=== PATIENT | male | born 1965 | race Caucasian/White ===

== ENCOUNTER 2019-04-06 12:39 | Emergency (ER) | payer MEDICAID, SELFPAY ==
[2019-04-06] VITALS (7 sets, daily range): BP systolic 152–219; BP diastolic 69–117; PULSE 66–79; RESP 13–20; TEMP 36.8–37.1; O2SAT 97–100; BMI 37.3
--- NOTE | 2019-04-06 13:08 | XR_ITS ---
WS: [id number] CHEST, 1 view. HISTORY: chest pain COMPARISON: 12/13/2018 Scattered granulomata. No pneumonia or suspicious mass. No pleural effusion or pneumothorax. Cardiac size: Normal. Mediastinum/Aorta: Normal mediastinum. No osseous abnormality seen. XR/XR chest 1V [id number] IMPRESSION: Stable chest with no acute cardiopulmonary disease.
--- NOTE | 2019-04-06 13:10 | ECG_ITS ---
Measurements Intervals [place] Rate: 70 P: 42 ND: 168 QRS: 25 QRSD: 93 T: 48 QT: 376 QTc: 406 SINUS RHYTHM Compared to ECG 12/14/2018 01:28:14 No significant changes Electronically Signed On 04-06-2019 19:21:42 SOAKERS SUPERVISOR by Maggie Traore M.D. [id number]
[2019-04-06 13:25] LABS: Basophils # 0.1 10^3/uL (0.0-0.1); Basophils % 0.5 %; Eosinophils # 0.2 10^3/uL (0.0-0.8); Eosinophils % 1.4 %; Hematocrit 44.7 % (42.0-52.0); Hemoglobin 14.9 g/dL (11.7-16.6); Lymphocytes # 2.9 10^3/uL (0.8-4.8); Lymphocytes % 26.7 %; Mean Corpuscular HGB Conc 33.3 g/dL (30.0-36.0); Mean Platelet Volume 9.8 fL (7.4-10.4); Monocytes # 0.9 10^3/uL (0.2-0.9); Monocytes % 8.4 %; Neutrophils # 6.7 10^3/uL (1.8-7.7); Neutrophils % 62.7 %; Nucleated Red Blood Cells % 0 %; Platelet Count 345 10^3/cmm (130-400); Red Blood Count 5.32 10^6/uL (4.1-5.3); Red Cell Distribution Width 12.6 % (12.1-15.1); White Blood Count 10.7 10^3/uL (4.0-10.0)
[2019-04-06 13:50] LABS: Alanine Aminotransferase 30 U/L (0-41); Albumin Level 4.4 g/dL (3.5-5.2); Alkaline Phosphatase 134 IU/L (40-130); Anion Gap 13.9 (5-19); Aspartate Amino Transferase 19 U/L (0-40); Blood Urea Nitrogen 7 mg/dL (6-20); Calcium 9.8 mg/Dl (8.6-10.0); Carbon Dioxide 28 mmol/L (22-29); Chloride 102 mmol/L (98-107); Globulin 3.2 g/dL (1.3-4.6); Glomerular Filtration Rate 87.9 mL/min (90-130); Glucose 117 mg/dL (74-109); Potassium 3.9 mmol/L (3.5-5.1); Sodium 140 mmol/L (136-145); Total Bilirubin 0.4 mg/dL (0.15-1.2); Total Protein 7.6 g/dL (6.6-8.7)
[2019-04-06 13:52] LABS: Troponin T (5th) Once 19 ng/mL (0-15)
--- NOTE | 2019-04-06 20:04 | ED_ITS ---
Entered by Lurdes Casanova, acting as scribe for Apr 06, 2019 12:39 HPI - Chest Pain General: Chief Complaint: Chest Pain Stated Complaint: Sent over from clinic possible heart attack Time Seen by Provider: 04/06/19 20:03 Source: patient and family Mode of arrival: ambulatory Limitations: no limitations History of Present Illness: HPI narrative: 54 yo male presents with chest pain and tightness. pt states this started 4 days ago. pt states he started having chest pain , while at PCP clinic they sent him here. pt has a recent stent in May. pt states he still has pain and it radiates to his L arm. MD complaint: chest pain and other (tightness) Onset (ago): day(s) (4 days ago) Timing of current episode: still present Prior episodes: Yes Onset: during exertion Pain location: substernal Pain radiation: left arm Quality: tightness Relieving factors: nothing Exacerbating factors: exertion Associated symptoms: Reports other (shortness of breath); Deny abdominal pain, dyspnea, fever(s), nausea or vomiting Treatment prior to arrival: none Review of Systems General: Reports: 10 or more systems reviewed and unremarkable except in HPI and below Const: Denies: fever or chills Eyes: Denies: change in vision ENMT: Denies: throat pain or mouth pain Card: Reports: chest pain Resp: Denies: shortness of breath GI: Denies: abdominal pain, nausea, vomiting or diarrhea Musc: Denies: back pain or joint pain Skin/Breast: Denies: rash Neuro: Denies: headache or behavioral changes Psych: Denies: depression Endo: Denies: excessive urination [place]/Lymph: Denies: easy bruising All/Imm: Denies: hives PFSH ED PFSH: Statuses (acute, chronic, etc) shown below reflect problem list status as previously entered and may not be historically accurate Social History Smoking and tobacco status: former smoker Physical Exam Const: COMMON NORMALS: no apparent distress and healthy appearing HENMT: COMMON NORMALS: normocephalic and external nose normal HEAD & SCALP: normocephalic NOSE: external nose normal and no nasal discharge (nasal dischage) Eye: COMMON NORMALS: PERRL PUPIL: Yes PERRL Neck/C-Spine: COMMON NORMALS: full ROM and no lymphadenopathy Chest: COMMONS NORMALS: inspection of chest normal Resp: COMMON NORMALS: normal respiratory effort and clear to auscultation bilaterally AUSCULTATION: clear to auscultation bilaterally Cardio: COMMON NORMALS: regular rate and regular rhythm RATE: regular rate RHYTHM: regular rhythm GI: COMMON NORMALS: soft to palpation PALPATION: Yes soft Extremity: COMMON NORMALS: normal to inspection, full ROM and normal capillary refill Psych: COMMON NORMALS: mental status grossly normal and cooperative Skin: COMMON NORMALS: no rashes or lesions noted GENERAL SKIN EXAM: no rashes or lesions noted Course Vital Signs: Vital signs: Vital Signs Temperature 98.8 F 04/06/19 20:28 Pulse Rate 68 04/06/19 23:52 Respiratory Rate 16 04/06/19 23:52 Blood Pressure 170/95 04/06/19 23:52 Pulse Oximetry 97 04/06/19 23:52 MDM - Chest Pain MDM Narrative: Medical decision making narrative: Patient presents here with chest pain that is atypical in nature. Repeat troponin is negative. Patient's been pain-free here and I feel he is stable for discharge. He is to follow-up with primary care doctor in 3 to 5 days and return to the ER if worsening. 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 Lab Data: Labs: Lab Results 04/06/19 04/06/19 04/06/19 Range/Units 13:17 13:17 13:17 WBC 10.7 H (4.0-10.0) 10^3/ uL RBC 5.32 H (4.1-5.3) 10^6/u L Hgb 14.9 (11.7-16.6) g/dL Hct 44.7 (42.0-52.0) % MCV 84.0 (80-94) fL MCH 28.0 (28.0-34.0) pg MCHC 33.3 (30.0-36.0) g/dL RDW 12.6 (12.1-15.1) % Plt Count 345 (130-400) 10^3/c mm MPV 9.8 (7.4-10.4) fL Neut % (Auto) 62.7 % Lymph % (Auto) 26.7 % [place] % (Auto) 8.4 % Eos % (Auto) 1.4 % Baso % (Auto) 0.5 % Neut # (Auto) 6.7 (1.8-7.7) 10^3/u L Lymph # (Auto) 2.9 (0.8-4.8) 10^3/u L [place] # (Auto) 0.9 (0.2-0.9) 10^3/u L Eos # (Auto) 0.2 (0.0-0.8) 10^3/u L Baso # (Auto) 0.1 (0.0-0.1) 10^3/u L Nucleated RBC % (a uto) 0 % Nucleated RBCs # 0.0 /100WBC Sodium 140 (136-145) mmol/L Potassium 3.9 (3.5-5.1) mmol/L Chloride 102 (98-107) mmol/L Carbon Dioxide 28 (22-29) mmol/L Anion Gap 13.9 (5-19) BUN 7 (6-20) mg/dL Creatinine 0.9 (0.7-1.2) mg/dL GFR Calculation 87.9 L (90-130) mL/min Glucose 117 H (74-109) mg/dL Calcium 9.8 (8.6-10.0) mg/Dl Total Bilirubin 0.4 (0.15-1.2) mg/dL AST 19 (0-40) U/L ALT 30 (0-41) U/L Alkaline Phosphata se 134 H (40-130) IU/L Troponin T Gen 5 n g/L 19 H (0-15) ng/mL Troponin T Baselin e (0-15) ng/mL Troponin T 120 Min [place] (0-15) ng/mL Total Protein 7.6 (6.6-8.7) g/dL Albumin 4.4 (3.5-5.2) g/dL Globulin 3.2 (1.3-4.6) g/dL 04/06/19 04/06/19 Range/Units 21:15 23:00 WBC (4.0-10.0) 10^3/ uL RBC (4.1-5.3) 10^6/u L Hgb (11.7-16.6) g/dL Hct (42.0-52.0) % MCV (80-94) fL MCH (28.0-34.0) pg MCHC (30.0-36.0) g/dL RDW (12.1-15.1) % Plt Count (130-400) 10^3/c mm MPV (7.4-10.4) fL Neut % (Auto) % Lymph % (Auto) % [place] % (Auto) % Eos % (Auto) % Baso % (Auto) % Neut # (Auto) (1.8-7.7) 10^3/u L Lymph # (Auto) (0.8-4.8) 10^3/u L [place] # (Auto) (0.2-0.9) 10^3/u L Eos # (Auto) (0.0-0.8) 10^3/u L Baso # (Auto) (0.0-0.1) 10^3/u L Nucleated RBC % (a uto) % Nucleated RBCs # /100WBC Sodium (136-145) mmol/L Potassium (3.5-5.1) mmol/L Chloride (98-107) mmol/L Carbon Dioxide (22-29) mmol/L Anion Gap (5-19) BUN (6-20) mg/dL Creatinine (0.7-1.2) mg/dL GFR Calculation (90-130) mL/min Glucose (74-109) mg/dL Calcium (8.6-10.0) mg/Dl Total Bilirubin (0.15-1.2) mg/dL AST (0-40) U/L ALT (0-41) U/L Alkaline Phosphata se (40-130) IU/L Troponin T Gen 5 n g/L (0-15) ng/mL Troponin T Baselin e 25 H (0-15) ng/mL Troponin T 120 Min [place] 22.57 H (0-15) ng/mL Total Protein (6.6-8.7) g/dL Albumin (3.5-5.2) g/dL Globulin (1.3-4.6) g/dL Imaging Data^: CXR: Attestation: I personally reviewed and interpreted this imaging study as follows: My impression: nad EKG Data^: EKG 1: EKG interpretation date: 04/06/19 EKG interpretation time: 13:04 Interpretation: nsr hr [address] or t wave abnormalities EKG 2: Attestation: I personally reviewed and interpreted this EKG as follows: EKG interpretation date: 04/06/19 EKG interpretation time: 21:46 Interpretation: Normal sinus rhythm heart rate [address] or T wave abnormalities Discharge Plan Discharge Patient Disposition: Home, Self-Care Clinical Impression: Hypertension Chest pain Qualifiers: Chest pain type: unspecified Qualified Code(s): R07.9 - Chest pain, unspecified Condition: Stable Prescriptions: New hydrochlorothiazide 50 mg tablet 50 mg PO DAILY Qty: 30 RF: 0 No Action atorvastatin 40 mg Tablet 40 mg PO DAILY RF: 0 metformin 500 mg Tablet 500 mg PO BID RF: 0 gabapentin 600 mg Tablet 1,200 mg PO TID PRN (Reason: NERVE PAIN) RF: 0 Lantus U-100 Insulin 100 unit/mL Solution See Rx Instructions .ROUTE .COMPLEX RF: 0 meloxicam 15 mg Tablet 15 mg PO DAILY RF: 0 Plavix 75 mg Tablet 75 mg PO DAILY RF: 0 amitriptyline 50 mg Tablet 50 mg PO BEDTIME RF: 0 Nitrostat 0.4 mg Tablet, Sublingual 0.4 mg SUBLINGUAL Q5M PRN (Reason: Chest Pain) RF: 0 aspirin 81 mg Tablet,Chewable 81 mg PO DAILY RF: 0 montelukast 10 mg Tablet 10 mg PO DAILY RF: 0 hydrochlorothiazide 25 mg Tablet 25 mg PO DAILY RF: 0 Paxil 40 mg Tablet 40 mg PO DAILY RF: 0 lisinopril 40 mg Tablet 40 mg PO BID RF: 0 omeprazole 20 mg Tablet,Delayed Release (Dr/Ec) 20 mg PO DAILY RF: 0 Discharge Orders: Discharge Order (Routine); Ordered 04/06/19 Ordered By: Constance Wright Referrals: Niesha Hinds [Primary Care Provider] - 4-7 days Discharge Diet: Advance as tolerated Discharge Activity: Resume usual activity Patient Instructions: Chest Pain (ED) Discharge Date/Time: 04/06/19 23:57 Coding Level of Care Code ED Database Marketing Specialist for Chg Fwd Exam Problem Focused The documentation recorded by the Edilberto stuart Bridget Annette, accurately reflects the service I personally performed and the decisions made by Adriana crockett Korby, MD Apr 06, 2019 12:39
--- NOTE | 2019-04-06 20:27 | PC.NURSE ---
Pt visited [facility] this morning and had elevated BP, told to come to ER. Pt having chest pain at present. Pt appears NAD. A&O x 4, AUBRIE.
[2019-04-06] MEDS: aspirin 81 mg Chew Tablet 324 MG PO (20:44)
[2019-04-06] MEDS: nitroglycerin 0.4 mg sublingual Tablet SUBLINGUAL (20:45)
--- NOTE | 2019-04-06 21:09 | ECG_ITS ---
Measurements Intervals [place] Rate: 66 P: 72 NV: 168 QRS: 26 QRSD: 89 T: 48 QT: 390 QTc: 411 SINUS RHYTHM POSSIBLE ANTERIOR MYOCARDIAL INFARCTION , OF INDETERMINATE AGE [30 ms Q WAVE IN V3 V3/V4, OR R < 0.2 mV IN V4] Compared to ECG 04/06/2019 13:04:48 Myocardial infarct finding now present Electronically Signed On 04-07-2019 8:08:16 ENDBANDER by Abdoul Traore M.D. [id number] f
[2019-04-06 21:35] LABS: Troponin(5th) Baseline 25 ng/mL (0-15)
--- NOTE | 2019-04-06 23:09 | ECG_ITS ---
Measurements Intervals [place] Rate: 64 P: 68 CO: 175 QRS: 38 QRSD: 86 T: 49 QT: 399 QTc: 413 SINUS RHYTHM POSSIBLE ANTERIOR MYOCARDIAL INFARCTION , OF INDETERMINATE AGE [30 ms Q WAVE IN V3/V4, OR R < 0.2 mV IN V4] Compared to ECG 04/06/2019 13:04:48 Myocardial infarct finding now present Electronically Signed On 04-07-2019 8:09:45 COMPENSATION AND HRIS ANALYST by Abdoul Traore M.D. [id number]
[2019-04-06 23:26] LABS: Troponin 5 2HR 22.57 ng/mL (0-15)
[2019-04-07 00:09] LABS: Troponin 5 2HR Delta -2.43 ABS# (0-10)
== END 2019-04-06 23:57 | disposition home or self-care (01) ==
PROVIDERS: Family Medicine; Emergency Provider Emergency Medicine; Family Provider Internal Medicine; PCP Internal Medicine
DX: R07.9 Chest pain, unspecified (principal); I10 Essential (primary) hypertension; Z79.4 Long term (current) use of insulin; Z79.02 Long term (current) use of antithrombotics/antiplatelets; Z79.82 Long term (current) use of aspirin; Z87.891 Personal history of nicotine dependence
CPT/HCPCS: 36415; 71045; 80053; 84484; 85025; 93005; 99282

== ENCOUNTER 2019-05-24 08:38 | Outpatient (CLI) | payer MEDICAID, SELFPAY ==
--- NOTE | 2019-05-24 08:56 | XR_ITS ---
WS: [id number] LATERAL LUMBAR SPINE: 3 view. Lateral radiographs are performed in upright neutral, flexion and extension to the patient's toleranc e. HISTORY: Low back pain COMPARISON: None available. Posterior lumbar alignment is normal. Mild endplate osteophytes from L3 L5. No fracture. With flexion and extension no change in alignment of the vertebral bodies. XR/XR lumbar spine f/e only [id number] IMPRESSION: 1. No lumbar spine instability. 2. No fracture.
== END 2019-05-24 08:39 | disposition home or self-care (01) ==
PROVIDERS: Family Provider Internal Medicine; PCP Internal Medicine; Visit Provider Licensed Practical Nurse
DX: M51.17 Intervertebral disc disorders with radiculopathy, lumbosacral region (principal)
CPT/HCPCS: 72120

== ENCOUNTER 2019-11-30 12:01 | Inpatient (IN) | payer MEDICAID, SELFPAY ==
[2019-11-30] VITALS (16 sets, daily range): BP systolic 112–177; BP diastolic 74–97; PULSE 73–102; RESP 14–20; TEMP 36.4–37.2; O2SAT 90–99; BMI 31.1
--- NOTE | 2019-11-30 12:23 | ECG_ITS ---
[facility] Test Date: 2019-11-30 Pat Name: Raheel Lam Department: Room: Gender: Male Business Analyst Consultant: : 1965 Requested By: Maria Luisa Holland Order Number: [id number] Kane MD: Kaila Ariza M.D. Measurements Intervals [place] Rate: 87 P: 79 MI: 154 QRS: -5 QRSD: 100 T: 10 QT: 356 QTc: 430 Interpretive Statements SINUS RHYTHM POSSIBLE INFERIOR SC, OF INDETERMINATE AGE Compared to ECG 04/06/2019 22:33:52 Myocardial infarct finding no longer present Electronically Signed On 11-30-2019 20:38:13 CDT by Kaila Ariza M.D. [id number] f
--- NOTE | 2019-11-30 12:23 | XRR_ITS ---
PROCEDURE INFORMATION: Exam: XR Chest, 1 View Exam date and time: 11/30/2019 12:41 PM Age: 54 years old Clinical indication: Pain; Shortness of breath; Other: Abinal; Additional info: Abdominal pain x 3 months TECHNIQUE: Imaging protocol: XR of the chest Views: 1 view. COMPARISON: CR XR chest 1V [id number] 04/06/2019 1:22 PM FINDINGS: Lungs: Hyperinflation, without acute airspace disease. Pleural space: No pleural effusion. Heart/Mediastinum: No cardiomegaly. Bones/joints: Unremarkable. XR/XR chest 1V portable [id number] IMPRESSION: Hyperinflation, without acute airspace or pleural disease.
--- NOTE | 2019-11-30 12:32 | ED_ITS ---
HPI - Recheck/Abnormal Lab/Rx General: Chief Complaint: Recheck/Abnormal Lab/Rx Stated Complaint: abnormal labs Time Seen by Provider: 11/30/19 12:22 Source: patient and family Mode of arrival: ambulatory Limitations: no limitations History of Present Illness: HPI narrative: Mr. Lam is a very nice 54-year-old male who comes in complaining of 3 months of abdominal pain along with nausea and vomiting. Patient states that markedly diminishes his appetite to the point he does not want to eat or drink anything. He states drinking milk will help calm his stomach and take care of the nausea and pain for short time but then it will return. He does get occasional diarrhea with this but not constantly. He denies any fevers or chills but he does have occasional dysuria. He denies any flank pain. Patient went to his primary care physician yesterday to check his blood sugar as he has diabetes and was called this morning stating that his labs were significantly abnormal including an elevated white blood cell count and elevated blood sugar and he needed to come to the ER to get evaluated. Patient states nothing is changed for him since that time. He still feels adela seated and has epigastric pain. Denies any chest pain but does have his baseline shortness of breath which is been present for quite some time according to him. Other than the milk nothing makes his symptoms better or worse. Review of Systems Const: Reports: change in appetite, fatigue and malaise; Denies: fever(s), chills, body aches or diaphoresis Eyes: Denies: change in vision, blurry vision, photophobia, eye discomfort, eye discharge or eye redness ENMT: Denies: throat pain, odynophagia, hoarseness, swelling of lips/tongue, ear or mastoid pain, ear discharge, change in hearing or nasal discharge Card: Denies: chest pain, palpitations, irregular heart rhythm, edema, lightheadedness, syncope, pre-syncope, dyspnea on exertion or orthopnea Resp: Reports: dyspnea; Denies: productive cough, non-productive cough, wheezing, hemoptysis or chest congestion GI: Reports: abdominal pain, nausea and vomiting; Denies: hematemesis, coffee ground emesis, heartburn, diarrhea, constipation, GI cramping, hematochezia or melena : Denies: flank pain, urinary frequency, urinary urgency or hematuria Musc: Denies: neck pain, back pain, extremity pain, extremity swelling, joint pain, joint swelling, joint redness, joint warmth or joint stiffness Skin/Breast: Denies: rash, pruritus, erythema or skin tenderness Neuro: Denies: headache(s), numbness in extremities, weakness in extremities, sensory changes, lack of coordination, difficulty walking, dizziness, vertigo, confusion, Slurred speech present or seizure-like activity [place]/Lymph: Denies: easy bruising, easy bleeding, petechiae, purpura or enlarged lymph nodes All/Imm: Denies: urticaria, throat swelling, tongue swelling, facial swelling or acute wheezing PFSH ED PFSH: Medical History Anxiety CAD (coronary artery disease) Chronic back pain greater than 3 months duration Diabetes Dyslipidemia Intervertebral disc disorder with radiculopathy of lumbosacral region Palpitations Surgical History S/P coronary artery stent placement 10/20/2018 Family History Mother Heart disease COPD (chronic obstructive pulmonary disease) Father Hypertension Grandmother Cancer Social History Smoking and tobacco status: former smoker Alcohol intake: former Substance/Drug Use: never Lives independently: Yes Household members: none Marital status: Current occupational status: disabled Current occupation: filed for disability History of recent travel: No Physical Exam Const: COMMON NORMALS: no acute distress, patient oriented x3, no limitations, healthy appearing and well nourished GENERAL APPEARANCE: cooperative, well kempt and well developed HENMT: COMMON NORMALS: normocephalic, atraumatic, external ears normal, EAC's normal and Normal external nose present HEAD & SCALP: normal to inspection, normocephalic and atraumatic FACE & SINUS: normal facial exam and face symmetric NOSE: Normal external nose present and Normal nares present EXTERNAL EAR: Yes external ears normal EXTERNAL AUDITORY CANAL: EAC's normal MOUTH: Normal oral and palatal mucosa present, lip normal and tongue normal Eye: COMMON NORMALS: Equal, round and reactive pupils present and conjunctivae normal GENERAL EYE: appearance normal, both eyes and all related structures ALIGNMENT: Yes alignment normal PERIORBITAL: periorbital findings normal EYELID: eyelids normal CONJUNCTIVA: Yes conjunctivae normal SCLERA: sclerae normal PUPIL: Yes Equal, round and reactive pupils present Neck/C-Spine: COMMON NORMALS: full ROM, no lymphadenopathy, supple, no meningeal signs and no JVD GENERAL: Yes normal visual inspection and Yes trachea midline Chest: COMMONS NORMALS: normal inspection of the chest and normal palpation of entire chest wall Resp: COMMON NORMALS: normal respiratory effort, No retractions, No use of accessory muscles and clear to auscultation bilaterally EFFORT & INSPECTION: Yes able to speak in complete sentences and Yes symmetric chest movement AUSCULTATION: clear to auscultation bilaterally, no crackles, no rales, no rhonchi and no wheezes Cardio: COMMON NORMALS: no JVD, regular rate, regular rhythm, S1 normal heart sound present and S2 normal heart sound present RATE: regular rate RHYTHM: regular rhythm HEART SOUNDS: S1 normal heart sound present, S2 normal heart sound present, no click, no gallops, no murmurs, no rubs and abnormal split S2 GI: COMMON NORMALS: Soft to palpation and No hepatosplenomegaly present PALPATION: Yes Soft to palpation, Yes Tenderness to palpation present (GI) (Epigastric and right upper quadrant, mild) Details: RUQ, No Guarding due to palpation present (GI), No Rigid due to palpation, Yes No hepatosplenomegaly present, No Hernia present, No Palpable mass present and No Pulsatile mass present : COMMON NORMALS: Yes no CVA tenderness BLADDER/KIDNEY EXAM: Yes no CVA tenderness Back/Pelvis: COMMON NORMALS: no CVA tenderness, thoracic and lumbar spine normal to inspection, no thoracic nor lumbar tenderness and thoraco-lumbar ROM normal Extremity: COMMON NORMALS: normal to inspection, full ROM, capillary refill normal, no joint enlargement, no clubbing, cyanosis or edema and no calf tenderness Neuro: COMMON NORMALS: patient oriented x3, CN's II-XII intact bilaterally, moves all extremities, no focal motor deficits and no sensory deficits noted MENINGEAL SIGNS: Yes no meningeal signs SPEECH: speech normal Psych: COMMON NORMALS: mental status grossly normal, Normal thought process present, cooperative, normal affect, speech normal and activity/motor behavior normal APPEARANCE: Yes well kempt SPEECH: Yes normal speech THOUGHT PROCESS: Normal thought process present Skin: COMMON NORMALS: no rashes or lesions noted, turgor normal, no jaundice, no petechiae and no mottling GENERAL SKIN EXAM: no rashes or lesions noted and turgor normal Course Vital Signs: Vital signs: Vital Signs Temperature 99 F 11/30/19 15:30 Pulse Rate 85 11/30/19 19:00 Respiratory Rate 18 11/30/19 19:48 Blood Pressure 142/84 11/30/19 19:00 Pulse Oximetry 95 11/30/19 19:48 MDM - Recheck/Abnormal Lab/Rx MDM Narrative: Medical decision making narrative: Mr. Lam is a nice 54-year-old male who comes in complaining of vomiting and abdominal pain. Patient symptoms have been going on for 3 months. On today's evaluation he was found to have an anion gap acidosis with ketosis although his ABG shows a normal pH. This likely he has gastroparesis or gallbladder dysfunction not seen by ultrasound. He will need to come into the hospital on insulin drip to close his anion gap and bring his blood sugar back to normal. Patient shows no sign of acute cardiac problems. Chest x-ray is unremarkable. I have reviewed the case in full with Dr. Ji she agrees to admit to the ICU. Lab Data: Attestation: I reviewed the patient's lab results. Labs: Lab Results 11/30/19 11/30/19 11/30/19 Range/Units 12:30 12:30 12:30 WBC 18.3 H (4.0-10.0) 10^3/ uL RBC 4.80 (4.1-5.3) 10^6/u L Hgb 12.9 (11.7-16.6) g/dL Hct 39.3 L (42.0-52.0) % MCV 81.9 (80-94) fL MCH 26.9 L (28.0-34.0) pg MCHC 32.8 (30.0-36.0) g/dL RDW 12.5 (12.1-15.1) % Plt Count 531 H (130-400) 10^3/c mm MPV 10.0 (7.4-10.4) fL Neut % (Auto) 79.4 % Lymph % (Auto) 13.0 % [place] % (Auto) 6.5 % Eos % (Auto) 0.1 % Baso % (Auto) 0.3 % Neut # (Auto) 14.52 H (1.8-7.7) 10^3/u L Lymph # (Auto) 2.4 (0.8-4.8) 10^3/u L [place] # (Auto) 1.2 H (0.2-0.9) 10^3/u L Eos # (Auto) 0.0 (0.0-0.8) 10^3/u L Baso # (Auto) 0.1 (0.0-0.1) 10^3/u L Nucleated RBC % (a uto) 0 % Nucleated RBCs # 0.0 /100WBC PT 12.70 (12.1-14.9) SECO NDS INR 0.92 (0.8-1.2) Specimen Type Sample Site ABG pH (7.35-7.45) ABG pCO2 (35-45) mmHg ABG pO2 (80.0-100.0) mmH g ABG HCO3 (22-26) mmol/L ABG O2 Saturation ABG Base Excess (-2.0-2.0) mmol/ L Cresencio Test A-a O2 Gradient (5-10) mmHg Hematocrit (42-52) % Hgb O2 Saturation (95-100) % Carboxyhemoglobin (0.4-20.1) %THgb Methemoglobin (0.4-1.5) % Total Hemoglobin (14-18) g/dL Ionized Calcium (1.1-1.4) mmol/L O2 Delivery Device FiO2 % Administrative Court Justice ID Sodium 122 L (136-145) mmol/L Potassium 4.8 (3.5-5.1) mmol/L Chloride 85 L (98-107) mmol/L Carbon Dioxide 18 L (22-29) mmol/L Anion Gap 23.8 H (5-19) BUN 29 H (6-20) mg/dL Creatinine 1.2 (0.7-1.2) mg/dL GFR Calculation 63.1 L (90-130) mL/min Glucose 662 H* (65-115) mg/dL POC Glucose (70-110) mg/dL Calculated Osmolal ity 282 L (285-295) mOsm/k g Lactic Acid (0.5-2.2) mmol/L Calcium 9.5 (8.5-10.5) mg/dL Magnesium 2.1 (1.7-2.3) mg/dL Total Bilirubin 0.3 (0.15-1.2) mg/dL AST 6 (0-40) U/L ALT 7 (0-41) U/L Alkaline Phosphata se 188 H (40-130) IU/L Creatine Kinase 39 (39-308) U/L Troponin T Baselin e (0-15) ng/L Total Protein 8.4 (6.6-8.7) g/dL Albumin 3.5 (3.5-5.2) g/dL Globulin 4.9 H (1.3-4.6) g/dL Lipase 58 (13-60) U/L Urine Color (Yellow) Urine Appearance (CLEAR) Urine pH (5-7) Ur Specific Gravit y (1.005-1.030) Urine Protein (Negative) Urine Glucose (UA) (Normal) Urine Ketones (Negative) Urine Blood (Negative) Urine Nitrate (Negative) Urine Bilirubin (NEGATIVE) Urine Urobilinogen (Negative) mg/dL Ur Leukocyte Cathy ase (Negative) Urine RBC (0-2) /hpf Urine WBC (0-5) /hpf Ur Squamous Epith Cells (0-5) Calcium Oxalate Cr ystal /hpf Amorphous Sediment Urine Bacteria (NONE) Hyaline Casts Serum Ketones Positive H (Negative) H. pylori IgG Anti body (Negative) 11/30/19 11/30/19 11/30/19 Range/Units 12:30 12:30 12:30 WBC (4.0-10.0) 10^3/ uL RBC (4.1-5.3) 10^6/u L Hgb (11.7-16.6) g/dL Hct (42.0-52.0) % MCV (80-94) fL MCH (28.0-34.0) pg MCHC (30.0-36.0) g/dL RDW (12.1-15.1) % Plt Count (130-400) 10^3/c mm MPV (7.4-10.4) fL Neut % (Auto) % Lymph % (Auto) % [place] % (Auto) % Eos % (Auto) % Baso % (Auto) % Neut # (Auto) (1.8-7.7) 10^3/u L Lymph # (Auto) (0.8-4.8) 10^3/u L [place] # (Auto) (0.2-0.9) 10^3/u L Eos # (Auto) (0.0-0.8) 10^3/u L Baso # (Auto) (0.0-0.1) 10^3/u L Nucleated RBC % (a uto) % Nucleated RBCs # /100WBC PT (12.1-14.9) SECO NDS INR (0.8-1.2) Specimen Type Sample Site ABG pH (7.35-7.45) ABG pCO2 (35-45) mmHg ABG pO2 (80.0-100.0) mmH g ABG HCO3 (22-26) mmol/L ABG O2 Saturation ABG Base Excess (-2.0-2.0) mmol/ L Cresencio Test A-a O2 Gradient (5-10) mmHg Hematocrit (42-52) % Hgb O2 Saturation (95-100) % Carboxyhemoglobin (0.4-20.1) %THgb Methemoglobin (0.4-1.5) % Total Hemoglobin (14-18) g/dL Ionized Calcium (1.1-1.4) mmol/L O2 Delivery Device FiO2 % Administrative Court Justice ID Sodium (136-145) mmol/L Potassium (3.5-5.1) mmol/L Chloride (98-107) mmol/L Carbon Dioxide (22-29) mmol/L Anion Gap (5-19) BUN (6-20) mg/dL Creatinine (0.7-1.2) mg/dL GFR Calculation (90-130) mL/min Glucose (65-115) mg/dL POC Glucose (70-110) mg/dL Calculated Osmolal ity (285-295) mOsm/k g Lactic Acid 1.2 (0.5-2.2) mmol/L Calcium (8.5-10.5) mg/dL Magnesium (1.7-2.3) mg/dL Total Bilirubin (0.15-1.2) mg/dL AST (0-40) U/L ALT (0-41) U/L Alkaline Phosphata se (40-130) IU/L Creatine Kinase (39-308) U/L Troponin T Baselin e 21 H (0-15) ng/L Total Protein (6.6-8.7) g/dL Albumin (3.5-5.2) g/dL Globulin (1.3-4.6) g/dL Lipase (13-60) U/L Urine Color Yellow (Yellow) Urine Appearance Hazy A (CLEAR) Urine pH 5 (5-7) Ur Specific Gravit y 1.010 (1.005-1.030) Urine Protein Neg (Negative) Urine Glucose (UA) 4+ H (Normal) Urine Ketones 2+ H (Negative) Urine Blood Trace H (Negative) Urine Nitrate Negative (Negative) Urine Bilirubin Neg (NEGATIVE) Urine Urobilinogen Norm (Negative) mg/dL Ur Leukocyte Cathy ase Negative (Negative) Urine RBC 0-4 H (0-2) /hpf Urine WBC 55-80 H (0-5) /hpf Ur Squamous Epith Cells 0-4 H (0-5) Calcium Oxalate Cr ystal None /hpf Amorphous Sediment Not Reportable Urine Bacteria Trace (NONE) Hyaline Casts 0-4 H Serum Ketones (Negative) H. pylori IgG Anti body (Negative) 11/30/19 11/30/19 11/30/19 Range/Units 12:30 12:37 12:46 WBC (4.0-10.0) 10^3/ uL RBC (4.1-5.3) 10^6/u L Hgb (11.7-16.6) g/dL Hct (42.0-52.0) % MCV (80-94) fL MCH (28.0-34.0) pg MCHC (30.0-36.0) g/dL RDW (12.1-15.1) % Plt Count (130-400) 10^3/c mm MPV (7.4-10.4) fL Neut % (Auto) % Lymph % (Auto) % [place] % (Auto) % Eos % (Auto) % Baso % (Auto) % Neut # (Auto) (1.8-7.7) 10^3/u L Lymph # (Auto) (0.8-4.8) 10^3/u L [place] # (Auto) (0.2-0.9) 10^3/u L Eos # (Auto) (0.0-0.8) 10^3/u L Baso # (Auto) (0.0-0.1) 10^3/u L Nucleated RBC % (a uto) % Nucleated RBCs # /100WBC PT (12.1-14.9) SECO NDS INR (0.8-1.2) Specimen Type Arterial Sample Site Radial, left ABG pH 7.40 (7.35-7.45) ABG pCO2 30.5 L (35-45) mmHg ABG pO2 88.5 (80.0-100.0) mmH g ABG HCO3 18.7 L (22-26) mmol/L ABG O2 Saturation 97.4 ABG Base Excess -5.1 L (-2.0-2.0) mmol/ L Cresencio Test Pos A-a O2 Gradient 2.8 L (5-10) mmHg Hematocrit 40.2 L (42-52) % Hgb O2 Saturation 95.5 (95-100) % Carboxyhemoglobin 1.2 (0.4-20.1) %THgb Methemoglobin 0.8 (0.4-1.5) % Total Hemoglobin 13.1 L (14-18) g/dL Ionized Calcium 1.3 (1.1-1.4) mmol/L O2 Delivery Device Room air FiO2 21.0 % Administrative Court Justice ID Amh Sodium 124.0 L (136-145) mmol/L Potassium 4.5 (3.5-5.1) mmol/L Chloride (98-107) mmol/L Carbon Dioxide (22-29) mmol/L Anion Gap (5-19) BUN (6-20) mg/dL Creatinine (0.7-1.2) mg/dL GFR Calculation (90-130) mL/min Glucose 626.0 H (65-115) mg/dL POC Glucose 562 (70-110) mg/dL Calculated Osmolal ity (285-295) mOsm/k g Lactic Acid (0.5-2.2) mmol/L Calcium (8.5-10.5) mg/dL Magnesium (1.7-2.3) mg/dL Total Bilirubin (0.15-1.2) mg/dL AST (0-40) U/L ALT (0-41) U/L Alkaline Phosphata se (40-130) IU/L Creatine Kinase (39-308) U/L Troponin T Baselin e (0-15) ng/L Total Protein (6.6-8.7) g/dL Albumin (3.5-5.2) g/dL Globulin (1.3-4.6) g/dL Lipase (13-60) U/L Urine Color (Yellow) Urine Appearance (CLEAR) Urine pH (5-7) Ur Specific Gravit y (1.005-1.030) Urine Protein (Negative) Urine Glucose (UA) (Normal) Urine Ketones (Negative) Urine Blood (Negative) Urine Nitrate (Negative) Urine Bilirubin (NEGATIVE) Urine Urobilinogen (Negative) mg/dL Ur Leukocyte Cathy ase (Negative) Urine RBC (0-2) /hpf Urine WBC (0-5) /hpf Ur Squamous Epith Cells (0-5) Calcium Oxalate Cr ystal /hpf Amorphous Sediment Urine Bacteria (NONE) Hyaline Casts Serum Ketones (Negative) H. pylori IgG Anti body Negative (Negative) Imaging Data^: CXR: Attestation: I personally reviewed and interpreted this imaging study as follows: My impression: No acute cardiopulmonary findings. US: Radiologist's impression: [place] [address] Ultrasound Report Signed Patient: Raheel Lam Unit #: [id number] : 1965 Age/Sex: 54 / M ADM Date: 11/30/19 Loc: ER Room/Bed: Attending Dr: Ordering Provider/Ordering MD: Maria Luisa Valdivia DO Date of Service: 11/30/19 Procedure(s): US gall bladder 31910 Accession Number(s): [id number] Report Number: [id number] WS: [id number] RIGHT UPPER QUADRANT ULTRASOUND HISTORY: Abdominal Pain COMPARISON: None available. Liver: 16.6 cm in length. Mild steatosis. No mass or intrahepatic dilatation. Gallbladder: Normally distended gallbladder with no stones or wall thickening. CBD: 0.4 cm Pancreas: Normal size and echogenicity. Right kidney: 11.1 cm in length. Normal size and echogenicity. No mass or hydronephrosis. Aorta and IVC: Unremarkable abdominal aorta and IVC. No ascites. US/US gall bladder [id number] IMPRESSION: Very mild hepatic steatosis. Negative gallbladder. Dictated By: Kristy Miles DO Signed By: Kristy Miles DO Signed Date/Time: 11/30/191328 DD/ 28 EKG Data^: EKG 1: EKG interpretation date: 11/30/19 EKG interpretation time: 13:39 Interpretation: Normal sinus rhythm at 87 beats a minute, no acute ST-T wave changes. No blocks, normal intervals. Discharge Plan Discharge Patient Disposition: Admitted As Inpatient Admit Provider: Angelique Ji Clinical Impression: Diabetic keto-acidosis Qualifiers: Diabetes mellitus type: type 1 Diabetes mellitus complication detail: without coma Qualified Code(s): E10.10 - Type 1 diabetes mellitus with ketoacidosis without coma Abdominal pain Qualifiers: Abdominal location: upper abdomen, unspecified Qualified Code(s): R10.10 - Upper abdominal pain, unspecified Vomiting Qualifiers: Vomiting type: unspecified Vomiting Intractability: non-intractable Nausea presence: with nausea Qualified Code(s): R11.2 - Nausea with vomiting, unspecified Condition: Stable Referrals: Niesha Hinds [Primary Care Provider] - Discharge Date/Time: 11/30/19 15:05 Coding Level of Care Code ED [employer] for Chg Fwd Exam Comprehensive
--- NOTE | 2019-11-30 12:41 | US_ITS ---
WS: [id number] RIGHT UPPER QUADRANT ULTRASOUND HISTORY: Abdominal Pain COMPARISON: None available. Liver: 16.6 cm in length. Mild steatosis. No mass or intrahepatic dilatation. Gallbladder: Normally distended gallbladder with no stones or wall thickening. CBD: 0.4 cm Pancreas: Normal size and echogenicity. Right kidney: 11.1 cm in length. Normal size and echogenicity. No mass or hydronephrosis. Aorta and IVC: Unremarkable abdominal aorta and IVC. No ascites. US/US gall bladder [id number] IMPRESSION: Very mild hepatic steatosis. Negative gallbladder.
[2019-11-30 12:45] LABS: Basophils # 0.1 10^3/uL (0.0-0.1); Basophils % 0.3 %; Eosinophils % 0.1 %; Hematocrit 39.3 % (42.0-52.0); Hemoglobin 12.9 g/dL (11.7-16.6); Lymphocytes # 2.4 10^3/uL (0.8-4.8); Mean Corpuscular HGB Conc 32.8 g/dL (30.0-36.0); Mean Corpuscular Hemoglobin 26.9 pg (28.0-34.0); Mean Corpuscular Volume 81.9 fL (80-94); Monocytes # 1.2 10^3/uL (0.2-0.9); Monocytes % 6.5 %; Neutrophils # 14.52 10^3/uL (1.8-7.7); Neutrophils % 79.4 %; Nucleated Red Blood Cells % 0 %; Platelet Count 531 10^3/cmm (130-400); Red Cell Distribution Width 12.5 % (12.1-15.1); White Blood Count 18.3 10^3/uL (4.0-10.0)
[2019-11-30 12:48] LABS: ABG PCO2 30.5 mmHg (35-45); Alveolar-Arterial Oxygen Gradi 2.8 mmHg (5-10); Arterial Blood Gas Hematocrit 40.2 % (42-52); Base Excess ABG -5.1 mmol/L (-2.0-2.0); Blood Gas Allen Test Pos; Blood Gas Operator Identificat AMH; Blood Gas Sample Site Radial, left; Blood Gas Sample Type Arterial; Carboxyhemoglobin 1.2 %THgb (0.4-20.1); HCO3 ABG 18.7 mmol/L (22-26); HGB O2 Sat 95.5 % (95-100); Ionized Calcium Level - ABG 1.3 mmol/L (1.1-1.4); Methemoglobin 0.8 % (0.4-1.5); Oxygen Device ROOM AIR; Oxygen Saturation ABG 97.4; PO2 ABG 88.5 mmHg (80.0-100.0); Potassium Level - ABG 4.5 mmol/L (3.5-5.0); Total Hemoglobin 13.1 g/dL (14-18)
[2019-11-30 12:49] LABS: Glucose Point of Care 562 mg/dL (70-110)
[2019-11-30 12:56] LABS: Add Urine Microscopic? YES; Bilirubin Urine Neg (NEGATIVE); Blood Urine Trace (Negative); Glucose Urine UA 4+ (Normal); Ketones Urine 2+ (Negative); Leukocyte Esterase Urine Negative (Negative); Nitrate Urine Negative (Negative); Protein Urine Neg (Negative); Urine Appearance Hazy (CLEAR); Urine Color Yellow (Yellow); Urobilinogen Urine Norm (Negative); pH Urine 5 (5-7)
[2019-11-30] MEDS: ondansetron 2 mg/ML SDV 2 mL 4 MG IVP ×3 (12:56→21:27)
[2019-11-30] MEDS: sodium chloride 0.9% 1,000 ML 999 ML IV ×2 (12:57→14:52)
[2019-11-30 12:59] LABS: INR 0.92 (0.8-1.2); RBC Urine 0-4 /hpf (0-2)
[2019-11-30 13:01] LABS: Ketone (Acetest) Serum Positive (Negative)
[2019-11-30 13:05] LABS: Alanine Aminotransferase 7 U/L (0-41); Albumin Level 3.5 g/dL (3.5-5.2); Alkaline Phosphatase 188 IU/L (40-130); Anion Gap 23.8 (5-19); Aspartate Amino Transferase 6 U/L (0-40); Blood Urea Nitrogen 29 mg/dL (6-20); Calcium 9.5 mg/dL (8.5-10.5); Carbon Dioxide 18 mmol/L (22-29); Chloride 85 mmol/L (98-107); Creatine Phosphokinase 39 U/L (39-308); Globulin 4.9 g/dL (1.3-4.6); Glomerular Filtration Rate 63.1 mL/min (90-130); Lipase 58 U/L (13-60); Magnesium 2.1 mg/dL (1.7-2.3); Osmolality Calculated 282 mOsm/kg (285-295); Potassium 4.8 mmol/L (3.5-5.1); Sodium 122 mmol/L (136-145); Squamous Epithelial Cell Urine 0-4 (0-5); Total Bilirubin 0.3 mg/dL (0.15-1.2); Total Protein 8.4 g/dL (6.6-8.7); WBC Urine 55-80 /hpf (0-5)
[2019-11-30 13:06] LABS: Lactic Sepsis W/Reflex 1.2 mmol/L (0.5-2.2)
[2019-11-30 13:07] LABS: Bacteria Urine TRACE; Troponin(5th) Baseline 21 ng/L (0-15)
[2019-11-30 13:08] LABS: Add Urine Culture? No; Hyaline Casts Urine 0-4
[2019-11-30 13:15] LABS: H. Pylori IgG Antibody Negative (Negative)
[2019-11-30 13:19] LABS: Glucose 662 mg/dL (65-115)
--- NOTE | 2019-11-30 14:23 | ECG_ITS ---
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 Measurements Intervals [place] Rate: 88 P: 73 AK: 157 QRS: 17 QRSD: 94 T: 12 QT: 358 QTc: 434 Interpretive Statements SINUS RHYTHM WARNING: DATA QUALITY MAY AFFECT INTERPRETATION Compared to ECG 11/30/2019 13:39:09 No significant changes Electronically Signed On 11-30-2019 21:03:57 CDT by Kaila Ariza M.D. [email or web address] [id number]
[2019-11-30] MEDS: insulin regular-human 250 UNIT in sodium chloride 0.9% 250 ML IV ×2 (14:40→18:29)
--- NOTE | 2019-11-30 14:58 | P.HP_ITS ---
Providers/Chief Complaint Admitting Physician: Angelique Ji MD Primary Care Provider: Niesha Hinds Chief Complaint: Doctor sent patient History of Present Illness Raheel Lam is a 54 year old male with PMH CAD, HTN, DM , who was sent over from his PCP's office after his blood sugar was noted to be 900. In the ER he was found to have blood glucose >600, + ketones in blood and urine, anion gap of 23 c/w DKA. He has been on insulin since 2000, yesetrday insulin dose was incr eased. Does not remember last Hba1c. Has been c/o nausea, weight loss and abdominal pain since last 2-3 months. No alteration in bowel habits. no personal h/o colon ca. Last week reports having had low grade fever 100.4F along with cough at the time which resolved within 1- 2 days. No current fever. No dysuria. His granddaughter in 1st grade is currently under quarantine after her classmates and teachers tested + for COVID. Patient has been in contact with said granddaughter. Review of Systems General: Reports: 10 or more systems reviewed and unremarkable except in HPI and below Const: Denies: fever(s), chills or body aches Eyes: Denies: change in vision, blurry vision or photophobia ENMT: Reports: hoarseness; Denies: throat pain, enlarged tonsils, odynophagia or nasal congestion Card: Denies: chest pain, palpitations, irregular heart rhythm, edema, swelling of feet/ankles, lightheadedness, pre-syncope, dyspnea on exertion or orthopnea Resp: Denies: dyspnea, productive cough, non-productive cough, wheezing, stridor, pain on inspiration, change in phlegm color, hemoptysis or chest congestion GI: Denies: abdominal pain, nausea, vomiting, hematemesis, coffee ground emesis, dysphagia, heartburn, diarrhea, constipation, GI cramping, change in stool character, hematochezia or melena : Denies: flank pain, dysuria, urinary frequency, urinary urgency, urinary hesitancy or hematuria Musc: Denies: neck pain, back pain, extremity pain, joint swelling, joint warmth or deformity Neuro: Denies: headache(s), numbness in extremities, weakness in extremities, sensory changes, difficulty walking, frequent falls, dizziness, vertigo, behavioral changes, Slurred speech present or seizure-like activity Psych: Denies: anxiety, depression, suicidal ideation or homicidal ideation Endo: Denies: polyuria, polydipsia, tired all the time, cold intolerance or ho t flashes Zuhair/Lymph: Denies: easy bruising or easy bleeding Medications/Allergies Home Medications Medication Instructions Recorded Confirmed Last Taken Type amitriptyline 50 mg PO BEDTIME 04/06/19 11/30/19 04/05/19 History aspirin 81 mg PO DAILY 04/06/19 11/30/19 04/06/19 History atorvastatin 40 mg PO DAILY 04/06/19 11/30/19 04/06/19 History insulin glargine [Lantus U-100 See Rx Instructions .ROUTE .COMPLEX 04/06/19 11/30/19 11/30/19 History Insulin] 40 units lisinopril 40 mg PO BID 04/06/19 11/30/19 04/06/19 History meloxicam 15 mg PO DAILY 04/06/19 11/30/19 04/06/19 History metformin 500 mg PO BID 04/06/19 11/30/19 04/06/19 History montelukast 10 mg PO DAILY 04/06/19 11/30/19 04/06/19 History nitroglycerin [Nitrostat] 0.4 mg SUBLINGUAL Q5M PRN 04/06/19 11/30/19 Unknown History omeprazole 20 mg PO DAILY 04/06/19 11/30/19 04/06/19 History paroxetine HCl [Paxil] 40 mg PO DAILY 04/06/19 11/30/19 04/06/19 History carvedilol 6.25 mg tablet 6.25 mg PO BID #60 tab 04/14/19 11/30/19 Unknown Rx clopidogrel 75 mg tablet 75 mg PO DAILY #30 tab 04/14/19 11/30/19 Unknown Rx hydrochlorothiazide 25 mg tablet 25 mg PO DAILY #30 tab 04/14/19 11/30/19 Unknown Rx gabapentin 600 mg tablet 600 mg PO TID tab 05/24/19 11/30/19 Unknown History insulin aspart U-100 100 unit/mL 17 unit SUBCUT TID 05/24/19 11/30/19 11/30/19 History (3 mL) subcutaneous pen tramadol 50 mg tablet 50 mg PO PRN 05/24/19 11/30/19 Unknown History diltiazem HCl 90 mg PO BID 11/30/19 11/30/19 Unknown History Allergies Allergy/AdvReac Type Severity Reaction Status Date / Time No Known Allergies Allergy Verified 11/30/19 13:55 PFSH Acute PFSH: Medical History Anxiety CAD (coronary artery disease) Chronic back pain greater than 3 months duration Diabetes Dyslipidemia Intervertebral disc disorder with radiculopathy of lumbosacral region Palpitations Surgical History S/P coronary artery stent placement 10/20/2018 Family History Mother Heart disease COPD (chronic obstructive pulmonary disease) Father Hypertension Grandmother Cancer Social History Smoking and tobacco status: former smoker Alcohol intake: former Substance/Drug Use: never Lives independently: Yes Household members: none Marital status: Current occupational status: disabled Current occupation: filed for disability History of recent travel: No Vitals/I&O/Wt Last Vital Signs Temp 98.4 F 11/30/19 12:07 Pulse 87 11/30/19 13:40 Resp 18 11/30/19 13:40 BP 147/97 11/30/19 13:40 Pulse Ox 97 11/30/19 13:40 11/29/19 11/30/19 11/30/19 22:59 06:59 14:59 Intake Total 1000 / 1000 Balance 1000 / 1000 Weight last 48 hrs Weight 84.822 kg Physical Exam Narrative: EXAM NARRATIVE: GEN: Awake, alert and oriented, no acute distress CVS: S1S2 N RS: CTA B/L Abd: Soft, nt/nd , bs+ 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 ASSISTANT: no focal neuro deficits Data : 11/30/19 12:30 11/30/19 18:20 A&P Assessment and plan (1) Diabetic keto-acidosis: Status: Acute Qualifiers: Diabetes mellitus complication detail: without coma Diabetes mellitus type: type 1 Qualified Code(s): E10.10 - Type 1 diabetes mellitus with ketoacidosis without coma (2) Abdominal pain: Status: Acute Qualifiers: Abdominal location: upper abdomen, unspecified Qualified Code(s): R10.10 - Upper abdominal pain, unspecified Additional A&P Information # DKA given BS >600, + ketones, anion gap >23 Admit to ICU Start insulin infusion per DKA protocol Switch D5NS fluids when blood sugar ~250 Check BMP every 4 hrs K within range , maintain between 3.5-5.3 once gap closes, switch to s/c insulin and resume diet check Hba1c # CAD: continue ASA, plavix, B blockers and statins # Abdominal pain: ongoing for >2 momths, may be related to DKA, however given family h/o colon ca and chronicity, check CT abdomen # Covid Antigen check given potential + contact currently in quarantine Full code DVT ppx: lovenox Attestations Medical Necessity Statement*: anticipate > 2midnight admission for management of DKA Coding Level of Care Code 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
[2019-11-30 15:01] LABS: Troponin 5 2HR 18.54 ng/L (0-15)
[2019-11-30 15:05] LABS: Troponin 5 2HR Delta -2.46 ABS# (0-10)
[2019-11-30 15:05] LABS: Glucose Point of Care 399 mg/dL (70-110)
[2019-11-30 15:18] LABS: Alanine Aminotransferase 6 U/L (0-41); Albumin Level 3.2 g/dL (3.5-5.2); Alkaline Phosphatase 158 IU/L (40-130); Anion Gap 18.5 (5-19); Aspartate Amino Transferase 5 U/L (0-40); Blood Urea Nitrogen 26 mg/dL (6-20); Carbon Dioxide 22 mmol/L (22-29); Chloride 93 mmol/L (98-107); Chol HDL Ratio 5.18 mg/dL (1.0-5.00); Cholesterol 145 mg/dL (0-200); Globulin 4.2 g/dL (1.3-4.6); Glomerular Filtration Rate 69.8 mL/min (90-130); Glucose 473 mg/dL (65-115); HDL Cholesterol 28 mg/dL (60-100); LDL Cholesterol Calculated 84 mg/dL (50-129); Osmolality Calculated 286 mOsm/kg (285-295); Potassium 4.5 mmol/L (3.5-5.1); Sodium 129 mmol/L (136-145); Total Bilirubin 0.2 mg/dL (0.15-1.2); Total Protein 7.4 g/dL (6.6-8.7); Triglycerides 165 mg/dL (0-150)
[2019-11-30] MEDS: sodium chloride 0.9% 1,000 ML 100 ML IV (15:30)
[2019-11-30] MEDS: enoxaparin 40 mg/0.4 mL Syringe SUBCUT (15:31)
[2019-11-30 16:57] LABS: Glucose Point of Care 291 mg/dL (70-110)
[2019-11-30 17:10] LABS: Glucose Point of Care 271 mg/dL (70-110)
[2019-11-30] MEDS: carvedilol 6.25 mg Tablet PO (18:18)
[2019-11-30] MEDS: dilTIAZem 30 mg Tablet 90 MG PO (18:20)
[2019-11-30 18:25] LABS: SARS Covid-2 Antigen Negative (Negative)
[2019-11-30 18:28] LABS: Glucose Point of Care 184 mg/dL (70-110)
[2019-11-30 18:51] LABS: Alanine Aminotransferase 6 U/L (0-41); Alkaline Phosphatase 149 IU/L (40-130); Anion Gap 13.7 (5-19); Aspartate Amino Transferase 5 U/L (0-40); Blood Urea Nitrogen 21 mg/dL (6-20); Calcium 8.8 mg/dL (8.5-10.5); Carbon Dioxide 25 mmol/L (22-29); Chloride 100 mmol/L (98-107); Glomerular Filtration Rate 77.9 mL/min (90-130); Glucose 226 mg/dL (65-115); Osmolality Calculated 284 mOsm/kg (285-295); Potassium 3.7 mmol/L (3.5-5.1); Sodium 135 mmol/L (136-145); Total Bilirubin 0.2 mg/dL (0.15-1.2)
[2019-11-30 19:33] LABS: Glucose Point of Care 134 mg/dL (70-110)
[2019-11-30] MEDS: morphine 4 mg/mL SDV 1 mL IVP (19:48)
--- NOTE | 2019-11-30 19:56 | PC.NURSE ---
Pt reported pain during nursing assessment, of a 5 on a 1-10 scale in right upper shoulder radiating into his back. PRN Morphine 2mg given IVP, with 2mg wasted in sharps. HARRY Cole witnessed waste.
[2019-11-30 20:56] LABS: Estmated Average Glucose 369; Hemoglobin A1C 14.5 % (4.0-6.0)
[2019-11-30] MEDS: insulin glargine 100 units/1 mL 10 UNIT SUBCUT (21:22)
[2019-11-30] MEDS: gabapentin 300 mg Capsule 600 MG PO (21:22)
[2019-11-30 21:56] LABS: Glucose Point of Care 128 mg/dL (70-110)
[2019-11-30 22:38] LABS: Glucose Point of Care 110 mg/dL (70-110)
[2019-11-30 23:22] LABS: Alanine Aminotransferase 6 U/L (0-41); Albumin Level 2.9 g/dL (3.5-5.2); Alkaline Phosphatase 123 IU/L (40-130); Anion Gap 20.1 (5-19); Aspartate Amino Transferase 5 U/L (0-40); Blood Urea Nitrogen 22 mg/dL (6-20); Calcium 8.1 mg/dL (8.5-10.5); Carbon Dioxide 20 mmol/L (22-29); Chloride 99 mmol/L (98-107); Creatinine Clr Calc Pharmacy 105.7513; Globulin 3.9 g/dL (1.3-4.6); Glomerular Filtration Rate 100.7 mL/min (90-130); Glucose 133 mg/dL (65-115); Osmolality Calculated 279 mOsm/kg (285-295); Potassium 4.1 mmol/L (3.5-5.1); Sodium 135 mmol/L (136-145); Total Bilirubin 0.2 mg/dL (0.15-1.2); Total Protein 6.8 g/dL (6.6-8.7)
--- NOTE | 2019-11-30 23:36 | PC.NURSE ---
Report phoned to transfer nurse, with handoff sheet faxed. Pt transferred up to Med Surg unit by wheelchair. Handoff sheets given to new oncoming nurse. Pt belongings included clothes, shoes, and phone. Clothes placed in room/bed-1 closet. Phone at bedside with patient. No needs communicated by pt, during of after transfer.
[2019-12-01] VITALS (7 sets, daily range): BP systolic 121–147; BP diastolic 69–82; PULSE 74–91; RESP 14–20; TEMP 36.6–37.4; O2SAT 92–96
[2019-12-01 05:10] LABS: Basophils # 0.1 10^3/uL (0.0-0.1); Basophils % 0.3 %; Eosinophils # 0.1 10^3/uL (0.0-0.8); Eosinophils % 0.5 %; Hematocrit 34.2 % (42.0-52.0); Hemoglobin 11.1 g/dL (11.7-16.6); Lymphocytes # 2.6 10^3/uL (0.8-4.8); Lymphocytes % 15.3 %; Mean Corpuscular HGB Conc 32.5 g/dL (30.0-36.0); Mean Corpuscular Hemoglobin 26.7 pg (28.0-34.0); Mean Corpuscular Volume 82.2 fL (80-94); Mean Platelet Volume 10.1 fL (7.4-10.4); Monocytes # 1.5 10^3/uL (0.2-0.9); Monocytes % 8.8 %; Neutrophils # 12.67 10^3/uL (1.8-7.7); Neutrophils % 74.5 %; Nucleated Red Blood Cells % 0 %; Platelet Count 416 10^3/cmm (130-400); Red Blood Count 4.16 10^6/uL (4.1-5.3); Red Cell Distribution Width 12.6 % (12.1-15.1)
[2019-12-01 05:26] LABS: Alanine Aminotransferase < 5 U/L (0-41); Albumin Level 2.8 g/dL (3.5-5.2); Alkaline Phosphatase 129 IU/L (40-130); Anion Gap 15.9 (5-19); Aspartate Amino Transferase 5 U/L (0-40); Blood Urea Nitrogen 18 mg/dL (6-20); Calcium 8.6 mg/dL (8.5-10.5); Carbon Dioxide 24 mmol/L (22-29); Chloride 99 mmol/L (98-107); Globulin 3.9 g/dL (1.3-4.6); Glomerular Filtration Rate 69.8 mL/min (90-130); Glucose 168 mg/dL (65-115); Osmolality Calculated 280 mOsm/kg (285-295); Potassium 3.9 mmol/L (3.5-5.1); Sodium 135 mmol/L (136-145); Total Bilirubin 0.3 mg/dL (0.15-1.2); Total Protein 6.7 g/dL (6.6-8.7)
[2019-12-01] MEDS: insulin glargine 100 units/1 mL 10 UNIT SUBCUT ×2 (06:32→21:31)
[2019-12-01] MEDS: sodium chloride 0.9% 1,000 ML 100 ML IV ×2 (06:33→08:55)
[2019-12-01 06:42] LABS: Glucose Point of Care 230 mg/dL (70-110)
--- NOTE | 2019-12-01 08:00 | CT_ITS ---
WS: [id number] CT ABDOMEN AND PELVIS NONCONTRAST HISTORY: abdominal pain, nausea x 2 months TECHNIQUE: Imaging performed through the abdomen and pelvis. Coronal and sagittal reformats are submi tted. All CT scans at [facility] use at least one of these dose optimization techniques: automated exposure control; mA and/or kV adjustment per patient size (includes targeted exams where d ose is matched to clinical indication); or iterative reconstruction. DLP: 1049.92 mGy.cm COMPARISON: None available. Lower thorax: Mild emphysematous changes at the lung bases. Subsegmental linear atelectasis at the ba ses with very small amount of pleural thickening and fluid at the LEFT lung base. Heart size is juan pablo l. Liver: Mild hepatic steatosis. Gallbladder: Normal gallbladder. Pancreas: Normal size and attenuation. Normal pancreatic duct. No pancreatitis or mass. Spleen: Normal size spleen with granulomata. Adrenal glands: Normal. No mass. Right kidney: Mild perinephric stranding. No mass or obstruction. Left kidney: Abnormal LEFT kidney. LEFT kidney is enlarged and edematous with a large amount of perin ephric stranding. There is a multiloculated collection in the posterior superior upper pole measuring 6.1 x 3.6 cm. There is a small subcapsular component measures 4.0 x 2.8 cm along the medial posterio r kidney. The bedoya do not appear well formed on this unenhanced study. Kidney is being slightly elev ated due to the inflammatory process. There is contiguous inflammatory change extending posteriorly i nto the LEFT psoas suggesting extension of inflammatory process into the psoas muscle with phlegmonou s changes measuring 3.2 x 2.0 cm. No ureteral obstruction. There are inflammatory changes surrounding the proximal and mid ureter. The LEFT psoas muscle is enlarged and edematous extending over length of 11 cm. No well-defined colle ction at this time. Aorta: Normal abdominal aorta, no aneurysm or atherosclerosis. There are very small shoddy retroperitoneal lymph nodes. GI tract: Normal appendix. No obstruction. There are a few scattered diverticula in the descending co oswaldo. Abdominal wall: Negative. No hernia. Pelvis: No free fluid or adenopathy. Prostate gland is minimally prominent. Inguinal canals are paten t bilaterally containing fat only. Osseous structures: Unremarkable. CT/CT abdomen pelvis wo con [id number] IMPRESSION: 1. Multiloculated complex collection in the posterior superior medial LEFT kid hung with extension into the LEFT psoas muscle. Favor this is probably multilocu lated LEFT renal abscess with a subcapsular component and extension into the LE FT psoas muscle. 2. Marked enlargement and asymmetry of the LEFT psoas muscle consistent with i nflammatory/phlegmonous extension into the muscle from the LEFT kidney. 3. No renal obstruction. Notified Angelique MD Margy at 12/01/2019 9:11 AM. Not available. Message was conv eyed to review report or call radiology.
[2019-12-01] MEDS: pantoprazole DR 40 mg Tablet PO (08:46)
[2019-12-01] MEDS: atorvastatin 40 mg Tablet PO (08:46)
[2019-12-01] MEDS: carvedilol 6.25 mg Tablet PO ×2 (08:46→16:56)
[2019-12-01] MEDS: clopidogrel 75 mg Tablet PO (08:46)
[2019-12-01] MEDS: PARoxetine 20 mg Tablet 40 MG PO (08:47)
[2019-12-01] MEDS: aspirin 81 mg Chew Tablet PO (08:47)
[2019-12-01] MEDS: gabapentin 300 mg Capsule 600 MG PO ×3 (08:55→20:17)
[2019-12-01] MEDS: acetaminophen 325 mg Tablet 650 MG PO (08:55)
--- NOTE | 2019-12-01 09:47 | PC.NURSE ---
Per Dr. Ji put in order for Zosyn due to abscess on kidney. SMW, [employer]
[2019-12-01] MEDS: piperacillin-tazobactam 3.375 GM in sodium chloride 0.9% (plus) 50 ML IV ×2 (10:20→16:57)
[2019-12-01 11:22] LABS: Glucose Point of Care 365 mg/dL (70-110)
[2019-12-01] MEDS: enoxaparin 40 mg/0.4 mL Syringe SUBCUT (14:22)
--- NOTE | 2019-12-01 15:31 | PM.PN ---
Subjective Subjective: Interval history: DKa resolved overnight, transferred to med/surg afterwards. CT abdomen completed this morning which shows a complex left renal mass appears to be an abscess, with extension into left psoas Medications: Reviewed: Yes Vitals/I&O/Wt Last Vital Signs Temp 98.4 F 12/01/19 11:15 Pulse 80 12/01/19 11:15 Resp 20 H 12/01/19 11:15 BP 122/69 12/01/19 11:15 Pulse Ox 92 12/01/19 11:15 12/01/19 12/01/19 12/01/19 06:59 14:59 22:59 Intake Total 1000 / 2488.15 956.667 / 956.667 Output Total 900 / 1700 400 / 400 Balance 100 / 788.15 556.667 / 556.667 Weight last 48 hrs Weight 104.893 kg Weight 84.822 kg Physical Exam Narrative: EXAM NARRATIVE: GEN: Awake, alert and oriented, no acute distress CVS: S1S2 N RS: CTA B/L Abd: Soft, nt/nd , bs+ CORRECTION OFFICER HEAD: no focal neuro deficits Data : 12/02/19 04:37 12/02/19 04:37 Micro: Microbiology 12/01/19 14:36 Blood Culture - Preliminary Blood SPECIMEN COLLECTED 12/01/19 14:32 Blood Culture - Preliminary Blood SPECIMEN COLLECTED A&P Assessment and plan (1) Diabetic keto-acidosis: Status: Acute Qualifiers: Diabetes mellitus complication detail: without coma Diabetes mellitus type: type 1 Qualified Code(s): E10.10 - Type 1 diabetes mellitus with ketoacidosis without coma (2) Abdominal pain: Status: Acute Qualifiers: Abdominal location: upper abdomen, unspecified Qualified Code(s): R10.10 - Upper abdominal pain, unspecified (3) Renal abscess: Status: Acute (4) Perinephric abscess: Status: Acute Additional A&P Information # DKA given BS >600, + ketones, anion gap >23 upon admission, now resolved Currently on 10 unit long acting insulin and med sliding scale, change to high dose sliding scal e hba1c 14, poorly controlled DM # CAD: continue ASA, plavix, B blockers and statins # Abdominal pain, 20 pound weight loss ongoing for >2 momths, CT abdomen/pelvis perfromed this morning shows likely renal abscess with perinephric extension and into left psoas corresponsing to site of pain. check blood cx to r/o hematogenous seeding Urine cx thus far with NGTD, +UA no urinary symptoms no h/o prostate problems Will discuss with radiology of amenable to drainage # Covid Antigen negative Full code DVT ppx: lovenox Attestations Medical Necessity Statement*: peripnepric abscess with psoas extension, need for iv abx, possible drainage Coding Level of Care Code Acute Healthcare Risk Control Consultant for [facility] Fwd Diagnoses Diabetic keto-acidosis E10.10 Diabetes mellitus complication detail: without coma Diabetes mellitus type: type 1 Abdominal pain R10.10 Abdominal location: upper abdomen, unspecified Renal abscess N15.1 Perinephric abscess N15.1
[2019-12-01 17:15] LABS: Glucose Point of Care 349 mg/dL (70-110)
[2019-12-01 21:15] LABS: Glucose Point of Care 335 mg/dL (70-110)
[2019-12-02] VITALS (7 sets, daily range): BP systolic 122–169; BP diastolic 54–93; PULSE 69–81; RESP 16–20; TEMP 36.7–37.3; O2SAT 94–97
--- NOTE | 2019-12-02 00:57 | PC.NURSE ---
Called lab about collecting fungal culture. Upon collection on the worklist, urine is not an option for source of collection. Lab said the order will need to be changed in order to collect and run this specific test.
[2019-12-02] MEDS: piperacillin-tazobactam 3.375 GM in sodium chloride 0.9% (plus) 50 ML IV ×3 (01:41→17:35)
[2019-12-02] MEDS: sodium chloride 0.9% 1,000 ML 100 ML IV ×2 (03:46→13:46)
[2019-12-02 05:01] LABS: Basophils % 0.3 %; Eosinophils # 0.1 10^3/uL (0.0-0.8); Eosinophils % 0.5 %; Hematocrit 33.6 % (42.0-52.0); Hemoglobin 10.9 g/dL (11.7-16.6); Lymphocytes # 1.7 10^3/uL (0.8-4.8); Lymphocytes % 11.7 %; Mean Corpuscular HGB Conc 32.4 g/dL (30.0-36.0); Mean Corpuscular Hemoglobin 26.6 pg (28.0-34.0); Mean Platelet Volume 9.9 fL (7.4-10.4); Monocytes # 1.3 10^3/uL (0.2-0.9); Monocytes % 8.7 %; Neutrophils # 11.18 10^3/uL (1.8-7.7); Neutrophils % 78.1 %; Nucleated Red Blood Cells % 0 %; Platelet Count 416 10^3/cmm (130-400); Red Cell Distribution Width 12.6 % (12.1-15.1); White Blood Count 14.3 10^3/uL (4.0-10.0)
[2019-12-02 05:32] LABS: Alanine Aminotransferase 6 U/L (0-41); Albumin Level 2.6 g/dL (3.5-5.2); Alkaline Phosphatase 116 IU/L (40-130); Anion Gap 12.9 (5-19); Aspartate Amino Transferase 6 U/L (0-40); Blood Urea Nitrogen 12 mg/dL (6-20); Calcium 8.3 mg/dL (8.5-10.5); Carbon Dioxide 25 mmol/L (22-29); Chloride 102 mmol/L (98-107); Glomerular Filtration Rate 77.9 mL/min (90-130); Glucose 239 mg/dL (65-115); Osmolality Calculated 286 mOsm/kg (285-295); Potassium 3.9 mmol/L (3.5-5.1); Sodium 136 mmol/L (136-145); Total Bilirubin 0.2 mg/dL (0.15-1.2); Total Protein 6.6 g/dL (6.6-8.7)
[2019-12-02 07:31] LABS: Glucose Point of Care 218 mg/dL (70-110)
[2019-12-02] MEDS: aspirin 81 mg Chew Tablet PO (08:24)
[2019-12-02] MEDS: pantoprazole DR 40 mg Tablet PO (08:25)
[2019-12-02] MEDS: carvedilol 6.25 mg Tablet PO ×2 (08:25→17:34)
[2019-12-02] MEDS: PARoxetine 20 mg Tablet 40 MG PO (08:25)
[2019-12-02] MEDS: gabapentin 300 mg Capsule 600 MG PO ×3 (08:25→21:35)
[2019-12-02] MEDS: atorvastatin 40 mg Tablet PO (08:25)
[2019-12-02] MEDS: clopidogrel 75 mg Tablet PO (08:25)
[2019-12-02] MEDS: morphine 4 mg/mL SDV 1 mL IVP ×2 (08:58→21:37)
[2019-12-02 11:32] LABS: Glucose Point of Care 322 mg/dL (70-110)
[2019-12-02] MEDS: enoxaparin 40 mg/0.4 mL Syringe SUBCUT (13:47)
--- NOTE | 2019-12-02 16:49 | P.PN_ITS ---
Subjective Subjective: Interval history: Leukocytosis trending down to 14. Patient has remained afebrile. Fingersticks better controlled in the 230s range. His left eye appears to be red and irritated today. Does not remember any trauma to the eye. 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 Multiloculated complex collection in the posterior superior medial LEFT kidney with extension into the LEFT psoas muscle. Favor this is probably multiloculated LEFT renal abscess with a subcapsular component and extension into the LEFT psoas muscle. 2. Marked enlargement and asymmetry of the LEFT psoas muscle consistent with inflammatory/phlegmonous extension into the muscle from the LEFT kidney. 3. No renal obstruction. A&P Assessment and plan (1) Diabetic keto-acidosis: Status: Acute Qualifiers: Diabetes mellitus complication detail: without coma Diabetes mellitus type: type 1 Qualified Code(s): E10.10 - Type 1 diabetes mellitus with ketoacidosis without coma (2) Abdominal pain: Status: Acute Qualifiers: Abdominal location: upper abdomen, unspecified Qualified Code(s): R10.1 0 - Upper abdominal pain, unspecified (3) Renal abscess: Status: Acute (4) Perinephric abscess: Status: Acute Additional A&P Information # DKA given BS >600, + ketones, anion gap >23 upon admission, now resolved increase insulin to 20 units at bed time and continue high dose sliding scal e hba1c 14, poorly controlled DM # CAD: continue ASA, plavix, B blockers and statins # renal abscess with perinephric extension and into left psoas corresponsing to site of subacute abdomeinal pain. Blood cx negative to date urine cx remains pending Today reports recurrent h/o balanitis which resolves with topical creams but doesn't know which agents no h/o prostate problems Plan for repeating a CT abdomen in the morning with contrast for better characterization, on non con study, collection appears to be multicystic. If amenable to aspiration+/- drainage upon radiology review, will obtain specimen for gram stain, culture incl fungal cx , AFB cx, cytology. 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
--- NOTE | 2019-12-02 16:58 | CTR_ITS ---
PROCEDURE INFORMATION: Exam: CT Abdomen And Pelvis With Contrast Exam date and time: 12/02/2019 8:51 PM Age: 54 years old Clinical indication: Abnormal findings; Abnormal radiologic finding of the abdomen; Radiologic exam and body structure: CT abd/pelvis--kidney; Additional info: Perinephric abscess TECHNIQUE: Imaging protocol: Computed tomography of the abdomen and pelvis with intravenous contrast. Radiation optimization: All CT scans at this facility use at least one of these dose optimization techniques: automated exposure control; mA and/or kV adjustment per patient size (includes targeted exams where dose is matched to clinical indication); or iterative reconstruction. Contrast material: OMNI 300; Contrast volume: 95 ml; Contrast route: INTRAVENOUS (IV); COMPARISON: CT abdomen pelvis wo con [id number] 12/01/2019 8:27 AM RADIATION DOSE METRICS: Total DLP (mGy-cm): 1172.21 FINDINGS: Lungs: Limited assessment lung bases reveals mild bibasilar dependent atelectasis. Coronary artery disease. No visible pericardial effusion. Scant left pleural effusion. Liver: Unremarkable. No mass. Gallbladder and bile ducts: Normal. No calcified stones. No ductal dilation. Pancreas: Normal. No ductal dilation. Spleen: Normal. No splenomegaly. Adrenals: Normal. No mass. Kidneys and ureters: The left kidney again reveals a complex fluid collection that measures 66 mm x 55 mm x 56 mm that originates at the superior pole extends medially into the medial and posterior pararenal space. This complex fluid collection involves the left iliopsoas muscle. Surrounding perinephric stranding. Findings raise concern for a renal abscess. No associated hydronephrosis. No visible free perinephric fluid. Again diffuse perinephric stranding on the left. Right kidney unremarkable. No hydronephrosis or perinephric fluid. No visible evidence of nephrolithiasis bilaterally. Stomach and bowel: Diverticulosis coli without evidence of diverticulitis. Heavy fecal residue consistent with constipation. Nonobstructive bowel pattern. Evidence of mild small bowel either reactive or adynamic ileus. Some fecalization of the small bowel chyme evident. Appendix: The appendix is visualized and appears noninflamed. Intraperitoneal space: No visible intraperitoneal ascites. Vasculature: The abdominal aorta is nonaneurysmal. Mild arterial sclerotic disease. Lymph nodes: No evidence for generalized mesenteric or retroperitoneal lymphadenopathy. Bladder: Urinary bladder unremarkable. Reproductive: Prostate hypertrophy. Bones/joints: No visible active or acute osseous pathology. Soft tissues: Bilateral inguinal hernias containing fat only. Other findings: Obesity. CT/CT abdomen pelvis w con* [id number] IMPRESSION: 1. The left kidney again reveals a complex fluid collection that measures 66 mm x 55 mm x 56 mm that originates at the superior pole and extends medially into the medial and posterior pararenal space. This complex fluid collection involves the left iliopsoas muscle. Surrounding perinephric stranding. Findings raise concern for a renal abscess. 2. Evidence of mild small bowel either reactive or adynamic ileus. Some fecalization of the small bowel chyme evident. 3. Scant left pleural effusion. 4. Diverticulosis coli without evidence for diverticulitis. 5. Constipation. 6. Bibasilar dependent atelectasis of the lungs. 7. Coronary artery disease. Radiation Dose CTDIVOL = (mGy): DLP = 1172.21 (mGy-cm)
[2019-12-02 17:02] LABS: Glucose Point of Care 375 mg/dL (70-110)
[2019-12-02 20:34] LABS: Glucose Point of Care 287 mg/dL (70-110)
[2019-12-02] MEDS: iohexol 300 mg/mL 100 mL Btl IV (21:03)
[2019-12-02] MEDS: insulin glargine 100 units/1 mL 20 UNIT SUBCUT (21:36)
[2019-12-03] VITALS: BP 131/85; PULSE 77; RESP 14; TEMP 37.1; O2SAT 95
--- NOTE | 2019-12-03 | XR_ITS ---
WS: [id number] Portable AP semiupright chest, 12/03/2019, 1222 hours Clinical Data: PICC PLACEMENT Comparison: Portable chest, 12/03/2019, 1215 hours Findings: Right PICC line has been repositioned and now ends at the level of the right sixth rib. No pneumothorax is seen. XR/XR chest 1V portable [id number] Impression: Satisfactory placement of right PICC line.
[2019-12-03 04:00] VITALS: BP 146/84; PULSE 85; RESP 14; TEMP 37.4; O2SAT 94
[2019-12-03 05:25] LABS: INR 0.98 (0.8-1.2)
[2019-12-03 05:27] LABS: Basophils # 0.1 10^3/uL (0.0-0.1); Basophils % 0.4 %; Eosinophils # 0.2 10^3/uL (0.0-0.8); Eosinophils % 1.3 %; Hematocrit 32.6 % (42.0-52.0); Hemoglobin 10.3 g/dL (11.7-16.6); Lymphocytes % 17.2 %; Mean Corpuscular HGB Conc 31.6 g/dL (30.0-36.0); Mean Corpuscular Hemoglobin 26.6 pg (28.0-34.0); Mean Corpuscular Volume 84.2 fL (80-94); Mean Platelet Volume 10.1 fL (7.4-10.4); Monocytes # 1.3 10^3/uL (0.2-0.9); Monocytes % 10.7 %; Neutrophils # 8.15 10^3/uL (1.8-7.7); Neutrophils % 69.8 %; Nucleated Red Blood Cells % 0 %; Platelet Count 422 10^3/cmm (130-400); Red Blood Count 3.87 10^6/uL (4.1-5.3); Red Cell Distribution Width 12.8 % (12.1-15.1); White Blood Count 11.7 10^3/uL (4.0-10.0)
[2019-12-03 05:41] LABS: Alanine Aminotransferase < 5 U/L (0-41); Albumin Level 2.7 g/dL (3.5-5.2); Alkaline Phosphatase 108 IU/L (40-130); Anion Gap 11.8 (5-19); Aspartate Amino Transferase 7 U/L (0-40); Blood Urea Nitrogen 10 mg/dL (6-20); Calcium 8.5 mg/dL (8.5-10.5); Carbon Dioxide 28 mmol/L (22-29); Chloride 104 mmol/L (98-107); Globulin 3.7 g/dL (1.3-4.6); Glomerular Filtration Rate 69.8 mL/min (90-130); Glucose 158 mg/dL (65-115); Osmolality Calculated 289 mOsm/kg (285-295); Potassium 3.8 mmol/L (3.5-5.1); Sodium 140 mmol/L (136-145); Total Bilirubin 0.2 mg/dL (0.15-1.2); Total Protein 6.4 g/dL (6.6-8.7)
[2019-12-03 06:38] LABS: Glucose Point of Care 168 mg/dL (70-110)
[2019-12-03 07:27] VITALS: BP 159/88; PULSE 81; RESP 18; TEMP 37.2; O2SAT 93
[2019-12-03] MEDS: pantoprazole DR 40 mg Tablet PO (07:55)
[2019-12-03] MEDS: atorvastatin 40 mg Tablet PO (07:55)
[2019-12-03] MEDS: gabapentin 300 mg Capsule 600 MG PO ×3 (07:56→21:33)
[2019-12-03] MEDS: carvedilol 6.25 mg Tablet PO ×2 (07:56→17:36)
[2019-12-03] MEDS: PARoxetine 20 mg Tablet 40 MG PO (07:56)
[2019-12-03] MEDS: piperacillin-tazobactam 3.375 GM in sodium chloride 0.9% (plus) 50 ML IV ×2 (08:10→17:35)
--- NOTE | 2019-12-03 11:42 | XR_ITS ---
WS: [id number] Portable AP upright chest, 12/03/2019 Clinical Data: Post PICC placement Comparison: Portable chest, 11/30/2019. Findings: The right PIC line enters the superior vena cava and ends at the level of the right ninth r ib. No pneumothorax is seen. The PICC line can be retreated 4 centimeters. XR/XR chest 1V portable [id number] Impression: Right PICC line ending in superior vena cava.
[2019-12-03 12:08] LABS: Glucose Point of Care 164 mg/dL (70-110)
--- NOTE | 2019-12-03 13:59 | P.PN_ITS ---
Subjective Subjective: Interval history: Leukocytosis continues to trend down. Patient states that his abdominal pain is improving since presentation. He does complain of some new neck pain over the last 3 days. T-max is 99.4. No neck stiffness. Range of motion is adequate at the neck. Underwent repeat CAT scan imaging with contrast yesterday evening which redemonstrated the left renal ab scess with perinephric extension into the left psoas. Size appears to be unchanged over the prior images. Fingersticks now well controlled between 1 58- 2 87. Medications: Reviewed: Yes Vitals/I&O/Wt Last Vital Signs Temp 98.9 F 12/03/19 07:27 Pulse 81 12/03/19 07:27 Resp 18 12/03/19 07:27 BP 159/88 12/03/19 07:27 Pulse Ox 93 12/03/19 07:27 12/02/19 12/03/19 12/03/19 22:59 06:59 14:59 Intake Total 770 / 2710 Output Total 1675 / 3125 1775 / 1775 Balance -905 / -415 -1775 / -1775 Weight last 48 hrs Weight 87.628 kg Weight 89.868 kg Physical Exam Narrative: EXAM NARRATIVE: GEN: Awake, alert and oriented, no acute distress CVS: S1S2 N RS: CTA B/L Abd: Soft, nt/nd , bs+, discomfort to palpation present over the left lumbar area, however improved since admission RPG DEVELOPER: no focal neuro deficits Data : 12/03/19 04:32 12/03/19 04:32 Micro: Microbiology 12/01/19 12:30 Urine Culture - Preliminary Urine,Voided 12/01/19 14:36 Blood Culture - Preliminary Blood NEGATIVE TO DATE 12/01/19 14:32 Blood Culture - Preliminary Blood NEGATIVE TO DATE A&P Assessment and plan (1) Diabetic keto-acidosis: Status: Acute Qualifiers: Diabetes mellitus complication detail: without coma Diabetes mellitus type: type 1 Qualified Code(s): E10.10 - Type 1 diabetes mellitus with ketoacidosis without coma (2) Abdominal pain: Status: Acute Qualifiers: Abdominal location: upper abdomen, unspecified Qualified Code(s): R10.10 - Upper abdominal pain, unspecified (3) Renal abscess: Status: Acute (4) Perinephric abscess: Status: Acute Additional A&P Information # DKA given BS >600, + ketones, anion gap >23 upon admission, now resolved Increase insulin to 20 units at bed time and continue high dose sliding scale hba1c 14, poorly controlled DM Fingersticks are now well controlled. # CAD: continue aspirin beta blockers and statins. Plavix has been placed on hold in anticipation of IR procedure. Patient last underwent PCI in September 2018, he is greater than 6 months out from stent placement. For now per IR recommendations, patient needs to be off Plavix for at least 5 days prior to the procedure. His last dose of Plavix was on December 01 therefore the procedure would need to be deferred until the next 4 days. # renal abscess with perinephric extension and into left psoas corresponding to site of subacute abdominal pain. Blood cx negative to date urine cx less than 5000 colonies of mixed superficial hayden probable contaminants. Today reports recurrent h/o balanitis which resolves with topical creams but doesn't know which agents no h/o prostate enlargement. Repeat CT with contrast shows left renal abscess with extension into the perinephric space and left psoas muscle. Initially it was planned to attempt aspiration/drainage of this renal abscess, however it was noted the patient has been on Plavix and would need to discontinue this medicine for at least 5 days prior to attempting the procedure. Patient is otherwise starting to feel improved and would like to be discharged home if possible rather than waiting in the hospital for the 5 days. In view of this we will place a PICC line today, and plan to discharge patient home on at least 2 weeks of IV antibiotics. IV ertapenem 1 g daily would be a good empiric choice. Plavix has been placed on hold now and he will return as an outpatient in 5 to 6 days for aspi ration/drainage if feasible. Thereafter I will follow him in the infectious disease clinic once culture results from this aspirate are available. Regardless of whether or not the abscess is able to be aspirated, he will need a minimum 2 weeks of IV antibiotics, which may need to be extended further dependent on clinical response. Full code DVT ppx: lovenox Attestations Medical Necessity Statement*: Ongoing need for IV antibiotics for renal abscess, placement of PICC line, arranging IV antibiotics for discharge home. Coding Level of Care Code Acute Administrative Resources Associate for [facility] Fwd Diagnoses Diabetic keto-acidosis E10.10 Diabetes mellitus complication detail: without coma Diabetes mellitus type: type 1 Abdominal pain R10.10 Abdominal location: upper abdomen, unspecified Renal abscess N15.1 Perinephric abscess N15.1
[2019-12-03 14:47] VITALS: BP 133/68; PULSE 60; RESP 18; TEMP 36.4; O2SAT 97
[2019-12-03 15:50] VITALS: BP 153/83; PULSE 82; RESP 18; TEMP 36.9; O2SAT 94
[2019-12-03 17:16] LABS: Glucose Point of Care 336 mg/dL (70-110)
[2019-12-03 19:27] VITALS: BP 142/78; PULSE 77; RESP 16; TEMP 36.9; O2SAT 95
[2019-12-03] MEDS: HYDROcodone-acetaminophen 5-325 mg Tablet 1 TAB PO (21:33)
[2019-12-03] MEDS: insulin glargine 100 units/1 mL 20 UNIT SUBCUT (21:34)
[2019-12-03 21:55] LABS: Glucose Point of Care 278 mg/dL (70-110)
[2019-12-04] VITALS: BP 129/79; PULSE 71; RESP 14; TEMP 37.1; O2SAT 94
[2019-12-04] MEDS: piperacillin-tazobactam 3.375 GM in sodium chloride 0.9% (plus) 50 ML IV ×2 (02:13→08:03)
[2019-12-04 04:00] VITALS: BP 134/73; PULSE 72; RESP 16; TEMP 37.1; O2SAT 96
[2019-12-04 07:08] LABS: Glucose Point of Care 183 mg/dL (70-110)
[2019-12-04 07:44] VITALS: BP 160/90; PULSE 71; RESP 18; TEMP 36.7; O2SAT 95
--- NOTE | 2019-12-04 07:47 | PM.PN ---
Vitals/I&O/Wt Last Vital Signs Temp 98.0 F 12/04/19 07:44 Pulse 71 12/04/19 07:44 Resp 18 12/04/19 07:44 BP 160/90 12/04/19 07:44 Pulse Ox 95 12/04/19 07:44 12/03/19 12/04/19 12/04/19 22:59 06:59 14:59 Intake Total 830 / 880 Output Total 1600 / 3375 500 / 3875 800 / 800 Balance -770 / -2495 -500 / -2995 -800 / -800 Weight last 48 hrs Weight 87.543 kg Weight 87.628 kg Data : 12/03/19 04:32 12/03/19 04:32 Micro: Microbiology 12/01/19 12:30 Urine Culture - Preliminary Urine,Voided Gram Negative Rods Staphylococcus species Coding Level of Care Code Acute Construction Operations Manager for Bill[facility] Maldonado
[2019-12-04] MEDS: atorvastatin 40 mg Tablet PO (08:01)
[2019-12-04] MEDS: gabapentin 300 mg Capsule 600 MG PO ×2 (08:01→13:30)
[2019-12-04] MEDS: PARoxetine 20 mg Tablet 40 MG PO (08:02)
[2019-12-04] MEDS: carvedilol 6.25 mg Tablet PO (08:02)
[2019-12-04] MEDS: pantoprazole DR 40 mg Tablet PO (08:02)
[2019-12-04] MEDS: HYDROcodone-acetaminophen 5-325 mg Tablet 1 TAB PO (08:02)
[2019-12-04 10:53] LABS: Glucose Point of Care 277 mg/dL (70-110)
[2019-12-04 11:29] VITALS: BP 142/79; PULSE 67; RESP 18; TEMP 36.6; O2SAT 95
[2019-12-04] MEDS: ertapenem 1,000 MG in sodium chloride 0.9% (plus) 100 ML 200 MG IV (13:30)
--- NOTE | 2019-12-04 15:08 | P.DS_ITS ---
Discharge Providers Date of Admission: 11/30/19 13:41 Date of Discharge: December 04, 2019 Attending Provider at Admission: Angelique Ji MD Attending Provider at Discharge: Angelique Ji MD Primary Care Provider: Niesha Hinds Diagnoses at Discharge Discharge Diagnosis (1) Diabetic keto-acidosis: Status: Acute Qualifiers: Diabetes mellitus complication detail: without coma Diabetes mellitus type: type 1 Qualified Code(s): E10.10 - Type 1 diabetes mellitus with ketoacidosis without coma (2) Abdominal pain: Status: Acute Qualifiers: Abdominal location: upper abdomen, unspecified Qualified Code(s): R10.10 - Upper abdominal pain, unspecified (3) Renal abscess: Status: Acute (4) Perinephric abscess: Status: Acute Reason for Visit Reason for Visit: Doctor sent patient Hospital Course Discharge Summary: Raheel Lam is a 54 year old male with PMH CAD, HTN, DM , who was sent over from his PCP's office after his blood sugar was noted to be 900. In the ER he was found to have blood glucose >600, + ketones in blood and urine, anion gap of 23 c/w DKA. The latter subsequently resolved with insulin infusion and following the DKA protocol in the ICU. He had been complaining of nausea, 20 pound weight loss and abdominal pain over the last 2 to 3 months particularly worsened over the past 2 weeks. He had also had intermittent low- grade fevers up to 100.41-week ago. Because of this a CT of the abdomen was performed which showed a left-sided renal abscess with extension into the perinephric space and into the left psoas. It was planned that he undergo an IR guided aspiration/drainage of the said abscess, however patient has been on Plavix due to history of CAD and stent placement in September 2018 and he needed to be off for at least 5 days prior to the procedure. Plavix was discontinued on Friday, December 02 and he has plan to return to outpatient on Friday for the procedure. All information has been sent to scheduling. For treatment of the abscess, he received empiric treatment with Zosyn. His abdominal pain did start to get better. Leukocytosis also trended down from 18 at admission to 11. He has been afebrile during the course of admission. Since he is otherwise clinically improved and DKA is resolved, it was decided to disch arge him today with outpatient IV antibiotics. he received a PICC line on December 02 he is being discharged on IV ertapenem empirically 1 g every 24 hours. Attempts at aspiration/drainage should still be attempted next week as antibiotics alone may not be able to penetrate an abscess cavity very well and adjunctive source control would be important. Additionally if fluid is able to be aspirated, it would need to be sent for Gram stain and culture. I will follow-up the patient in the infectious disease clinic. For now, planned for at least 2 weeks of iv abx, then a CT will need to be repeated and further abx course decided at the time. Physical Exam Narrative: EXAM NARRATIVE: GEN: Awake, alert and oriented, no acute distress CVS: S1S2 N RS: CTA B/L Abd: Soft, nt/nd , bs+ BOAT GARNISHER: no focal neuro deficits Discharge Data Data Completed and Pending: Completed Studies During Hospitalization Category Date Time Status CT abdomen pelvis w con* [id number] Rout ine Cat Scan 12/02/19 16:[address] abdomen pelvis wo con [id number] Rout ine Cat Scan 12/01/19 08:00 Completed CXRP [XR chest 1V portable [id number]] R outine Exams 12/03/19 11:42 Completed XR chest 1V rose mary ble [id number] Routine Exams 12/03/19 Completed XR chest 1V rose mary ble [id number] Stat Exams 11/30/19 12:23 Completed US gall bladder 7 6705 Urgent Ultrasound 11/30/19 12:41 Completed Pending at discharge Category Date Time Status Abscess Culture a nd Gram Stain Rout ine Lab 12/02/19 16:59 Uncollected Blood Culture Sta t Lab 12/01/19 14:36 Results Fungal Culture no t HR/SK/BL Routine Lab 12/02/19 13:00 Received Fungal Culture no t HR/SK/BL Routine Lab 12/02/19 16:59 Uncollected CHEN Prep Routine Lab 12/02/19 16:59 Uncollected Mycobacteria, Cul ture w/Fluor Routi ne Lab 12/02/19 16:59 Uncollected Cytology [PTH] Ro utine Pth 12/02/19 16:59 Uncollected Labs from last 24 hours 12/04/19 12/04/19 12/03/19 10:45 07:03 21:12 POC Glucose 277 183 278 12/03/19 16:41 POC Glucose 336 Vitals: Last Vital Signs Temp 97.9 F 12/04/19 11:29 Pulse 67 12/04/19 11:29 Resp 18 12/04/19 11:29 BP 142/79 12/04/19 11:29 Pulse Ox 95 12/04/19 11:29 Discharge Plan Discharge Patient Disposition: Home Health Service Condition: Stable Prescriptions: New hydrocodone-acetaminophen 5-325 mg Tablet 1 tab PO Q6H PRN (Reason: Moderate Pain) 5 Days Qty: 20 RF: 0 ertapenem 1 gram recon soln 1 gm IV DAILY 14 Days RF: 0 Isopto Tears 0.5 % Drops 1 drp eye-both Q4H PRN (Reason: Dry Eye(S)) 30 Days Qty: 30 RF: 0 Continued insulin aspart U-100 [Novolog Flexpen U-100 Insulin] 100 unit/mL (3 mL) insulin pen 17 unit SUBCUT TID RF: 0 tramadol 50 mg tablet 50 mg PO PRN RF: 0 carvedilol 6.25 mg tablet 6.25 mg PO BID Qty: 60 RF: 6 atorvastatin 40 mg Tablet 40 mg PO DAILY RF: 0 metformin 500 mg Tablet 500 mg PO BID RF: 0 Lantus U-100 Insulin 100 unit/mL Solution See Rx Instructions .ROUTE .COMPLEX RF: 0 amitriptyline 50 mg Tablet 50 mg PO BEDTIME RF: 0 nitroglycerin [Nitrostat] 0.4 mg Tablet, Sublingual 0.4 mg SUBLINGUAL Q5M PRN (Reason: Chest Pain) RF: 0 aspirin 81 mg Tablet,Chewable 81 mg PO DAILY RF: 0 montelukast 10 mg Tablet 10 mg PO DAILY RF: 0 paroxetine HCl [Paxil] 40 mg Tablet 40 mg PO DAILY RF: 0 omeprazole 20 mg Tablet,Delayed Release (Dr/Ec) 20 mg PO DAILY RF: 0 gabapentin 600 mg tablet 600 mg PO TID RF: 0 Changed lisinopril 40 mg Tablet 20 mg PO BID Qty: 0 RF: 0 Held Plavix 75 mg tablet 75 mg PO DAILY Qty: 30 RF: 6 Hold Instructions: Resume on 12/09/19. resume 24 hrs after getting your radiology procedure Discontinued hydrochlorothiazide 25 mg tablet 25 mg PO DAILY Qty: 30 RF: 6 meloxicam 15 mg Tablet 15 mg PO DAILY RF: 0 diltiazem HCl 90 mg Capsule,Extended Release 12 Hr 90 mg PO BID RF: 0 Discharge Orders: Discharge Order (Routine); Ordered 12/04/19 Ordered By: Angelique Ji Other Ambulatory Orders: Complete Blood Count w/Auto (Routine) Timeframe: 20191207 Facility: [facility] - Location: Lab - Main Lab Ordered By: Angelique Ji CT guided drainage 45329 (Routine) Timeframe: 4 Days Facility: [facility] - Location: Radiology Ordered By: Angelique Ji Prothrombin Time INR (Routine) Timeframe: 20191207 Facility: [facility] - Location: Lab - Main Lab Ordered By: Angelique Ji Comprehensive Metabolic Panel (Routine) Timeframe: 20191207 Facility: [facility] - Location: Lab - Main Lab Ordered By: Angelique Ji Referrals: Angelique Ji MD [Hospitalist] - 12/14/19 (Address: [address] [place] [id number] ) OUTPATIENT SURGERY, [Staff Physician] - (Bring your IV antibiotics order & discharge paperwork with you & check in at the ER admissions. [facility] will provide you a room on one of the floors, to get your IV infusion. After Friday you are able to check in at the surgical entrance. It is best to come in at the same time each day. You will need to come in daily for the next 2 weeks. Any questions call Layout Artist at [phone]) After Friday you can call Outpt Surgery at ([phone])) Discharge Diet: Cardiac and Diabetic Discharge Activity: Resume usual activity Discharge Attestations Time Spent in Discharge Care*: greater than 30 min Quality Metrics Clinical Quality Measures During this hospital stay, did patient experience: None Coding Level of Care Code Acute Code Official for [facility] Fwd Diagnoses Diabetic keto-acidosis E10.10 Diabetes mellitus complication detail: without coma Diabetes mellitus type: type 1 Abdominal pain R10.10 Abdominal location: upper abdomen, unspecified Renal abscess N15.1 Perinephric abscess N15.1
[2019-12-04 15:28] VITALS: BP 142/79; PULSE 67; RESP 18; TEMP 36.6; O2SAT 95
[2019-12-04 15:30] VITALS: BP 147/84; PULSE 72; RESP 18; TEMP 36.7; O2SAT 96
--- NOTE | 2019-12-06 08:37 | PC.SOCIAL ---
Post D/C: Was following up with this patient and the d/c plan. It appears that patient changed his mind several times on the day of discharge. Currently, he is coming in for daily infusions and his sister Bertha is driving him. The patient was wanting to try and get a HH company set up so he could finish the remainder of the prescribed two weeks of TOÑITO at home. [facility] had agreed to provide the medications and there would be no copay, however they will not assist with finding a HH and [facility], [facility], and [facility] had all declined the patient as of Friday. I had reached out to Chetna with [facility], who is another infusion pharmacy out of [place], [place] that also assists with trying to find a HH company as well. Chetna was motivated to work with us, however she is not going to be able to assist with finding a HH company if of course we do not use their pharmacy instead of using [facility]. When I spoke with Chetna on Friday evening, she stated that they do take [place] Medicaid, however they would have to bill the patient for the supplies, which would be about $25/day. Called and spoke with patient's sister Bertha. I informed her that at this point, [facility] being able to provide the IV medication is not really helpful because SS is not able to find a [place] home health company to accept the patient and provide services. At this point, it looks like we have two options: 1. We can contact Chetna with [facility] and see if she can assist us in finding a HH company out of [place] that will accept patient, however there will be a $25/day cost with this options for the IV supplies, or 2. Patient can continue to come to [facility] as outpatient for about 10 more days for the remainder of his IV infusions. Bertha works full-time and will go back to work tomorrow. She doesn't think patient can afford the $25/day, however she will have to talk with other family members to see if they can bring patient in for his infusions for the rest of the two weeks. She will call me back once she talks with her brother (the patient) and their father. Called Chetna at [facility] and updated her of the above. SS will call her back either way once the family lets SS know what they want to do. SS will also need to reach out to [facility] once plan is known.
--- NOTE | 2019-12-06 11:45 | PC.SOCIAL ---
Received a call back from patient's sister, Bertha. She states that they have all talked as a family and have decided to just bring patient in to the hospital for the remainder of the two weeks of IV abx. Contacted Wilmer Turk and Chetna Justin to let them both know of the family's decision. Also called the outpatient surgery department to let them know as well. They already have an order for this.
== END 2019-12-04 16:44 | disposition home health service (06) | DRG 637 ==
LOC: ER 14:05 → ICU 14:52 → MEDSURG 23:17
PROVIDERS: Admitting Provider Student in an Organized Health Care Education/Training Program; Emergency Provider Emergency Medicine; PCP Internal Medicine; Visit Provider Student in an Organized Health Care Education/Training Program
DX: E10.10 Type 1 diabetes mellitus with ketoacidosis without coma (principal); N15.1 Renal and perinephric abscess; I25.10 Atherosclerotic heart disease of native coronary artery without angina pectoris; I10 Essential (primary) hypertension; Z79.82 Long term (current) use of aspirin; G89.29 Other chronic pain; M54.9 Dorsalgia, unspecified; F41.9 Anxiety disorder, unspecified; E78.5 Hyperlipidemia, unspecified; Z87.891 Personal history of nicotine dependence
CPT/HCPCS: 12345; 36415; 36416; 36569; 36600; 71045; 74176; 74177; 76705; 80051; 80053; 80061; 81001; 82009; 82550; 82810; 82962; 83036; 83605; 83690; 83735; 83986; 84484; 85025; 85610; 86677; 87040; 87077; 87086; 87102; 87186; 87206; 87426; 93005; 96372; 96375; 99283; J1335; J1650; J1815 ×2; J2270; J2405; J2543; J7030; J7050; Q9967

== ENCOUNTER 2019-12-05 12:56 | Outpatient (CLI) | payer MEDICAID, SELFPAY ==
[2019-12-05] MEDS: ertapenem 1,000 MG in sodium chloride 0.9% (plus) 100 ML 200 MG IV (13:20)
[2019-12-05 13:35] VITALS: BP 132/76; PULSE 75; RESP 17; TEMP 36.9; O2SAT 95
== END 2019-12-05 14:20 | disposition home or self-care (01) ==
LOC: OPMS 12-07 08:18 → MEDSURG 12-08 10:54
PROVIDERS: PCP Internal Medicine; Visit Provider Student in an Organized Health Care Education/Training Program
DX: G89.29 Other chronic pain (principal); M54.9 Dorsalgia, unspecified
CPT/HCPCS: 96365; J1335

== ENCOUNTER 2019-12-08 08:51 | Outpatient (CLI) | payer MEDICAID, SELFPAY ==
[2019-12-08] VITALS (10 sets, daily range): BP systolic 90–172; BP diastolic 59–101; PULSE 66–76; RESP 16–18; TEMP 36.4; O2SAT 96–100; BMI 30.9
[2019-12-08 09:40] LABS: Glucose Point of Care 90 mg/dL (70-110)
--- NOTE | 2019-12-08 10:00 | CT_ITS ---
NOTE: Report was unsigned for reason: Order was edited. Original Signature date and time was: 12/08/19 1637 WS: [id number] LEFT RENAL ABSCESS DRAINAGE CLINICAL INFORMATION: renal abcess COMPARISON: None. DLP: 453.26 mGy.cm TECHNIQUE: The procedure including risk, benefits, and complications were discussed with the patient who agreed to proceed. Using sterile technique, the patient was prepped and draped in the usual sterile fashion. Patient was positioned prone and CT images were obtained through the kidneys . The left kidney abscess was selected. After 1% lidocaine using fluoroscopic guidance, a 17-gauge coaxial needle was advanced into the left renal abscess. Approximately 5 cc purulent fluid was aspirated and sent for cultures. Using Seldinger technique, an 8 Slovak pigtail catheter was advanced into the renal abscess. No immediate complications. [facility] CT/CT drain kidney [id number] IMPRESSION: 1. 8 Slovak pigtail catheter drain was placed into the left renal abscess. 2. 5 cc purulent material aspirated and sent for cultures. 3. Recommend flushing pigtail drain twice per day with 5 to 10 cc saline 4. Patient was discharged 1 hour postprocedure in stable condition.
[2019-12-08 10:11] LABS: Basophils # 0.1 10^3/uL (0.0-0.1); Basophils % 0.5 %; Eosinophils % 0.4 %; Hematocrit 37.3 % (42.0-52.0); Hemoglobin 11.5 g/dL (11.7-16.6); Lymphocytes # 2.3 10^3/uL (0.8-4.8); Lymphocytes % 20.7 %; Mean Corpuscular HGB Conc 30.8 g/dL (30.0-36.0); Mean Corpuscular Hemoglobin 26.3 pg (28.0-34.0); Mean Corpuscular Volume 85.2 fL (80-94); Monocytes # 0.8 10^3/uL (0.2-0.9); Monocytes % 7.4 %; Neutrophils # 7.77 10^3/uL (1.8-7.7); Neutrophils % 70.4 %; Nucleated Red Blood Cells % 0 %; Platelet Count 635 10^3/cmm (130-400); Red Blood Count 4.38 10^6/uL (4.1-5.3); Red Cell Distribution Width 12.7 % (12.1-15.1)
[2019-12-08 10:24] LABS: Alanine Aminotransferase 20 U/L (0-41); Albumin Level 3.2 g/dL (3.5-5.2); Alkaline Phosphatase 108 IU/L (40-130); Anion Gap 14.9 (5-19); Aspartate Amino Transferase 25 U/L (0-40); Blood Urea Nitrogen 12 mg/dL (6-20); Calcium 9.2 mg/dL (8.5-10.5); Carbon Dioxide 26 mmol/L (22-29); Chloride 103 mmol/L (98-107); Glomerular Filtration Rate 87.9 mL/min (90-130); Glucose 86 mg/dL (65-115); Osmolality Calculated 285 mOsm/kg (285-295); Potassium 3.9 mmol/L (3.5-5.1); Sodium 140 mmol/L (136-145); Total Bilirubin 0.2 mg/dL (0.15-1.2); Total Protein 7.2 g/dL (6.6-8.7)
[2019-12-08] MEDS: sodium chloride 0.9% 1,000 ML 30 ML IV (11:00)
[2019-12-08] MEDS: midazolam 1 mg/mL INJ 2 mL 2 MG IVP ×2 (11:01→11:10)
[2019-12-08] MEDS: fentaNYL 50 mcg/mL INJ 2mL IVP ×2 (11:02→11:07)
--- NOTE | 2019-12-08 16:17 | PC.SOCIAL ---
Received a call from patient's PCP office nurse at [facility] in [place]. Patient is not currently inpatient, but comes to outpatient surgery to get daily IV infusion. He was discharged on 12/04/19 (please see SS notes from this visit for more information). Nurse from PCP office, Francisco Javier Singer ext. [phone]) states she spoke with patient's sister Bertha who voices concerns about patient being very sick overall and it's difficult for him to make the daily trip to [place]. Bertha was hoping that Francisco Javier could assist in patient getting the daily infusions at the doctor's office, at least Friday-Friday when they are open, and then only having to come to [facility] on the weekends. I told Francisco Javier I am not sure if this can be done and updated her that SS attempted to get IV infusions set up at home but we could not get a [employer] company to accept. I provided Francisco Javier with Chetna's number who works at [facility], the infusion pharmacy that we had been dealing with to see if she could be of help. I told Francisco Javier that Chetna had said she could provide the IV medication for home infusions, however she would need to charge the patient $25/day for the supplies, so if Francisco Javier and Chetna could work together to see if the PCP office could provide the IV supplies, this may be an option, I'm not sure. I asked Francisco Javier to call me back if the plan changes for patient to come to [facility], so that I can update the Outpatient Surgery staff so they are not expecting patient to come in for his infusion if he has another option. She states she will. Francisco Javier calls back about an hour later and states she spoke with Chetna from [facility] and they can get something worked out together. Patient would need to continue to come to [facility] tomorrow and again on Friday and Friday when their office is closed, however Francisco Javier has questions about how to handle the nephrostomy tube. SS knows nothing about the nephrostomy tube since this was not placed before discharge. I called and provided Kimber in Outpatient Surgery Francisco Javier's phone number so that maybe someone could call her who has seen the patient today who can update Francisco Javier on who ordered the tube and the aftercare for it. Kimber states she will pass the message along. Chetna from [facility] calls me as well. I updated Chetna that I have asked Outpatient Surgery to call Francisco Javier at patient's PCP office to update them on patient's current condition and what he needs in regards to the nephrostomy tube as social media marketer has not seen the patient since the day of discharge. She states she will continue to work with Francisco Javier and help out any way that she can. No further action needed by social media marketer at this time as the plan we had at discharge was for patient to come to [facility] as outpatient and get daily IV infusions for the prescribed two weeks and patient/family were agreeable to this plan when social media marketer last spoke with them.
--- NOTE | 2019-12-09 08:58 | PC.SOCIAL ---
Spoke with Sary Tolbert and Dr Ji regarding post drain care and follow up on drain. This nurse contacted Dr Bejarano office 12/08/2019 and spoke to Jody. Teri returned call and indicates they will discuss with Dr Bejarano. Message left for this nurse around 1700 on 12/[address] Bejarano office will get patient an appt with Dr Bejarano on Friday am. This am spoke to Jody at their office and he is on schedule for 9am tomorrow (Friday). She is pretty sure patient is aware. This nurse called and spoke with patient and he is aware of the appt tomorrow and we discussed the iimportance of attending due to Dr Bejarano will need to remove drain at some point. Updated Sary in Radiology and Dr Ji.
== END 2019-12-08 08:52 | disposition home or self-care (01) ==
LOC: RAD 08:51 → OPS 08:54
PROVIDERS: Radiology Neuroradiology; PCP Internal Medicine; Visit Provider Student in an Organized Health Care Education/Training Program
PROC: (CPT 75989; principal; 2019-12-08 09:30)
DX: N15.1 Renal and perinephric abscess (principal)
CPT/HCPCS: 36416; 49405; 75989; 80053; 82962; 85025; 85610; 87015; 87070; 87075; 87077; 87102; 87116; 87186; 87205; 87206; 87801; 88304; 96374; 96375; J2250; J3010; J7030

== ENCOUNTER 2019-12-21 07:55 | Outpatient (CLI) | payer MEDICAID, SELFPAY ==
--- NOTE | 2019-12-21 11:00 | US_ITS ---
WS: [id number] ULTRASOUND RENAL TECHNIQUE: Ultrasound examination of both kidneys. CLINICAL INFORMATION: RENAL U/S 12/21/19@[facility] FOLLOWING CT AT 7:00AM. APPT TO FOLLOW COMPARISON: None. FINDINGS: Pigtail catheter superior left kidney. No hydronephrosis in either kidney. RIGHT: Right kidney is normal in size and appearance. Echogenicity: Normal. Cortical thickness: 1.4 cm; Normal. Hydronephrosis: None. Perinephric fluid: None. Right kidney measures: 10.9 cm x 6.1 cm x 6.5 cm. LEFT: Left kidney is normal in size and appearance. Echogenicity: Normal. Cortical thickness: 1.5 cm; Normal. Hydronephrosis: None. Perinephric fluid: None. Left kidney measures: 11.1 cm x 6.3 cm x 7.4 cm. Normal visualized aorta. Normal bladder. US/US renal BI* [id number] IMPRESSION: Normal renal ultrasound. Pigtail catheter superior left kidney
== END 2019-12-21 07:56 | disposition home or self-care (01) ==
LOC: RAD 07:57
PROVIDERS: PCP Internal Medicine; Visit Provider Urology
DX: N15.1 Renal and perinephric abscess (principal)
CPT/HCPCS: 76770; 81001

== ENCOUNTER 2019-12-22 10:09 | Outpatient (CLI) | payer MEDICAID, SELFPAY ==
--- NOTE | 2019-12-22 10:13 | CT_ITS ---
WS: [id number] CT ABDOMEN PELVIS TECHNIQUE: Contrast-enhanced CT of the abdomen and pelvis with coronal and sagittal reformatted image s. CLINICAL INFORMATION: RENAL ABSCESS COMPARISON: Comparison multiple prior examinations including December 07, 2028 June 17, 2018 Februa 2019 DLP: [id number] scans at [facility] use at least one of these dose optimization techniques: automat ed exposure control; mA and/or kV adjustment per patient size (includes targeted exams where dose is matched to clinical indication); or iterative reconstruction. FINDINGS: Left pigtail catheter is in place abutting the left kidney. Left pararenal and psoas abscess is nearl y completely resolved. Tiny amount of residual capsular abscess about the superior pole of the left k idney medially. Distal aspect pigtail catheter abuts this area. Small residual abscess measures 2.6 x 1.7 CM. Normal renal parenchymal enhancement. No psoas abscess. No hydronephrosis. Adrenal glands are normal. Normal renal parenchymal enhancement. Diffuse fatty infiltration liver. No rmal gallbladder. Normal GE junction. Normal portal vein and splenic vein. Fatty atrophy of the pancr eas. Lung bases are well aerated. Normal renal nephrogram. Normal cortical medullary enhancement. Normal excretion on the delayed image s. Normal excretion into the left ureter. No periaortic lymphadenopathy. Mild prostate enlargement measuring 4.5 CM. Normal sigmoid colon. Norm al lumbar spine. CT/CT abdomen pelvis w con* [id number] IMPRESSION: 1. Left renal abscess has nearly completely resolved. Small residual abscess m easuring 1.7 x 2.6 cm at the superior pole left kidney. 2. Normal pigtail catheter abuts the dorsal aspect of the residual fluid colle ction. 3. Normal renal parenchymal enhancement with normal excretion. Normal filling of the left ureter. No hydronephrosis. 4. Prominent prostate measuring 4.5 CM. 5. No other significant changes from previous.
[2019-12-22] MEDS: iohexol 300 mg/mL 100 mL Btl IV (10:25)
== END 2019-12-22 10:10 | disposition home or self-care (01) ==
LOC: RAD 10:10
PROVIDERS: PCP Internal Medicine; Visit Provider Student in an Organized Health Care Education/Training Program
DX: N15.1 Renal and perinephric abscess (principal); N40.0 Benign prostatic hyperplasia without lower urinary tract symptoms
CPT/HCPCS: 74177

== ENCOUNTER 2019-12-27 07:57 | Outpatient (RCR) | payer MEDICAID, SELFPAY ==
[2019-12-06] MEDS: ertapenem 1,000 MG in sodium chloride 0.9% (plus) 100 ML 200 MG IV (14:11)
[2019-12-06 14:13] VITALS: BP 141/82; PULSE 73; RESP 18; TEMP 36.8; O2SAT 96; BMI 30.9
[2019-12-07] MEDS: ertapenem 1,000 MG in sodium chloride 0.9% (plus) 100 ML 200 MG IV (13:36)
[2019-12-07 13:37] VITALS: BP 178/102; PULSE 77; RESP 18; TEMP 36.8; O2SAT 97
[2019-12-08 12:30] VITALS: BP 132/80; PULSE 66; RESP 18; TEMP 36.4; O2SAT 96
[2019-12-08] MEDS: ertapenem 1,000 MG in sodium chloride 0.9% (plus) 100 ML 200 MG IV (12:30)
--- NOTE | 2019-12-08 12:58 | SUR.PHASEII ---
0036 Patient and patiend friend, Bertha, given instructions on how to care for renal drain at home. Pt friend Bertha shown how to flush the drain with 5 mL NS and reattach drain. Pt demonstrated appropriate technique on how to flush drain and empty drain. Pt and friend have no questions at this time. Drain to be flushed in OPS during infusion in the afternoons. Patient to flush drain at home as instructed in the mornings. Pt given follow up appointment date with Dr. Vieira (). Dr. Morales office to call patient with follow-up appointment time regarding renal drain.
[2019-12-09 13:26] VITALS: BP 144/84; PULSE 72; RESP 18; TEMP 36.4; O2SAT 98
[2019-12-09] MEDS: ertapenem 1,000 MG in sodium chloride 0.9% (plus) 100 ML 200 MG IV (13:43)
[2019-12-10] MEDS: ertapenem 1,000 MG in sodium chloride 0.9% (plus) 100 ML 200 MG IV (10:08)
[2019-12-10 10:15] VITALS: BP 179/96; PULSE 70; RESP 18; TEMP 36.7; O2SAT 98
--- NOTE | 2019-12-10 10:20 | SUR.PREOP ---
Addendum entered by Makayla Naqvi 12/10/19 10:22: patient will be coming to ops for infusion at 0800 daily and will have drain flushed and emptied at that time and will do it at home in the afternoons. patient is agreeable with this. Original Note: patient emptied 30ml from renal drain at 0700 12/10/19. I emptied 13ml of bloody drainage from drain at 0958.
[2019-12-11] MEDS: ertapenem 1,000 MG in sodium chloride 0.9% (plus) 100 ML 200 MG IV (08:05)
[2019-12-11 08:12] VITALS: BP 139/80; PULSE 69; RESP 18; TEMP 36.2; O2SAT 98
[2019-12-12] MEDS: ertapenem 1,000 MG in sodium chloride 0.9% (plus) 100 ML 200 MG IV (08:14)
[2019-12-12 08:17] VITALS: BP 144/87; PULSE 70; RESP 18; TEMP 36.4; O2SAT 97
[2019-12-13] MEDS: ertapenem 1,000 MG in sodium chloride 0.9% (plus) 100 ML 200 MG IV (08:05)
[2019-12-13 08:13] VITALS: BP 150/89; PULSE 62; RESP 18; TEMP 36.6; O2SAT 98
[2019-12-14 08:00] VITALS: BP 153/90; PULSE 71; RESP 18; TEMP 36.6; O2SAT 98
[2019-12-14] MEDS: ertapenem 1,000 MG in sodium chloride 0.9% (plus) 100 ML 200 MG IV (08:15)
[2019-12-15] MEDS: ertapenem 1,000 MG in sodium chloride 0.9% (plus) 100 ML 200 MG IV (08:22)
[2019-12-15 08:28] VITALS: BP 156/98; PULSE 61; RESP 18; TEMP 37; O2SAT 100
[2019-12-15 08:37] LABS: Basophils # 0.1 10^3/uL (0.0-0.1); Basophils % 0.6 %; Eosinophils # 0.1 10^3/uL (0.0-0.8); Eosinophils % 1.3 %; Hematocrit 38.9 % (42.0-52.0); Hemoglobin 12.2 g/dL (11.7-16.6); Lymphocytes # 2.4 10^3/uL (0.8-4.8); Mean Corpuscular HGB Conc 31.4 g/dL (30.0-36.0); Mean Corpuscular Hemoglobin 26.5 pg (28.0-34.0); Mean Corpuscular Volume 84.4 fL (80-94); Mean Platelet Volume 8.9 fL (7.4-10.4); Monocytes # 0.6 10^3/uL (0.2-0.9); Monocytes % 6.7 %; Neutrophils # 6.05 10^3/uL (1.8-7.7); Neutrophils % 64.9 %; Nucleated Red Blood Cells % 0 %; Platelet Count 576 10^3/cmm (130-400); Red Blood Count 4.61 10^6/uL (4.1-5.3); White Blood Count 9.3 10^3/uL (4.0-10.0)
[2019-12-15 08:56] LABS: Alanine Aminotransferase 10 U/L (0-41); Albumin Level 3.7 g/dL (3.5-5.2); Alkaline Phosphatase 108 IU/L (40-130); Anion Gap 14.7 (5-19); Aspartate Amino Transferase 7 U/L (0-40); Blood Urea Nitrogen 11 mg/dL (6-20); Calcium 8.6 mg/dL (8.5-10.5); Carbon Dioxide 27 mmol/L (22-29); Chloride 99 mmol/L (98-107); Globulin 3.7 g/dL (1.3-4.6); Glomerular Filtration Rate 100.7 mL/min (90-130); Glucose 197 mg/dL (65-115); Osmolality Calculated 284 mOsm/kg (285-295); Potassium 4.7 mmol/L (3.5-5.1); Sodium 136 mmol/L (136-145); Total Bilirubin 0.2 mg/dL (0.15-1.2); Total Protein 7.4 g/dL (6.6-8.7)
[2019-12-16 08:00] VITALS: BP 165/90; PULSE 68; RESP 18; TEMP 37; O2SAT 99
[2019-12-16] MEDS: ertapenem 1,000 MG in sodium chloride 0.9% (plus) 100 ML 200 MG IV (08:10)
[2019-12-17 07:55] VITALS: BP 143/86; PULSE 66; RESP 18; TEMP 36.7; O2SAT 98
[2019-12-17] MEDS: ertapenem 1,000 MG in sodium chloride 0.9% (plus) 100 ML 200 MG IV (08:05)
[2019-12-18] MEDS: ertapenem 1,000 MG in sodium chloride 0.9% (plus) 100 ML 200 MG IV (08:00)
[2019-12-18 08:24] VITALS: BP 157/91; PULSE 72; RESP 18; TEMP 36.1; O2SAT 99
[2019-12-19] MEDS: ertapenem 1,000 MG in sodium chloride 0.9% (plus) 100 ML 200 MG IV (07:50)
[2019-12-19 08:06] VITALS: BP 144/82; PULSE 67; RESP 18; TEMP 36.6; O2SAT 97
[2019-12-20] MEDS: ertapenem 1,000 MG in sodium chloride 0.9% (plus) 100 ML 200 MG IV (08:00)
[2019-12-20 08:06] VITALS: BP 164/90; PULSE 76; RESP 18; TEMP 36.5; O2SAT 98
[2019-12-21 08:10] VITALS: BP 127/80; PULSE 67; RESP 18; TEMP 36.4; O2SAT 98
[2019-12-21] MEDS: ertapenem 1,000 MG in sodium chloride 0.9% (plus) 100 ML 200 MG IV (08:30)
--- NOTE | 2019-12-21 09:15 | PC.NURSE ---
patient was unable to drain any fluid from his drain last night. 12/20/19
[2019-12-22] MEDS: ertapenem 1,000 MG in sodium chloride 0.9% (plus) 100 ML 200 MG IV (08:23)
[2019-12-22 08:24] VITALS: BP 127/77; PULSE 67; RESP 16; TEMP 36.3; O2SAT 98
[2019-12-23] MEDS: ertapenem 1,000 MG in sodium chloride 0.9% (plus) 100 ML 200 MG IV (08:15)
[2019-12-23 08:16] VITALS: BP 178/98; PULSE 76; RESP 18; TEMP 36.9; O2SAT 99
[2019-12-24] MEDS: ertapenem 1,000 MG in sodium chloride 0.9% (plus) 100 ML 200 MG IV (08:10)
[2019-12-24 08:32] VITALS: BP 130/79; PULSE 69; RESP 18; TEMP 36.5; O2SAT 98
[2019-12-25 07:55] VITALS: BP 120/78; PULSE 77; RESP 18; TEMP 36.2; O2SAT 100
[2019-12-25] MEDS: ertapenem 1,000 MG in sodium chloride 0.9% (plus) 100 ML 200 MG IV (08:00)
[2019-12-26 08:19] VITALS: BP 171/97; PULSE 83; RESP 18; TEMP 36.6; O2SAT 97
[2019-12-26] MEDS: ertapenem 1,000 MG in sodium chloride 0.9% (plus) 100 ML 200 MG IV (08:21)
--- NOTE | 2019-12-26 08:27 | PC.NURSE ---
Patient presented with top of dressing pulled off below level of line insertion site. Patient reported this just happened when the sock stuck on the dog eared part of the transparent dressing and pulled the transparent dressing down exposing the line. Cleaned and redressed site using sterile technique. \patient reports no discomfort
[2019-12-27 08:08] VITALS: BP 173/99; PULSE 79; RESP 18; TEMP 36.8; O2SAT 98
[2019-12-27] MEDS: ertapenem 1,000 MG in sodium chloride 0.9% (plus) 100 ML 200 MG IV (08:13)
[2019-12-28] MEDS: ertapenem 1,000 MG in sodium chloride 0.9% (plus) 100 ML 200 MG IV (08:52)
[2019-12-28 08:53] VITALS: BP 153/87; PULSE 77; RESP 18; TEMP 36.7; O2SAT 97
--- NOTE | 2019-12-28 09:15 | PM.MISC ---
Miscellaneous Note Purpose of Documentation: patient follow up Note: patient seen in outpatient surgery after his ertapenem infusion. Interim events since last being seen include removal of renal drain on 11/20. CT shows signifcant improvement in renal abscess. Small perinephric collection remains. Patient feels well. No fever. Abdominal pian resolved. Tolerated ertapenem well. Plan: Stop iv ertapenem today remove picc line transition to po ciprofloxacin today repeat CT on morning of January 03 followed by appointment at ID clinic the same afternoon If size of remnant collection remains stable to improving, and patient appears clinically well, will discontinue abx altogether.
== END 2019-12-29 23:59 | disposition home or self-care (01) ==
LOC: OPS 07:57
PROVIDERS: PCP Internal Medicine; Visit Provider Student in an Organized Health Care Education/Training Program
DX: N15.1 Renal and perinephric abscess (principal)
CPT/HCPCS: 15852; 36415; 80053; 81001; 85025; 87493; 96365; J1335

== ENCOUNTER 2020-01-04 12:08 | Outpatient (CLI) | payer MEDICAID, SELFPAY ==
--- NOTE | 2020-01-04 12:12 | CT_ITS ---
WS: [id number] CT ABDOMEN PELVIS TECHNIQUE: Contrast-enhanced CT of the abdomen and pelvis with coronal and sagittal reformatted image s. CLINICAL INFORMATION: renal abscess COMPARISON: December 22, 2019 DLP: 1104.[address] scans at [facility] use at least one of these dose optimization techniques: automat ed exposure control; mA and/or kV adjustment per patient size (includes targeted exams where dose is matched to clinical indication); or iterative reconstruction. FINDINGS: Previous described left renal abscess has nearly resolved. Interval removal of the pigtail catheter. Tiny residual perinephric collection decrease in size from previous measuring 2.7 x 0.6 cm today. No evidence of new or progressive of abscess. Tiny amount of soft tissue thickening abutting the left ps oas and kidney. No hydronephrosis. Mild diffuse fatty infiltration liver. Normal gallbladder. Normal pancreas. Normal spleen. Normal GE junction. Lung bases are well aerated. Adrenal glands are normal. Normal caliber abdominal aorta. Nor mal right kidney. Prostate calcification. Urine distended bladder. No evidence of small or large bowel obstruction. Nor mal sigmoid colon. No periaortic or inguinal lymphadenopathy. No pelvic lymphadenopathy. CT/CT abdomen pelvis w con* [id number] IMPRESSION: 1. Left perinephric abscess has nearly resolved and decreased in size from pre vious. Interval removal of the left pigtail drain. 2. Tiny amount of residual subcapsular thickening/fluid upper pole left kidney abutting the left psoas. Small perinephric collection measures 2.7 x 0.6 mm. 3. No evidence of new or progressed abscess. No hydronephrosis. 4. No other significant changes from previous.
[2020-01-04] MEDS: iohexol 300 mg/mL 100 mL Btl IV (12:31)
== END 2020-01-04 12:09 | disposition home or self-care (01) ==
LOC: RAD 12:10
PROVIDERS: PCP Internal Medicine; Visit Provider Student in an Organized Health Care Education/Training Program
DX: N15.1 Renal and perinephric abscess (principal)
CPT/HCPCS: 74177

== ENCOUNTER 2020-04-02 16:50 | Inpatient (IN) | payer MEDICAID, SELFPAY ==
[2020-04-02] VITALS (19 sets, daily range): BP systolic 69–113; BP diastolic 42–82; PULSE 76–94; RESP 10–21; TEMP 36.6; O2SAT 92–99; BMI 33.4
--- NOTE | 2020-04-02 17:35 | XRR_ITS ---
PROCEDURE INFORMATION: Exam: XR Chest, 1 View Exam date and time: 04/02/2020 5:37 PM Age: 55 years old Clinical indication: Chest pain TECHNIQUE: Imaging protocol: XR of the chest Views: 1 view. COMPARISON: CR XR chest 1V portable [id number] 12/03/2019 12:22 PM FINDINGS: Lungs: Small bilateral calcified pulmonary granulomas are noted. No consolidative pulmonary infiltrates are noted. Pleural space: No pleural effusion. No pneumothorax. Heart/Mediastinum: No cardiomegaly. Bones/joints: Unremarkable. XR/XR chest 1V portable [id number] IMPRESSION: 1. No acute cardiopulmonary disease demonstrated. 2. Changes of old granulomatous disease are identified.
--- NOTE | 2020-04-02 17:35 | ECG_ITS ---
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 Measurements Intervals [place] Rate: 80 P: 50 AR: 158 QRS: 18 QRSD: 101 T: 46 QT: 360 QTc: 417 Interpretive Statements SINUS RHYTHM NONSPECIFIC T-WAVE ABNORMALITY Compared to ECG 11/30/2019 16:45:59 T-wave abnormality now present Electronically Signed On 04-03-2020 19:01:05 HEAD OF MUSIC by Naveed Shultz M.D. [id number] f
[2020-04-02] MEDS: lidocaine 2% viscous 15 ML, aluminum-mag hydrox-simethicon 30 ML, sucralfate oral liq 1 GM PO (17:59)
[2020-04-02 18:10] LABS: Basophils # 0.1 10^3/uL (0.0-0.1); Basophils % 0.4 %; Eosinophils # 0.1 10^3/uL (0.0-0.8); Eosinophils % 0.6 %; Hematocrit 46.9 % (42.0-52.0); Lymphocytes # 3.4 10^3/uL (0.8-4.8); Lymphocytes % 23.6 %; Mean Corpuscular HGB Conc 34.1 g/dL (30.0-36.0); Mean Corpuscular Hemoglobin 28.2 pg (28.0-34.0); Mean Corpuscular Volume 82.6 fL (80-94); Mean Platelet Volume 9.8 fL (7.4-10.4); Monocytes # 1.1 10^3/uL (0.2-0.9); Monocytes % 7.7 %; Neutrophils # 9.66 10^3/uL (1.8-7.7); Neutrophils % 67.2 %; Nucleated Red Blood Cells % 0 %; Platelet Count 341 10^3/cmm (130-400); Red Blood Count 5.68 10^6/uL (4.1-5.3); Red Cell Distribution Width 12.9 % (12.1-15.1); White Blood Count 14.4 10^3/uL (4.0-10.0)
--- NOTE | 2020-04-02 18:29 | PC.NURSE ---
Heartburn symptoms resolved with gi-cocktail. Chest pain continues
[2020-04-02 18:36] LABS: Troponin(5th) Baseline 21 ng/L (0-15)
--- NOTE | 2020-04-02 18:50 | PC.NURSE ---
Received report from [facility]. Pt vomiting, medication ordered
[2020-04-02] MEDS: nitroglycerin 1 gm/inch oint Pkt 1 INCH TOPICAL (19:13)
[2020-04-02] MEDS: ondansetron 2 mg/ML SDV 2 mL 4 MG IVP (19:14)
[2020-04-02] MEDS: morphine 4 mg/mL SDV 1 mL IVP (19:14)
--- NOTE | 2020-04-02 19:35 | ECG_ITS ---
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 Measurements Intervals [place] Rate: 79 P: 43 IN: 142 QRS: 4 QRSD: 96 T: 49 QT: 369 QTc: 425 Interpretive Statements SINUS RHYTHM Compared to ECG 04/02/2020 17:01:24 T-wave abnormality no longer present Electronically Signed On 04-03-2020 19:11:57 INTERIOR BLOCK WIRER by Naveed Shultz M.D. [id number] f
[2020-04-02 20:57] LABS: Troponin 5 2HR 26.46 ng/L (0-15); Troponin 5 2HR Delta 5.46 ABS# (0-10)
[2020-04-02 21:33] LABS: Alanine Aminotransferase 12 U/L (0-41); Albumin Level 4.4 g/dL (3.5-5.2); Alkaline Phosphatase 126 IU/L (40-130); Anion Gap 15.6 (5-19); Aspartate Amino Transferase 11 U/L (0-40); Blood Urea Nitrogen 21 mg/dL (6-20); Calcium 10.9 mg/dL (8.5-10.5); Carbon Dioxide 27 mmol/L (22-29); Chloride 99 mmol/L (98-107); Globulin 3.5 g/dL (1.3-4.6); Glomerular Filtration Rate 77.6 mL/min (90-130); Glucose 124 mg/dL (65-115); Osmolality Calculated 290 mOsm/kg (285-295); Potassium 3.6 mmol/L (3.5-5.1); Sodium 138 mmol/L (136-145); Total Bilirubin 0.9 mg/dL (0.15-1.2); Total Protein 7.9 g/dL (6.6-8.7)
[2020-04-02] MEDS: sodium chloride 0.9% 1,000 ML 999 ML IV (22:15)
--- NOTE | 2020-04-02 23:02 | PM.HP ---
Providers/Chief Complaint Primary Care Provider: Niesha Hinds Chief Complaint: CHEST PAIN History of Present Illness Raheel Lam is a 55 year old male who has history of coronary disease status post stent to mid RCA in 2019 presented today with chief complaint of chest pain. Patient stating that his symptoms started about 3 to 4 days ago, first symptom were noticed when he was playing with his grandchildren in the park, he attributed his symptoms to GERD, did not pay much attention but his symptoms gradually got worse and now today he was experiencing chest pain on rest. He is describing this pain as sharp with pressure-like sensation, substernal which would last more than 30 minutes, gets relieved with aspirin and nitroglycerin, similar to the one when he had a stent placed. He has also been trying to push on his stomach because of hiatal hernia, surprisingly it makes it chest pain better. He has also been noticing some shortness of breath, he has not noticed excessive weight gain, diaphoresis, vomiting, radiation of pain to her jaw or left arm. His chest discomfort is not getting relieved now he is experiencing constantly with intensity 4-6. Diagnosis in the ER revealed hypotension after getting nitroglycerin, he was started on normal saline to support preload, first EKG showed mild nonspecific T wave changes in lead III and aVF, subsequent EKG looks normal without new ischemic or infarctive changes, patient is still endorsing chest discomfort 6/10, not getting nitroglycerin anymore. He was given GI cocktail, Zofran, morphine 4 mg, topical nitroglycerin was placed which was removed secondary to hypotension No significant delta troponin noted, follow-up EKG not showing any significant ST segment changes or T wave inversions, lisinopril was put on hold along with nitroglycerin Review of Systems Const: Reports: body aches and fatigue; Denies: fever(s) Eyes: Denies: change in vision ENMT: Denies: throat pain Card: Reports: chest pain and dyspnea on exertion; Denies: swelling of feet/ankles or orthopnea Resp: Reports: dyspnea and non-productive cough; Denies: productive cough GI: Reports: abdominal pain, heartburn and early satiety; Denies: nausea or vomiting : Denies: flank pain Musc: Denies: neck pain Skin/Breast: Denies: rash Neuro: Denies: headache(s) Psych: Denies: anxiety Endo: Denies: polyuria Zuhair/Lymph: Denies: easy bruising All/Imm: Denies: urticaria Medications/Allergies Home Medications Medication Instructions Recorded Confirmed Last Taken Type Lantus U-100 Insulin See Rx Instructions .ROUTE .COMPLEX 04/06/19 01/04/20 12/09/19 History aspirin 81 mg PO DAILY 04/06/19 01/04/20 12/06/19 History montelukast 10 mg PO DAILY 04/06/19 01/04/20 12/09/19 History nitroglycerin [Nitrostat] 0.4 mg SUBLINGUAL Q5M PRN 04/06/19 01/04/20 Unknown History omeprazole 20 mg PO DAILY 04/06/19 01/04/20 12/09/19 History paroxetine HCl [Paxil] 40 mg PO DAILY 04/06/19 01/04/20 12/09/19 History clopidogrel 75 mg tablet 75 mg PO DAILY #30 tab 04/14/19 01/04/20 12/05/19 Rx gabapentin 600 mg tablet 600 mg PO TID tab 05/24/19 01/04/20 12/09/19 History insulin aspart U-100 100 unit/mL 17 unit SUBCUT TID 05/24/19 01/04/20 12/09/19 History (3 mL) subcutaneous pen tramadol 50 mg tablet 50 mg PO PRN 05/24/19 01/04/20 12/07/19 History lisinopril 20 mg PO BID #0 tab 12/04/19 01/04/20 12/09/19 Rx metformin 500 mg tablet 500 mg PO BID 12/10/19 01/04/20 Unknown History ertapenem 1 gram solution for 1 g IV Q24H #14 each 12/14/19 01/04/20 Unknown Rx injection Allergies Allergy/AdvReac Type Severity Reaction Status Date / Time No Known Allergies Allergy Verified 01/04/20 13:01 PFSH Acute PFSH: Medical History (Updated 04/03/20 @ 00:49 by Maggie Mojica MD) Anxiety CAD (coronary artery disease) Chest pain Chronic back pain greater than 3 months duration Diabetes Dyslipidemia HTN (hypertension) Intervertebral disc disorder with radiculopathy of lumbosacral region Palpitations Surgical History S/P coronary artery stent placement 10/20/2018 Family History Mother , in her 50's Heart disease COPD (chronic obstructive pulmonary disease) Father Hypertension Grandmother Cancer Social History (Updated 04/03/20 @ 00:46 by Maggie Mojica MD) Smoking and tobacco status: current every day smoker smokeless tobacco Smokeless tobacco user: chewing tobacco Alcohol intake: former Lives independently: Yes Household members: none Marital status: Current occupational status: disabled Current occupation: filed for disability History of recent travel: No Vitals/I&O/Wt Last Vital Signs Temp 97.8 F 04/02/20 17:05 Pulse 94 04/02/20 19:11 Resp 18 04/02/20 19:14 BP 103/75 04/02/20 19:11 Pulse Ox 99 04/02/20 19:11 Weight last 48 hrs Weight 91.172 kg Physical Exam Narrative: EXAM NARRATIVE: Morbidly obese male currently in semi-Mena position complaining of chest pain 6/10 Systolic blood pressure 10 5-1 10mmhg however awake alert oriented x3 GCS 15 Able to give me above-mentioned HPI Awake alert oriented x3 GCS 15 No neurological deficit EOMI, PERRLA S1, S2 sinus rhythm no active murmur appreciated chest pain is not reproducible Abdomen distended visceral obesity ventral hernia noted, tenderness in the midepigastric region on deep palpation Lower extremity no edema gangrene or ulcer Appropriate mood and affect No active joint swelling or cellulitis of skin Data : 04/02/20 17:55 04/02/20 17:55 A&P Assessment and plan (1) Unstable angina: Unstable angina Substernal pain started 4 days ago, initially on exertion now at rest, lasting more than 30 minutes, relieved with nitro, Establish coronary disease with stent in RCA 2018 He has been compliant with his aspirin and Plavix however I do not see any atorvastatin Holding lisinopril and nitroglycerin secondary to stent in RCA and current soft blood pressure after getting Nitropaste in the ER We will treat with morphine for now Second EKG is looking better from the first [address] or T wave changes We will follow up 6-hour troponin and serial EKGs Keep him n.p.o. Echo in the morning Most likely he will benefit from an angiogram, kindly consider cardiology consult I would not request cardiac stress test at this point because of his active chest pain which she is endorsing 09/07, he recently received GI cocktail as well which seemed to relieve his symptoms a little bit Status: Acute Additional A&P Information Type2 diabetes: I will keep him on D5 maintenance fluid along low-dose insulin sliding scale Hypertension: Currently I am holding lisinopril secondary to hypotension after getting nitroglycerin Diabetic neuropathy: Would continue gabapentin for now creatinine 1.0 GERD: Continue Protonix, GI cocktail given in the ER Back pain: Tramadol held for now Full code DVT prophylaxis Lovenox N.p.o. Attestations Medical Necessity Statement*: Anticipating stay will cross more than 2 midnights, patient will most likely benefit from an angiogram because of active chest discomfort he will not be a suitable candidate for another cardiac stress test, will consult cardiology, clinical course depends upon patient's symptoms and cardiology recommendations Time Spent in Patient Care: (>than 50% of time spent in counselling and/or direct pt care on unit). 50mins Coding Level of Care Code Acute Data Services Developer for Dina Okeefe Diagnoses Unstable angina I20.0
--- NOTE | 2020-04-02 23:36 | PC.NURSE ---
Pt stated pain is much improved , increased BP. Continue to monitor
[2020-04-03] VITALS (15 sets, daily range): BP systolic 83–139; BP diastolic 55–83; PULSE 65–85; RESP 11–20; TEMP 36.3–36.8; O2SAT 93–97
--- NOTE | 2020-04-03 | USCV_ITS ---
Raheel Lam Age: 55 Gender: M : 1965 Exam Date: 04/03/2020 06:59 Ordering Phys: Maggie Mojica MD Technologist: Catherine Lebron [place] [facility] [place] Indication: ANGINA BP: 110 / 83 HR: 66 Rhythm: Sinus Technical Quality: Adequate MEASUREMENTS (Male / Female) Normal Values 2D ECHO LV Diastolic Diameter PLAX 4.0 cm 4.2 - 5.9 / 3.9 - 5.3 cm LV Systolic Diameter PLAX 1.9 cm IVS Diastolic Thickness 1.5 cm 0.6 - 1.0 / 0.6 - 0.9 cm IVS Systolic Thickness 2.0 cm LVPW Diastolic Thickness 1.6 cm 0.6 - 1.0 / 0.6 - 0.9 cm LVPW Systolic Thickness 1.8 cm LVOT Diameter 2.1 cm LV Ejection Fraction 2D Teich 85.0 % LV Ejection Fraction MOD 2C 45.8 % LV Ejection Fraction 2C AL 47.1 % LA Diameter 3.3 cm LA Width 3.1 cm LA Height 3.7 cm RA Width 3.4 cm RA Height 3.1 cm Aorta at Sinotubular Diameter 3.3 cm M-MODE LV Diastolic Diameter MM 4.3 cm 4.2 - 5.9 / 3.9 - 5.3 cm LV Systolic Diameter MM 2.9 cm LV Ejection Fraction MM Teich 59.9 % IVS Diastolic Thickness MM 1.4 cm 0.6 - 1.0 / 0.6 - 0.9 cm IVS Systolic Thickness MM 1.6 cm LVPW Diastolic Thickness MM 1.1 cm 0.6 - 1.0 / 0.6 - 0.9 cm LVPW Systolic Thickness MM 1.7 cm RV Diastolic Diameter MM 2.3 cm Aortic Annulus Diameter 3.6 cm LA Ao Ratio MM 1.0 MV E Point Septal Separation 0.4 cm DOPPLER AV Peak Velocity 161.0 cm/s LVOT Peak Velocity 107.0 cm/s AV Area Cont Eq vti 2.3 cm squared AV Area Cont Eq pk 2.2 cm squared MV Area PHT 4.2 cm squared Mitral E to A Ratio 1.1 MV E' Velocity 59.0 cm/s Mitral E to MV E' Ratio 15.1 Mitral E to LV E' Lateral Ratio 16.1 Mitral E to LV E' Septal Ratio 14.3 TR Peak Velocity 134.1 cm/s TR Peak Gradient 7.2 mmHg TR Mean Velocity 107.5 cm/s TR Mean Gradient 5.4 mmHg TR Velocity Time Integral 34.1 cm TV Peak E Velocity 55.0 cm/s Right Atrial Pressure 5.0 mmHg Pulmonary Artery Systolic Pressu 12.2 mmHg PV Peak Velocity 62.0 cm/s RV Acceleration Time 0.2 s RV Ejection Time 0.4 s RV AcT/ET 0.5 FINDINGS Left Ventricle Normal left ventricular cavity size. Normal left ventricular systolic function. No regional wall motion abnormalities. Left ventricular ejection fraction is estimated at 59 %. Normal diastolic function. Right Ventricle The right ventricle is normal in size and function. Right Atrium The right atrium is normal in size. Left Atrium The left atrium is normal in size. Mitral Valve Mildly thickened mitral valve. No mitral valve stenosis. No mitral valve regurgitation. Aortic Valve Aortic valve sclerosis without stenosis or regurgitation. Tricuspid Valve Structurally normal tricuspid valve without significant stenosis or regurgitation. Pulmonary artery systolic pressure is normal. Pulmonic Valve Structurally normal pulmonic valve without significant stenosis. There is no pulmonic regurgitation. Pericardium Normal pericardium without effusion. Aorta Normal ascending aorta dimension. CONCLUSIONS 1-Normal left ventricular cavity size. Normal left ventricular systolic function. No regional wall motion abnormalities. Left ventricular ejection fraction is estimated at 59 %. Normal diastolic function. 2-There is no pericardial effusion. 3-No significant valve abnormalities. 4-Pulmonary artery systolic pressure is within normal limits. 5-Right atrial pressure is around 5 mm of mercury. 6-There are no prior echocardiogram studies to compare. Maggie Traore MD (Electronically Signed) Final Date: 03 April 2020 19:53 S
[2020-04-03] MEDS: enoxaparin 40 mg/0.4 mL Syringe SUBCUT (00:40)
[2020-04-03] MEDS: morphine 4 mg/mL SDV 1 mL 2 MG IVP ×3 (00:55→16:40)
[2020-04-03] MEDS: dextrose 5%-sod chloride 0.45% 1,000 ML 75 ML IV (00:55)
--- NOTE | 2020-04-03 00:56 | ED_ITS ---
HPI - Chest Pain General: Chief Complaint: Chest Pain Stated Complaint: CHEST PAIN Time Seen by Provider: 04/02/20 18:30 History of Present Illness: HPI narrative: 55-year-old male with a history of coronary disease. His last intervention was around a year ago he says. He does have stents in his heart. He reports 3 days of chest pain on and off, the became acutely worse today. They seem to respond to nitroglycerin, but kept coming back. Today they did not go away. He is nauseated, mildly short of breath. He states he has a mild cough not different than his baseline. He received nitroglycerin and aspirin prior to arrival. 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 Onset (ago): day(s) Timing of current episode: episodic Prior episodes: Yes Onset: during rest and during exertion Pain location: substernal Pain radiation: left arm Quality: tightness and aching Associated symptoms: Reports dyspnea and nausea; Deny abdominal pain, fever(s), palpitations or vomiting Review of Systems Const: Denies: fever(s) or chills Eyes: Denies: change in vision ENMT: Denies: odynophagia or sinus pain Card: Reports: chest pain; Denies: palpitations, irregular heart rhythm or edema Resp: Reports: dyspnea and non-productive cough; Denies: productive cough or wheezing GI: Reports: nausea; Denies: abdominal pain, vomiting or hematochezia : Denies: difficulty urinating, dysuria or urinary frequency Musc: Denies: neck pain or joint warmth Skin/Breast: Denies: rash, pruritus or erythema Neuro: Denies: headache(s), dizziness or vertigo Psych: Denies: anxiety FORMERLY [facility], 1928–1983 ED PFSH: Medical History (Updated 04/03/20 @ 01:19 by Too Armstrong DO) Anxiety CAD (coronary artery disease) Chest pain Chronic back pain greater than 3 months duration Diabetes Dyslipidemia HTN (hypertension) Intervertebral disc disorder with radiculopathy of lumbosacral region Palpitations Surgical History S/P coronary artery stent placement 10/20/2018 Family History Mother , in her 50's Heart disease COPD (chronic obstructive pulmonary disease) Father Hypertension Grandmother Cancer Social History (Updated 04/03/20 @ 00:46 by Maggie Mojica MD) Smoking and tobacco status: current every day smoker smokeless tobacco Smokeless tobacco user: chewing tobacco Alcohol intake: former Lives independently: Yes Household members: none Marital status: Current occupational status: disabled Current occupation: filed for disability History of recent travel: No Physical Exam Const: GENERAL APPEARANCE: cooperative, well developed and in distress ORIENTATION/CONSCIOUSNESS: Yes oriented to person, Yes oriented to place and Yes oriented to time HENMT: COMMON NORMALS: normocephalic, external ears normal and Normal external nose present HEAD & SCALP: normocephalic FACE & SINUS: normal facial exam NOSE: Normal external nose present and No nasal discharge present EXTERNAL EAR: Yes external ears normal Eye: COMMON NORMALS: Equal, round and reactive pupils present, EOMs intact bilaterally and conjunctivae normal EYELID: eyelids normal CONJUNCTIVA: Yes conjunctivae normal PUPIL: Yes Equal, round and reactive pupils present Chest: COMMONS NORMALS: normal inspection of the chest CHEST: No tenderness Resp: COMMON NORMALS: clear to auscultation bilaterally EFFORT & INSPEC TION: No tachypneic, No respiratory distress, No retractions, No uses accessory muscles and No tracheal deviation AUSCULTATION: clear to auscultation bilaterally, no rhonchi, no wheezes and lung sounds not diminished Cardio: COMMON NORMALS: regular rate and regular rhythm RATE: regular rate RHYTHM: regular rhythm HEART SOUNDS: no murmurs PERIPHERAL PULSES: radial pulses present GI: INSPECTION: No abdominal distension AUSCULTATION: No Hyperactive bowel sounds present and No Hypoactive bowel sounds present PALPATION: No Guarding due to palpation present (GI) and No Rigid due to palpation PERCUSSION: no dullness to percussion and no tympanic to percussion Neuro: SENSORIUM/ORIENTATION: Yes oriented to person, Yes oriented to place and Yes oriented to time Psych: COMMON NORMALS: mental status grossly normal Skin: COMMON NORMALS: no rashes or lesions noted GENERAL SKIN EXAM: no rashes or lesions noted Course Vital Signs: Vital signs: Vital Signs Temperature 97.8 F 04/02/20 17:05 Pulse Rate 78 04/03/20 00:01 Respiratory Rate 19 H 04/03/20 00:55 Blood Pressure 110/83 04/03/20 00:01 Pulse Oximetry 97 04/03/20 00:01 MDM - Chest Pain MDM Narrative: Medical decision making narrative: 85-year-old male with a history of coronary disease presents with chest discomfort nausea and some shortness of breath. Improved transiently with nitroglycerin prior to arrival. He was hypertensive here, although pressures were only in the 150s systolic. An inch of Nitropaste was placed on his chest, and he was given morphine and Zofran. He continued to have pain, despite becoming hypotensive, with a lowest pressure of 68 systolic. The nitroglycerin was removed from his chest, and he was given a liter bolus, which improved his hypotension to some degree. This would be suspicious for a right coronary lesion. His second troponin elevated but only slightly, putting him in the nondiagnostic range. His EKG was essentially normal showing no acute ST changes. Because of the hypotension, he will go to the [facility] for continued observation. Lab Data: Labs: Lab Results 04/02/20 04/02/20 04/02/20 Range/Units 17:55 17:55 17:55 WBC 14.4 H (4.0-10.0) 10^3/ uL RBC 5.68 H (4.1-5.3) 10^6/u L Hgb 16.0 (11.7-16.6) g/dL Hct 46.9 (42.0-52.0) % MCV 82.6 (80-94) fL MCH 28.2 (28.0-34.0) pg MCHC 34.1 (30.0-36.0) g/dL RDW 12.9 (12.1-15.1) % Plt Count 341 (130-400) 10^3/c mm MPV 9.8 (7.4-10.4) fL Neut % (Auto) 67.2 % Lymph % (Auto) 23.6 % [place] % (Auto) 7.7 % Eos % (Auto) 0.6 % Baso % (Auto) 0.4 % Neut # (Auto) 9.66 H (1.8-7.7) 10^3/u L Lymph # (Auto) 3.4 (0.8-4.8) 10^3/u L [place] # (Auto) 1.1 H (0.2-0.9) 10^3/u L Eos # (Auto) 0.1 (0.0-0.8) 10^3/u L Baso # (Auto) 0.1 (0.0-0.1) 10^3/u L Nucleated RBC % (a uto) 0 % Nucleated RBCs # 0.0 /100WBC Sodium 138 (136-145) mmol/L Potassium 3.6 (3.5-5.1) mmol/L Chloride 99 (98-107) mmol/L Carbon Dioxide 27 (22-29) mmol/L Anion Gap 15.6 (5-19) BUN 21 H (6-20) mg/dL Creatinine 1.0 (0.7-1.2) mg/dL GFR Calculation 77.6 L (90-130) mL/min Glucose 124 H (65-115) mg/dL Calculated Osmolal ity 290 (285-295) mOsm/k g Calcium 10.9 H (8.5-10.5) mg/dL Total Bilirubin 0.9 (0.15-1.2) mg/dL AST 11 (0-40) U/L ALT 12 (0-41) U/L Alkaline Phosphata se 126 (40-130) IU/L Troponin T Baselin e 21 H (0-15) ng/L Troponin T 120 Min leonid (0-15) ng/L Delta Troponin T (0-10) ABS# Total Protein 7.9 (6.6-8.7) g/dL Albumin 4.4 (3.5-5.2) g/dL Globulin 3.5 (1.3-4.6) g/dL 04/02/20 Range/Units 20:26 WBC (4.0-10.0) 10^3/ uL RBC (4.1-5.3) 10^6/u L Hgb (11.7-16.6) g/dL Hct (42.0-52.0) % MCV (80-94) fL MCH (28.0-34.0) pg MCHC (30.0-36.0) g/dL RDW (12.1-15.1) % Plt Count (130-400) 10^3/c mm MPV (7.4-10.4) fL Neut % (Auto) % Lymph % (Auto) % [place] % (Auto) % Eos % (Auto) % Baso % (Auto) % Neut # (Auto) (1.8-7.7) 10^3/u L Lymph # (Auto) (0.8-4.8) 10^3/u L [place] # (Auto) (0.2-0.9) 10^3/u L Eos # (Auto) (0.0-0.8) 10^3/u L Baso # (Auto) (0.0-0.1) 10^3/u L Nucleated RBC % (a uto) % Nucleated RBCs # /100WBC Sodium (136-145) mmol/L Potassium (3.5-5.1) mmol/L Chloride (98-107) mmol/L Carbon Dioxide (22-29) mmol/L Anion Gap (5-19) BUN (6-20) mg/dL Creatinine (0.7-1.2) mg/dL GFR Calculation (90-130) mL/min Glucose (65-115) mg/dL Calculated Osmolal ity (285-295) mOsm/k g Calcium (8.5-10.5) mg/dL Total Bilirubin (0.15-1.2) mg/dL AST (0-40) U/L ALT (0-41) U/L Alkaline Phosphata se (40-130) IU/L Troponin T Baselin e (0-15) ng/L Troponin T 120 Min leonid 26.46 H (0-15) ng/L Delta Troponin T 5.46 (0-10) ABS# Total Protein (6.6-8.7) g/dL Albumin (3.5-5.2) g/dL Globulin (1.3-4.6) g/dL Discharge Plan Discharge Patient Disposition: Admitted As Inpatient Admit Provider: Maggie Mojica Clinical Impression: Acute hypotension Chest pain Qualifiers: Chest pain type: unspecified Qualified Code(s): R07.9 - Chest pain, unspecified CAD (coronary artery disease) Qualifiers: Coronary Disease-Associated Artery/Lesion type: unspecified vessel or lesion type Condition: Stable Coding Level of Care Code 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
--- NOTE | 2020-04-03 01:00 | PC.NURSE ---
Patient arrived to the floor from the ED after report was received via phone. Patient is alert and oriented and ambulatory. PRN Morphine given for chest pain 09/07. VSS. Patient states that he does not have a medication list with him, but that we can call [facility] to get a list. Patient has been oriented to his room and has a call light within reach. Patient had two different fluids orders. Verified which fluids to run with Dr. Mojica.
--- NOTE | 2020-04-03 01:11 | PC.NURSE ---
Dr. Mojica notified of patient stating that the Morphine is not helping his chest pain. He currently rates it as 08/07.
--- NOTE | 2020-04-03 01:13 | ECG_ITS ---
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 Measurements Intervals Cecil Rate: 82 P: CT: QRS: -2 QRSD: 91 T: 44 QT: 363 QTc: 425 Interpretive Statements SINUS RHYTHM Compared to ECG 04/02/2020 20:16:07 No significant changes Electronically Signed On 04-03-2020 18:59:28 HAUL CANE BRAKEMAN by Naveed Shultz M.D. [id number]
[2020-04-03] MEDS: ondansetron 2 mg/ML SDV 2 mL 4 MG IVP (01:22)
--- NOTE | 2020-04-03 01:32 | PC.NURSE ---
Dr. Mojica notified of chest pain of 7/10 after 2nd dose of morphine was given per order.
--- NOTE | 2020-04-03 01:54 | PC.NURSE ---
Dr. Mojica came to room to see patient. At that time, patient reported chest pain as 4/10. Ordered to notify Dr. Mojica if pain increases.
[2020-04-03 04:06] LABS: Basophils # 0.1 10^3/uL (0.0-0.1); Basophils % 0.4 %; Eosinophils % 0.3 %; Hematocrit 43.3 % (42.0-52.0); Hemoglobin 14.5 g/dL (11.7-16.6); Lymphocytes # 3.2 10^3/uL (0.8-4.8); Lymphocytes % 25.5 %; Mean Corpuscular HGB Conc 33.5 g/dL (30.0-36.0); Mean Corpuscular Hemoglobin 27.9 pg (28.0-34.0); Mean Corpuscular Volume 83.4 fL (80-94); Mean Platelet Volume 10.1 fL (7.4-10.4); Monocytes # 1.1 10^3/uL (0.2-0.9); Neutrophils % 64.5 %; Nucleated Red Blood Cells % 0 %; Platelet Count 329 10^3/cmm (130-400); Red Blood Count 5.19 10^6/uL (4.1-5.3); White Blood Count 12.6 10^3/uL (4.0-10.0)
--- NOTE | 2020-04-03 04:12 | PC.NURSE ---
Patient states that his chest pain has not gotten any worse. Still rates it as 4/10. Will monitor.
[2020-04-03 04:38] LABS: Anion Gap 16.2 (5-19); Blood Urea Nitrogen 29 mg/dL (6-20); Calcium 9.3 mg/dL (8.5-10.5); Carbon Dioxide 27 mmol/L (22-29); Chloride 98 mmol/L (98-107); Glucose 169 mg/dL (65-115); Osmolality Calculated 294 mOsm/kg (285-295); Potassium 4.2 mmol/L (3.5-5.1); Sodium 137 mmol/L (136-145)
[2020-04-03 06:45] LABS: Troponin 5 6HR 38.58 ng/L (0-15)
[2020-04-03 07:45] LABS: Glucose Point of Care 127 mg/dL (70-110)
--- NOTE | 2020-04-03 07:53 | CT_ITS ---
WS: [id number] CT ABDOMEN AND PELVIS NONCONTRAST HISTORY: renal failure, history of renal abscess TECHNIQUE: Imaging performed through the abdomen and pelvis. Coronal and sagittal reformats are submi tted. All CT scans at [facility] use at least one of these dose optimization techniques: automated exposure control; mA and/or kV adjustment per patient size (includes targeted exams where d ose is matched to clinical indication); or iterative reconstruction. DLP: 1091.13 mGy.cm COMPARISON: 01/04/2020 Lower thorax: Lung bases are clear. Visualized heart is normal. No hiatal hernia. Liver: Normal size liver. No mass or bile duct dilatation. Gallbladder: Normal gallbladder. Pancreas: Normal size and attenuation. Normal pancreatic duct. No pancreatitis or mass. Spleen: Normal. Adrenal glands: Normal. No mass. Right kidney: Mild perinephric stranding with no obstruction. No mass identified on this unenhanced s tudy. Left kidney: Mild perinephric stranding with no obstruction. Cannot exclude small renal abscess at th is examination but there is no evidence for recurrent collection. There is a scarring which persists extending from the LEFT kidney to the LEFT psoas muscle at the L4 level. Aorta: Mild atherosclerosis abdominal aorta with no aneurysm. No free fluid, intraperitoneal air or significant lymphadenopathy. GI tract: Normal appendix. Descending colon diverticulosis without acute diverticulitis. Mild fluid a nd air distention of the stomach. Mild gaseous distention of the transverse colon with no obstruction . Abdominal wall: Negative. No hernia. Pelvis: Normal. Osseous structures: Unremarkable. CT/CT abdomen pelvis wo con [id number] IMPRESSION: 1. Mild bilateral perinephric stranding with no obstruction. 2. No evidence for recurrent abscess on this unenhanced exam. 3. Distal colonic diverticulosis without acute diverticulitis. 4. Mild air and fluid distention of the stomach and colon may be secondary to mild gastroenteritis. 5. Normal appendix.
[2020-04-03] MEDS: sodium chloride 0.9% 1,000 ML 100 ML IV ×2 (07:58→18:25)
[2020-04-03] MEDS: sodium chloride 0.9% 500 ML 999 ML IV (07:58)
--- NOTE | 2020-04-03 09:23 | PC.CHAP ---
Pastoral Care Encounter/Spiritual Assessment Type of Contact [] Declined scientific software developer visit [] Patient/Family/Request visit [] Outpatient visit [] Follow-up visit [] Physician referral [] Code/Alert [x] Routine visit [] Staff referral [] Actively dying [] Patient sleeping [] Family support [] [] Out of room [] Palliative care [] [] Receiving care in room [] Pre-surgical visit [] Trauma [] Long length of stay [] ICU visit [] Other: Relational/Emotional Strength [] Patient feels connected with others/family/visitors/staff [] Distress [] Loneliness/isolation [] Abandonment Spirituality of Patient [] Person of Beba [] Attends Congregation of their Beba [] Believes in Prayer [] Reads Bible or Moravian materials [] There are Spiritual issues to be addressed Product Assurance Engineer Interventions [x] Prayer [x] Active listening [x] Non-anxious presence [x] Spiritual/emotional support [] Crisis/trauma care [] Spiritual counseling [] Bereavement support [] Provided bereavement packet [] Provided Bible/devotional materials [] Provided toy/stuffed animal, coloring book to patient or family member [] Provided Communion [] Anointing/[place] [] Salvation [x] Completed spiritual assessment [] Other: Impact on Illness or Injury [] Angry [] Fearful [] Anxious [] Often cries [] Exhaustion [] Unable to work [] Unable to attend rastafarian [] Unable to walk/stand [] Unable to read [] Unable to drive [] Unable to eat/drink [] Unable to sleep [] Unable to be with family [] Patient intubated [] Other: Summary patient feeling much improvement from yesterday.. resting well Time spent with patient 10 min
[2020-04-03] MEDS: atorvastatin 40 mg Tablet 80 MG PO (09:33)
[2020-04-03] MEDS: clopidogrel 75 mg Tablet PO (09:33)
[2020-04-03] MEDS: pantoprazole DR 40 mg Tablet PO (09:33)
[2020-04-03] MEDS: montelukast sodium 10 mg Tablet PO (09:33)
[2020-04-03] MEDS: aspirin 81 mg Chew Tablet PO (09:34)
--- NOTE | 2020-04-03 09:53 | PC.PHAR ---
Addendum entered by Angelica Landin 04/03/20 10:01: pt states he takes metoprolol tartrate 25mg daily-[facility] states the rx was filled as 25mg take 50mg bid Original Note: pt states he takes care of his own medications-lantus was filled as 50 units qam and 80 units qpm-pt states he takes 80 units bid@-pt state he takes gabapentin 600mg tid-[facility] pharmacy states they havent filled for a while but has a rx on hold for 600mg take 2 tab po tid-pts pharmacy states today a rx was called in from a for Diltiazem ER 90mg one tab po bid but rx hasnt been picked up
--- NOTE | 2020-04-03 10:16 | PM.PN ---
Subjective Subjective: Interval history: Raheel reports he had some chest discomfort this morning when he got up and moved around. No shortness of breath. History and physical reviewed. Medications: Reviewed: Yes Vitals/I&O/Wt Last Vital Signs Temp 97.5 F L 04/03/20 08:00 Pulse 65 04/03/20 08:00 Resp 17 04/03/20 08:00 BP 139/75 04/03/20 09:22 Pulse Ox 95 04/03/20 08:00 04/02/20 04/03/20 04/03/20 22:59 06:59 14:59 Intake Total 1100 / 1100 1030 / 1030 Output Total 30 / 30 Balance 1100 / 1100 1000 / 1000 Weight last 48 hrs Weight 91.172 kg Physical Exam Narrative: EXAM NARRATIVE: General exam no apparent distress Cardiovascular regular rate and rhythm without murmur Lungs clear Abdomen is soft with positive bowel sounds Extremities no cyanosis clubbing or edema Data : 04/03/20 03:30 04/03/20 03:30 A&P Assessment and plan (1) Unstable angina: Unstable angina History of coronary disease with stent in RCA 2019 Continue Plavix and aspirin Statin has been initiated Hold LASHA inhibitor and nitroglycerin secondary to hypotension Morphine if needed for pain Echocardiogram Cardiology consultation Status: Acute Additional A&P Information Past recent history of nephric abscess. Check CT abdomen and pelvis noncontrast Acute kidney injury. Hold all anti-inflammatories. Rehydrate. Type 2 diabetes. Sliding scale insulin Hypertension. As hypotensive currently holding medications GERD. Continue Protonix History of chronic back pain Full code Lovenox will suffice for DVT prophylaxis Attestations Medical Necessity Statement*: Needs continued hospital stay for evaluation of chest discomfort Coding Level of Care Code Acute Security System Technician for Dina Okeefe Diagnoses Unstable angina I20.0
[2020-04-03 10:18] LABS: Urine Appearance Hazy (CLEAR); Urine Color Dark Yellow (Yellow); pH Urine 5 (5-7)
[2020-04-03 10:19] LABS: Add Urine Culture? Yes; Bacteria Urine 1+ /hpf; Bilirubin Urine 1+ (Negative); Blood Urine Neg (Negative); Glucose Urine UA Norm (Normal); Hyaline Casts Urine 25-40 /lpf; Ketones Urine Negative (Negative); Leukocyte Esterase Urine 2+ (Negative); Mucus Urine 1+ /hpf; Nitrate Urine Negative (Negative); Protein Urine 1+ (Negative); Urobilinogen Urine Norm (Negative); WBC Urine 15-25 /hpf (0-5)
[2020-04-03 10:44] LABS: Glucose Point of Care 86 mg/dL (70-110)
--- NOTE | 2020-04-03 11:41 | PM.CONSULT ---
Providers/Reason For Consult Consulting Physican/Specialty*: Maggie Traore MD Reason for Consult*: Chest pain, hypotension Attending Physician: Stone Moreland MD Primary Care Provider: Niesha Hinds History of Present Illness History of Present Illness Raheel Lam is a 55 year old male has medical history significant for history of coronary artery disease status post stent couple of years ago, hypertension hyperlipidemia and diabetes mellitus presented with unstable angina like picture. He was also noted to be in acute renal failure. He was given IV fluid, we have been asked to come and see him. When I saw the patient he did not have chest pain at rest. According to him for the past 2 to 3 weeks he has been noticing shortness of breath and chest pain upon exertion First it was on moderate then on mild and sometimes at rest, yesterday while playing with his grandson he started having heartburn when it did not go away after 30 minutes, he decided to come to the ER. Twelve-lead EKG was not suggestive of acute coronary syndrome however his story was quite concerning for unstable angina. He was also noted to be hypotensive and in acute renal failure for which he was given IV fluid. Currently he is stable and not having any chest pain. Initial cardiac markers are mildly elevated Review of Systems Const: Reports: body aches and fatigue; Denies: fever(s) or chills Eyes: Denies: change in vision or photophobia ENMT: Denies: throat pain, enlarged tonsils, odynophagia or sinus pain Card: Reports: chest pain and dyspnea on exertion; Denies: palpitations, irregular heart rhythm, edema, swelling of feet/ankles or orthopnea Resp: Reports: dyspnea and non-productive cough; Denies: productive cough or wheezing GI: Reports: nausea, heartburn and early satiety; Denies: abdominal pain, vomiting or hematochezia : Denies: flank pain, difficulty urinating, dysuria or urinary frequency Musc: Denies: neck pain or joint warmth Skin/Breast: Denies: rash, pruritus or erythema Neuro: Denies: headache(s), dizziness or vertigo Psych: Denies: anxiety Endo: Denies: polyuria Zuhair/Lymph: Denies: easy bruising All/Imm: Denies: urticaria or acute wheezing Meds/Allergies Home Medications and Allergies Home Medications Medication Instructions Recorded Confirmed Last Taken Type Lantus U-100 Insulin See Rx Instructions .ROUTE .COMPLEX 04/06/19 04/03/20 04/02/20 History aspirin 81 mg PO DAILY@08 04/06/19 04/03/20 04/02/20 History montelukast 10 mg PO DAILY 04/06/19 04/03/20 12/09/19 History nitroglycerin [Nitrostat] 0.4 mg SUBLINGUAL Q5M PRN 04/06/19 04/03/20 04/02/20 History omeprazole 20 mg PO DAILY 04/06/19 04/03/20 12/09/19 History paroxetine HCl [Paxil] 40 mg PO DAILY@08 04/06/19 04/03/20 04/02/20 History clopidogrel 75 mg tablet 75 mg PO DAILY #30 tab 04/14/19 04/03/20 04/02/20 Rx gabapentin 600 mg tablet 600 mg PO TID tab 05/24/19 04/03/20 04/02/20 History insulin aspart U-100 100 unit/mL 17 unit SUBCUT TID 05/24/19 04/03/20 04/02/20 08:00 History (3 mL) subcutaneous pen tramadol 50 mg tablet 50 mg PO PRN 05/24/19 04/03/20 12/07/19 History metformin 500 mg tablet 500 mg PO BID@12/10/19 04/03/20 04/02/20 History amitriptyline 50 mg PO DAILY PRN 04/03/20 04/03/20 Unknown History cetirizine [Zyrtec] 10 mg PO DAILY 04/03/20 04/03/20 Unknown History hydrochlorothiazide 25 mg PO QAM 04/03/20 04/03/20 Unknown History lisinopril 40 mg PO BID@04/03/20 04/03/20 04/02/20 History meloxicam [Mobic] 15 mg PO QAM 04/03/20 04/03/20 Unknown History metoprolol tartrate 25 mg PO DAILY 04/03/20 04/03/20 Unknown History Allergies Allergy/AdvReac Type Severity Reaction Status Date / Time No Known Allergies Allergy Verified 04/03/20 01:00 Current Medications Current Medications Generic Name Dose Route Start Last Admin Trade Name Freq PRN Reason Stop Dose Admin Aspirin 81 mg 04/03/20 09:00 04/03/20 09:34 Aspirin 81 Mg Chew Tablet PO 81 mg DAILY JANETH Administration Atorvastatin Calcium 80 mg 04/03/20 09:00 04/03/20 09:33 Atorvastatin 40 Mg Tablet PO 80 mg DAILY JANETH Administration Clopidogrel Bisulfate 75 mg 04/03/20 09:00 04/03/20 09:33 Clopidogrel 75 Mg Tablet PO 75 mg DAILY JANETH Administration Enoxaparin Sodium 40 mg 04/03/20 00:00 04/03/20 00:40 Enoxaparin 40 Mg/0.4 Ml Syringe SUBCUT 40 mg Q24H JANETH Administration Sodium Chloride 1,000 mls @ 100 mls/hr 04/03/20 08:00 04/03/20 08:30 Sodium Chloride 0.9% IV 100 mls/hr .Q10H JANETH Infusion Insulin Aspart 0 unit 04/03/20 08:00 04/03/20 11:06 Insulin Aspart 100 Unit/1 Ml SUBCUT Not Given WM&BEDTIME [facility] Protocol Montelukast Sodium 10 mg 04/03/20 09:00 04/03/20 09:33 Montelukast Sodium 10 Mg Tablet PO 10 mg DAILY JANETH Administration Morphine Sulfate 2 mg 04/03/20 00:40 04/03/20 00:55 Morphine 4 Mg/Ml Sdv 1 Ml IVP 2 mg Q4H PRN Administration SEVERE PAIN Ondansetron HCl 4 mg 04/03/20 00:00 04/03/20 01:22 Ondansetron 2 Mg/Ml Sdv 2 Ml IVP 4 mg Q6H PRN Administration NAUSEA AND VOMITING Pantoprazole Sodium 40 mg 04/03/20 09:00 04/03/20 09:[address] 40 Mg Tablet PO 40 mg DAILY JANETH Administration PFSH Acute PFSH: Medical History (Updated 04/03/20 @ 01:19 by Too Armstrong DO) Anxiety CAD (coronary artery disease) Chest pain Chronic back pain greater than 3 months duration Diabetes Dyslipidemia HTN (hypertension) Intervertebral disc disorder with radiculopathy of lumbosacral region Palpitations Surgical History S/P coronary artery stent placement 10/20/2018 Family History Mother , in her 50's Heart disease COPD (chronic obstructive pulmonary disease) Father Hypertension Grandmother Cancer Social History (Updated 04/03/20 @ 00:46 by Maggie Mojica MD) Smoking and tobacco status: current every day smoker smokeless tobacco Smokeless tobacco user: chewing tobacco Alcohol intake: former Lives independently: Yes Household members: none Marital status: Current occupational status: disabled Current occupation: filed for disability History of recent travel: No Dietary Habits: Current diet type/program: regular Exercise: What type of physical activity do you participate in?: walking Vitals/I&O/Wt Last Vital Signs Temp 97.5 F L 04/03/20 08:00 Pulse 65 04/03/20 08:00 Resp 17 04/03/20 08:00 BP 139/75 04/03/20 09:22 Pulse Ox 95 04/03/20 08:00 04/02/20 04/03/20 04/03/20 22:59 06:59 14:59 Intake Total 1100 / 1100 1030 / 1030 Output Total 30 / 30 Balance 1100 / 1100 1000 / 1000 Weight last 48 hrs Weight 201 lb Physical Exam Narrative: EXAM NARRATIVE: GENERAL: Patient is alert, awake and oriented x3. NECK: No jugular vein distension. HEENT: No cyanosis. No icterus. No pallor. HEART: Regular S1 and S2. No murmur, rub or gallop. LUNGS: Clear to auscultate bilaterally. ABDOMEN: Soft, nontender and nondistended. Positive bowel sounds. No guarding, rebound or tenderness. CENTRAL NERVOUS SYSTEM: Grossly nonfocal. EXTREMITIES: Lower extremities without edema bilaterally. A&P Assessment and plan (1) Unstable angina: Patient studies pretty convincing for unstable angina. Continue medical management since he is in acute renal failure along with hypotension. Continue IV fluid. Hold antihypertensive medicine continue aspirin statin Plavix and anticoagulation. Once stable vital kaufman and improve with renal function, We will consider angiogram. Status: Acute (2) Acute hypotension: Could be multifocal such as sepsis, continue IV fluid and antibiotics if suggested as per medicine Status: Acute Consult Attestations Medical Necessity Statement: I am expecting his stay to cross more than 2 midnights Coding Level of Care Code New Pt Acute Production Gear Cutter for Chg Fwd Patient Type New History Detailed Exam Detailed Medical Decision Making Moderate Complexity Diagnoses Unstable angina I20.0 Acute hypotension I95.9
--- NOTE | 2020-04-03 12:47 | PC.RESP ---
Smoking Cessation information sent to patient.
[2020-04-03 16:35] LABS: Glucose Point of Care 182 mg/dL (70-110)
[2020-04-03 21:16] LABS: Glucose Point of Care 223 mg/dL (70-110)
[2020-04-04] VITALS (8 sets, daily range): BP systolic 145–168; BP diastolic 86–97; PULSE 63–75; RESP 13–20; TEMP 36.6–36.8; O2SAT 94–96
[2020-04-04] MEDS: enoxaparin 40 mg/0.4 mL Syringe SUBCUT (01:13)
[2020-04-04] MEDS: sodium chloride 0.9% 1,000 ML 100 ML IV ×2 (03:10→13:48)
[2020-04-04 04:05] LABS: Basophils # 0.1 10^3/uL (0.0-0.1); Basophils % 0.8 %; Eosinophils # 0.2 10^3/uL (0.0-0.8); Eosinophils % 2.3 %; Hematocrit 41.5 % (42.0-52.0); Hemoglobin 13.4 g/dL (11.7-16.6); Lymphocytes # 3.2 10^3/uL (0.8-4.8); Mean Corpuscular HGB Conc 32.3 g/dL (30.0-36.0); Mean Corpuscular Hemoglobin 27.6 pg (28.0-34.0); Mean Corpuscular Volume 85.4 fL (80-94); Mean Platelet Volume 10.3 fL (7.4-10.4); Monocytes # 0.9 10^3/uL (0.2-0.9); Monocytes % 9.5 %; Neutrophils # 4.59 10^3/uL (1.8-7.7); Neutrophils % 51.2 %; Nucleated Red Blood Cells % 0 %; Platelet Count 280 10^3/cmm (130-400); Red Blood Count 4.86 10^6/uL (4.1-5.3); Red Cell Distribution Width 12.9 % (12.1-15.1)
[2020-04-04 04:51] LABS: Alanine Aminotransferase 8 U/L (0-41); Albumin Level 3.6 g/dL (3.5-5.2); Alkaline Phosphatase 105 IU/L (40-130); Anion Gap 12.7 (5-19); Aspartate Amino Transferase 9 U/L (0-40); Blood Urea Nitrogen 25 mg/dL (6-20); Calcium 8.5 mg/dL (8.5-10.5); Carbon Dioxide 26 mmol/L (22-29); Chloride 103 mmol/L (98-107); Globulin 2.8 g/dL (1.3-4.6); Glomerular Filtration Rate 45.1 mL/min (90-130); Glucose 76 mg/dL (65-115); Osmolality Calculated 289 mOsm/kg (285-295); Potassium 3.7 mmol/L (3.5-5.1); Sodium 138 mmol/L (136-145); Total Bilirubin 0.5 mg/dL (0.15-1.2); Total Protein 6.4 g/dL (6.6-8.7)
[2020-04-04 06:45] LABS: Glucose Point of Care 101 mg/dL (70-110)
[2020-04-04] MEDS: atorvastatin 40 mg Tablet 80 MG PO (08:39)
[2020-04-04] MEDS: clopidogrel 75 mg Tablet PO (08:39)
[2020-04-04] MEDS: pantoprazole DR 40 mg Tablet PO (08:39)
[2020-04-04] MEDS: montelukast sodium 10 mg Tablet PO (08:39)
[2020-04-04] MEDS: aspirin 81 mg Chew Tablet PO (08:39)
[2020-04-04 11:18] LABS: Glucose Point of Care 291 mg/dL (70-110)
[2020-04-04] MEDS: PARoxetine 20 mg Tablet 40 MG PO (11:54)
[2020-04-04] MEDS: metoprolol tartrate 25 mg Tablet 12.5 MG PO ×2 (11:55→21:01)
[2020-04-04] MEDS: nitroglycerin 1 gm/inch oint Pkt 1 INCH TOPICAL ×2 (11:55→17:35)
--- NOTE | 2020-04-04 13:55 | PM.PN ---
Subjective Subjective: Interval history: Raheel reports he is doing okay. He is still having some intermittent chest pain. From my understanding he has been scheduled for angiogram tomorrow. Medications: Reviewed: Yes Vitals/I&O/Wt Last Vital Signs Temp 98.2 F 04/04/20 11:32 Pulse 73 04/04/20 11:32 Resp 16 04/04/20 11:32 BP 163/86 04/04/20 11:32 Pulse Ox 95 04/04/20 11:32 04/03/20 04/04/20 04/04/20 22:59 06:59 14:59 Intake Total 1431.667 / 2461.667 1425 / 3886.667 1000 / 1000 Output Total 1300 / 1530 3100 / 4630 Balance 131.667 / 931.667 -1675 / -648.525 5970 / 1000 Weight last 48 hrs Weight 91.172 kg Physical Exam Narrative: EXAM NARRATIVE: General exam no apparent distress Cardiovascular regular rate and rhythm without murmur Lungs clear Abdomen is soft with positive bowel sounds Extremities no cyanosis clubbing or edema Data : 04/04/20 03:00 04/04/20 03:00 Micro: Microbiology 04/03/20 09:35 Urine Culture - Preliminary Urine,Clean Catch A&P Assessment and plan (1) Unstable angina: Unstable angina History of coronary disease with stent in RCA 2019 Continue Plavix and aspirin Statin has been initiated Hold LASHA inhibitor renal failure Morphine if needed for pain Restart metoprolol Await echocardiogram Appreciate cardiology consultation Status: Acute Additional A&P Information Past recent history of nephric abscess. CT abdomen and pelvis did not demonstrate any recurrent renal abscess Acute kidney injury. Hold all anti-inflammatories. Continue hydration Type 2 diabetes. Sliding scale insulin Hypertension. Restart metoprolol GERD. Continue Protonix History of chronic back pain Full code Lovenox will suffice for DVT prophylaxis Attestations Medical Necessity Statement*: Needs continued hospitalization for investigation of chest discomfort with angiogram planned tomorrow Coding Level of Care Code Acute Biblical Languages Professor for Dina Okeefe Diagnoses Unstable angina I20.0
[2020-04-04 16:36] LABS: Glucose Point of Care 203 mg/dL (70-110)
--- NOTE | 2020-04-04 18:01 | P.PN_ITS ---
Subjective Subjective: Interval history: Patient reports still some chest pressure blood pressure is improved. There is no significant EKG changes. Creatinine has improved from 2.1-1.6 Medications: Reviewed: Yes Vitals/I&O/Wt Last Vital Signs Temp 98.3 F 04/04/20 15:47 Pulse 69 04/04/20 15:47 Resp 20 H 04/04/20 15:47 BP 168/97 04/04/20 15:47 Pulse Ox 96 04/04/20 15:47 04/04/20 04/04/20 04/04/20 06:59 14:59 22:59 Intake Total 1425 / 3886.667 1480 / 1480 480 / 1960 Output Total 3100 / 4630 1100 / 1100 Balance -1675 / -325.933 7655 / 1480 -620 / 860 Physical Exam Narrative: EXAM NARRATIVE: GENERAL: Patient is alert, awake and oriented x3. NECK: No jugular vein distension. HEENT: No cyanosis. No icterus. No pallor. HEART: Regular S1 and S2. No murmur, rub or gallop. LUNGS: Clear to auscultate bilaterally. ABDOMEN: Soft, nontender and nondistended. Positive bowel sounds. No guarding, rebound or tenderness. CENTRAL NERVOUS SYSTEM: Grossly nonfocal. EXTREMITIES: Lower extremities without edema bilaterally. Data : 04/04/20 03:00 04/04/20 03:00 Micro: Microbiology 04/03/20 09:35 Urine Culture - Preliminary Urine,Clean Catch A&P Assessment and plan (1) Unstable angina: Patient presentation is typical for unstable angina once improve renal function kaufman and normalized creatinine we will proceed with left heart cath. I have detailed discussion with the patient. He has been explained all risk b enefit and alternative for the procedure. He would like to proceed with it. Most likely cath tomorrow in the afternoon. Continue aspirin statin beta- rakesh has been added. Will Place Nitropaste. Status: Acute (2) Acute hypotension: Improved. Status: Acute (3) Acute renal failure (ARF): Continue IV fluid. Creatinine has improved Status: Acute Attestations Medical Necessity Statement*: Patient require continuation hospitalization for above defined care. Coding Level of Care Code Established Pt Acute Director Regulatory Affairs for Chg Fwd Patient Type Established History Detailed Exam Detailed Medical Decision Making Moderate Complexity Diagnoses Unstable angina I20.0 Acute hypotension I95.9 Acute renal failure (ARF) N17.9
--- NOTE | 2020-04-04 19:55 | PC.NURSE ---
PT RESTING IN BED. PT STATES THAT THEY REMEMBER ME FROM BEFORE AND THAT HE IS BACK FOR ANOTHER STENT. PT DENIES PAIN. WILL CONTINUE TO MONITOR.
[2020-04-04 20:39] LABS: Glucose Point of Care 225 mg/dL (70-110)
[2020-04-05] VITALS (20 sets, daily range): BP systolic 147–188; BP diastolic 78–105; PULSE 55–79; RESP 10–27; TEMP 36–36.9; O2SAT 95–99
[2020-04-05] MEDS: sodium chloride 0.9% 1,000 ML 100 ML IV (00:35)
[2020-04-05] MEDS: enoxaparin 40 mg/0.4 mL Syringe SUBCUT (00:35)
[2020-04-05] MEDS: nitroglycerin 1 gm/inch oint Pkt 1 INCH TOPICAL ×4 (00:35→17:39)
--- NOTE | 2020-04-05 03:07 | PC.NURSE ---
PT HAD AN UNEVENTFUL NIGHT. PT DENIES PIN AT THIS TIME. WILL CONTINUE TO MONITOR.
[2020-04-05 04:27] LABS: Basophils # 0.1 10^3/uL (0.0-0.1); Basophils % 0.6 %; Eosinophils # 0.2 10^3/uL (0.0-0.8); Eosinophils % 2.3 %; Hematocrit 38.2 % (42.0-52.0); Hemoglobin 12.5 g/dL (11.7-16.6); Lymphocytes # 2.9 10^3/uL (0.8-4.8); Lymphocytes % 33.2 %; Mean Corpuscular HGB Conc 32.7 g/dL (30.0-36.0); Mean Corpuscular Volume 85.7 fL (80-94); Mean Platelet Volume 10.3 fL (7.4-10.4); Monocytes # 0.8 10^3/uL (0.2-0.9); Monocytes % 9.4 %; Neutrophils # 4.72 10^3/uL (1.8-7.7); Neutrophils % 54.2 %; Nucleated Red Blood Cells % 0 %; Platelet Count 271 10^3/cmm (130-400); Red Blood Count 4.46 10^6/uL (4.1-5.3); Red Cell Distribution Width 12.7 % (12.1-15.1); White Blood Count 8.7 10^3/uL (4.0-10.0)
[2020-04-05 04:54] LABS: Anion Gap 10.1 (5-19); Blood Urea Nitrogen 21 mg/dL (6-20); Calcium 8.4 mg/dL (8.5-10.5); Carbon Dioxide 27 mmol/L (22-29); Chloride 105 mmol/L (98-107); Glomerular Filtration Rate 69.5 mL/min (90-130); Glucose 127 mg/dL (65-115); Osmolality Calculated 291 mOsm/kg (285-295); Potassium 4.1 mmol/L (3.5-5.1); Sodium 138 mmol/L (136-145)
[2020-04-05 06:38] LABS: Glucose Point of Care 182 mg/dL (70-110)
[2020-04-05] MEDS: aspirin 81 mg Chew Tablet PO (08:56)
[2020-04-05] MEDS: sodium chloride 0.9% 1,000 ML 50 ML IV (08:56)
[2020-04-05] MEDS: metoprolol tartrate 25 mg Tablet 12.5 MG PO (08:57)
[2020-04-05] MEDS: atorvastatin 40 mg Tablet 80 MG PO (08:57)
[2020-04-05] MEDS: pantoprazole DR 40 mg Tablet PO (08:57)
[2020-04-05] MEDS: clopidogrel 75 mg Tablet PO (08:57)
[2020-04-05] MEDS: PARoxetine 20 mg Tablet 40 MG PO (08:57)
[2020-04-05] MEDS: montelukast sodium 10 mg Tablet PO (08:57)
--- NOTE | 2020-04-05 10:15 | P.PN_ITS ---
Subjective Subjective: Interval history: Raheel reports he is doing okay. Awaiting angiogram. Some minor chest discomfort when he moved. Medications: Reviewed: Yes Vitals/I&O/Wt Last Vital Signs Temp 96.8 F L 04/05/20 07:52 Pulse 66 04/05/20 07:52 Resp 16 04/05/20 07:52 BP 171/91 04/05/20 07:52 Pulse Ox 95 04/05/20 07:52 04/04/20 04/05/20 04/05/20 22:59 06:59 14:59 Intake Total 540 / 2019 1200 / 3220 560 / 560 Output Total 1100 / 1100 1050 / 2150 Balance -560 / 920 150 / 1070 560 / 560 Physical Exam Narrative: EXAM NARRATIVE: General exam no apparent distress Cardiovascular regular rate and rhythm without murmur Lungs clear Abdomen is soft with positive bowel sounds Extremities no cyanosis clubbing or edema Data : 04/05/20 03:02 04/05/20 03:02 Micro: Microbiology 04/03/20 09:35 Urine Culture - Final Urine,Clean Catch A&P Assessment and plan (1) Unstable angina: Unstable angina History of coronary disease with stent in RCA 2019 Continue Plavix and aspirin Statin has been initiated Hold LASHA inhibitor renal failure Morphine if needed for pain Metoprolol has been restarted Echocardiogram demonstrated preserved EF, no valvular abnormalities Appreciate cardiology consultation Status: Acute Additional A&P Information Past recent history of nephric abscess. CT abdomen and pelvis did not demonstrate any recurrent renal abscess Acute kidney injury. Hold all anti-inflammatories. Continue hydration Type 2 diabetes. Sliding scale insulin Hypertension. Metoprolol restarted. Add Norvasc. GERD. Continue Protonix History of chronic back pain Full code Lovenox will suffice for DVT prophylaxis Attestations Medical Necessity Statement*: Needs continued hospitalization for evaluation of coronary vasculature secondary to chest discomfort. Coding Level of Care Code Acute Land Management Forester for Dina Okeefe Diagnoses Unstable angina I20.0
[2020-04-05 11:20] LABS: Glucose Point of Care 276 mg/dL (70-110)
[2020-04-05] MEDS: diphenhydrAMINE 50 mg Capsule PO (12:08)
--- NOTE | 2020-04-05 13:30 | XACV_ITS ---
Exam Room: [facility] Ht: 165 cm Wt: 91 kg BSA: 2.07 m2 Gender: Male : 1965 Any Known Allergies: No known allergies Exam Priority: Routine Procedure(s): Procedure Description: Diagnostic procedure Procedure Description: Coronary Angiography Diagnostic Cath Status: Urgent Diagnostic Findings * LM has 0% stenosis. * LAD has 0% stenosis. * CX has 0% stenosis. * Mid Right Coronary Artery: Moderate 60% stenosis, LANA: 3 flow. * Coronary angiography shows right dominance. Conclusions 1. There is moderate coronary artery disease with one vessel disease. 2. Reason for 3. angiogram: 4. Admission to the hospital with worsening of chest pain or shortness of breath 5. suggestive of angina in a patient with history of 6. prior stents.. 7. 1-Normal left main2-LAD no significant stenosis3-LCx has no significant stenosis4-RCA has patent prior proximal stent with mid 60% stenosis.. Recommendations * Continue current medical management and risk factor modification. Diagnostic RX Recommendation: medical therapy and/or counseling Pressures Phase:Rest AO : 164 / 90 ( 99 ) @ 10:20:00 AM Clinical Evaluation EBL: 5mL-10mL Procedural Details Procedure Consent Obtained. Admit Source: In Patient. Pre-Procedure Time Out. Identified patient by full name and date of as verbalized by the patient/guarantor. Does the consent match the physician's order: Yes. Accurate & Complete Informed Consent: Yes. Inpatient/Outpatient History & Physical on Chart: Yes. If H&P is completed, is and addenduem needed: N/A; If yes, is the addendum complete: N/A. Visualize and Verify Site with Patient/Guarantor: N/A. Relevant Radiology Images available: Yes. Pre-op teaching completed and patient verbalized understanding. The risks, benefits, and alternatives of sedation and/or procedure were discussed by physician. The patient agrees to continue. Procedure started. [facility] Clinical Fraility Score: 3: Managing Well. Tobacco Farmworker Indications: ACS > 24 hours. Chest Pain Symptom Assessment: Typical Angina Symptoms. Cardiovascular Instability: Yes, if yes, Persistant Ischemic Symptoms. Correct patient, site and procedure confirmed by cath team. Current diagnosis: NSTEMI. PERRLA. Strong, equal hand trust clerk bilaterally. Lungs clear x 5 lobes. IV Site on Arrival: 20 gauge in the right anticubital. IV Fluids: 0.9% NaCl at KVO. 300 mL infused prior to lab systems analyst. Pre Procedural Pulses: bilateral radial was 3+. Pre Procedural Pulses: bilateral dorsalis pedis was 3+. Pre Procedural Pulses: bilateral posterior tibial was 3+. Oxygen started at 2liters/min via nasal canula. right radial was prepped with chloroprep then draped in the usual sterile fashion. right groin was prepped with chloroprep then draped in the usual sterile fashion. Physician notified. Baseline sample Acquired. HR: 61 BPM. Equipment: 6F - Radial. Physician arrived. Physician scrubbed in. Immediate Pre-Procedure Time Out. Correct Patient: Yes; Correct Procedure: Yes; Correct Site: Yes; Correct Patient Position: Yes; Correct Supplies: Yes; Dried Flammable Prep: Yes; Blood Products Available: N/A;. Arterial access obtained. A 5 maori TIG catheter in over wire. Multiple views taken of left coronary artery. Catheter redirected to the RCA. Multiple views taken of right coronary artery. Catheter removed over the exchange wire. Physicain Review of films. Physician scrubbed out. A TR Band was successful obtaining hemostatsis at the Right Radial artery insertion site. TR band placed. Hemostasis obtained. Post Procedure: Pulses reassessed and unchanged. PERRLA. Strong, equal hand trust clerk bilaterally. No VTE prophylaxis required. Medication's Wasted: Fentanyl = 50 mcg. Medication's Wasted: Nitro = 49.8 mg. Medication's Wasted: Heparin = 1000 units. Medication's Wasted: Lidocaine 1% = 16 mL. Total IV fluids: 50 mL. Fluoro: 3:00. Contrast type used: Omnipaque 300 mgI/mL, 500 mL bottle. [id number]. Post-op diagnosis: NON OBSTUCTIVE CAD, PATENT STENTS. Complications: none. Estimated blood loss: 5mL-10mL. Procedure completed. Patient transferred by wheelchair to 1st floor. Access Site Site: Right Radial artery Sheath Size: 6 Fr Hemostasis Method: TR Band Hemostasis Success: Successful Procedure Medications Start: 4:12 PM Stop: 4:12 PM Medication: Versed Amount: 1 mg Route: I.V. Start: 4:12 PM Stop: 4:12 PM Medication: Fentanyl Amount: 50 mcg Route: I.V. Start: 4:17 PM Stop: 4:17 PM Medication: Nitrogylcerin Amount: 200 mcg Route: I.A. Start: 4:19 PM Stop: 4:19 PM Medication: Versed Amount: 1 mg Route: I.V. Start: 4:20 PM Stop: 4:20 PM Medication: Heparin Amount: 5000 units Route: I.V. I, the attending physician, have reviewed and verified all procedure medications. Yes, all medications given per verbal order History/Risk Factors Hypertension: Yes Dyslipidemia: Yes Peripheral Arterial Disease (PAD): No Myocardial Infarction (TX): No Obesity: No Renal Disease: No Tobacco Use: Current/Recent(w/in 1 year) Prior Interventions PCI: No CABG: No Valve Surgery: No Report Signatures Finalized by Maggie Traore MD on 04/17/2020 06:58 PM
--- NOTE | 2020-04-05 15:34 | P.PN_ITS ---
Subjective Subjective: Interval history: Continues to have chest pressure off and on basis. Creatinine has normalized. Vitals/I&O/Wt Last Vital Signs Temp 98.4 F 04/05/20 14:58 Pulse 63 04/05/20 14:58 Resp 27 H 04/05/20 14:58 BP 161/100 04/05/20 14:58 Pulse Ox 97 04/05/20 14:58 04/05/20 04/05/20 04/05/20 06:59 14:59 22:59 Intake Total 1200 / 3220 1040 / 1040 Output Total 1050 / 2150 950 / 950 Balance 150 / 1070 90 / 90 Physical Exam Narrative: EXAM NARRATIVE: GENERAL: Patient is alert, awake and oriented x3. NECK: No jugular vein distension. HEENT: No cyanosis. No icterus. No pallor. HEART: Regular S1 and S2. No murmur, rub or gallop. LUNGS: Clear to auscultate bilaterally. ABDOMEN: Soft, nontender and nondistended. Positive bowel sounds. No guarding, rebound or tenderness. CENTRAL NERVOUS SYSTEM: Grossly nonfocal. EXTREMITIES: Lower extremities without edema bilaterally. Data : 04/05/20 03:02 04/05/20 03:02 Micro: Microbiology 04/03/20 09:35 Urine Culture - Final Urine,Clean Catch A&P Assessment and plan (1) Unstable angina: Renal function has normalized and back to baseline. We will proceed with left heart cath today. Patient was to undergo cataract 1:30 since he ate at lunchtime we will defer to the cath at 4 PM today. Status: Acute (2) Acute renal failure (ARF): Improved. Proceed with angiogram Status: Acute Qualifiers: Acute renal failure type: with acute tubular necrosis Qualified Cod e(s): N17.0 - Acute kidney failure with tubular necrosis Attestations Medical Necessity Statement*: Patient require continued hospitalization for above defined care. Coding Level of Care Code Established Pt Acute Regional Education Coordinator for Dina Okeefe Patient Type Established History Detailed Exam Detailed Medical Decision Making Moderate Complexity Diagnoses Unstable angina I20.0 Acute renal failure (ARF) N17.0 Acute renal failure type: with acute tubular necrosis
--- NOTE | 2020-04-05 15:58 | W.PM.OPSUD ---
Surgery/Procedure H&P Update DATE OF PROCEDURE: April 05, 2020 DATE H&P PERFORMED: 04/03/20 PLANNED PROCEDURE: Operation Date: 04/05/20 13:30 Proposed Procedures p left Cardiac Catheterization r07.9 [id number](Left) - Maggie Traore MD
--- NOTE | 2020-04-05 16:42 | PM.DCS ---
Discharge Providers Date of Admission: 04/02/20 23:50 Date of Discharge: April 05, 2020 Attending Provider at Admission: Maggie Mojica MD Attending Provider at Discharge: Stone Moreland MD Primary Care Provider: Niesha Hinds Diagnoses at Discharge Discharge Diagnosis (1) Unstable angina: Status: Acute (2) Acute renal failure (ARF): Status: Acute Qualifiers: Acute renal failure type: with acute tubular necrosis Qualified Code(s): N17.0 - Acute kidney failure with tubular necrosis Reason for Visit Reason for Visit: CHEST PAIN Hospital Course Hospital Course Raheel is a 55-year-old white male who presented to the hospital with chest pain. He had previous history of significant coronary artery disease with RCA stenting in 2014. EKG was nonspecific. With nitroglycerin he became significantly hypotensive. Troponin initially was 21, with a peak of 38. Secondary to this cardiology was consulted. They believed angiogram was needed. This was deferred on the second day of his hospital stay secondary to elevated creatinine of 2.1. He was rehydrated, and by April 05 his creatinine had come down to 1.1. He received an angiogram, right radial approach. Cardiology verbally told me there was no flow-limiting stenosis, and he could be discharged after appropriate protocol management of his right radial artery puncture site. He will be discharged later tonight after this happens, with follow-up with his primary care provider and cardiology. He will not take any anti-inflammatories and his Mobic has been discontinued. His lisinopril dose decreased. On follow-up we will get recheck of his creatinine. Physical Exam Narrative: EXAM NARRATIVE: See exam from earlier today Discharge Data Data Completed and Pending: Completed Studies During Hospitalization Category Date Time Status CT abdomen pelvis wo con [id number] Rout ine Cat Scan 04/03/20 07:53 Completed XR chest 1V rose mary ble [id number] Stat Exams 04/02/20 17:35 Completed CV echo complete* [id number] Routine Ultrasound 04/03/20 00:00 Completed Pending at discharge Category Date Time Status [facility] request for service Routin e Exams 04/05/20 13:30 Ordered Complete Blood Co unt w/Auto AM LABS Lab 04/06/20 04:00 Ordered Comprehensive Met abolic Panel AM LA BS Lab 04/06/20 04:00 Ordered Labs from last 24 hours 04/05/20 04/05/20 04/05/20 10:55 06:20 03:02 WBC RBC Hgb Hct MCV MCH MCHC RDW Plt Count MPV Neut % (Auto) Lymph % (Auto) [place] % (Auto) Eos % (Auto) Baso % (Auto) Neut # (Auto) Lymph # (Auto) [place] # (Auto) Eos # (Auto) Baso # (Auto) Nucleated RBC % (a uto) Nucleated RBCs # Sodium 138 Potassium 4.1 Chloride 105 Carbon Dioxide 27 Anion Gap 10.1 BUN 21 H Creatinine 1.1 GFR Calculation 69.5 L Glucose 127 H POC Glucose 276 H 182 H Calculated Osmolal ity 291 Calcium 8.4 L 04/05/20 04/04/20 03:02 20:01 WBC 8.7 RBC 4.46 Hgb 12.5 Hct 38.2 L MCV 85.7 MCH 28.0 MCHC 32.7 RDW 12.7 Plt Count 271 MPV 10.3 Neut % (Auto) 54.2 Lymph % (Auto) 33.2 [place] % (Auto) 9.4 Eos % (Auto) 2.3 Baso % (Auto) 0.6 Neut # (Auto) 4.72 Lymph # (Auto) 2.9 [place] # (Auto) 0.8 Eos # (Auto) 0.2 Baso # (Auto) 0.1 Nucleated RBC % (a uto) 0 Nucleated RBCs # 0.0 Sodium Potassium Chloride Carbon Dioxide Anion Gap BUN Creatinine GFR Calculation Glucose POC Glucose 225 H Calculated Osmolal ity Calcium Vitals: Last Vital Signs Temp 98.4 F 04/05/20 14:58 Pulse 63 04/05/20 14:58 Resp 27 H 04/05/20 14:58 BP 161/100 04/05/20 14:58 Pulse Ox 97 04/05/20 14:58 Discharge Plan Discharge Patient Disposition: Home Condition: Stable Prescriptions: New atorvastatin [Lipitor] 40 mg tablet 40 mg PO DAILY Qty: 30 RF: 0 Continued metformin 500 mg tablet 500 mg PO BID@ RF: 0 insulin aspart U-100 [Novolog Flexpen U-100 Insulin] 100 unit/mL (3 mL) insulin pen 17 unit SUBCUT TID RF: 0 tramadol 50 mg tablet 50 mg PO PRN RF: 0 Plavix 75 mg tablet 75 mg PO DAILY Qty: 30 RF: 6 Hold Instructions: Resume on 12/09/19. resume 24 hrs after getting your radiology procedure Zyrtec 10 mg Tablet 10 mg PO DAILY RF: 0 amitriptyline 50 mg Tablet 50 mg PO DAILY PRN (Reason: unknown) RF: 0 hydrochlorothiazide 25 mg Tablet 25 mg PO QAM RF: 0 metoprolol tartrate 25 mg Tablet 25 mg PO DAILY RF: 0 Lantus U-100 Insulin 100 unit/mL Solution See Rx Instructions .ROUTE .COMPLEX RF: 0 nitroglycerin [Nitrostat] 0.4 mg Tablet, Sublingual 0.4 mg SUBLINGUAL Q5M PRN (Reason: Chest Pain) RF: 0 aspirin 81 mg Tablet,Chewable 81 mg PO DAILY@08 RF: 0 montelukast 10 mg Tablet 10 mg PO DAILY RF: 0 paroxetine HCl [Paxil] 40 mg Tablet 40 mg PO DAILY@08 RF: 0 omeprazole 20 mg Tablet,Delayed Release (Dr/Ec) 20 mg PO DAILY RF: 0 gabapentin 600 mg tablet 600 mg PO TID RF: 0 Changed lisinopril 40 mg Tablet 40 mg PO DAILY Qty: 0 RF: 0 Discontinued Mobic 15 mg Tablet 15 mg PO QAM RF: 0 Discharge Orders: Discharge Order (Routine); Ordered 04/05/20 Ordered By: Stone Moreland Referrals: Maggie Traore MD [Physician] - (Further regular protocol, of wound check with nurse practitioner in the next 2 to 5 days and cardiology visit 4 to 6 weeks) Discharge Diet: Cardiac and Diabetic Discharge Activity: Increase activity as tolerated Patient Instructions: Left Heart Catheterization (DC) Activity Restrictions/Additional Instructions: Take all medicine as prescribed. Follow-up with primary care provider 3 to 5 days. Avoid all anti-inflammatories. BMP on follow-up Discharge Attestations Time Spent in Discharge Care*: greater than 30 min Quality Metrics Clinical Quality Measures During this hospital stay, did patient experience: None Coding Level of Care Code Acute Nutritional Services Director for [facility]ina Fwd Diagnoses Unstable angina I20.0 Acute renal failure (ARF) N17.0 Acute renal failure type: with acute tubular necrosis
[2020-04-05 17:33] LABS: Glucose Point of Care 82 mg/dL (70-110)
--- NOTE | 2020-04-05 20:06 | PC.NURSE ---
DISCHARGE: PT DISCHARGED TO HOME AT THIS TIME. TRANSPORTED PER W/C TO PRIVATE VEHICLE PER ANASTASIACHANDLER BENITEZ. ALERT AND ORIENTED X4. ALL VS AND ASSESSMENTS CHARTED. IV TO RFA REMOVED/CATHETER INTACT ; NO REDNESS OR SWELLING NOTED. PT TOLERATED WELL. DISCHARGE INSTRUCTIONS GIVEN. PT VERBALIZED UNDERSTANDING. TR BAND REMOVED AND BANDAGE PLACE NO BLEEDING OR DRAINAGE NOTED. NO DISTRESS NOTED AT TIME OF DISCHARGE.
== END 2020-04-05 20:06 | disposition home or self-care (01) | DRG 286 ==
LOC: ER 18:30 → CSU 23:47
PROVIDERS: Family Medicine; Internal Medicine; Admitting Provider Internal Medicine; Emergency Provider Emergency Medicine; PCP Internal Medicine; Visit Provider Internal Medicine
DX: I25.110 Atherosclerotic heart disease of native coronary artery with unstable angina pectoris (principal); N17.0 Acute kidney failure with tubular necrosis; Z95.5 Presence of coronary angioplasty implant and graft; K21.9 Gastro-esophageal reflux disease without esophagitis; K44.9 Diaphragmatic hernia without obstruction or gangrene; I95.2 Hypotension due to drugs; T46.3X5A Adverse effect of coronary vasodilators, initial encounter; F41.9 Anxiety disorder, unspecified; G89.29 Other chronic pain; E11.42 Type 2 diabetes mellitus with diabetic polyneuropathy; E78.5 Hyperlipidemia, unspecified; I10 Essential (primary) hypertension; M54.17 Radiculopathy, lumbosacral region; F17.220 Nicotine dependence, chewing tobacco, uncomplicated; F10.21 Alcohol dependence, in remission; Z79.4 Long term (current) use of insulin; Z79.891 Long term (current) use of opiate analgesic; Z79.02 Long term (current) use of antithrombotics/antiplatelets
CPT/HCPCS: 12345; 36415; 36416; 71045; 74176; 80048; 80053; 81001; 82962; 84484; 85025; 87086; 93005; 93306; 93454; 96372; 99283; C1769; C1887; C1894; G0378; J1644; J1650; J1815; J2250; J2270; J2405; J3010; J3490; J7030; J7040; J7799; Q0163; Q9967

== ENCOUNTER → 2020-04-17 09:42 | Outpatient (BNVA) | payer MEDICAID, SELFPAY | PROVIDERS: PCP Internal Medicine; Visit Provider Nurse Practitioner Family | DX: I25.10 Atherosclerotic heart disease of native coronary artery without angina pectoris (principal); I25.119 Atherosclerotic heart disease of native coronary artery with unspecified angina pectoris | CPT/HCPCS: 80048 ==

== ENCOUNTER 2021-04-08 15:25 | Emergency (ER) | payer MEDICAID, SELFPAY ==
--- NOTE | 2021-04-08 15:30 | ED_ITS ---
Documented by User: Thai Cuellar MD 04/14/21 21:54 HPI - Nausea/Vomiting/Diarrhea General: Chief complaint: Nausea/Vomiting/Diarrhea Stated complaint: ELEVATED BLOOD SUGAR; N/V Time Seen by Provider: 04/08/21 15:30 History of Present Illness: HPI Narrative: Mr. Lam is a 56-year-old gentleman with significant past medical history of hypertension, hyperlipidemia, known CAD status post stenting, diabetes who presents to the emergency department due to nausea and vomiting as well as chest pain. He reports symptoms started approximately 2 weeks ago when he initially had congestion, facial pain, cough, nausea vomiting and diarrhea. He had loss of taste and smell associated with this however was not formally tested for Covid. He felt that he was improving and felt back to normal yesterday however feels worse again today. He does note mild chest pressure associated with pain in his right arm. He denies frequent episodes of similar in the past. He has had 1 episodes of vomiting but has had poor p.o. intake. Overall the course is as described. No other specific change in health, exacerbating, or relieving factors. Of note the patient has not taken his medications at home for approximately 2 weeks and POC blood glucose by EMS was read as high. MD elicited complaint: nausea, vomiting and diarrhea Pertinent past history: other (DM) Onset (ago): week(s) Description of vomiting: food contents Description of diarrhea: watery Associated nausea: Yes Associated abdominal pain: Yes (mild) Location of pain: Diffuse Pain consistency: intermittent Severity: mild Quality: cramping Exacerbating factors: none Relieving factors: none Associated symtoms: Reports chest pain, nausea and weakness Review of Systems General: Reports: 10 or more systems reviewed and unremarkable except in HPI and below Card: Reports: chest pain GI: Reports: nausea [facility] ED PFSH: Medical History Anxiety CAD (coronary artery disease) Chest pain Chronic back pain greater than 3 months duration Diabetes Dyslipidemia HTN (hypertension) Intervertebral disc disorder with radiculopathy of lumbosacral region Palpitations Surgical History S/P coronary artery stent placement 10/20/2018 Family History Mother , in her 50's Heart disease COPD (chronic obstructive pulmonary disease) Father Hypertension Grandmother Cancer Social History Smoking and tobacco status: current every day smoker smokeless tobacco Smokeless tobacco user: chewing tobacco Alcohol intake: former Lives independently: Yes Household members: none Marital status: Current occupational status: disabled Current occupation: filed for disability History of recent travel: No Physical Exam Const: COMMON NORMALS: alert GENERAL APPEARANCE: cooperative, well developed and ill appearing (mildly) HENMT: COMMON NORMALS: normocephalic and atraumatic HEAD & SCALP: normocephalic and atraumatic THROAT: posterior oropharynx normal Eye: COMMON NORMALS: conjunctivae normal CONJUNCTIVA: Yes conjunctivae normal SCLERA: sclerae normal Neck/C-Spine: COMMON NORMALS: supple GENERAL: Yes trachea midline Resp: COMMON NORMALS: normal respiratory effort EFFORT & INSPECTION: Yes able to speak in complete sentences Cardio: COMMON NORMALS: regular rate and regular rhythm RATE: regular rate RHYTHM: regular rhythm GI: COMMON NORMALS: Soft to palpation PALPATION: Yes Soft to palpation and No Tenderness to palpation present (GI) PERCUSSION: normal to percussion Extremity: GENERAL: Yes normal exam except as noted and No edema Neuro: COMMON NORMALS: moves all extremities SENSORIUM/ORIENTATION: Yes alert and No Orientation impaired Psych: COMMON NORMALS: mental status grossly normal and Normal thought process present THOUGHT PROCESS: Normal thought process present Course ED course: - Patient was seen and evaluated by me at bedside - Patient placed on cardiac monitors, IV access obtained - Initial evaluation notable for exam as above -Symptom treatment ordered - Labs notable for leukocytosis, hemoconcentration. Metabolic panel with hyperglycemia though only minimal elevation in anion gap and decreased bicarb. Other derangements consistent with hyperglycemia. - Imaging notable for negative chest x-ray. Ultrasound pending at time of handoff - Upon serial reexamination after treatment the patient was mildly improved - Patient care handed off to overnight ED physician Dr. Armstrong pending completion of evaluation, treatment, and reevaluation of patient condition. Note: Click bubbles or prepopulated banegas in note writing are used for assistance with data collection and billing and are inherently more limited than narrative and other text portions of this note. Please use narrative for additional clinical history and defer to narrative/free test for any case of contradictory information. If information appears in only free text or click bubble it should be considered present or absent as reported. Please contact note physician underwriter for clarifications of clinical information or contradictory information. MDM is a brief summary, contradictory or erroneous seeming information should be clarified and full note rudy Vital Signs: Vital signs: Vital Signs Temperature 97.3 F L 04/08/21 20:35 Pulse Rate 96 04/08/21 20:35 Respiratory Rate 18 04/08/21 20:35 Blood Pressure 147/97 04/08/21 20:35 Pulse Oximetry 97 04/08/21 20:35 MDM - Nausea/Vomiting/Diarrhea Medical Records: Attestation: I reviewed the patient's medical records. Lab Data: Attestation: I reviewed the patient's lab results. Labs: Lab Results 04/08/21 04/08/21 04/08/21 16:21 16:21 16:21 WBC 12.6 10^3/uL H 10 ^3/uL (4.0-10.0) RBC 6.06 10^6/uL H 10 ^6/uL (4.1-5.3) Hgb 17.5 g/dL H g/dL (11.7-16.6) Hct 49.4 % % (42.0-52.0) MCV 81.5 fl fl (80-94) MCH 28.9 pg pg (28.0-34.0) MCHC 35.4 g/dL g/dL (30.0-36.0) RDW 12.0 % L % (12.1-15.1) Plt Count 344 10^3/cmm 10^3 /cmm (130-400) MPV 10.7 fL H fL (7.4-10.4) Neut % (Auto) 81.4 % % Lymph % (Auto) 9.6 % % Benson % (Auto) 7.8 % % Eos % (Auto) 0.2 % % Baso % (Auto) 0.5 % % Neut # (Auto) 10.21 10^3/uL H 1 0^3/uL (1.8-7.7) Lymph # (Auto) 1.2 10^3/uL 10^3/ uL (0.8-4.8) Benson # (Auto) 1.0 10^3/uL H 10^ 3/uL (0.2-0.9) Eos # (Auto) 0.0 10^3/uL 10^3/ uL (0.0-0.8) Baso # (Auto) 0.1 10^3/uL 10^3/ uL (0.0-0.1) Nucleated RBC % (a uto) 0 % % Nucleated RBCs # 0.0 /100WBC /100W BC Specimen Type Sample Site ABG pH ABG pCO2 ABG pO2 ABG HCO3 ABG Base Excess Cresencio Test Hematocrit O2 Delivery Device FiO2 Animal Care Technician ID Sodium 126 mmol/L L mmol /L (136-145) Potassium 5.3 mmol/L H mmol /L (3.5-5.1) Chloride 91 mmol/L L mmol/ L (98-107) Carbon Dioxide 20 mmol/L L mmol/ L (22-29) Anion Gap 20.3 H (5-19) BUN 20 mg/dL mg/dL (6-20) Creatinine 1.3 mg/dL H mg/dL (0.7-1.2) GFR Calculation 57.1 mL/min L mL/ min (90-130) Glucose 655 mg/dL H* mg/d L (65-115) POC Glucose Calculated Osmolal ity 296 mOsm/kg H mOs m/kg (285-295) Calcium 8.8 mg/dL mg/dL (8.5-10.5) Total Bilirubin 0.4 mg/dL mg/dL (0.15-1.2) AST 9 U/L U/L (0-40) ALT 10 U/L U/L (0-41) Alkaline Phosphata se 152 IU/L H IU/L (40-130) Troponin T Baselin e 31 ng/L H ng/L (0-15) Troponin T 120 Min leonid Delta Troponin T Total Protein 7.5 g/dL g/dL (6.6-8.7) Albumin 4.3 g/dL g/dL (3.5-5.2) Globulin 3.2 g/dL g/dL (1.3-4.6) Urine Color Urine Appearance Urine pH Ur Specific Gravit y Urine Protein Urine Glucose (UA) Urine Ketones Urine Blood Urine Nitrate Urine Bilirubin Urine Urobilinogen Ur Leukocyte Cathy ase 04/08/21 04/08/21 04/08/21 16:35 17:28 18:40 WBC RBC Hgb Hct MCV MCH MCHC RDW Plt Count MPV Neut % (Auto) Lymph % (Auto) Benson % (Auto) Eos % (Auto) Baso % (Auto) Neut # (Auto) Lymph # (Auto) Benson # (Auto) Eos # (Auto) Baso # (Auto) Nucleated RBC % (a uto) Nucleated RBCs # Specimen Type Arterial Sample Site Brachial, right ABG pH 7.35 (7.35-7.45) ABG pCO2 42.3 mmHg mmHg (35-45) ABG pO2 76.9 mmHg L mmHg (80.0-100.0) ABG HCO3 23.5 mmol/L mmol/ L (22-26) ABG Base Excess -2.1 mmol/L L mmo l/L (-2.0-2.0) Cresencio Test N/a Hematocrit 51.3 % % (42-52) O2 Delivery Device None FiO2 21.0 % % Animal Care Technician ID Rieri Sodium Potassium Chloride Carbon Dioxide Anion Gap BUN Creatinine GFR Calculation Glucose POC Glucose Calculated Osmolal ity Calcium Total Bilirubin AST ALT Alkaline Phosphata se Troponin T Baselin e Troponin T 120 Min leonid 23.57 ng/L H ng/L (0-15) Delta Troponin T -7.43 ABS# L ABS# (0-10) Total Protein Albumin Globulin Urine Color Yellow (Yellow) Urine Appearance Clear (CLEAR) Urine pH 5 (5-7) Ur Specific Gravit y 1.010 (1.005-1.030) Urine Protein Neg (Negative) Urine Glucose (UA) 4+ H (Normal) Urine Ketones Negative (Negative) Urine Blood Neg (Negative) Urine Nitrate Negative (Negative) Urine Bilirubin Neg (Negative) Urine Urobilinogen Norm mg/dL mg/dL (Negative) Ur Leukocyte Cathy ase Negative (Negative) 04/08/21 04/08/21 19:16 20:30 WBC RBC Hgb Hct MCV MCH MCHC RDW Plt Count MPV Neut % (Auto) Lymph % (Auto) Benson % (Auto) Eos % (Auto) Baso % (Auto) Neut # (Auto) Lymph # (Auto) Benson # (Auto) Eos # (Auto) Baso # (Auto) Nucleated RBC % (a uto) Nucleated RBCs # Specimen Type Sample Site ABG pH ABG pCO2 ABG pO2 ABG HCO3 ABG Base Excess Cresencio Test Hematocrit O2 Delivery Device FiO2 Animal Care Technician ID Sodium Potassium Chloride Carbon Dioxide Anion Gap BUN Creatinine GFR Calculation Glucose POC Glucose 395 mg/dL H mg/dL 377 mg/dL H mg/dL (70-110) (70-110) Calculated Osmolal ity Calcium Total Bilirubin AST ALT Alkaline Phosphata se Troponin T Baselin e Troponin T 120 Min leonid Delta Troponin T Total Protein Albumin Globulin Urine Color Urine Appearance Urine pH Ur Specific Gravit y Urine Protein Urine Glucose (UA) Urine Ketones Urine Blood Urine Nitrate Urine Bilirubin Urine Urobilinogen Ur Leukocyte Cathy ase EKG Data^: EKG 1: Attestation: I personally reviewed and interpreted this EKG as follows: EKG interpretation date: 04/08/21 EKG interpretation time: 17:40 Interpretation: Twelve-lead EKG shows a sinus rhythm at a rate of 86. OH interval 161. QRS duration 94. QTc 396. Regular [place]. . Interpretation: Sinus rhythm. . EKG 2: Attestation: I personally reviewed and interpreted this EKG as follows: EKG interpretation date: 04/08/21 EKG interpretation time: 16:10 Interpretation: Twelve-lead EKG shows a regular rate/rhythm at rate of 88. OH interval 171, QRS duration 85, QTc 377. Normal axis. Interpretation: Sinus rhythm. Discharge Plan Discharge Patient Disposition: Home Clinical Impression: Gastroenteritis, Acute hyperglycemia Condition: Stable Prescriptions: New Zofran 4 mg tablet 4 mg PO Q6H PRN (Reason: nausea and vomiting) Qty: 10 RF: 0 No Action metformin 500 mg tablet 500 mg PO BID@ RF: 0 insulin aspart U-100 [Novolog Flexpen U-100 Insulin] 100 unit/mL (3 mL) insulin pen 17 unit SUBCUT TID RF: 0 tramadol 50 mg tablet 50 mg PO PRN RF: 0 Plavix 75 mg tablet 75 mg PO DAILY Qty: 30 RF: 6 Hold Instructions: Resume on 12/09/19. resume 24 hrs after getting your radiology procedure cetirizine [Zyrtec] 10 mg Tablet 10 mg PO DAILY RF: 0 amitriptyline 50 mg Tablet 50 mg PO DAILY PRN (Reason: unknown) RF: 0 hydrochlorothiazide 25 mg Tablet 25 mg PO QAM RF: 0 atorvastatin [Lipitor] 40 mg tablet 40 mg PO DAILY Qty: 30 RF: 0 lisinopril 40 mg Tablet 40 mg PO DAILY Qty: 0 RF: 0 Lantus U-100 Insulin 100 unit/mL Solution See Rx Instructions .ROUTE .COMPLEX RF: 0 nitroglycerin [Nitrostat] 0.4 mg Tablet, Sublingual 0.4 mg SUBLINGUAL Q5M PRN (Reason: Chest Pain) RF: 0 montelukast 10 mg Tablet 10 mg PO DAILY RF: 0 paroxetine HCl [Paxil] 40 mg Tablet 40 mg PO DAILY@08 RF: 0 omeprazole 20 mg Tablet,Delayed Release (Dr/Ec) 20 mg PO DAILY RF: 0 gabapentin 600 mg tablet 600 mg PO TID RF: 0 meloxicam 15 mg Tablet 15 mg PO DAILY RF: 0 diltiazem HCl 90 mg Capsule,Extended Release 12 Hr 90 mg PO BID RF: 0 Discharge Orders: Discharge ED (Routine); Ordered 04/08/21 Ordered By: Too Armstrong Referrals: Niesha Hinds [Primary Care Provider] - 1-3 days Patient Instructions: Gastroenteritis (ED), Diabetic Hyperglycemia (ED) Activity Restrictions/Additional Instructions: Check your blood sugar often. Take your insulin at regular dosages. Take the antinausea medication you were given every 6 hours scheduled for the first 48 hours, then as needed. Make sure that you are tolerating a liquid diet before advancing to solids. Return for fever, worsening vomiting, abdominal pain, mental status changes, any other concerning symptoms. Coding Level of Care Code ED Trace Evidence Technician for Chg Fwd Exam Comprehensive Documented by User: Too Armstrong DO 04/08/21 23:29 HPI - Nausea/Vomiting/Diarrhea General: Chief complaint: Nausea/Vomiting/Diarrhea Stated complaint: ELEVATED BLOOD SUGAR; N/V Time Seen by Provider: 04/08/21 15:30 PFSH ED PFSH: Medical History Anxiety CAD (coronary artery disease) Chest pain Chronic back pain greater than 3 months duration Diabetes Dyslipidemia HTN (hypertension) Intervertebral disc disorder with radiculopathy of lumbosacral region Palpitations Surgical History S/P coronary artery stent placement 10/20/2018 Family History Mother , in her 50's Heart disease COPD (chronic obstructive pulmonary disease) Father Hypertension Grandmother Cancer Social History Smoking and tobacco status: current every day smoker smokeless tobacco Smokeless tobacco user: chewing tobacco Alcohol intake: former Lives independently: Yes Household members: none Marital status: Current occupational status: disabled Current occupation: filed for disability History of recent travel: No Course Vital Signs: Vital signs: Vital Signs Temperature 97.3 F L 04/08/21 20:35 Pulse Rate 96 04/08/21 20:35 Respiratory Rate 18 04/08/21 20:35 Blood Pressure 147/97 04/08/21 20:35 Pulse Oximetry 97 04/08/21 20:35 MDM - Nausea/Vomiting/Diarrhea MDM Narrative: Medical decision making narrative: 56-year-old male checked out to me by the previous physician at shift change. This gentleman has been vomiting at home. He has not been able to take his diabetes medicine. His sugar is 655. He is not acidotic, and does not have a significant anion gap. After 2 L of fluid, he is feeling much better. After insulin, his sugar is down to 365. He is given more insulin, he is tolerating oral liquids very well at this point. He wishes to go home if able. We will allow him home on antiemetic to keep his stomach settled for the next 48 hours. He assures me he has his insulin and Metformin and will take it appropriately Lab Data: Labs: Lab Results 04/08/21 04/08/21 04/08/21 16:21 16:21 16:21 WBC 12.6 10^3/uL H 10 ^3/uL (4.0-10.0) RBC 6.06 10^6/uL H 10 ^6/uL (4.1-5.3) Hgb 17.5 g/dL H g/dL (11.7-16.6) Hct 49.4 % % (42.0-52.0) MCV 81.5 fl fl (80-94) MCH 28.9 pg pg (28.0-34.0) MCHC 35.4 g/dL g/dL (30.0-36.0) RDW 12.0 % L % (12.1-15.1) Plt Count 344 10^3/cmm 10^3 /cmm (130-400) MPV 10.7 fL H fL (7.4-10.4) Neut % (Auto) 81.4 % % Lymph % (Auto) 9.6 % % Benson % (Auto) 7.8 % % Eos % (Auto) 0.2 % % Baso % (Auto) 0.5 % % Neut # (Auto) 10.21 10^3/uL H 1 0^3/uL (1.8-7.7) Lymph # (Auto) 1.2 10^3/uL 10^3/ uL (0.8-4.8) Benson # (Auto) 1.0 10^3/uL H 10^ 3/uL (0.2-0.9) Eos # (Auto) 0.0 10^3/uL 10^3/ uL (0.0-0.8) Baso # (Auto) 0.1 10^3/uL 10^3/ uL (0.0-0.1) Nucleated RBC % (a uto) 0 % % Nucleated RBCs # 0.0 /100WBC /100W BC Specimen Type Sample Site ABG pH ABG pCO2 ABG pO2 ABG HCO3 ABG Base Excess Cresencio Test Hematocrit O2 Delivery Device FiO2 Animal Care Technician ID Sodium 126 mmol/L L mmol /L (136-145) Potassium 5.3 mmol/L H mmol /L (3.5-5.1) Chloride 91 mmol/L L mmol/ L (98-107) Carbon Dioxide 20 mmol/L L mmol/ L (22-29) Anion Gap 20.3 H (5-19) BUN 20 mg/dL mg/dL (6-20) Creatinine 1.3 mg/dL H mg/dL (0.7-1.2) GFR Calculation 57.1 mL/min L mL/ min (90-130) Glucose 655 mg/dL H* mg/d L (65-115) POC Glucose Calculated Osmolal ity 296 mOsm/kg H mOs m/kg (285-295) Calcium 8.8 mg/dL mg/dL (8.5-10.5) Total Bilirubin 0.4 mg/dL mg/dL (0.15-1.2) AST 9 U/L U/L (0-40) ALT 10 U/L U/L (0-41) Alkaline Phosphata se 152 IU/L H IU/L (40-130) Troponin T Baselin e 31 ng/L H ng/L (0-15) Troponin T 120 Min leonid Delta Troponin T Total Protein 7.5 g/dL g/dL (6.6-8.7) Albumin 4.3 g/dL g/dL (3.5-5.2) Globulin 3.2 g/dL g/dL (1.3-4.6) Urine Color Urine Appearance Urine pH Ur Specific Gravit y Urine Protein Urine Glucose (UA) Urine Ketones Urine Blood Urine Nitrate Urine Bilirubin Urine Urobilinogen Ur Leukocyte Cathy ase 04/08/21 04/08/21 04/08/21 16:35 17:28 18:40 WBC RBC Hgb Hct MCV MCH MCHC RDW Plt Count MPV Neut % (Auto) Lymph % (Auto) Benson % (Auto) Eos % (Auto) Baso % (Auto) Neut # (Auto) Lymph # (Auto) Benson # (Auto) Eos # (Auto) Baso # (Auto) Nucleated RBC % (a uto) Nucleated RBCs # Specimen Type Arterial Sample Site Brachial, right ABG pH 7.35 (7.35-7.45) ABG pCO2 42.3 mmHg mmHg (35-45) ABG pO2 76.9 mmHg L mmHg (80.0-100.0) ABG HCO3 23.5 mmol/L mmol/ L (22-26) ABG Base Excess -2.1 mmol/L L mmo l/L (-2.0-2.0) Cresencio Test N/a Hematocrit 51.3 % % (42-52) O2 Delivery Device None FiO2 21.0 % % Animal Care Technician ID Rieri Sodium Potassium Chloride Carbon Dioxide Anion Gap BUN Creatinine GFR Calculation Glucose POC Glucose Calculated Osmolal ity Calcium Total Bilirubin AST ALT Alkaline Phosphata se Troponin T Baselin e Troponin T 120 Min leonid 23.57 ng/L H ng/L (0-15) Delta Troponin T -7.43 ABS# L ABS# (0-10) Total Protein Albumin Globulin Urine Color Yellow (Yellow) Urine Appearance Clear (CLEAR) Urine pH 5 (5-7) Ur Specific Gravit y 1.010 (1.005-1.030) Urine Protein Neg (Negative) Urine Glucose (UA) 4+ H (Normal) Urine Ketones Negative (Negative) Urine Blood Neg (Negative) Urine Nitrate Negative (Negative) Urine Bilirubin Neg (Negative) Urine Urobilinogen Norm mg/dL mg/dL (Negative) Ur Leukocyte Cathy ase Negative (Negative) 04/08/21 04/08/21 19:16 20:30 WBC RBC Hgb Hct MCV MCH MCHC RDW Plt Count MPV Neut % (Auto) Lymph % (Auto) Benson % (Auto) Eos % (Auto) Baso % (Auto) Neut # (Auto) Lymph # (Auto) Benson # (Auto) Eos # (Auto) Baso # (Auto) Nucleated RBC % (a uto) Nucleated RBCs # Specimen Type Sample Site ABG pH ABG pCO2 ABG pO2 ABG HCO3 ABG Base Excess Cresencio Test Hematocrit O2 Delivery Device FiO2 Animal Care Technician ID Sodium Potassium Chloride Carbon Dioxide Anion Gap BUN Creatinine GFR Calculation Glucose POC Glucose 395 mg/dL H mg/dL 377 mg/dL H mg/dL (70-110) (70-110) Calculated Osmolal ity Calcium Total Bilirubin AST ALT Alkaline Phosphata se Troponin T Baselin e Troponin T 120 Min leonid Delta Troponin T Total Protein Albumin Globulin Urine Color Urine Appearance Urine pH Ur Specific Gravit y Urine Protein Urine Glucose (UA) Urine Ketones Urine Blood Urine Nitrate Urine Bilirubin Urine Urobilinogen Ur Leukocyte Cathy ase Discharge Plan Discharge Patient Disposition: Home Clinical Impression: Gastroenteritis, Acute hyperglycemia Condition: Stable Prescriptions: New Zofran 4 mg tablet 4 mg PO Q6H PRN (Reason: nausea and vomiting) Qty: 10 RF: 0 No Action metformin 500 mg tablet 500 mg PO BID@ RF: 0 insulin aspart U-100 [Novolog Flexpen U-100 Insulin] 100 unit/mL (3 mL) insulin pen 17 unit SUBCUT TID RF: 0 tramadol 50 mg tablet 50 mg PO PRN RF: 0 Plavix 75 mg tablet 75 mg PO DAILY Qty: 30 RF: 6 Hold Instructions: Resume on 12/09/19. resume 24 hrs after getting your radiology procedure cetirizine [Zyrtec] 10 mg Tablet 10 mg PO DAILY RF: 0 amitriptyline 50 mg Tablet 50 mg PO DAILY PRN (Reason: unknown) RF: 0 hydrochlorothiazide 25 mg Tablet 25 mg PO QAM RF: 0 atorvastatin [Lipitor] 40 mg tablet 40 mg PO DAILY Qty: 30 RF: 0 lisinopril 40 mg Tablet 40 mg PO DAILY Qty: 0 RF: 0 Lantus U-100 Insulin 100 unit/mL Solution See Rx Instructions .ROUTE .COMPLEX RF: 0 nitroglycerin [Nitrostat] 0.4 mg Tablet, Sublingual 0.4 mg SUBLINGUAL Q5M PRN (Reason: Chest Pain) RF: 0 montelukast 10 mg Tablet 10 mg PO DAILY RF: 0 paroxetine HCl [Paxil] 40 mg Tablet 40 mg PO DAILY@08 RF: 0 omeprazole 20 mg Tablet,Delayed Release (Dr/Ec) 20 mg PO DAILY RF: 0 gabapentin 600 mg tablet 600 mg PO TID RF: 0 meloxicam 15 mg Tablet 15 mg PO DAILY RF: 0 diltiazem HCl 90 mg Capsule,Extended Release 12 Hr 90 mg PO BID RF: 0 Discharge Orders: Discharge ED (Routine); Ordered 04/08/21 Ordered By: Too Armstrong Referrals: Niesha Hinds [Primary Care Provider] - 1-3 days Patient Instructions: Gastroenteritis (ED), Diabetic Hyperglycemia (ED) Activity Restrictions/Additional Instructions: Check your blood sugar often. Take your insulin at regular dosages. Take the antinausea medication you were given every 6 hours scheduled for the first 48 hours, then as needed. Make sure that you are tolerating a liquid diet before advancing to solids. Return for fever, worsening vomiting, abdominal pain, mental status changes, any other concerning symptoms. Coding Level of Care Code ED Trace Evidence Technician for Dina Fwsilvana Exam Comprehensive
[2021-04-08 15:43] VITALS: BP 140/115; PULSE 96; RESP 16; TEMP 35.9; O2SAT 97; BMI 35.2
--- NOTE | 2021-04-08 15:48 | XRR_ITS ---
PROCEDURE INFORMATION: Exam: XR Chest Exam date and time: 04/08/2021 3:48 PM Age: 56 years old Clinical indication: Patient HX: Cough, n/v, post covid; Additional info: Chest pain TECHNIQUE: Imaging protocol: XR of the chest. Views: 1 view. COMPARISON: CR XR chest 1V portable [id number] 04/02/2020 5:34 PM FINDINGS: Lungs: Unremarkable. No consolidation. Pleural spaces: Unremarkable. No pleural effusion. No pneumothorax. Heart/Mediastinum: Unremarkable. No cardiomegaly. Bones/joints: Unremarkable. XR/XR chest 1V portable [id number] IMPRESSION: No acute findings.
--- NOTE | 2021-04-08 15:50 | ECG_ITS ---
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 Measurements Intervals [place] Rate: 88 P: 81 WI: 171 QRS: 26 QRSD: 85 T: 42 QT: 332 QTc: 402 Interpretive Statements SINUS RHYTHM SEPTAL MYOCARDIAL INFARCTION , OF INDETERMINATE AGE [40+ ms Q WAVE IN V1/V2] Compared to ECG 04/03/2020 01:28:43 Myocardial infarct finding now present Electronically Signed On 04-10-2021 5:06:07 ETL LEAD by Kaila Ariza M.D. [email or web address] [employer]erral [email or web address] ([id number]
[2021-04-08] MEDS: ondansetron 2 mg/ML SDV 2 mL 4 MG IVP (16:13)
[2021-04-08] MEDS: sodium chloride 0.9% 1,000 ML 999 ML IV ×2 (16:13→18:18)
[2021-04-08 16:43] LABS: ABG PCO2 42.3 mmHg (35-45); ABG PH Result 7.35 (7.35-7.45); Arterial Blood Gas Hematocrit 51.3 % (42-52); Base Excess ABG -2.1 mmol/L (-2.0-2.0); Blood Gas Sample Site Brachial, right; Blood Gas Sample Type Arterial; HCO3 ABG 23.5 mmol/L (22-26); PO2 ABG 76.9 mmHg (80.0-100.0)
[2021-04-08 17:02] LABS: Basophils # 0.1 10^3/uL (0.0-0.1); Basophils % 0.5 %; Eosinophils % 0.2 %; Hematocrit 49.4 % (42.0-52.0); Hemoglobin 17.5 g/dL (11.7-16.6); Lymphocytes # 1.2 10^3/uL (0.8-4.8); Lymphocytes % 9.6 %; Mean Corpuscular HGB Conc 35.4 g/dL (30.0-36.0); Mean Corpuscular Hemoglobin 28.9 pg (28.0-34.0); Mean Corpuscular Volume 81.5 fl (80-94); Mean Platelet Volume 10.7 fL (7.4-10.4); Monocytes % 7.8 %; Neutrophils # 10.21 10^3/uL (1.8-7.7); Neutrophils % 81.4 %; Nucleated Red Blood Cells % 0 %; Platelet Count 344 10^3/cmm (130-400); Red Blood Count 6.06 10^6/uL (4.1-5.3); White Blood Count 12.6 10^3/uL (4.0-10.0)
[2021-04-08 17:11] LABS: Alanine Aminotransferase 10 U/L (0-41); Albumin Level 4.3 g/dL (3.5-5.2); Alkaline Phosphatase 152 IU/L (40-130); Aspartate Amino Transferase 9 U/L (0-40); Blood Urea Nitrogen 20 mg/dL (6-20); Calcium 8.8 mg/dL (8.5-10.5); Carbon Dioxide 20 mmol/L (22-29); Chloride 91 mmol/L (98-107); Globulin 3.2 g/dL (1.3-4.6); Glomerular Filtration Rate 57.1 mL/min (90-130); Osmolality Calculated 296 mOsm/kg (285-295); Sodium 126 mmol/L (136-145); Total Bilirubin 0.4 mg/dL (0.15-1.2); Total Protein 7.5 g/dL (6.6-8.7)
[2021-04-08 17:13] LABS: Troponin(5th) Baseline 31 ng/L (0-15)
[2021-04-08 17:17] LABS: Anion Gap 20.3 (5-19); Potassium 5.3 mmol/L (3.5-5.1)
[2021-04-08 17:19] LABS: Glucose 655 mg/dL (65-115)
[2021-04-08 17:42] LABS: Add Urine Microscopic? NO; Charge for UA Resulting for Rev
--- NOTE | 2021-04-08 17:50 | ECG_ITS ---
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 Measurements Intervals [place] Rate: 86 P: 66 AR: 161 QRS: 61 QRSD: 94 T: 46 QT: 353 QTc: 423 Interpretive Statements SINUS RHYTHM SEPTAL MYOCARDIAL INFARCTION , OF INDETERMINATE AGE [40+ ms Q WAVE IN V1/V2] Compared to ECG 04/08/2021 16:06:00 No significant changes Electronically Signed On 04-10-2021 5:19:56 MAILER by Kaila Ariza M.D. [email or web address] [email or web address][email or web address] Medical[id number]
[2021-04-08 18:04] LABS: Bilirubin Urine Neg (Negative); Blood Urine Neg (Negative); Glucose Urine UA 4+ (Normal); Ketones Urine Negative (Negative); Leukocyte Esterase Urine Negative (Negative); Nitrate Urine Negative (Negative); Protein Urine Neg (Negative); Urine Appearance Clear (CLEAR); Urine Color Yellow (Yellow); Urobilinogen Urine Norm (Negative); pH Urine 5 (5-7)
--- NOTE | 2021-04-08 18:11 | CTR_ITS ---
PROCEDURE INFORMATION: Exam: CT Abdomen And Pelvis With Contrast Exam date and time: 04/08/2021 6:11 PM Age: 56 years old Clinical indication: Nausea and vomiting and other: Diarrhea; Additional info: N/v/d TECHNIQUE: Imaging protocol: Computed tomography of the abdomen and pelvis with contrast. Radiation optimization: All CT scans at this facility use at least one of these dose optimization techniques: automated exposure control; mA and/or kV adjustment per patient size (includes targeted exams where dose is matched to clinical indication); or iterative reconstruction. Contrast material: OMNI 300; Contrast volume: 95 ml; Contrast route: INTRAVENOUS (IV); COMPARISON: CT abdomen pelvis wo con [id number] 04/03/2020 10:43 AM RADIATION DOSE METRICS: Total DLP (mGy-cm): 1671.47 FINDINGS: Liver: Normal. No mass. Gallbladder and bile ducts: Normal. No calcified stones. No ductal dilation. Pancreas: Normal. No ductal dilation. Spleen: Normal. No splenomegaly. Adrenal glands: Normal. No mass. Kidneys and ureters: Normal. No hydronephrosis. Stomach and bowel: A few scattered colonic diverticula noted without findings of acute diverticulitis. No obstruction. No mucosal thickening. Appendix: No evidence of appendicitis. Intraperitoneal space: Unremarkable. No free air. No significant fluid collection. Vasculature: Unremarkable. No abdominal aortic aneurysm. Lymph nodes: Unremarkable. No enlarged lymph nodes. Urinary bladder: Unremarkable as visualized. Reproductive: Unremarkable as visualized. Bones/joints: No acute fracture. Soft tissues: Unremarkable. CT/CT abdomen pelvis w con* [id number] IMPRESSION: No acute findings.
[2021-04-08] MEDS: insulin regular-human 100 units/1 mL 10 UNIT IVP (18:13)
[2021-04-08] MEDS: iohexol 300 mg/mL 100 mL Btl IV (19:08)
[2021-04-08 19:18] LABS: Troponin 5 2HR 23.57 ng/L (0-15)
[2021-04-08 19:19] LABS: Troponin 5 2HR Delta -7.43 ABS# (0-10)
[2021-04-08 19:21] LABS: Glucose Point of Care 395 mg/dL (70-110)
[2021-04-08] MEDS: insulin regular-human 100 units/1 mL 8 UNIT IVP (19:45)
[2021-04-08 20:32] LABS: Glucose Point of Care 377 mg/dL (70-110)
[2021-04-08 20:35] VITALS: BP 147/97; PULSE 96; RESP 18; TEMP 36.3; O2SAT 97
== END 2021-04-08 21:50 | disposition home or self-care (01) ==
PROVIDERS: Emergency Medicine; Emergency Provider Emergency Medicine; PCP Internal Medicine
DX: K52.9 Noninfective gastroenteritis and colitis, unspecified (principal); E11.65 Type 2 diabetes mellitus with hyperglycemia; I25.10 Atherosclerotic heart disease of native coronary artery without angina pectoris; I10 Essential (primary) hypertension; E78.5 Hyperlipidemia, unspecified; F17.220 Nicotine dependence, chewing tobacco, uncomplicated; Z95.5 Presence of coronary angioplasty implant and graft; Z79.4 Long term (current) use of insulin; Z79.02 Long term (current) use of antithrombotics/antiplatelets; Z79.84 Long term (current) use of oral hypoglycemic drugs
CPT/HCPCS: 36416; 36600; 71045; 74177; 80053; 81003; 82803; 82962; 84484; 85025; 93005; 96361; 96374; 96375; 96376; 99283; J1815; J2405; J7030; Q9967

== ENCOUNTER 2022-01-16 15:59 | Observation (INO) | payer MEDICAID, SELFPAY ==
[2022-01-16] VITALS (8 sets, daily range): BP systolic 83–165; BP diastolic 53–116; PULSE 70–91; RESP 15–18; TEMP 36.5–36.8; O2SAT 95–100; BMI 33.6
--- NOTE | 2022-01-16 15:57 | XRR_ITS ---
PROCEDURE INFORMATION: Exam: XR Chest Exam date and time: 01/16/2022 4:10 PM Age: 57 years old Clinical indication: Pain; Other: No history; Prior surgery; Surgery type: Heart stents; Additional info: Chest pain TECHNIQUE: Imaging protocol: Radiologic exam of the chest. Views: 1 view. COMPARISON: CR (CHEST, ) 04/08/2021 4:47 PM FINDINGS: Lungs: Unremarkable. No consolidation. Pleural spaces: Unremarkable. No pleural effusion. No pneumothorax. Heart/Mediastinum: Unremarkable. No cardiomegaly. Bones/joints: Unremarkable. XR/XR chest 1V portable [id number] IMPRESSION: No acute findings.
--- NOTE | 2022-01-16 16:02 | ECG_ITS ---
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 Measurements Intervals [place] Rate: 80 P: 52 [place]: 157 QRS: 2 QRSD: 99 T: 47 QT: 360 QTc: 415 Interpretive Statements SINUS RHYTHM Compared to ECG 04/08/2021 17:34:38 Myocardial infarct finding no longer present Electronically Signed On 01-16-2022 22:44:17 CDT by Jefferson Garcia M.D. [email or web address] speciality [email or web address]/store/[id number]
--- NOTE | 2022-01-16 16:44 | ED_ITS ---
Documented by User: Yannick Arevalo MD 01/16/22 17:42 HPI - Chest Pain General: Chief Complaint: Chest Pain Stated Complaint: Chest Pain Time Seen by Provider: 01/16/22 18:02 Source: patient Mode of arrival: EMS Limitations: no limitations History of Present Illness: See nursing assessment. Patient states she has had intermittent left-sided chest pain and pressure since Friday. He states it improves with rest. He states he was seen at a clinic on Friday and told his blood pressure was high and given sublingual nitroglycerin at that time. He states it did help with his discomfort and did improve his blood pressure. States he has slight chest pressure now. EMS gave patient 324 mg of aspirin and 1 sublingual nitroglycerin prior to arrival. He states that the nitroglycerin did help with his pain. Past medical history includes coronary artery disease in which she had stent placed in his heart at this hospital 2 years ago. Denies any shortness of breath. Associated symptoms: Deny abdominal pain, dyspnea, fever(s), nausea, palpitations or vomiting Review of Systems Const: Denies: fever(s) or chills Eyes: Denies: change in vision ENMT: Denies: throat pain Card: Denies: palpitations Resp: Denies: dyspnea or wheezing GI: Denies: abdominal pain, nausea or vomiting : Denies: flank pain Musc: Denies: neck pain or back pain Skin/Breast: Denies: rash or pruritus Neuro: Denies: headache(s) or numbness in extremities Psych: Denies: anxiety Zuhair/Lymph: Denies: enlarged lymph nodes PFSH ED PFSH: Medical History Anxiety CAD (coronary artery disease) Chest pain Chronic back pain greater than 3 months duration Diabetes Dyslipidemia HTN (hypertension) Intervertebral disc disorder with radiculopathy of lumbosacral region Palpitations Surgical History S/P coronary artery stent placement 10/20/2018 Family History Mother , in her 50's Heart disease COPD (chronic obstructive pulmonary disease) Father Hypertension Grandmother Cancer Social History Smoking and tobacco status: current every day smoker smokeless tobacco Smokeless tobacco user: chewing tobacco Alcohol intake: former Lives independently: Yes Household members: none Marital status: Current occupational status: disabled Current occupation: filed for disability History of recent travel: No Supplemental [facility] Information: Coronary stent approximately 2 years ago Physical Exam Const: COMMON NORMALS: no acute distress, patient oriented x3, alert and well nourished GENERAL APPEARANCE: cooperative HENMT: COMMON NORMALS: normocephalic and atraumatic HEAD & SCALP: normocephalic and atraumatic Eye: COMMON NORMALS: EOMs intact bilaterally Neck/C-Spine: COMMON NORMALS: full ROM, no lymphadenopathy, supple and no JVD Lymph: LYMPHATIC: no lymphadenopathy noted Chest: COMMONS NORMALS: normal inspection of the chest and normal palpation of entire chest wall Resp: COMMON NORMALS: normal respiratory effort, No retractions, No use of accessory muscles and clear to auscultation bilaterally AUSCULTATION: clear to auscultation bilaterally Cardio: COMMON NORMALS: no JVD, regular rate, regular rhythm and Peripheral p ulses 2+ throughout RATE: regular rate RHYTHM: regular rhythm PERIPHERAL PULSES: Peripheral pulses 2+ throughout GI: COMMON NORMALS: Normal to inspection, nondistended, normoactive bowel sounds present, Soft to palpation and non-tender PALPATION: Yes Soft to palpation : COMMON NORMALS: Yes no CVA tenderness BLADDER/KIDNEY EXAM: Yes no CVA tenderness Back/Pelvis: COMMON NORMALS: no CVA tenderness Extremity: COMMON NORMALS: normal to inspection and full ROM Neuro: COMMON NORMALS: patient oriented x3, CN's II-XII intact bilaterally, moves all extremities, no focal motor deficits and no sensory deficits noted SENSORIUM/ORIENTATION: Yes alert Psych: COMMON NORMALS: mental status grossly normal, Normal thought process present, cooperative, normal affect and speech normal SPEECH: Yes normal speech THOUGHT PROCESS: Normal thought process present Skin: COMMON NORMALS: no rashes or lesions noted GENERAL SKIN EXAM: no rashes or lesions noted Course Vital Signs: Vital signs: Vital Signs Temperature 98.3 F 01/16/22 15:56 Pulse Rate 77 01/16/22 17:55 Respiratory Rate 18 01/16/22 17:55 Blood Pressure 122/84 01/16/22 17:55 Pulse Oximetry 97 01/16/22 17:55 Oxygen Delivery Me thod 01/16/22 16:05 MDM - Chest Pain Medical Decision Making Unstable angina versus atypical chest pain, hypertension Blood pressure at time of exam was 122/93. Patient has type 2 insulin-dependent diabetes mellitus, essential hypertension 1800: Care turned over to Dr. Wright at shift change. 1840: Patient having mild chest pressure Lab Data : 01/16/22 17:26 01/16/22 17:26 Radiology Impressions Chest X-Ray 01/16/22 15:57 IMPRESSION: No acute findings. Laboratory Results WBC 11.0 10^3/uL (4.0-10.0) H 01/16/22 17: RBC 5.38 10^6/uL (4.1-5.3) H 01/16/22 17:26 Hgb 15.5 g/dL (11.7-16.6) 01/16/22 17:26 Hct 44.9 % (42.0-52.0) 01/16/22 17:26 MCV 83.5 fl (80-94) 01/16/22 17:26 MCH 28.8 pg (28.0-34.0) 01/16/22 17:26 MCHC 34.5 g/dL (30.0-36.0) 01/16/22 17:26 RDW 11.9 % (12.1-15.1) L 01/16/22 17:26 Plt Count 321 10^3/cmm (130-400) 01/16/22 17:26 MPV 9.6 fL (7.4-10.4) 01/16/22 17:26 Neut % (Auto) 61.6 % 01/16/22 17:26 Lymph % (Auto) 28.4 % 01/16/22 17:26 Sully % (Auto) 8.0 % 01/16/22 17: Eos % (Auto) 0.9 % 01/16/22 17:26 Baso % (Auto) 0.6 % 01/16/22 17:26 Neut # (Auto) 6.81 10^3/uL (1.8-7.7) 01/16/22 17:26 Lymph # (Auto) 3.1 10^3/uL (0.8-4.8) 01/16/22 17:26 Sully # (Auto) 0.9 10^3/uL (0.2-0.9) 01/16/22 17:26 Eos # (Auto) 0.1 10^3/uL (0.0-0.8) 01/16/22 17:26 Baso # (Auto) 0.1 10^3/uL (0.0-0.1) 01/16/22 17:26 Nucleated RBC % (auto) 0 % 01/16/22 17:26 Nucleated RBCs # 0.0 /100WBC 01/16/22 17:26 Troponin T Baseline 13 ng/L (0-15) 01/16/22 17:26 Imaging Data CXR: Radiologist's impression: PROCEDURE INFORMATION: Exam: XR Chest Exam date and time: 01/16/2022 4:10 PM Age: 57 years old Clinical indication: Pain; Other: No history; Prior surgery; Surgery type: Heart stents; Additional info: Chest pain TECHNIQUE: Imaging protocol: Radiologic exam of the chest. Views: 1 view. COMPARISON: CR (CHEST, ) 04/08/2021 4:47 PM FINDINGS: Lungs: Unremarkable. No consolidation. Pleural spaces: Unremarkable. No pleural effusion. No pneumothorax. Heart/Mediastinum: Unremarkable. No cardiomegaly. Bones/joints: Unremarkable. XR/XR chest 1V portable [id number] IMPRESSION: No acute findings. ? Dictated By: Eben Moody DO Signed By: Eben Moody DO Signed Date/Time: 01/16/22 1642 EKG Data EKG 1: I personally reviewed and interpreted this EKG as follows: EKG interpretation date: 01/16/22 EKG interpretation time: 16:05 Interpretation: EKG shows normal sinus rhythm heart rate of 80. Normal QRS with borderline LVH. Normal axis. Normal ST segment. Normal P waves, normal T waves, normal OR interval, normal QT interval. Normal axis. Normal EKG. EKG 2: I personally reviewed and interpreted this EKG as follows: EKG interpretation date: 01/16/22 EKG interpretation time: 16:59 Prior EKG tracings: available for review Interpretation: EKG shows normal sinus rhythm with heart rate 75. Normal ST segment. Normal QRS. Borderline LVH. Normal axis. Normal P waves, normal T waves. Normal OR interval. Discharge Plan Discharge Patient Disposition: Admitted As Inpatient Clinical Impression: Chest pain Condition: Stable Prescriptions: No Action metformin 500 mg tablet 500 mg PO BID@ insulin aspart U-100 [Novolog Flexpen U-100 Insulin] 100 unit/mL (3 mL) insulin pen 17 unit SUBCUT TID tramadol 50 mg tablet 50 mg PO Q6H PRN (Reason: Pain) Plavix 75 mg tablet 75 mg PO DAILY Qty: 30 6RF Hold Instructions: Resume on 12/09/19. resume 24 hrs after getting your radiology procedure cetirizine [Zyrtec] 10 mg Tablet 10 mg PO DAILY hydrochlorothiazide 25 mg Tablet 25 mg PO QAM atorvastatin [Lipitor] 40 mg tablet 40 mg PO DAILY Qty: 30 0RF lisinopril 40 mg Tablet 40 mg PO DAILY Qty: 0 0RF insulin glargine [Lantus U-100 Insulin] 100 unit/mL Solution 80 unit SUBCUT BID nitroglycerin [Nitrostat] 0.4 mg Tablet, Sublingual 0.4 mg SUBLINGUAL Q5M PRN (Reason: Chest Pain) montelukast 10 mg Tablet 10 mg PO DAILY paroxetine HCl [Paxil] 40 mg Tablet 40 mg PO DAILY@08 omeprazole 20 mg Tablet,Delayed Release (Dr/Ec) 20 mg PO DAILY meloxicam 15 mg Tablet 15 mg PO DAILY diltiazem HCl 90 mg Capsule,Extended Release 12 Hr 90 mg PO BID ondansetron 4 mg Tablet,Disintegrating 4 mg PO Q6H PRN (Reason: Nausea) Referrals: Niesha Hinds [Primary Care Provider] - Coding Level of Care Code ED Home Health Aide Caregiver for g Fwd Exam Comprehensive Documented by User: Constance Wright MD 01/16/22 18:16 HPI - Chest Pain General: Chief Complaint: Chest Pain Stated Complaint: Chest Pain Time Seen by Provider: 01/16/22 18:02 [facility] ED PFSH: Medical History Anxiety CAD (coronary artery disease) Chest pain Chronic back pain greater than 3 months duration Diabetes Dyslipidemia HTN (hypertension) Intervertebral disc disorder with radiculopathy of lumbosacral region Palpitations Surgical History S/P coronary artery stent placement 10/20/2018 Family History Mother , in her 50's Heart disease COPD (chronic obstructive pulmonary disease) Father Hypertension Grandmother Cancer Social History Smoking and tobacco status: current every day smoker smokeless tobacco Sm okeless tobacco user: chewing tobacco Alcohol intake: former Lives independently: Yes Household members: none Marital status: Current occupational status: disabled Current occupation: filed for disability History of recent travel: No Course Vital Signs: Vital signs: Vital Signs Temperature 98.3 F 01/16/22 15:56 Pulse Rate 77 01/16/22 17:55 Respiratory Rate 18 01/16/22 17:55 Blood Pressure 122/84 01/16/22 17:55 Pulse Oximetry 97 01/16/22 17:55 Oxygen Delivery Me thod 01/16/22 16:05 MDM - Chest Pain Medical Decision Making Unstable angina versus atypical chest pain, hypertension Blood pressure at time of exam was 122/93. Patient has type 2 insulin-dependent diabetes mellitus, essential hypertension 1800: Care turned over to Dr. Wright at shift change. 1840: Patient having mild chest pressure Patient presents for chest pain his initial troponin is negative he has multiple risk factors spoke to hospitalist Dr. nicholas will admit for ACS rule out Lab Data : 01/16/22 17:26 01/16/22 17:26 Radiology Impressions Chest X-Ray 01/16/22 15:57 IMPRESSION: No acute findings. Laboratory Results WBC 11.0 10^3/uL (4.0-10.0) H 01/16/22 17:26 RBC 5.38 10^6/uL (4.1-5.3) H 01/16/22 17: Hgb 15.5 g/dL (11.7-16.6) 01/16/22 17: Hct 44.9 % (42.0-52.0) 01/16/22 17: MCV 83.5 fl (80-94) 01/16/22 17: MCH 28.8 pg (28.0-34.0) 01/16/22: MCHC 34.5 g/dL (30.0-36.0) 01/16/22: RDW 11.9 % (12.1-15.1) L 01/16/22: Plt Count 321 10^3/cmm (130-400) 01/16/22: MPV 9.6 fL (7.4-10.4) 01/16/22: Neut % (Auto) 61.6 % 01/16/22 17: Lymph % (Auto) 28.4 % 01/16/22: Sully % (Auto) 8.0 % 01/16/22 17: Eos % (Auto) 0.9 % 01/16/22 17: Baso % (Auto) 0.6 % 01/16/22: Neut # (Auto) 6.81 10^3/uL (1.8-7.7) 01/16/22 17: Lymph # (Auto) 3.1 10^3/uL (0.8-4.8) 01/16/22 17: Sully # (Auto) 0.9 10^3/uL (0.2-0.9) 01/16/22 17: Eos # (Auto) 0.1 10^3/uL (0.0-0.8) 01/16/22: Baso # (Auto) 0.1 10^3/uL (0.0-0.1) 01/16/22: Nucleated RBC % (auto) 0 % 01/16/22: Nucleated RBCs # 0.0 /100WBC 01/16/22 17: Troponin T Baseline 13 ng/L (0-15) 01/16/22 17: Discharge Plan Discharge Patient Disposition: Admitted As Inpatient Clinical Impression: Chest pain Condition: Stable Prescriptions: No Action metformin 500 mg tablet 500 mg PO BID@08,22 insulin aspart U-100 [Novolog Flexpen U-100 Insulin] 100 unit/mL (3 mL) insulin pen 17 unit SUBCUT TID tramadol 50 mg tablet 50 mg PO Q6H PRN (Reason: Pain) Plavix 75 mg tablet 75 mg PO DAILY Qty: 30 6RF Hold Instructions: Resume on 12/09/19. resume 24 hrs after getting your radiology procedure cetirizine [Zyrtec] 10 mg Tablet 10 mg PO DAILY hydrochlorothiazide 25 mg Tablet 25 mg PO QAM atorvastatin [Lipitor] 40 mg tablet 40 mg PO DAILY Qty: 30 0RF lisinopril 40 mg Tablet 40 mg PO DAILY Qty: 0 0RF insulin glargine [Lantus U-100 Insulin] 100 unit/mL Solution 80 unit SUBCUT BID nitroglycerin [Nitrostat] 0.4 mg Tablet, Sublingual 0.4 mg SUBLINGUAL Q5M PRN (Reason: Chest Pain) montelukast 10 mg Tablet 10 mg PO DAILY paroxetine HCl [Paxil] 40 mg Tablet 40 mg PO DAILY@08 omeprazole 20 mg Tablet,Delayed Release (Dr/Ec) 20 mg PO DAILY meloxicam 15 mg Tablet 15 mg PO DAILY diltiazem HCl 90 mg Capsule,Extended Release 12 Hr 90 mg PO BID ondansetron 4 mg Tablet,Disintegrating 4 mg PO Q6H PRN (Reason: Nausea) Referrals: Niesha Hinds [Primary Care Provider] - Coding Level of Care Code ED Home Health Aide Caregiver for Chg Fwd Exam Comprehensive
--- NOTE | 2022-01-16 16:56 | ECG_ITS ---
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 Measurements Intervals [place] Rate: 75 P: 77 [place]: 156 QRS: -1 QRSD: 99 T: 52 QT: 367 QTc: 412 Interpretive Statements SINUS RHYTHM Compared to ECG 04/08/2021 17:34:38 Myocardial infarct finding no longer present Electronically Signed On 01-16-2022 22:45:00 CDT by Jefferson Garcia M.D. [email or web address] Powerdiamond grove centerNativeEnergythe university of toledo medical centerUrbanFarmers/store/[id number]
[2022-01-16] MEDS: heparin 5,000 unit/mL INJ 1 mL 4000 UNIT IVP (17:05)
[2022-01-16] MEDS: nitroglycerin 1 gm/inch oint Pkt 0.5 INCH TOPICAL (17:12)
[2022-01-16 17:38] LABS: Basophils # 0.1 10^3/uL (0.0-0.1); Basophils % 0.6 %; Eosinophils # 0.1 10^3/uL (0.0-0.8); Eosinophils % 0.9 %; Hematocrit 44.9 % (42.0-52.0); Hemoglobin 15.5 g/dL (11.7-16.6); Lymphocytes # 3.1 10^3/uL (0.8-4.8); Lymphocytes % 28.4 %; Mean Corpuscular HGB Conc 34.5 g/dL (30.0-36.0); Mean Corpuscular Hemoglobin 28.8 pg (28.0-34.0); Mean Corpuscular Volume 83.5 fl (80-94); Mean Platelet Volume 9.6 fL (7.4-10.4); Monocytes # 0.9 10^3/uL (0.2-0.9); Neutrophils # 6.81 10^3/uL (1.8-7.7); Neutrophils % 61.6 %; Nucleated Red Blood Cells % 0 %; Platelet Count 321 10^3/cmm (130-400); Red Blood Count 5.38 10^6/uL (4.1-5.3); Red Cell Distribution Width 11.9 % (12.1-15.1)
[2022-01-16] MEDS: morphine 4 mg/mL SDV 1 mL 2 MG IVP (17:50)
[2022-01-16] MEDS: ondansetron 2 mg/ML SDV 2 mL 4 MG IVP (17:51)
[2022-01-16 17:58] LABS: Troponin(5th) Baseline 13 ng/L (0-15)
--- NOTE | 2022-01-16 18:19 | P.HP_ITS ---
Providers/Chief Complaint Primary Care Provider: Niesha Hinds Chief Complaint: Chest Pain History of Present Illness Raheel Lam is a 57 year old male who presented to the hospital for chief complaint of left-sided chest pain. His symptom started on Friday he was seen at primary care care clinic for hypertensive urgency and he was asked to try nitroglycerin, patient presented today for worsening of his symptoms. He is describing the chest discomfort as sharp stabbing pain which she can pinpoint on left side just lateral to his nipple, he has not noticed any fever, diaphoresis, vomiting. His chest pain would come intermittently on exertion. At rest it gets better. He is stating that when he lays down it gets better and on exertion he explains thinks that stabbing pain. He chews tobacco does not drink alcohol does not smoke I will get drug screen, check D-dimer At the time of evaluation blood pressure was 99/70, I have removed his Nitropaste I will give him 500 mL LR bolus Hold his Cardizem and hydrochlorothiazide Continue lisinopril Will do stress test tomorrow morning currently he is chest pain-free Review of Systems Const: Denies: fever(s) Eyes: Denies: change in vision ENMT: Denies: throat pain Card: Reports: chest pain Resp: Denies: dyspnea GI: Denies: abdominal pain : Denies: flank pain Musc: Denies: neck pain Skin/Breast: Denies: rash Neuro: Denies: headache(s) Psych: Denies: anxiety Endo: Denies: polyuria Zuhair/Lymph: Denies: easy bruising All/Imm: Denies: urticaria Medications/Allergies Home Medications Medication Instructions Recorded Confirmed Last Taken Type insulin glargine 100 unit/mL 80 unit SUBCUT BID 04/06/19 01/16/22 01/16/22 History subcutaneous solution (Lantus U-100 Insulin) montelukast 10 mg tablet 10 mg PO DAILY 04/06/19 01/16/22 01/16/22 History nitroglycerin 0.4 mg sublingual 0.4 mg sublingual Q5M PRN Chest 04/06/19 01/16/22 01/16/22 History tablet (Nitrostat) Pain omeprazole 20 mg tablet,delayed 20 mg PO DAILY 04/06/19 01/16/22 01/16/22 History release paroxetine HCl 40 mg tablet (Paxil) 40 mg PO DAILY@08 04/06/19 01/16/22 01/16/22 History clopidogrel 75 mg tablet (Plavix) 75 mg PO DAILY #30 tabs 04/14/19 01/16/22 01/16/22 Rx insulin aspart U-100 100 unit/mL 17 unit SUBCUT TID 05/24/19 01/16/22 01/16/22 History (3 mL) subcutaneous pen (Novolog Flexpen U-100 Insulin aspart) tramadol 50 mg tablet 50 mg PO Q6H PRN Pain 05/24/19 01/16/22 12/07/19 History metformin 500 mg tablet 500 mg PO BID@12/10/19 01/16/22 01/16/22 History cetirizine 10 mg tablet (Zyrtec) 10 mg PO DAILY 04/03/20 01/16/22 01/16/22 History hydrochlorothiazide 25 mg tablet 25 mg PO QAM 04/03/20 01/16/22 01/16/22 History atorvastatin 40 mg tablet (Lipitor) 40 mg PO DAILY #30 tabs 04/05/20 01/16/22 01/16/22 Rx lisinopril 40 mg tablet 40 mg PO DAILY #0 tabs 04/05/20 01/16/22 01/16/22 Rx diltiazem HCl 90 mg 90 mg PO BID 04/08/21 01/16/22 01/16/22 History capsule,extended release 12 hr meloxicam 15 mg tablet 15 mg PO DAILY 04/08/21 01/16/22 01/16/22 History ondansetron 4 mg disintegrating 4 mg PO Q6H PRN Nausea 01/16/22 01/16/22 Unknown History tablet Allergies Allergy/AdvReac Type Severity Reaction Status Date / Time No Known Allergies Allergy Verified 01/16/22 17:06 PFSH Acute PFSH: Medical History Anxiety CAD (coronary artery disease) Chest pain Chronic back pain greater than 3 months duration Diabetes Dyslipidemia HTN (hypertension) Intervertebral disc disorder with radiculopathy of lumbosacral region Palpitations Surgical History S/P coronary artery stent placement 10/20/2018 Family History Mother , in her 50's Heart disease COPD (chronic obstructive pulmonary disease) Father Hypertension Grandmother Cancer Social History Smoking and tobacco status: current every day smoker smokeless tobacco Smokeless tobacco user: chewing tobacco Alcohol intake: former Lives independently: Yes Household members: none Marital status: Current occupational status: disabled Current occupation: filed for disability History of recent travel: No Vitals/I&O/Wt Last Vital Signs Temp 98.3 F 01/16/22 15:56 Pulse 77 01/16/22 17:55 Resp 18 01/16/22 17:55 BP 122/84 01/16/22 17:55 Pulse Ox 97 01/16/22 17:55 O2 Del Method 01/16/22 16:05 Weight last 48 hrs Weight 91.626 kg Physical Exam Narrative: male who is laying flat in his bed Obese No active chest pain S1, S2 No audible stridor or wheezing Abdomen distended nontender Looks euvolemic Awake and alert Hyperemia of conjunctive a noted Pleasant during my evaluation No sign of cellulitis Euvolemic EOMI, PERRLA Data : 01/16/22 17:26 01/16/22 17:26 A&P Assessment and plan (1) Unstable angina: Plan Unstable angina Established history of coronary disease Will do stress test in the morning N.p.o. after midnight Patient carries history of hypertension not currently normotensive, hold h ydrochlorothiazide and Cardizem Afebrile Check D-dimer DVT prophylaxis Lovenox I will keep him on sliding scale for his type 2 diabetes Cardiac diet for now N.p.o. after midnight Check A1c level along D-dimer EKG without ischemic changes Troponins without treatment delta Attestations Medical Necessity Statement*: Anticipating discharge within 48 hours Time Spent in Patient Care: 40 Coding Level of Care Code Acute Injection Molding Machine Setter for Dina Fwsilvana Diagnoses Unstable angina I20.0
--- NOTE | 2022-01-16 18:28 | ECG_ITS ---
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 Measurements Intervals [place] Rate: 74 P: 81 [place]: 154 QRS: 0 QRSD: 105 T: 60 QT: 373 QTc: 414 Interpretive Statements SINUS RHYTHM Compared to ECG 01/16/2022 16:56:36 No significant changes Electronically Signed On 01-16-2022 22:54:15 CDT by Jefferson Garcia M.D. [email or web address] Chuangye Softwareregional medical center of san joseNautilus Solar Energy/store/OM/[id number]
[2022-01-16] MEDS: sodium chloride 0.9% 1,000 ML 999 ML IV (18:59)
--- NOTE | 2022-01-16 19:07 | PC.NURSE ---
Pts blood pressure dropped to 72/50, removed the nitro paste and hung bag of fluids per Dr. Wright
[2022-01-16 19:08] LABS: Glucose Point of Care 93 mg/dL (70-110)
[2022-01-16 19:56] LABS: Troponin 5 2HR 14.85 ng/L (0-15)
[2022-01-16 20:08] LABS: Troponin 5 2HR Delta 1.85 ABS# (0-10)
[2022-01-16 20:32] LABS: D Dimer <= 0.27 ug/mIFEU (0-0.59)
[2022-01-16 21:00] LABS: Anion Gap 16.7 (5-19); Blood Urea Nitrogen 17 mg/dL (6-20); Calcium 9.4 mg/dL (8.5-10.5); Carbon Dioxide 24 mmol/L (22-29); Chloride 99 mmol/L (98-107); Glucose 95 mg/dL (65-115); Osmolality Calculated 283 mOsm/kg (285-295); Potassium 3.7 mmol/L (3.5-5.1); Sodium 136 mmol/L (136-145)
--- NOTE | 2022-01-16 21:57 | ECG_ITS ---
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 Measurements Intervals [place] Rate: 70 P: 74 [place]: 164 QRS: 35 QRSD: 98 T: 54 QT: 393 QTc: 425 Interpretive Statements SINUS RHYTHM Compared to ECG 01/16/2022 18:28:11 No significant changes Electronically Signed On 01-16-2022 22:55:30 CDT by Jefferson Garcia M.D. [id number]
[2022-01-16] MEDS: enoxaparin 40 mg/0.4 mL Syringe SUBCUT (22:13)
[2022-01-16] MEDS: lactated ringers 500 ML 999 ML IV (22:13)
[2022-01-17] VITALS (70 sets, daily range): BP systolic 88–214; BP diastolic 55–110; PULSE 66–89; RESP 9–25; TEMP 36.5–36.8; O2SAT 83–99
[2022-01-17 00:16] LABS: Troponin 5 6HR 22.17 ng/L (0-15)
[2022-01-17 00:18] LABS: Troponin 5 6HR Delta 9.17 ng/L (0-12)
[2022-01-17 05:00] LABS: Anion Gap 13.9 (5-19); Blood Urea Nitrogen 19 mg/dL (6-20); Calcium 9.4 mg/dL (8.5-10.5); Carbon Dioxide 27 mmol/L (22-29); Chloride 100 mmol/L (98-107); Glomerular Filtration Rate 62.4 mL/min (90-130); Glucose 183 mg/dL (65-115); Magnesium 1.8 mg/dL (1.7-2.3); Osmolality Calculated 291 mOsm/kg (285-295); Potassium 3.9 mmol/L (3.5-5.1); Sodium 137 mmol/L (136-145)
--- NOTE | 2022-01-17 06:00 | NMCV_ITS ---
NM laxmi perf SPECT r/s* [id number] Raheel Lam Age: 57 Gender: M : 1965 Exam Date: 01/17/2022 06:50 Ordering Phys: Maggie Mojica MD Technologist: JOSE Carpenter Exam Location: [facility] [place] Indications: CHEST PAIN STRESS TEST Please see separate stress test report in [facility] for full findings IMAGE PROTOCOL Rest/Stress 1 Lexiscan Day Radiopharmaceutical Dose (mCi) Administration Site Administered by Rest: Tc-99m 10.9 IV JOSE Sepulveda Sestamibi Stress:Tc-99m 32.7 IV JOSE Sepulveda Sestamibi Rest: 17-Jan-2022 60 Discovery 630 Stress: 17-Jan-2022 30 Discovery 630 0.4mg Lexiscan. Images obtained in supine and prone position. SPECT RESULTS Technical Quality: Excellent Raw Data Analysis: Sub diaphragmatic attenuation artifact Image Corrections: No attenuation or motion correction applied Summed Stress Score: 0 Summed Rest Score: 2 Summed Difference Score: 0 PERFUSION FINDINGS Small sized perfusion abnormality of mild severity of basal inferior, basal to mid inferolateral and apical lateral bedoya on supine stress images with improved tracer uptake on prone stress images. This is suggestive of attenuation artifact. FUNCTIONAL RESULTS (calculated via Gated SPECT) Stress Image LV EF (%): 67 Stress EDV (mL):98 TID: 0.94 Stress ESV (mL):32 FUNCTIONAL FINDINGS: The left ventricle is normal in size. Transient Ischemia Dilatation of 0.94. There is normal left ventricular systolic function. The left ventricular ejection fraction is normal with a value of 67%. There is normal left ventricular wall thickening. Normal end diastolic and end systolic volumes. IMPRESSIONS 1. Myocardial perfusion imaging is normal. Attenuation artifact noted in basal inferior and inferolateral bedoya. 2. Overall left ventricular systolic function is normal without regional wall motion abnormalities, LVEF=67%. 3. EKG portion of the study will be reported separately. 4. No significant coronary ischemia based on this study. Kaila Ariza MD (Electronically Signed) Final Date: 17 January 2022 12:54 S
[2022-01-17 06:29] LABS: Glucose Point of Care 119 mg/dL (70-110)
--- NOTE | 2022-01-17 06:46 | ECG_ITS ---
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 Interpretive Statements NAME OF STUDY: LEXISCAN SESTAMIBI STRESS TEST INDICATION: [Chest Pain, ] Procedure: At the baseline, the blood pressure was 156/86 mmHg with a heart rate of 66 bpm. The electrocardiogram showed normal sinus rhythm, normal axis with normal ST and T's. The Lexiscan was infused over a period of 20 seconds. A total of 0.4 mg of Lexiscan was infused. The stress phase was continued for a total of 5 minutes. Heart rate was at the end of stress phase was 76 bpm and a blood pressure of 142/80 mmHg. The EKG at the peak infusion revealed normal sinus rhythm with no significant ST-T wave changes. Sestamibi was injected 20 seconds after the Lexiscan infusion. Blood pressure at the end of recovery phase was 155/76 mmHg with a heart rate of 83 bpm. Conclusion: 1. Normal EKG response to Lexiscan infusion 2. No Lexiscan induced chest pain or cardiac arrhythmia. 3. Normal blood pressure and heart rate response. 4. Sestamibi/sestamibi perfusion scan pending; see separate report. Electronically Signed On 01-17-2022 11:35:45 CDT by Naveed Shultz M.D. [email or web address] [email or web address].Semetric/store/[id number]
[2022-01-17 06:49] LABS: Amphetamines Screen Urine Negative (Negative); Barbiturates Screen Urine Negative (Negative); Benzodiazepines Screen Urine Negative (Negative); Cocaine Screen Urine Negative (Negative); Opiate Screen Urine Positive (Negative); PCP Screen Urine Negative (Negative); THC Screen Urine Negative (Negative)
[2022-01-17] MEDS: regadenoson 0.4 Mg/5 ml Syringe IVP (07:45)
[2022-01-17] MEDS: clopidogrel 75 mg Tablet PO (10:04)
[2022-01-17] MEDS: pantoprazole DR 40 mg Tablet 20 MG PO (10:04)
[2022-01-17] MEDS: lisinopril 20 mg Tablet 40 MG PO (10:05)
[2022-01-17] MEDS: montelukast sodium 10 mg Tablet PO (10:05)
[2022-01-17] MEDS: atorvastatin 40 mg Tablet PO (10:05)
[2022-01-17] MEDS: insulin glargine 100 units/1 mL 80 UNIT SUBCUT ×3 (11:06→21:23)
[2022-01-17] MEDS: labetalol 5 mg/mL SDV 20mL 10 MG IVP (11:51)
[2022-01-17] MEDS: nitroglycerin drip 50 MG/250 ML PREMIX IV (12:41)
[2022-01-17] MEDS: insulin lispro 100 unit/1 mL SUBCUT (12:56)
[2022-01-17 13:15] LABS: Glucose Point of Care 197 mg/dL (70-110)
--- NOTE | 2022-01-17 13:28 | PC.NURSE ---
reported patient blood pressure to provider in structions to give labetolol 10mg IVPx1 patient continues to report chest pain rated 3/10 notified provider instructions received to start nitro gtt per protocol patient reports ome decrease in chest pain blood pressure remains stable and lowering
--- NOTE | 2022-01-17 13:28 | PC.CHAP ---
Pastoral Care Encounter/Spiritual Assessment Type of Contact [] Declined channel rougher visit [] Patient/Family/Request visit [] Outpatient visit [] Follow-up visit [] Physician referral [] Code/Alert [x] Routine visit [] Staff referral [] Actively dying [] Patient sleeping [] Family support [] [] Out of room [] Palliative care [] [x] Receiving care in room [] Pre-surgical visit [] Trauma [] Long length of stay [] ICU visit [] Other: Relational/Emotional Strength [x] Patient feels connected with others/family/visitors/staff [] Distress [] Loneliness/isolation [] Abandonment Spirituality of Patient [x] Person of Beba [] Attends Confucianism of their Beba [x] Believes in Prayer [] Reads Bible or Alevism materials [] There are Spiritual issues to be addressed Wall And Floor Tiler Interventions [x] Prayer [x] Active listening [x] Non-anxious presence [x] Spiritual/emotional support [] Crisis/trauma care [x] Spiritual counseling [] Bereavement support [] Provided bereavement packet [] Provided Bible/devotional materials [] Provided toy/stuffed animal, coloring book to patient or family member [] Provided Communion [] Anointing/[place] [] Salvation [x] Completed spiritual assessment [] Other: Impact on Illness or Injury [] Angry [] Fearful [] Anxious [] Often cries [] Exhaustion [] Unable to work [] Unable to attend gnosticist [] Unable to walk/stand [] Unable to read [] Unable to drive [] Unable to eat/drink [] Unable to sleep [] Unable to be with family [] Patient intubated [] Other: Summary dealing with chest pains witing on tests has a good attitude short term well go home soon Time spent with patient 10 mins
--- NOTE | 2022-01-17 14:04 | USCV_ITS ---
Raheel Lam Age: 57 Gender: M : 1965 Exam Date: 01/17/2022 14:51 Ordering Phys: Maggie Mojica MD Technologist: Exam Location: [facility] [place] Indication: ? aortic dissection BP: 155 / 86 HR: 71 Rhythm: Sinus Technical Quality: Adequate MEASUREMENTS (Male / Female) Normal Values 2D ECHO LV Diastolic Diameter PLAX 3.4 cm 4.2 - 5.9 / 3.9 - 5.3 cm LV Systolic Diameter PLAX 2.8 cm IVS Diastolic Thickness 1.0 cm 0.6 - 1.0 / 0.6 - 0.9 cm IVS Systolic Thickness 1.5 cm LVPW Diastolic Thickness 1.1 cm 0.6 - 1.0 / 0.6 - 0.9 cm LVPW Systolic Thickness 1.4 cm LVOT Diameter 2.1 cm LV Ejection Fraction 2D Teich 22.0 % LV Ejection Fraction MOD 2C 71.3 % LV Ejection Fraction 2C AL 70.8 % LA Diameter 3.7 cm Aorta at Sinotubular Diameter 2.5 cm IVC Diameter 1.6 cm M-MODE Aortic Annulus Diameter 3.7 cm LA Ao Ratio MM 1.1 MV E Point Septal Separation 0.5 cm DOPPLER AV Peak Velocity 162.0 cm/s LVOT Peak Velocity 100.0 cm/s AV Area Cont Eq vti 2.0 cm squared AV Area Cont Eq pk 2.1 cm squared MV Area PHT 5.0 cm squared Mitral E to A Ratio 0.9 MV E' Velocity 46.0 cm/s Mitral E to MV E' Ratio 11.8 Mitral E to LV E' Lateral Ratio 12.7 Mitral E to LV E' Septal Ratio 11.0 TR Peak Velocity 155.0 cm/s TR Peak Gradient 9.6 mmHg TV Peak E Velocity 88.0 cm/s Right Atrial Pressure 3.0 mmHg Pulmonary Artery Systolic Pressu 12.6 mmHg RV Acceleration Time 0.1 s FINDINGS Left Ventricle Normal left ventricular size and systolic function, EF 67 %. No regional wall motion abnormalities. Grade I/IV diastolic dysfunction (abnormal relaxation filling pattern), normal to mildly elevated filling mild left ventricular hypertrophy. pressures. Right Ventricle The right ventricle is normal in size and function. Right Atrium The right atrium is normal in size. Left Atrium The left atrium is normal in size. Mitral Valve Trace mitral valve regurgitation. Aortic Valve No gross abnormalities noted Tricuspid Valve No gross abnormalities noted Pulmonic Valve Pulmonic valve not well visualized. Pericardium Normal pericardium without effusion. Aorta Normal ascending aorta dimension. No evidence of dissection at the level of the aortic root IVC Normal inferior vena cava. CONCLUSIONS Normal left ventricular size and systolic function, EF 67 %. No regional wall motion abnormalities. Grade I/IV diastolic dysfunction (abnormal relaxation filling pattern), normal to mildly elevated filling mild left ventricular hypertrophy. pressures. No evidence of aortic dissection at the level of the aortic root. normal cardiac chamber sizes. No significant valvular lesions There is no pericardial effusion. There are no intracardiac masses. Compared to the study from 04/03/2020, there may not be significant change Consider CTA, to better evaluate the aorta. Only the proximal segment of the ascending aorta was visualized in this study. Dr Jefferson Garcia MD [facility] (Electronically Signed) Final Date: 17 January 2022 18:49 S
--- NOTE | 2022-01-17 14:07 | PM.PN ---
Subjective Subjective: STress test negative On NG GTT for HTN urgency MSK pain I have requested ECHO AND CTA CHEST Vitals/I&O/Wt Last Vital Signs Temp 97.7 F 01/17/22 04:00 Pulse 75 01/17/22 11:19 Resp 17 01/17/22 11:19 BP 214/110 01/17/22 11:19 Pulse Ox 97 01/17/22 11:19 O2 Del Method 01/17/22 04:00 O2 Flow Rate 2 01/17/22 04:00 01/16/22 01/17/22 01/17/22 22:59 06:59 14:59 Intake Total 1480 / 1480 500 / 1980 600 / 600 Output Total 950 / 950 Balance 1480 / 1480 -450 / 1030 600 / 600 Weight last 48 hrs Weight 91.626 kg Physical Exam Narrative: Patient is awake and alert S1, S2 Euvolemic Abdomen soft, distended, nontender Awake and alert Nonfocal neuro exam Pleasant during evaluation Data : 01/16/22 17:26 01/17/22 03:25 A&P Assessment and plan (1) Unstable angina: Plan UnstableAngina STress test negative HTN urgency Adedd hydralzine and amlodipine along imdur Cx HTZ and lsiinopril ketorolav ivp for MSK PAIN Full code cardiac diet dvt ppx lovenox Attestations Medical Necessity Statement*: ami tucker Time Spent in Patient Care: 30 Coding Level of Care Code Acute Order Checker Packer Processer for Billieg Fwd Diagnoses Unstable angina I20.0
--- NOTE | 2022-01-17 14:16 | USCV_ITS ---
Raheel Lam Age: 57 Gender: M : 1965 Exam Date: 01/17/2022 15:04 Ordering Phys: Maggie Mojica MD Technologist: Exam Location: [facility] [place] Indication: htn Aortic Velocity @ SMA (cm/s) 84.2 RIGHT KIDNEY LEFT KIDNEY Velocity (cm/s) Velocity (cm/s) Sys/Ruvalcaba Sys/Ruvalcaba Resistive Index Resistive Index 64.5 / 21.5 0.67 Proximal Renal Artery 102.0 / 33.3 0.67 55.5 / 15.3 0.73 Mid Renal Artery 42.2 / 13.1 0.69 61.0 / 15.3 0.75 Distal Renal Artery 52.8 / 16.9 0.68 56.2 / 14.6 0.74 Hilar 41.8 / 10.6 0.75 70.0 / 19.4 0.72 Upper Pole 30.0 / 13.1 0.56 42.3 / 13.9 0.67 Mid Pole 38.4 / 12.2 0.68 27.3 / 6.6 0.76 Lower Pole 33.8 / 9.3 0.73 0.80 Renal Aortic Ratio 1.21 Accleration Index (cm/sec2) 820.00 Hilar 430.00 3347.0 Upper Pole 667.00 0 2645.0 Mid Pole 634.00 0 Lower Pole 2191.0 0 117.3 Kidney Length (mm) 105.4 FINDINGS Normal renal arterial Doppler flow velocities Normal renal aortic ratio Normal resistive indicis CONCLUSIONS 1. No evidence of renal artery stenosis based on the above findings 2. Normal kidney dimensions. Dr Jefferson Garcia MD [facility] (Electronically Signed) Final Date: 18 January 2022 16:44 S
[2022-01-17 14:48] LABS: Estmated Average Glucose 240
[2022-01-17 15:01] LABS: Thyroid Stimulating Hormone 1.41 uIU/mL (0.27-4.20)
[2022-01-17] MEDS: isosorbide mononitrate ER 30 mg Tablet PO (15:25)
--- NOTE | 2022-01-17 16:04 | ECG_ITS ---
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 Measurements Intervals [place] Rate: 71 P: 75 SC: 152 QRS: 12 QRSD: 107 T: 27 QT: 376 QTc: 411 Interpretive Statements SINUS RHYTHM INFERIOR MYOCARDIAL INFARCTION , PROBABLY OLD [40+ ms Q WAVE AND/OR ST/T ABNORMALITY IN II/aVF] Compared to ECG 01/16/2022 22:03:20 Myocardial infarct finding now present Electronically Signed On 01-17-2022 17:29:29 CDT by Naveed Shultz M.D. [email or web address] [email or web address].[email or web address]/store/[id number]
[2022-01-17] MEDS: lidocaine 2% viscous 15 ML, aluminum-mag hydrox-simethicon 30 ML, sucralfate oral liq 1 GM PO (16:20)
[2022-01-17] MEDS: ketorolac 30 mg/mL INJ 15 MG IVP ×2 (16:20→21:05)
[2022-01-17 17:29] LABS: Glucose Point of Care 138 mg/dL (70-110)
--- NOTE | 2022-01-17 19:25 | PC.NURSE ---
patient blood pressure low at this time patient is asymptomatic notified provider instructions to monitor and hold all BP medications
[2022-01-17] MEDS: enoxaparin 40 mg/0.4 mL Syringe SUBCUT (21:12)
[2022-01-17 21:52] LABS: Glucose Point of Care 212 mg/dL (70-110)
[2022-01-18] VITALS (16 sets, daily range): BP systolic 97–135; BP diastolic 62–76; PULSE 62–70; RESP 8–16; TEMP 36.5–36.6; O2SAT 92–97
[2022-01-18] MEDS: TRAMadol 50 mg Tablet PO (01:05)
[2022-01-18] MEDS: ketorolac 30 mg/mL INJ 15 MG IVP ×2 (01:32→10:02)
--- NOTE | 2022-01-18 04:00 | CTR_ITS ---
PROCEDURE INFORMATION: Exam: CTA Chest With Contrast Exam date and time: 01/18/2022 5:04 AM Age: 57 years old Clinical indication: Pain; Chest pressure; Prior surgery; Surgery date: 6+ months; Surgery type: Coronary artery stent; Additional info: Chest pain TECHNIQUE: Imaging protocol: Computed tomographic angiography of the chest with contrast. 3D rendering (Not supervised by radiologist): MIP and/or 3D reconstructed images were created by the technologist. Radiation optimization: All CT scans at this facility use at least one of these dose optimization techniques: automated exposure control; mA and/or kV adjustment per patient size (includes targeted exams where dose is matched to clinical indication); or iterative reconstruction. Contrast material: OMNI 350; Contrast volume: 100 ml; Contrast route: INTRAVENOUS (IV); COMPARISON: CR XR chest 1V portable [id number] 01/16/2022 4:10 PM RADIATION DOSE METRICS: Total DLP (mGy-cm): 449.14 FINDINGS: Pulmonary arteries: Normal. No pulmonary emboli. Aorta: Unremarkable. No aortic aneurysm. No aortic dissection. Lungs: Multiple benign calcified granulomas are present in both lungs.. No consolidation. No masses. Mild atelectasis in the lung bases. Pleural spaces: Unremarkable. No pneumothorax. No pleural effusion. Heart: Unremarkable. No cardiomegaly. No pericardial effusion. Lymph nodes: Small benign calcified lymph nodes are present in the mediastinum and pulmonary alem.. No enlarged lymph nodes. Bones/joints: Unremarkable. No acute fracture. Soft tissues: Unremarkable. CT/CT angio chest PE protcl [id number] IMPRESSION: No acute abnormality. No evidence of pulmonary embolism or aortic aneurysm/dissection.
[2022-01-18] MEDS: iohexol 350 mg/mL 100 mL Btl IV (04:51)
[2022-01-18 05:47] LABS: Anion Gap 14.7 (5-19); Blood Urea Nitrogen 26 mg/dL (6-20); Calcium 9.2 mg/dL (8.5-10.5); Carbon Dioxide 27 mmol/L (22-29); Chloride 101 mmol/L (98-107); Glomerular Filtration Rate 52.2 mL/min (90-130); Glucose 56 mg/dL (65-115); Osmolality Calculated 290 mOsm/kg (285-295); Potassium 3.7 mmol/L (3.5-5.1); Sodium 139 mmol/L (136-145)
[2022-01-18 06:49] LABS: Glucose Point of Care 85 mg/dL (70-110)
[2022-01-18] MEDS: atorvastatin 40 mg Tablet PO (09:47)
[2022-01-18] MEDS: isosorbide mononitrate ER 30 mg Tablet PO (09:47)
[2022-01-18] MEDS: lisinopril 20 mg Tablet 40 MG PO (09:47)
[2022-01-18] MEDS: pantoprazole DR 40 mg Tablet 20 MG PO (09:47)
[2022-01-18] MEDS: hyDRALAzine 25 mg Tablet PO (09:48)
[2022-01-18] MEDS: montelukast sodium 10 mg Tablet PO (09:48)
[2022-01-18] MEDS: clopidogrel 75 mg Tablet PO (09:48)
[2022-01-18] MEDS: insulin glargine 100 units/1 mL 80 UNIT SUBCUT (10:01)
--- NOTE | 2022-01-18 10:12 | PM.DCS ---
Discharge Providers Date of Admission: 01/16/22 18:13 Date of Discharge: January 17, 2022 Attending Provider at Admission: Maggie Mojica MD Attending Provider at Discharge: Maggie Mojica MD Primary Care Provider: Niesha Hinds Diagnoses at Discharge Discharge Diagnosis (1) Unstable angina: Status: Acute Reason for Visit Reason for Visit: Chest Pain Hospital Course Hospital Course 57-year male with history of established coronary disease, chews tobacco, history of hypertension and diabetes presents to the hospital for dyspnea exertion and chest discomfort, troponins were unremarkable, EKG without ischemic or infarctive changes stress test was requested, D-dimer unremarkable, stress test negative, CT unremarkable, no blood pressure difference noted between the 2 arms, no signs of pericarditis, his symptoms are likely musculoskeletal, he describes chest pain which gets worse on movement and he is able to pinpoint. For his hypertension I have added hydralazine and discontinued Cardizem, he will also get Imdur 30 mg daily along with lisinopril 40 mg, I have increased the dose of hydrochlorothiazide to 50 mg daily Physical Exam Narrative: Patient is awake and alert S1, S2 Euvolemic Abdomen soft, distended, nontender Awake and alert Nonfocal neuro exam Pleasant during evaluation Discharge Data Studies Completed and Pending Completed Studies During Hospitalization Category Date Time Status Sestamibi Stress Test Request Routine Exams 01/17/22 06:46 Draft XR chest 1V portable [id number] Stat Exams 01/16/22 15:57 Completed Pending at discharge Category Date Time Status Sestamibi Stress Test Request Routine Exams 01/16/22 21:25 Stop Req NM laxmi perf SPECT r/s* [id number] Routine Nuc Med 01/17/22 06:00 Ordered Radiology Impressions Chest X-Ray 01/16/22 15:57 IMPRESSION: No acute findings. Laboratory Results WBC 11.0 10^3/uL (4.0-10.0) H 01/16/22 17:26 RBC 5.38 10^6/uL (4.1-5.3) H 01/16/22 17:26 Hgb 15.5 g/dL (11.7-16.6) 01/16/22 17:26 Hct 44.9 % (42.0-52.0) 01/16/22 17:26 MCV 83.5 fl (80-94) 01/16/22 17: MCH 28.8 pg (28.0-34.0) 01/16/22 17: MCHC 34.5 g/dL (30.0-36.0) 01/16/22 17: RDW 11.9 % (12.1-15.1) L 01/16/22 17: Plt Count 321 10^3/cmm (130-400) 01/16/22 17: MPV 9.6 fL (7.4-10.4) 01/16/22 17: Neut % (Auto) 61.6 % 01/16/22 17: Lymph % (Auto) 28.4 % 01/16/22 17: [place] % (Auto) 8.0 % 01/16/22 17: Eos % (Auto) 0.9 % 01/16/22 17: Baso % (Auto) 0.6 % 01/16/22: Neut # (Auto) 6.81 10^3/uL (1.8-7.7) 01/16/22 17: Lymph # (Auto) 3.1 10^3/uL (0.8-4.8) 01/16/22 17: [place] # (Auto) 0.9 10^3/uL (0.2-0.9) 01/16/22 17: Eos # (Auto) 0.1 10^3/uL (0.0-0.8) 01/16/22 17: Baso # (Auto) 0.1 10^3/uL (0.0-0.1) 01/16/22: Nucleated RBC % (auto) 0 % 01/16/22 17: Nucleated RBCs # 0.0 /100WBC 01/16/22 17: D-Dimer <= 0.27 ug/mIFEU (0-0.59) 01/16/22 17: Sodium 137 mmol/L (136-145) 01/17/22 03:25 Potassium 3.9 mmol/L (3.5-5.1) 01/17/22 03:25 Chloride 100 mmol/L (98-107) 01/17/22 03:25 Carbon Dioxide 27 mmol/L (22-29) 01/17/22 03:25 Anion Gap 13.9 (5-19) 01/17/22 03:25 BUN 19 mg/dL (6-20) 01/17/22 03:25 Creatinine 1.2 mg/dL (0.7-1.2) 01/17/22 03:25 GFR Calculation 62.4 mL/min (90-130) L 01/17/22 03:25 Glucose 183 mg/dL (65-115) H 01/17/22 03:25 POC Glucose 119 mg/dL (70-110) H 01/17/22 05:59 Calculated Osmolality 291 mOsm/kg (285-295) 01/17/22 03:25 Calcium 9.4 mg/dL (8.5-10.5) 01/17/22 03:25 Magnesium 1.8 mg/dL (1.7-2.3) 01/17/22 03:25 Troponin T Baseline 13 ng/L (0-15) 01/16/22 17:26 Troponin T 120 Minute 14.85 ng/L (0-15) 01/16/22 19:29 Delta Troponin T 1.85 ABS# (0-10) 01/16/22 19:29 Troponin T Hi Sens 6Hr 22.17 ng/L (0-15) H 01/16/22 23:55 Troponin T Hi Sens 6Hr Delta 9.17 ng/L (0-12) 01/16/22 23:55 Urine Opiates Screen Positive ng/mL (Negative) H 01/17/22 06:00 Ur Barbiturates Screen Negative ng/mL (Negative) 01/17/22 06:00 Ur Phencyclidine Scrn Negative ng/mL (Negative) 01/17/22 06:00 Ur Amphetamines Screen Negative ng/mL (Negative) 01/17/22 06:00 U Benzodiazepines Scrn Negative ng/mL (Negative) 01/17/22 06:00 Urine Cocaine Screen Negative ng/mL (Negative) 01/17/22 06:00 U Marijuana (THC) Screen Negative ng/mL (Negative) 01/17/22 06:00 Vitals Last Vital Signs Temp 97.7 F 01/17/22 04:00 Pulse 80 01/17/22 06:50 Resp 18 01/17/22 04:00 BP 155/76 01/17/22 06:50 Pulse Ox 99 01/17/22 04:00 O2 Del Method 01/17/22 04:00 O2 Flow Rate 2 01/17/22 04:00 Discharge Plan Discharge Patient Disposition: Home Condition: Stable Prescriptions: New isosorbide mononitrate 30 mg tablet extended release 24 hr 30 mg PO DAILY Qty: 30 3RF isosorbide mononitrate 30 mg Tablet Extended Release 24 Hr 30 mg PO DAILY Qty: 60 2RF hydralazine 25 mg Tablet 25 mg PO BID Qty: 60 3RF Continued metformin 500 mg tablet 500 mg PO BID@08,22 insulin aspart U-100 [Novolog Flexpen U-100 Insulin] 100 unit/mL (3 mL) insulin pen 17 unit SUBCUT TID tramadol 50 mg tablet 50 mg PO Q6H PRN (Reason: Pain) Plavix 75 mg tablet 75 mg PO DAILY Qty: 30 6RF Hold Instructions: Resume on 12/09/19. resume 24 hrs after getting your radiology procedure cetirizine [Zyrtec] 10 mg Tablet 10 mg PO DAILY atorvastatin [Lipitor] 40 mg tablet 40 mg PO DAILY Qty: 30 0RF insulin glargine [Lantus U-100 Insulin] 100 unit/mL Solution 80 unit SUBCUT BID nitroglycerin [Nitrostat] 0.4 mg Tablet, Sublingual 0.4 mg SUBLINGUAL Q5M PRN (Reason: Chest Pain) montelukast 10 mg Tablet 10 mg PO DAILY paroxetine HCl [Paxil] 40 mg Tablet 40 mg PO DAILY@08 omeprazole 20 mg Tablet,Delayed Release (Dr/Ec) 20 mg PO DAILY meloxicam 15 mg Tablet 15 mg PO DAILY ondansetron 4 mg Tablet,Disintegrating 4 mg PO Q6H PRN (Reason: Nausea) lisinopril 40 mg Tablet 40 mg PO DAILY Qty: 60 3RF Changed hydrochlorothiazide 25 mg Tablet 50 mg PO QAM Qty: 90 2RF Discontinued diltiazem HCl 90 mg Capsule,Extended Release 12 Hr 90 mg PO BID Discharge Orders: Discharge Order (Routine); Ordered 01/18/22 Ordered By: Maggie Mojica Referrals: Niesha Hinds [Primary Care Provider] - 01/28/22 12:00 pm Discharge Diet: Cardiac Discharge Activity: Increase activity as tolerated Patient Instructions: Isosorbide Mononitrate (By mouth), Angina (DC), Chest Pain Stoplight, Opioid Safety Discharge Attestations Time Spent in Discharge Care*: less than 30 min Quality Metrics Clinical Quality Measures [ No reported AMI, CVA or VTE this stay] Coding Level of Care Code Acute Chg FW DC note Diagnoses Unstable angina I20.0
--- NOTE | 2022-01-18 10:39 | PC.NURSE ---
IV pulled at 0920, intact and patient tolerated well. Patient educated on follow up appointments and instructions given on medication and discharge diagnosis. 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
== END 2022-01-18 10:37 | disposition home or self-care (01) ==
LOC: ER 18:16 → MEDSURG 20:00
PROVIDERS: Family Medicine; Admitting Provider Internal Medicine; Emergency Provider Emergency Medicine; PCP Internal Medicine; Visit Provider Internal Medicine
DX: I25.110 Atherosclerotic heart disease of native coronary artery with unstable angina pectoris (principal); F17.220 Nicotine dependence, chewing tobacco, uncomplicated; I10 Essential (primary) hypertension; E11.9 Type 2 diabetes mellitus without complications; Z79.4 Long term (current) use of insulin; F41.9 Anxiety disorder, unspecified; E78.5 Hyperlipidemia, unspecified; Z95.5 Presence of coronary angioplasty implant and graft
CPT/HCPCS: 36415; 36416; 71045; 71275; 78452; 80048; 80306; 82962; 83036; 83735; 84443; 84484; 85025; 85378; 93005; 93017; 93306; 93975; 96365; 96372; 96375; 99285; A9500; G0378; J1644; J1650; J1815; J1885; J2270; J2405; J2785; J3490; J7030; Q9967

== ENCOUNTER 2022-10-08 01:31 | Emergency (ER) | payer MEDICAID, SELFPAY ==
[2022-10-08 01:31] VITALS: BMI 34.9
[2022-10-08 01:33] VITALS: BP 222/107; PULSE 75; RESP 17; TEMP 36.7; O2SAT 97
[2022-10-08 01:42] LABS: Glucose Point of Care > 600 mg/dL (70-110)
--- NOTE | 2022-10-08 01:42 | W.ED.GENADLT ---
HPI - General Adult General: Chief complaint: General Medical Stated complaint: hyperglycemia, htn, vomiting blood Time Seen by Provider: 10/08/22 01:31 Source: patient and EMS Mode of arrival: EMS Limitations: no limitations History of Present Illness: 57-year-old male states he woke up this morning noticed he is spitting blood he does have a history of very poor dentition he has bleeding from his upper and lower gums mainly on the right side. Patient brought in by EMS he is also hypertensive and hyperglycemic. He is noncompliant on his meds blood pressure is 222/107 blood glucose just reads high. He denies any fever. He denies any vomiting blood to me. Associated symptoms: Deny chest pain, dyspnea, headache(s), nausea, rash or vomiting Review of Systems Const: Denies: fever(s), chills, body aches or change in appetite Eyes: Denies: eye discomfort ENMT: Reports: bleeding gums; Denies: throat pain or dental pain Card: Denies: chest pain Resp: Denies: dyspnea GI: Denies: abdominal pain, nausea, vomiting or diarrhea Musc: Denies: neck pain or back pain Skin/Breast: Denies: rash Neuro: Denies: headache(s) PFSH ED PFSH: Medical History Anxiety CAD (coronary artery disease) Chest pain Chronic back pain greater than 3 months duration Diabetes Dyslipidemia HTN (hypertension) Intervertebral disc disorder with radiculopathy of lumbosacral region Palpitations Surgical History S/P coronary artery stent placement 10/20/2018 Family History Mother , in her 50's Heart disease COPD (chronic obstructive pulmonary disease) Father Hypertension Grandmother Cancer Social History Smoking and tobacco status: current every day smoker smokeless tobacco Smokeless tobacco user: chewing tobacco Alcohol intake: former Substance/Drug Use: never Lives independently: Yes Household members: none Marital status: Current occupational status: disabled Current occupation: filed for disability Course Vital Signs: Vital signs: Vital Signs Temperature 98.1 F 07/11/23 01:33 Pulse Rate 81 10/08/22 03:23 Respiratory Rate 18 10/08/22 03:23 Blood Pressure 97/68 10/08/22 03:23 Pulse Oximetry 97 10/08/22 03:23 Oxygen Delivery Me thod Room Air 10/08/22 02:59 MDM - General Adult Medical Decision Making Patient presents here with bleeding from his gums I did have him swish TXA mouthwash and the bleeding is since stopped. He was hyperglycemic hypertension that is improved he is not DKA he is stable for discharge he is to follow-up with PCP and return if worsening. Medical Records I reviewed the patient's medical records. Lab Data I reviewed the patient's lab results. 10/08/22 01:26 10/08/22 01:26 Laboratory Results WBC 7.1 10^3/uL (4.0-10.0) 10/08/22 01:26 RBC 5.22 10^6/uL (4.1-5.3) 10/08/22 01:26 Hgb 14.7 g/dL (11.7-16.6) 10/08/22 01:26 Hct 42.7 % (42.0-52.0) 10/08/22 01:26 MCV 81.8 fl (80-94) 10/08/22 01:26 MCH 28.2 pg (28.0-34.0) 10/08/22 01:26 MCHC 34.4 g/dL (30.0-36.0) 10/08/22 01:26 RDW 11.9 % (12.1-15.1) L 10/08/22 01:26 Plt Count 261 10^3/cmm (130-400) 10/08/22 01:26 MPV 10.5 fL (7.4-10.4) H 10/08/22 01:26 Neut % (Auto) 55.6 % 10/08/22 01:26 Lymph % (Auto) 32.3 % 10/08/22 01:26 [place] % (Auto) 9.4 % 10/08/22 01:26 Eos % (Auto) 1.6 % 10/08/22 01:26 Baso % (Auto) 0.7 % 10/08/22 01:26 Neut # (Auto) 3.94 10^3/uL (1.8-7.7) 10/08/22 01: Lymph # (Auto) 2.3 10^3/uL (0.8-4.8) 10/08/22: [place] # (Auto) 0.7 10^3/uL (0.2-0.9) 10/08/22: Eos # (Auto) 0.1 10^3/uL (0.0-0.8) 10/08/22: Baso # (Auto) 0.1 10^3/uL (0.0-0.1) 10/08/22: Nucleated RBC % (auto) 0 % 10/08/22: Nucleated RBCs # 0.0 /100WBC 10/08/22: Specimen Type Arterial 10/08/22 02:00 Sample Site Brachial, right 10/08/22 02:00 ABG pH 7.47 (7.35-7.45) H 10/08/22 02:00 ABG pCO2 37.2 mmHg (35-45) 10/08/22 02:00 ABG pO2 82.5 mmHg (80.0-100.0) 10/08/22 02:00 ABG HCO3 26.8 mmol/L (22-26) H 10/08/22 02:00 ABG Base Excess 3.1 mmol/L (-2.0-2.0) H 10/08/22 02:00 Cresencio Test N/a 10/08/22 02:00 Hematocrit 45.3 % (42-52) 10/08/22 02:00 O2 Delivery Device None 10/08/22 02:00 FiO2 21.0 % 10/08/22 02:00 Drawer In Dobby Loom ID Alondrakim 10/08/22 02:00 Sodium 121 mmol/L (136-145) L 10/08/22 01:26 Potassium 4.5 mmol/L (3.5-5.1) 10/08/22 01: Chloride 85 mmol/L (98-107) L 10/08/22 01:26 Carbon Dioxide 26 mmol/L (22-29) 10/08/22 01:26 Anion Gap 14.5 (5-19) 10/08/22 01:26 BUN 24 mg/dL (6-20) H 10/08/22 01:26 Creatinine 1.6 mg/dL (0.7-1.2) H 10/08/22 01:26 GFR Calculation 44.8 mL/min (90-130) L 10/08/22 01:26 Glucose 795 mg/dL (65-115) H* 10/08/22 01:26 POC Glucose 329 mg/dL (70-110) H 10/08/22 02:52 Calculated Osmolality 295 mOsm/kg (285-295) 10/08/22 01:26 Calcium 8.5 mg/dL (8.5-10.5) 10/08/22 01:26 Total Bilirubin 0.3 mg/dL (0.15-1.2) 10/08/22 01:26 AST 8 U/L (0-40) 10/08/22 01:26 ALT 9 U/L (0-41) 10/08/22 01:26 Alkaline Phosphatase 154 U/L (40-130) H 10/08/22 01:26 Total Protein 6.8 g/dL (6.6-8.7) 10/08/22 01:26 Albumin 3.9 g/dL (3.5-5.2) 10/08/22 01:26 Globulin 2.9 g/dL (1.3-4.6) 10/08/22 01:26 Lipase 64 U/L (13-60) H 10/08/22 01:26 Serum Ketones Negative (Negative) 10/08/22 01:26 EKG Data EKG 1: I personally reviewed and interpreted this EKG as follows: EKG interpretation date: 10/08/22 EKG interpretation time: 02:03 Interpretation: nsr hr [address] or t wave abnormalities qrs 106 qtc 411 Discharge Plan Discharge Patient Disposition: Home Clinical Impression: Hyperglycemia, Hypertension, Bleeding gums Condition: Stable Prescriptions: No Action metformin 500 mg tablet 500 mg PO BID@ insulin aspart U-100 [Novolog FlexPen U-100 Insulin] 100 unit/mL (3 mL) insulin pen 17 unit SUBCUT TID tramadol 50 mg tablet 50 mg PO Q6H PRN (Reason: Pain) Plavix 75 mg tablet 75 mg PO DAILY Qty: 30 6RF Hold Instructions: Resume on 09/10/20. resume 24 hrs after getting your radiology procedure cetirizine [Zyrtec] 10 mg Tablet 10 mg PO DAILY atorvastatin [Lipitor] 40 mg tablet 40 mg PO DAILY Qty: 30 0RF insulin glargine [Lantus U-100 Insulin] 100 unit/mL Solution 80 unit SUBCUT BID nitroglycerin [Nitrostat] 0.4 mg Tablet, Sublingual 0.4 mg SUBLINGUAL Q5M PRN (Reason: Chest Pain) montelukast 10 mg Tablet 10 mg PO DAILY paroxetine HCl [Paxil] 40 mg Tablet 40 mg PO DAILY@08 omeprazole 20 mg Tablet,Delayed Release (Dr/Ec) 20 mg PO DAILY meloxicam 15 mg Tablet 15 mg PO DAILY ondansetron 4 mg Tablet,Disintegrating 4 mg PO Q6H PRN (Reason: Nausea) isosorbide mononitrate 30 mg tablet extended release 24 hr 30 mg PO DAILY Qty: 30 3RF isosorbide mononitrate 30 mg Tablet Extended Release 24 Hr 30 mg PO DAILY Qty: 60 2RF hydralazine 25 mg Tablet 25 mg PO BID Qty: 60 3RF hydrochlorothiazide 25 mg Tablet 50 mg PO QAM Qty: 90 2RF lisinopril 40 mg Tablet 40 mg PO DAILY Qty: 60 3RF Discharge Orders: Discharge ED (Routine); Ordered 10/08/22 Ordered By: Constance Wright Referrals: Niesha Hinds [Primary Care Provider] - 1-3 days Discharge Diet: Advance as tolerated Discharge Activity: Resume usual activity Patient Instructions: Diabetic Hyperglycemia (ED) Coding Level of Care Code ED Physician In Private Practice for Dina Okeefe
[2022-10-08 01:43] LABS: Basophils # 0.1 10^3/uL (0.0-0.1); Basophils % 0.7 %; Eosinophils # 0.1 10^3/uL (0.0-0.8); Eosinophils % 1.6 %; Hematocrit 42.7 % (42.0-52.0); Hemoglobin 14.7 g/dL (11.7-16.6); Lymphocytes # 2.3 10^3/uL (0.8-4.8); Lymphocytes % 32.3 %; Mean Corpuscular HGB Conc 34.4 g/dL (30.0-36.0); Mean Corpuscular Hemoglobin 28.2 pg (28.0-34.0); Mean Corpuscular Volume 81.8 fl (80-94); Mean Platelet Volume 10.5 fL (7.4-10.4); Monocytes # 0.7 10^3/uL (0.2-0.9); Monocytes % 9.4 %; Neutrophils # 3.94 10^3/uL (1.8-7.7); Neutrophils % 55.6 %; Nucleated Red Blood Cells % 0 %; Platelet Count 261 10^3/cmm (130-400); Red Blood Count 5.22 10^6/uL (4.1-5.3); Red Cell Distribution Width 11.9 % (12.1-15.1); White Blood Count 7.1 10^3/uL (4.0-10.0)
[2022-10-08] MEDS: hyDRALAzine 20 mg/mL INJ 1 mL 10 MG IVP (01:46)
[2022-10-08] MEDS: ondansetron 2 mg/ML SDV 2 mL 4 MG IVP (01:49)
[2022-10-08 01:52] LABS: Ketone (Acetest) Serum Negative (Negative)
[2022-10-08] MEDS: tranexamic acid 1,000 mg/10mL SDV 1000 MG XX (01:53)
[2022-10-08 02:03] LABS: Alanine Aminotransferase 9 U/L (0-41); Albumin Level 3.9 g/dL (3.5-5.2); Alkaline Phosphatase 154 U/L (40-130); Anion Gap 14.5 (5-19); Aspartate Amino Transferase 8 U/L (0-40); Blood Urea Nitrogen 24 mg/dL (6-20); Calcium 8.5 mg/dL (8.5-10.5); Carbon Dioxide 26 mmol/L (22-29); Chloride 85 mmol/L (98-107); Globulin 2.9 g/dL (1.3-4.6); Glomerular Filtration Rate 44.8 mL/min (90-130); Lipase 64 U/L (13-60); Potassium 4.5 mmol/L (3.5-5.1); Sodium 121 mmol/L (136-145); Total Bilirubin 0.3 mg/dL (0.15-1.2); Total Protein 6.8 g/dL (6.6-8.7)
--- NOTE | 2022-10-08 02:03 | ECG_ITS ---
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 Measurements Intervals [place] Rate: 71 P: 80 [place]: 166 QRS: 44 QRSD: 106 T: 64 QT: 389 QTc: 423 Interpretive Statements SINUS RHYTHM Compared to ECG 01/17/2022 16:12:38 Myocardial infarct finding no longer present Electronically Signed On 10-08-2022 9:52:09 CDT by Kaila Ariza M.D. [id number]
[2022-10-08] MEDS: sodium chloride 0.9% 1,000 ML 999 ML IV (02:07)
[2022-10-08] MEDS: insulin regular-human 100 units/1 mL 18 UNIT IVP (02:07)
[2022-10-08 02:08] LABS: ABG PCO2 37.2 mmHg (35-45); ABG PH Result 7.47 (7.35-7.45); Arterial Blood Gas Hematocrit 45.3 % (42-52); Base Excess ABG 3.1 mmol/L (-2.0-2.0); Blood Gas Sample Site Brachial, right; Blood Gas Sample Type Arterial; HCO3 ABG 26.8 mmol/L (22-26); PO2 ABG 82.5 mmHg (80.0-100.0)
[2022-10-08 02:11] LABS: Osmolality Calculated 295 mOsm/kg (285-295)
[2022-10-08 02:13] LABS: Glucose 795 mg/dL (65-115)
[2022-10-08 02:57] LABS: Glucose Point of Care 329 mg/dL (70-110)
[2022-10-08 02:59] VITALS: BP 115/75; PULSE 78; RESP 18; O2SAT 98
[2022-10-08 03:23] VITALS: BP 97/68; PULSE 81; RESP 18; O2SAT 97
== END 2022-10-08 03:29 | disposition home or self-care (01) ==
PROVIDERS: Emergency Provider Emergency Medicine; PCP Internal Medicine
DX: K06.8 Other specified disorders of gingiva and edentulous alveolar ridge (principal); I10 Essential (primary) hypertension; R73.9 Hyperglycemia, unspecified; E78.5 Hyperlipidemia, unspecified; I25.10 Atherosclerotic heart disease of native coronary artery without angina pectoris; F17.220 Nicotine dependence, chewing tobacco, uncomplicated; Z79.84 Long term (current) use of oral hypoglycemic drugs; Z79.4 Long term (current) use of insulin
CPT/HCPCS: 36416; 36600; 80053; 82009; 82803; 82962; 83690; 85025; 93005; 96361; 96374; 96375; 99284; J0360; J1815; J2405; J7030

== ENCOUNTER 2023-04-05 04:25 | Inpatient (IN) | payer MEDICAID, SELFPAY ==
[2023-04-05] VITALS (19 sets, daily range): BP systolic 121–175; BP diastolic 77–106; PULSE 79–112; RESP 12–20; TEMP 36.5–37; O2SAT 93–98; BMI 35.6
--- NOTE | 2023-04-05 04:29 | ECG_ITS ---
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 Measurements Intervals [place] Rate: 82 P: 52 AL: 158 QRS: 30 QRSD: 96 T: 57 QT: 368 QTc: 432 Interpretive Statements SINUS RHYTHM Compared to ECG 10/08/2022 02:03:48 No significant changes Electronically Signed On 04-06-2023 16:27:33 ELECTRIC LINEMAN by Naveed Shultz M.D. [id number] f
--- NOTE | 2023-04-05 04:39 | XRR_ITS ---
PROCEDURE INFORMATION: Exam: XR Chest Exam date and time: 04/05/2023 4:56 AM Age: 58 years old Clinical indication: Chest wall pain; Patient HX: Center chest pain; Additional info: Cp TECHNIQUE: Imaging protocol: Radiologic exam of the chest. Views: 1 view. COMPARISON: CT angio chest PE protcl [id number] 01/18/2022 5:04 AM FINDINGS: Lungs: Unremarkable. No consolidation. Pleural spaces: Unremarkable. No pleural effusion. No pneumothorax. Heart/Mediastinum: Unremarkable. No cardiomegaly. Bones/joints: Unremarkable. XR/XR chest 1V portable [id number] IMPRESSION: No acute findings.
[2023-04-05 04:46] LABS: Basophils # 0.1 10^3/uL (0.0-0.1); Basophils % 0.6 %; Eosinophils # 0.1 10^3/uL (0.0-0.8); Eosinophils % 1.2 %; Hematocrit 43.4 % (37-53); Lymphocytes # 2.3 10^3/uL (0.8-4.8); Lymphocytes % 22.5 %; Mean Corpuscular HGB Conc 35.7 g/dL (30-55); Mean Corpuscular Hemoglobin 29.3 pg (27-33); Mean Platelet Volume 9.8 fL (7.4-10.4); Monocytes % 9.7 %; Neutrophils # 6.83 10^3/uL (1.8-7.7); Neutrophils % 65.6 %; Nucleated Red Blood Cells % 0 %; Platelet Count 300 10^3/cmm (157-399); Red Blood Count 5.29 10^6/uL (3.85-5.65); Red Cell Distribution Width 12.7 % (12.1-15.1); White Blood Count 10.41 10^3/uL (3.29-11.43)
[2023-04-05] MEDS: morphine 4 mg/mL SDV 1 mL IVP (04:46)
[2023-04-05] MEDS: nitroglycerin 1 gm/inch oint Pkt 1 INCH TOPICAL (04:46)
[2023-04-05] MEDS: ondansetron 2 mg/ML SDV 2 mL 4 MG IVP (04:47)
[2023-04-05] MEDS: lidocaine 2% viscous 15 ML, aluminum-mag hydrox-simethicon 30 ML, sucralfate oral liq 1 GM PO (04:47)
[2023-04-05 05:04] LABS: Troponin(5th) Baseline 27 ng/L (0-15)
[2023-04-05 05:13] LABS: Alanine Aminotransferase 11 U/L (0-41); Albumin Level 4.1 g/dL (3.5-5.2); Alkaline Phosphatase 125 U/L (40-130); Anion Gap 11.6 (5-19); Aspartate Amino Transferase 11 U/L (0-40); Blood Urea Nitrogen 23 mg/dL (6-20); Calcium 9.2 mg/dL (8.5-10.5); Carbon Dioxide 27 mmol/L (22-29); Chloride 97 mmol/L (98-107); Globulin 2.8 g/dL (1.3-4.6); Glomerular Filtration Rate 68.8 mL/min (90-130); Glucose 232 mg/dL (65-115); Lipase 24 U/L (13-60); NT Pro B Type Natriuretic Pept 40 pg/mL (0-125); Osmolality Calculated 285 mOsm/kg (285-295); Potassium 3.6 mmol/L (3.5-5.1); Sodium 132 mmol/L (136-145); Total Bilirubin 0.6 mg/dL (0.15-1.2); Total Protein 6.9 g/dL (6.6-8.7)
--- NOTE | 2023-04-05 05:29 | ED_ITS ---
Documented by User: Too Armstrong DO 04/05/23 18:08 HPI - Chest Pain 2 General: Chief Complaint: Chest Pain Stated Complaint: CP Time Seen by Provider: 04/05/23 04:32 History of Present Illness: 58-year-old gentleman with a history of coronary disease. He presents with chest discomfort. He notes that he had pain earlier in the week, and his blood pressure was high. He was seen by his doctor. No changes were made to medication, but he was asked to keep a log of his blood pressure. This morning his pain was much worse. He continues to complain of some pain with shortness of breath. He denies significant leg swelling. Denies fever or cough. PFSH ED 2 PFSH: Medical History Unstable angina Chest pain HTN (hypertension) Chest pain Chronic back pain greater than 3 months duration Intervertebral disc disorder with radiculopathy of lumbosacral region Anxiety Diabetes Dyslipidemia CAD (coronary artery disease) Palpitations Surgical History S/P coronary artery stent placement 10/20/2018 Family History Mother , in her 50's Heart disease COPD (chronic obstructive pulmonary disease) Father Hypertension Grandmother Cancer Social History Smoking and tobacco/nicotine status: current every day tobacco/nicotine user smokeless tobacco Smokeless tobacco user: chewing tobacco Alcohol intake: former Substance/Drug Use: never Lives independently: Yes Household members: none Marital status: Current occupational status: disabled Current occupation: filed for disability Physical Exam 2 Const: COMMON NORMALS: no acute distress GENERAL APPEARANCE: cooperative; not ill appearing and not frail appearing HENMT: COMMON NORMALS: normocephalic, atraumatic and Normal external nose present HEAD & SCALP: normocephalic and atraumatic FACE & SINUS: normal facial exam and face symmetric NOSE: Normal external nose present Eye: COMMON NORMALS: Equal, round and reactive pupils present and EOMs intact bilaterally PUPIL: Yes Equal, round and reactive pupils present Neck/C-Spine: GENERAL: Yes trachea midline Chest: CHEST: Yes Symmetrical chest wall rise Resp: COMMON NORMALS: normal respiratory effort, No retractions, No use of accessory muscles and clear to auscultation bilaterally AUSCULTATION: clear to auscultation bilaterally Cardio: COMMON NORMALS: regular rate and regular rhythm RATE: regular rate RHYTHM: regular rhythm GI: COMMON NORMALS: Normal to inspection, nondistended, normoactive bowel sounds present Extremity: COMMON NORMALS: no pedal edema Neuro: WERNER COMA SCALE: document GCS findings Altheimer coma scale eye opening: Spontaneous Werner coma scale verbal response: Orientated Werner coma scale motor response: Obey commands Werner coma scale total score: 15 S ENSORY EXAM: Yes extremities (intact) Psych: COMMON NORMALS: speech normal SPEECH: Yes normal speech Skin: COMMON NORMALS: no rashes or lesions noted GENERAL SKIN EXAM: no rashes or lesions noted Course 2 Vital Signs: Vital signs: Vital Signs Temperature 97.7 F 04/05/23 16:00 Pulse Rate 79 04/05/23 16:00 Respiratory Rate 14 04/05/23 16:00 Blood Pressure 134/78 04/05/23 16:00 Pulse Oximetry 95 04/05/23 16:00 Oxygen Delivery Me thod Room Air 04/05/23 16:00 MDM - Chest Pain Medical Decision Making Some continued chest discomfort despite nitroglycerin paste, morphine and GI cocktail. His blood pressure is down now to 144 systolic. His heart rate is 84. His EKG shows a normal sinus rhythm with a normal axis, normal intervals, rate of 75, no acute ST wave changes. Chest x-ray is clear in terms of infiltrate. There is no pneumothorax. There may be a slight increase in vascular congestion. His first troponin is 27. His BNP is normal at 40. Creatinine is 1.1. Will await a second troponin. Second EKG remains normal. Patient still having some discomfort. Awaiting second troponin. He will be checked out at shift change. Lab Data 04/05/23 04:37 04/05/23 04:37 Radiology Impressions Chest X-Ray 04/05/23 04:39 IMPRESSION: No acute findings. Laboratory Results WBC 10.41 10^3/uL (3.29-11.43) 04/05/23 04:37 RBC 5.29 10^6/uL (3.85-5.65) 04/05/23 04:37 Hgb 15.50 g/dL (11.27-16.99) 04/05/23 04:37 Hct 43.4 % (37-53) 04/05/23 04:37 MCV 82.0 fl (82-101) 04/05/23 04:37 MCH 29.3 pg (27-33) 04/05/23 04:37 MCHC 35.7 g/dL (30-55) 04/05/23 04:37 RDW 12.7 % (12.1-15.1) 04/05/23 04:37 Plt Count 300 10^3/cmm (157-399) 04/05/23 04:37 MPV 9.8 fL (7.4-10.4) 04/05/23 04:37 Neut % (Auto) 65.6 % 04/05/23 04:37 Lymph % (Auto) 22.5 % 04/05/23 04:37 [place] % (Auto) 9.7 % 04/05/23 04:37 Eos % (Auto) 1.2 % 04/05/23 04:37 Baso % (Auto) 0.6 % 04/05/23 04:37 Neut # (Auto) 6.83 10^3/uL (1.8-7.7) 04/05/23 04:37 Lymph # (Auto) 2.3 10^3/uL (0.8-4.8) 04/05/23 04:37 [place] # (Auto) 1.0 10^3/uL (0.2-0.9) H 04/05/23 04:37 Eos # (Auto) 0.1 10^3/uL (0.0-0.8) 04/05/23 04:37 Baso # (Auto) 0.1 10^3/uL (0.0-0.1) 04/05/23 04:37 Nucleated RBC % (auto) 0 % 04/05/23 04:37 Nucleated RBCs # 0.0 /100WBC 04/05/23 04:37 Sodium 132 mmol/L (136-145) L 04/05/23 04:37 Potassium 3.6 mmol/L (3.5-5.1) 04/05/23 04:37 Chloride 97 mmol/L (98-107) L 04/05/23 04:37 Carbon Dioxide 27 mmol/L (22-29) 04/05/23 04:37 Anion Gap 11.6 (5-19) 04/05/23 04:37 BUN 23 mg/dL (6-20) H 04/05/23 04:37 Creatinine 1.1 mg/dL (0.7-1.2) 04/05/23 04:37 GFR Calculation 68.8 mL/min (90-130) L 04/05/23 04:37 Glucose 232 mg/dL (65-115) H 04/05/23 04:37 Estimat Average Glucose 192 04/05/23 04:37 Hemoglobin A1c 8.3 % (4.0-6.0) H 04/05/23 04:37 Calculated Osmolality 285 mOsm/kg (285-295) 04/05/23 04:37 Calcium 9.2 mg/dL (8.5-10.5) 04/05/23 04:37 Total Bilirubin 0.6 mg/dL (0.15-1.2) 04/05/23 04:37 AST 11 U/L (0-40) 04/05/23 04:37 ALT 11 U/L (0-41) 04/05/23 04:37 Alkaline Phosphatase 125 U/L (40-130) 04/05/23 04:37 Troponin T Baseline 27 ng/L (0-15) H 04/05/23 04:37 Troponin T 120 Minute 28.39 ng/L (0-15) H 04/05/23 06:30 Delta Troponin T 1.39 ABS# (0-10) 04/05/23 06:30 NT-Pro-B Natriuret Pep 40 pg/mL (0-125) 04/05/23 04:37 Total Protein 6.9 g/dL (6.6-8.7) 04/05/23 04:37 Albumin 4.1 g/dL (3.5-5.2) 04/05/23 04:37 Globulin 2.8 g/dL (1.3-4.6) 04/05/23 04:37 Lipase 24 U/L (13-60) 04/05/23 04:37 TSH 1.48 uIU/mL (0.27-4.20) 04/05/23 04:37 Discharge Plan Discharge Patient Disposition: Admitted As Inpatient Admit Provider: Amanda Lyons Clinical Impression: Unstable angina, CAD (coronary artery disease), Dyslipidemia, Diabetes Condition: Stable Sign Out Sign Out Data: Patient Sign Out occurred on 04/05/23 at 06:49. Patient's care was discussed, and care was transferred from Too Armstrong DO to Shant Salas DO. Coding Level of Care Code ED Animal Science Instructor for Chg Fwd Documented by User: Shant Salas DO 04/05/23 08:24 HPI - Chest Pain 2 General: Chief Complaint: Chest Pain Stated Complaint: CP Time Seen by Provider: 04/05/23 04:32 PFSH ED 2 PFSH: Medical History Unstable angina Chest pain HTN (hypertension) Chest pain Chronic back pain greater than 3 months duration Intervertebral disc disorder with radiculopathy of lumbosacral region Anxiety Diabetes Dyslipidemia CAD (coronary artery disease) Palpitations Surgical History S/P coronary artery stent placement 10/20/2018 Family History Mother , in her 50's Heart disease COPD (chronic obstructive pulmonary disease) Father Hypertension Grandmother Cancer Social History Smoking and tobacco/nicotine status: current every day tobacco/nicotine user smokeless tobacco Smokeless tobacco user: chewing tobacco Alcohol intake: former Substance/Drug Use: never Lives independently: Yes Household members: none Marital status: Current occupational status: disabled Current occupation: filed for disability Course 2 Vital Signs: Vital signs: Vital Signs Temperature 97.7 F 04/05/23 16:00 Pulse Rate 79 04/05/23 16:00 Respiratory Rate 14 04/05/23 16:00 Blood Pressure 134/78 01/06/24 16:00 Pulse Oximetry 95 04/05/23 16:00 Oxygen Delivery Me thod Room Air 04/05/23 16:00 MDM - Chest Pain Medical Decision Making Some continued chest discomfort despite nitroglycerin paste, morphine and GI cocktail. His blood pressure is down now to 144 systolic. His heart rate is 84. His EKG shows a normal sinus rhythm with a normal axis, normal intervals, rate of 75, no acute ST wave changes. Chest x-ray is clear in terms of infiltrate. There is no pneumothorax. There may be a slight increase in vascular congestion. His first troponin is 27. His BNP is normal at 40. Creatinine is 1.1. Will await a second troponin. Second EKG remains normal. Patient still having some discomfort. Awaiting second troponin. He will be checked out at shift change. Second opponent was negative. the patient he has had escalating angina over the last 4 days precipitated by activity relieved by 20 to 25 minutes of rest. This morning he had an episode of unstable angina with onset while at rest sitting. He has complete resolution of symptoms now his troponins and EKGs are negative he had stent placed at [place] in 2019 stress test December of last year showed attenuation artifact but no findings of ischemia. He is still taking his clopidogrel. Given his history and escalation of his angina to the point of unstable we will admit the patient discussed with Dr. Minor will see the patient later today have also discussed with hospitalist orders written Medical Records I reviewed the patient's medical records. Lab Data I reviewed the patient's lab results. 04/05/23 04:37 04/05/23 04:37 Radiology Impressions Chest X-Ray 04/05/23 04:39 IMPRESSION: No acute findings. Laboratory Results WBC 10.41 10^3/uL (3.29-11.43) 04/05/23 04:37 RBC 5.29 10^6/uL (3.85-5.65) 04/05/23 04:37 Hgb 15.50 g/dL (11.27-16.99) 04/05/23 04:37 Hct 43.4 % (37-53) 04/05/23 04:37 MCV 82.0 fl (82-101) 04/05/23 04:37 MCH 29.3 pg (27-33) 04/05/23 04:37 MCHC 35.7 g/dL (30-55) 04/05/23 04:37 RDW 12.7 % (12.1-15.1) 04/05/23 04:37 Plt Count 300 10^3/cmm (157-399) 04/05/23 04:37 MPV 9.8 fL (7.4-10.4) 04/05/23 04:37 Neut % (Auto) 65.6 % 04/05/23 04:37 Lymph % (Auto) 22.5 % 04/05/23 04:37 [place] % (Auto) 9.7 % 04/05/23 04:37 Eos % (Auto) 1.2 % 04/05/23 04:37 Baso % (Auto) 0.6 % 04/05/23 04:37 Neut # (Auto) 6.83 10^3/uL (1.8-7.7) 04/05/23 04:37 Lymph # (Auto) 2.3 10^3/uL (0.8-4.8) 04/05/23 04:37 [place] # (Auto) 1.0 10^3/uL (0.2-0.9) H 04/05/23 04:37 Eos # (Auto) 0.1 10^3/uL (0.0-0.8) 04/05/23 04:37 Baso # (Auto) 0.1 10^3/uL (0.0-0.1) 04/05/23 04:37 Nucleated RBC % (auto) 0 % 04/05/23 04:37 Nucleated RBCs # 0.0 /100WBC 04/05/23 04:37 Sodium 132 mmol/L (136-145) L 04/05/23 04:37 Potassium 3.6 mmol/L (3.5-5.1) 04/05/23 04:37 Chloride 97 mmol/L (98-107) L 04/05/23 04:37 Carbon Dioxide 27 mmol/L (22-29) 04/05/23 04:37 Anion Gap 11.6 (5-19) 04/05/23 04:37 BUN 23 mg/dL (6-20) H 04/05/23 04:37 Creatinine 1.1 mg/dL (0.7-1.2) 04/05/23 04:37 GFR Calculation 68.8 mL/min (90-130) L 04/05/23 04:37 Glucose 232 mg/dL (65-115) H 04/05/23 04:37 Estimat Average Glucose 192 04/05/23 04:37 Hemoglobin A1c 8.3 % (4.0-6.0) H 04/05/23 04:37 Calculated Osmolality 285 mOsm/kg (285-295) 04/05/23 04:37 Calcium 9.2 mg/dL (8.5-10.5) 04/05/23 04:37 Total Bilirubin 0.6 mg/dL (0.15-1.2) 04/05/23 04:37 AST 11 U/L (0-40) 04/05/23 04:37 ALT 11 U/L (0-41) 04/05/23 04:37 Alkaline Phosphatase 125 U/L (40-130) 04/05/23 04:37 Troponin T Baseline 27 ng/L (0-15) H 04/05/23 04:37 Troponin T 120 Minute 28.39 ng/L (0-15) H 04/05/23 06:30 Delta Troponin T 1.39 ABS# (0-10) 04/05/23 06:30 NT-Pro-B Natriuret Pep 40 pg/mL (0-125) 04/05/23 04:37 Total Protein 6.9 g/dL (6.6-8.7) 04/05/23 04:37 Albumin 4.1 g/dL (3.5-5.2) 04/05/23 04:37 Globulin 2.8 g/dL (1.3-4.6) 04/05/23 04:37 Lipase 24 U/L (13-60) 04/05/23 04:37 TSH 1.48 uIU/mL (0.27-4.20) 04/05/23 04:37 All radiology interpretation(s) finalized by discharge Discharge Plan Discharge Patient Disposition: Admitted As Inpatient Admit Provider: Amanda Lyons Clinical Impression: Unstable angina, CAD (coronary artery disease), Dyslipidemia, Diabetes Condition: Stable Sign Out Sign Out Data: Patient Sign Out occurred on 04/05/23 at 06:49. Patient's care was discussed, and care was transferred from Too Armstrong DO to Shant Salas DO. Coding Level of Care Code ED Animal Science Instructor for Dnia Okeefe
--- NOTE | 2023-04-05 06:27 | ECG_ITS ---
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 Measurements Intervals [place] Rate: 79 P: 84 ID: [id number] QRS: 24 QRSD: 97 T: 37 QT: 388 QTc: 445 Interpretive Statements SINUS RHYTHM Compared to ECG 04/05/2023 04:29:55 No significant changes Electronically Signed On 04-07-2023 10:55:22 ANIMAL SCIENTIST by Naveed Shultz M.D. [id number]
[2023-04-05 07:04] LABS: Troponin 5 2HR 28.39 ng/L (0-15); Troponin 5 2HR Delta 1.39 ABS# (0-10)
--- NOTE | 2023-04-05 07:55 | PC.PHAR ---
Addendum entered by Angelica Landin 04/05/23 08:36: pt and pts sister verified medications-pt states he takes care of his insulins-pt states he uses lantus u-100 vial 80 units tid ext shows last filled 04/02/22 50 units in the am and 80 units in the pm-pts sister verified pts medications with his medication bottles -pts sister states she thought the pt was out of his plavix pt states he had been a while back but has been taking again ext shows last filled 03/14/23 30d/s-notes are made in the pharmacy comments Original Note: pt states his sister takes care of his medications-called pts sister rosalina states she will run to his apartment and get his medications and call back with what the pt is taking
--- NOTE | 2023-04-05 08:51 | P.HP_ITS ---
Providers/Chief Complaint 2 Primary Care Provider: Niesha Hinds Chief Complaint: CP History of Present Illness Raheel Lam is a 58 year old male with past medical history of CAD status post PCI, hypertension, diabetes presented to the hospital for 3-day complaint of chest pain. He says he went to his primary care doctor in [place] 3 days ago and he was found to have high blood pressure. Since then he has been having pain in his chest that is progressively worsening. Pain is located middle of chest sharp stabbing in nature no nausea but he does feel short of breath or lightheaded every time he gets the pain. He says last night the pain was so bad that he decided to come to the hospital. He says he had a stent placed in his heart [address] Knutson here at our hospital. He apparently takes Lantus 80 mg in the morning 80 at night however what was filled at the pharmacy was 50 in the morning and 80 at nighttime. He states last time he took his insulin was yesterday night and has not really been eating much since yesterday however Taking his insulin. He is on NovoLog 17 units Premeal 3 times daily. He has been having a cough lately but no fever and does bring up whitish sputum. Has a history of COPD as well. He is on inhalers at home. Right now he is chest pain-free. Hemoglobin A1c 8.3, initial troponin 27, 2-hour troponin 28.39, 6- hour troponin 27.36 with a delta of -3.24, BNP 40, TSH 1.48. Patient was given Nitropaste which improved his pain. EKG did not show any acute ST changes Medications/Allergies Home Medications Medication Instructions Recorded Confirmed Last Taken Type insulin glargine 100 unit/mL 80 unit SUBCUT TID 04/06/19 04/05/23 01/16/22 History subcutaneous solution (Lantus U-100 Insulin) omeprazole 20 mg tablet,delayed 20 mg PO DAILY 04/06/19 04/05/23 01/16/22 History release paroxetine HCl 40 mg tablet (Paxil) 40 mg PO DAILY@08 04/06/19 04/05/23 01/16/22 History clopidogrel 75 mg tablet (Plavix) 75 mg PO DAILY #30 tabs 04/14/19 04/05/23 01/16/22 Rx insulin aspart U-100 100 unit/mL 17 unit SUBCUT TID 05/24/19 04/05/23 01/16/22 History (3 mL) subcutaneous pen (Novolog FlexPen U-100 Insulin aspart) metformin 500 mg tablet 500 mg PO BID@12/10/19 04/05/23 01/16/22 History cetirizine 10 mg tablet (Zyrtec) 10 mg PO DAILY 04/03/20 04/05/23 01/16/22 History atorvastatin 40 mg tablet (Lipitor) 40 mg PO DAILY #30 tabs 04/05/20 04/05/23 01/16/22 Rx meloxicam 15 mg tablet 15 mg PO DAILY 04/08/21 04/05/23 01/16/22 History albuterol sulfate 90 mcg/actuation 2 puff inhalation Q4H PRN 04/05/23 04/05/23 Unknown History aerosol inhaler (Ventolin HFA) Shortness Of Breath amitriptyline 50 mg tablet 50 mg PO DAILY 04/05/23 04/05/23 Unknown History aspirin 81 mg tablet,delayed 81 mg PO QAM 04/05/23 04/05/23 Unknown History release budesonide-formoterol HFA 160 2 puff inhalation BID 04/05/23 04/05/23 Unknown History mcg-4.5 mcg/actuation aerosol inhaler (Symbicort) dulaglutide 0.75 mg/0.5 mL 0.75 mg SUBCUT Q7D 04/05/23 04/05/23 Unknown History subcutaneous pen injector (Trulicity) hydrochlorothiazide 25 mg tablet 25 mg PO DAILY 04/05/23 04/05/23 Unknown History lisinopril 40 mg tablet 40 mg PO BID 04/05/23 04/05/23 Unknown History nitroglycerin 0.4 mg sublingual 0.4 mg sublingual Q5M PRN Chest 04/05/23 04/05/23 Unknown History tablet (Nitrostat) Pain Allergies Allergy/AdvReac Type Severity Reaction Status Date / Time No Known Allergies Allergy Verified 04/05/23 08:36 PFSH Acute 2 PFSH: Medical History Unstable angina Chest pain HTN (hypertension) Chest pain Chronic back pain greater than 3 months duration Intervertebral disc disorder with radiculopathy of lumbosacral region Anxiety Diabetes Dyslipidemia CAD (coronary artery disease) Palpitations Surgical History S/P coronary artery stent placement 10/20/2018 Family History Mother , in her 50's Heart disease COPD (chronic obstructive pulmonary disease) Father Hypertension Grandmother Cancer Social History Smoking and tobacco/nicotine status: current every day tobacco/nicotine user smokeless tobacco Smokeless tobacco user: chewing tobacco Alcohol intake: former Substance/Drug Use: never Lives independently: Yes Household members: none Marital status: Current occupational status: disabled Current occupation: filed for disability Vitals/I&O/Wt Last Vital Signs Temp 98.3 F 04/05/23 08:40 Pulse 84 04/05/23 08:40 Resp 14 04/05/23 08:40 BP 121/77 04/05/23 08:40 Pulse Ox 96 04/05/23 08:40 O2 Del Method Room Air 04/05/23 08:40 Weight last 48 hrs Weight 97.069 kg Physical Exam 2 Narrative: General: Alert oriented x3, patient seen sitting up in bed appearing comfortable at this time, chest pain-free. HEENT: Normocephalic, atraumatic, EOMI, on room air. Cardio: Regular rate rhythm, normal S1-S2, Respiratory: Good bilateral air entry, no wheezes no rhonchi appreciated GI: Abdomen soft, nontender, nondistended, bowel sounds + Behavior: Appropriate and cooperative Extremities: Pulses 2+, no edema, no cyanosis Data 04/05/23 04:37 04/05/23 04:37 A&P Assessment and plan (1) Unstable angina: (2) CAD (coronary artery disease): Qualifiers: Coronary Disease-Associated Artery/Lesion type: [place] artery [place] vs. transplanted heart: [place] heart Associated angina: with unspecified angina Qualified Code(s): I25.119 - Atherosclerotic heart disease of [place] coronary artery with unspecified angina pectoris (3) Dyslipidemia: (4) Diabetes: Qualifiers: Diabetes mellitus type: type 2 Diabetes mellitus intermediate teacher insulin use: with intermediate teacher use Diabetes mellitus complication status: with other specified complication Qualified Code(s): E11.69 - Type 2 diabetes mellitus with other specified complication; Z79.4 - parts counterman (current) use of insulin (5) Chronic back pain greater than 3 months duration: Plan #Unstable angina #History of CAD status post PCI x 1 CARLA #Hypertension #Diabetes mellitus type 2 #COPD, not in exacerbation at this time #CKD stage III ? Delta troponin negative. ? Placed on ACS protocol ? Plan for angiogram possibly in the morning. N.p.o. tonight. ? If chest pain recurs will add nitro drip. ? Control blood pressure ? Continue aspirin, Plavix, atorvastatin ? Hold hydrochlorothiazide ? Continue lisinopril 40 twice daily ? Hold metformin ? Lantus 50 units in a.m., 80 units at p.m. ? Place in cardiac diet diabetic diet now. ? Continue to monitor in cardiac stepdown unit. Placed on telemetry. ? BNP, hemoglobin A1c, TSH reviewed. Check lipid panel ? Cardiology consulted, appreciate recommendations ? Check echo Consistent carbohydrate, cardiac diet DVT prophylaxis: Therapeutic Lovenox Attestations 2 Medical Necessity Statement*: Continue to monitor in hospital for unstable angina, ACS protocol. Will need cardiac angiogram prior to discharge. Diagnoses Unstable angina I20.0 Coronary artery disease involving [place] coronary artery of [place] heart with angina pectoris I25.119 Coronary Disease-Associated Artery/Lesion type: [place] artery [place] vs. transplanted heart: [place] heart Associated angina: with unspecified angina Dyslipidemia E78.5 Type 2 diabetes mellitus with other specified complication, with long-term current use of insulin E11.69; Z79.4 Diabetes mellitus type: type 2 Diabetes mellitus intermediate teacher insulin use: with jail use Diabetes mellitus complication status: with other specified complication Chronic back pain greater than 3 months duration M54.9; G89.29
[2023-04-05 09:37] LABS: Estmated Average Glucose 192; Hemoglobin A1C 8.3 % (4.0-6.0)
[2023-04-05 09:46] LABS: Thyroid Stimulating Hormone 1.48 uIU/mL (0.27-4.20)
--- NOTE | 2023-04-05 09:51 | PC.NURSE ---
Patient arrived to [facility] from ER via stretcher. Patient is alert and oriented. Physician and nurse present at bedside on arrival. Patient states chest pain is a 5/10 substernal with moderate radiation to the left lateral chest wall. Nurse will continue to monitor patient.
[2023-04-05] MEDS: atorvastatin 40 mg Tablet PO (10:10)
[2023-04-05] MEDS: pantoprazole DR 40 mg Tablet PO (10:10)
[2023-04-05] MEDS: sodium chloride 0.9% 1,000 ML 100 ML IV (10:11)
[2023-04-05] MEDS: clopidogrel 75 mg Tablet PO (10:11)
--- NOTE | 2023-04-05 10:26 | PM.CONSULT ---
Providers/Reason For Consult Consulting Physician/Specialty*: Naveed Shultz MD/ Cardiology Reason for Consult*: Unstable angina Requesting Physician: Dr Salas Attending Physician: Amanda Lyons MD Primary Care Provider: Niesha Hinds History of Present Illness History of Present Illness Raheel Lam is a 58 year old male with past medical history of CAD with RCA stent, diabetes, hypertension who presented to hospital with 3 days of worsening chest pain. He says initially was associated with activity and now also occurring at rest. EKG not showing acute ST-T wave changes. Troponins have not trended up. He had stress test last year that was negative for ischemia. Review of Systems Const: Denies: fever(s) or chills Eyes: Denies: change in vision ENMT: Denies: throat pain Card: Reports: chest pain; Denies: palpitations Resp: Denies: dyspnea or wheezing GI: Denies: abdominal pain, nausea or vomiting : Denies: flank pain Musc: Denies: neck pain or back pain Skin/Breast: Denies: rash or pruritus Neuro: Denies: headache(s) or numbness in extremities Psych: Denies: anxiety [place]/Lymph: Denies: enlarged lymph nodes Medications/Allergies Home Medications Medication Instructions Recorded Confirmed Last Taken Type insulin glargine 100 unit/mL 80 unit SUBCUT TID 04/06/19 04/05/23 01/16/22 History subcutaneous solution (Lantus U-100 Insulin) omeprazole 20 mg tablet,delayed 20 mg PO DAILY 04/06/19 04/05/23 01/16/22 History release paroxetine HCl 40 mg tablet (Paxil) 40 mg PO DAILY@04/06/19 04/05/23 01/16/22 History clopidogrel 75 mg tablet (Plavix) 75 mg PO DAILY #30 tabs 04/14/19 04/05/23 01/16/22 Rx insulin aspart U-100 100 unit/mL 17 unit SUBCUT TID 05/24/19 04/05/23 01/16/22 History (3 mL) subcutaneous pen (Novolog FlexPen U-100 Insulin aspart) metformin 500 mg tablet 500 mg PO BID@12/10/19 04/05/23 01/16/22 History cetirizine 10 mg tablet (Zyrtec) 10 mg PO DAILY 04/03/20 04/05/23 01/16/22 History atorvastatin 40 mg tablet (Lipitor) 40 mg PO DAILY #30 tabs 04/05/20 04/05/23 01/16/22 Rx meloxicam 15 mg tablet 15 mg PO DAILY 04/08/21 04/05/23 01/16/22 History albuterol sulfate 90 mcg/actuation 2 puff inhalation Q4H PRN 04/05/23 04/05/23 Unknown History aerosol inhaler (Ventolin HFA) Shortness Of Breath amitriptyline 50 mg tablet 50 mg PO DAILY 04/05/23 04/05/23 Unknown History aspirin 81 mg tablet,delayed 81 mg PO QAM 04/05/23 04/05/23 Unknown History release budesonide-formoterol HFA 160 2 puff inhalation BID 04/05/23 04/05/23 Unknown History mcg-4.5 mcg/actuation aerosol inhaler (Symbicort) dulaglutide 0.75 mg/0.5 mL 0.75 mg SUBCUT Q7D 04/05/23 04/05/23 Unknown History subcutaneous pen injector (Trulicity) hydrochlorothiazide 25 mg tablet 25 mg PO DAILY 04/05/23 04/05/23 Unknown History lisinopril 40 mg tablet 40 mg PO BID 04/05/23 04/05/23 Unknown History nitroglycerin 0.4 mg sublingual 0.4 mg sublingual Q5M PRN Chest 04/05/23 04/05/23 Unknown History tablet (Nitrostat) Pain Allergies Allergy/AdvReac Type Severity Reaction Status Date / Time No Known Allergies Allergy Verified 04/05/23 08:36 Current Medications Generic Name Dose Route Start Last Admin Trade Name Freq PRN Reason Stop Dose Admin Atorvastatin Calcium 40 mg 04/05/23 09:18 04/05/23 10:10 Atorvastatin 40 Mg Tablet PO 40 mg DAILY JANETH Administration Clopidogrel Bisulfate 75 mg 04/05/23 09:18 04/05/23 10:11 Clopidogrel 75 Mg Tablet PO 75 mg DAILY JANETH Administration Sodium Chloride 1,000 mls @ 75 mls/hr 04/05/23 09:00 04/05/23 10:01 Sodium Chloride 0.9% IV Not Given .[id number] JANETH Sodium Chloride 1,000 mls @ 100 mls/hr 04/05/23 09:18 04/05/23 10:11 Sodium Chloride 0.9% IV 100 mls/hr .Q10H JANETH Administration Pantoprazole Sodium 40 mg 04/05/23 09:30 04/05/23 10:[address] 40 Mg Tablet PO 40 mg DAILY JANETH Administration PFSH Acute PFSH: Medical History Unstable angina Chest pain HTN (hypertension) Chest pain Chronic back pain greater than 3 months duration Intervertebral disc disorder with radiculopathy of lumbosacral region Anxiety Diabetes Dyslipidemia CAD (coronary artery disease) Palpitations Surgical History S/P coronary artery stent placement 10/20/2018 Family History Mother , in her 50's Heart disease COPD (chronic obstructive pulmonary disease) Father Hypertension Grandmother Cancer Social History Smoking and tobacco/nicotine status: current every day tobacco/nicotine user smokeless tobacco Smokeless tobacco user: chewing tobacco Alcohol intake: former Substance/Drug Use: never Lives independently: Yes Household members: none Marital status: Current occupational status: disabled Current occupation: filed for disability Vitals/I&O/Wt Last Vital Signs Temp 98.6 F 04/05/23 09:49 Pulse 86 04/05/23 09:49 Resp 12 04/05/23 09:49 BP 175/99 04/05/23 09:49 Pulse Ox 93 04/05/23 09:49 O2 Del Method Room Air 04/05/23 09:01 Weight last 48 hrs Weight 214 lb Physical Exam Narrative: GENERAL: Patient is alert, awake and oriented x3. [] NECK: No jugular vein distension. [] HEENT: No cyanosis. No icterus. No pallor. [] HEART: Regular S1 and S2. No murmur, rub or gallop. [] LUNGS: Clear to auscultate bilaterally. [] CENTRAL NERVOUS SYSTEM: Grossly nonfocal. [] EXTREMITIES: Lower extremities with no edema bilaterally. Data 04/06/23 03:48 04/06/23 03:48 A&P Assessment and plan (1) Unstable angina: (2) CAD (coronary artery disease): Qualifiers: Coronary Disease-Associated Artery/Lesion type: [place] artery [place] vs. transplanted heart: [place] heart Associated angina: with unspecified angina Qualified Code(s): I25.119 - Atherosclerotic heart disease of [place] coronary artery with unspecified angina pectoris (3) Dyslipidemia: (4) Diabetes: Qualifiers: Diabetes mellitus type: type 2 Diabetes mellitus buttermaker insulin use: with halfway use Diabetes mellitus complication status: with other specified complication Qualified Code(s): E11.69 - Type 2 diabetes mellitus with other specified complication; Z79.4 - terminal supervisor (current) use of insulin Plan Patient has presented with worsening chest pain symptoms that are typical for 3 days. He has significant CAD history with prior RCA stent and multiple risk factors for CAD. Given accelerating angina with risk factors and prior history, we will proceed with coronary angiography with possible percutaneous coronary intervention. Risks and benefits of the procedure have been discussed with the patient. He understands the risks and wants to proceed. N.p.o. past midnight. Continue aspirin and Plavix. If chest pain does not resolve, can start nitro drip. Thank you for involving us with care of this patient. We will continue to follow. Please call with questions. Consult Attestations Medical Necessity Statement: Care expected to cross 2 midnights. Coding Level of Care Code [facility] Diagnoses Unstable angina I20.0 Coronary artery disease involving [place] coronary artery of [place] heart with angina pectoris I25.119 Coronary Disease-Associated Artery/Lesion type: [place] artery [place] vs. transplanted heart: [place] heart Associated angina: with unspecified angina Dyslipidemia E78.5 Type 2 diabetes mellitus with other specified complication, with long-term current use of insulin E11.69; Z79.4 Diabetes mellitus type: type 2 Diabetes mellitus buttermaker insulin use: with buttermaker use Diabetes mellitus complication status: with other specified complication
[2023-04-05 10:47] LABS: Troponin 5 6HR 23.76 ng/L (0-15)
[2023-04-05 10:48] LABS: Troponin 5 6HR Delta -3.24 ng/L (0-12)
--- NOTE | 2023-04-05 11:43 | ECG_ITS ---
[facility] Test Date: 2023-04-05 Pat Name: Raheel Lam Department: Room: 112 Gender: Male Court Deputy: : 1965 Requested By: Too Lindquist Order Number: [id number] Kane MD: Naveed Shultz M.D. Measurements Intervals [place] Rate: 76 P: 70 IL: 167 QRS: 9 QRSD: 96 T: 42 QT: 373 QTc: 420 Interpretive Statements SINUS RHYTHM Compared to ECG 04/05/2023 06:27:23 No significant changes Electronically Signed On 04-07-2023 10:54:56 RIGGING HELPER by Naveed Shultz M.D. [id number]
--- NOTE | 2023-04-05 13:20 | USCV_ITS ---
Raheel Lam Age: 58 Gender: M : 1965 Exam Date: 04/05/2023 17:51 Ordering Phys: Amanda Lyons MD Technologist: Greg Fenton Exam Location: [facility] – [place] Indication: chest pain BP: 133 / 79 HR: 80 Rhythm: Sinus Technical Quality: Adequate MEASUREMENTS (Male / Female) Normal Values 2D ECHO LVOT Diameter 2.0 cm LV Ejection Fraction MOD 2C 67.5 % LV Ejection Fraction 2C AL 68.0 % LA Diameter 3.4 cm LA Width 3.0 cm LA Height 4.3 cm RA Width 3.0 cm RA Height 3.9 cm Aorta at Sinotubular Diameter 2.2 cm IVC Diameter 1.6 cm M-MODE Aortic Annulus Diameter 3.0 cm LA Ao Ratio MM 1.2 MV E Point Septal Separation 0.6 cm DOPPLER AV Peak Velocity 172.7 cm/s LVOT Peak Velocity 104.0 cm/s AV Area Cont Eq vti 1.8 cm squared AV Area Cont Eq pk 2.0 cm squared MV Peak Velocity 133.0 cm/s MV Area PHT 5.0 cm squared Mitral E to A Ratio 0.9 MV E' Velocity 50.0 cm/s Mitral E to MV E' Ratio 10.7 Mitral E to LV E' Lateral Ratio 10.1 Mitral E to LV E' Septal Ratio 11.5 Right Atrial Pressure 3.0 mmHg PV Peak Velocity 118.3 cm/s RV Acceleration Time 0.1 s RV Ejection Time 0.2 s RV AcT/ET 0.3 FINDINGS Left Ventricle Left ventricle is normal in size. LV systolic function is normal with EF of 55 to 60%. No regional wall motion abnormalities are seen. Grade 1 diastolic dysfunction Right Ventricle Normal in size and function Right Atrium Normal in size Left Atrium Normal in size Mitral Valve Structurally normal mitral valve. Aortic Valve Grossly normal. No significant stenosis. Atleast mild aortic regurgitation is seen. Tricuspid Valve Mild tricuspid regurgitation. Insufficient TR jet to calculate RVSP. Pulmonic Valve Not well-visualized Pericardium Normal Aorta Normal in size IVC Appears to be normal CONCLUSIONS LV systolic function is normal with EF of 55 to 60%. Grade 1 disatolic dysfunction Atleast mild aortic regurgitation. Mild tricuspid regurgitation. Compared to prior echocardiogram from 2021, patient now has mild aortic regurgitation Naveed Shultz MD (Electronically Signed) Final Date: 06 April 2023 08:41 S
[2023-04-05] MEDS: enoxaparin 100 mg/mL Syringe SUBCUT (14:09)
[2023-04-05] MEDS: insulin glargine 100 units/1 mL 80 UNIT SUBCUT (17:25)
[2023-04-05] MEDS: insulin lispro 100 unit/1 mL SUBCUT (17:26)
[2023-04-05 17:35] LABS: Glucose Point of Care 204 mg/dL (70-110)
[2023-04-05 20:22] LABS: Glucose Point of Care 132 mg/dL (70-110)
[2023-04-05] MEDS: budesonide 0.5 mg/2 mL Neb INHALATION (21:10)
[2023-04-05] MEDS: sodium chloride 0.9% 1,000 ML 75 ML IV (22:55)
[2023-04-06] VITALS (52 sets, daily range): BP systolic 110–180; BP diastolic 73–107; PULSE 70–100; RESP 11–27; TEMP 36.6–36.9; O2SAT 67–96; BMI 35.6
[2023-04-06] MEDS: enoxaparin 100 mg/mL Syringe SUBCUT (01:39)
[2023-04-06] MEDS: acetaminophen 325 mg Tablet 650 MG PO (02:50)
[2023-04-06 04:00] LABS: Basophils # 0.1 10^3/uL (0.0-0.1); Basophils % 0.6 %; Eosinophils # 0.2 10^3/uL (0.0-0.8); Eosinophils % 2.3 %; Hematocrit 41.5 % (37-53); Lymphocytes # 2.9 10^3/uL (0.8-4.8); Mean Corpuscular Hemoglobin 28.9 pg (27-33); Mean Platelet Volume 9.7 fL (7.4-10.4); Monocytes # 0.9 10^3/uL (0.2-0.9); Monocytes % 10.8 %; Neutrophils # 4.39 10^3/uL (1.8-7.7); Neutrophils % 52.1 %; Nucleated Red Blood Cells % 0 %; Platelet Count 259 10^3/cmm (157-399); Red Blood Count 4.88 10^6/uL (3.85-5.65); Red Cell Distribution Width 12.7 % (12.1-15.1); White Blood Count 8.42 10^3/uL (3.29-11.43)
[2023-04-06 04:30] LABS: Alanine Aminotransferase 11 U/L (0-41); Albumin Level 3.6 g/dL (3.5-5.2); Alkaline Phosphatase 112 U/L (40-130); Anion Gap 13.6 (5-19); Aspartate Amino Transferase 11 U/L (0-40); Blood Urea Nitrogen 24 mg/dL (6-20); Calcium 8.4 mg/dL (8.5-10.5); Carbon Dioxide 24 mmol/L (22-29); Chloride 102 mmol/L (98-107); Globulin 2.9 g/dL (1.3-4.6); Glomerular Filtration Rate 56.7 mL/min (90-130); Glucose 107 mg/dL (65-115); Magnesium 2.1 mg/dL (1.7-2.3); Osmolality Calculated 287 mOsm/kg (285-295); Potassium 3.6 mmol/L (3.5-5.1); Sodium 136 mmol/L (136-145); Total Bilirubin 0.5 mg/dL (0.15-1.2); Total Protein 6.5 g/dL (6.6-8.7)
[2023-04-06] MEDS: diphenhydrAMINE 50 mg Capsule PO (06:30)
[2023-04-06] MEDS: aspirin 81 mg EC Tablet PO (06:30)
[2023-04-06 06:48] LABS: Glucose Point of Care 81 mg/dL (70-110)
--- NOTE | 2023-04-06 07:00 | XACV_ITS ---
Exam Room: [facility] Ht: 165 cm Wt: 97 kg BSA: 2.15 m2 Gender: Male : 1965 Any Known Allergies: No known allergies Exam Priority: Routine Procedure(s): Procedure Description: Diagnostic procedure Procedure Description: Left Heart Catheterization Procedure Description: Coronary Angiography Procedure Description: Pressure Wire Diagnostic Cath Status: Urgent Diagnostic Findings * Left Main has no significant disease. * Left Anterior Descending has mild to moderate luminal irregularities.. * Circumflex has no significant disease. * Mid Right Coronary Artery: moderate 50% stenosis, LANA: 3 flow. Prior proximal to mid vessel prior stent is patent. * Coronary angiography shows right dominance. Interventional Findings * Procedure detail: We engaged RCA with JR4 guide catheter. IV heparin was administered to maintain anticoagulation. After normalization, IFR wire was advanced into the distal vessel. iFR value of 0.96 was obtained. As it was nonischemic, medical therapy was decided. Final angiogram was performed that showed no complications. Guidewire and guide catheter were removed. Patient left the Conservator Artifacts in a stable condition.. Conclusions 1. Moderate RCA 2. stenosis s/p IFR that is nonischemic.. Recommendations * Aggressive risk factor modification. * Outpatient cardiology follow up. Interventional RX Recommendation: medical therapy and/or counseling Anticoagulation: Heparin Pressures Phase:Rest AO : 80 / 66 ( 75 ) @ 8:12:00 AM 117 / 74 ( 89 ) @ 8:16:00 AM 116 / 72 ( 88 ) @ 8:16:00 AM 103 / 89 ( 96 ) @ 8:21:00 AM LV : 126 / 0 / 20 @ 8:16:00 AM 129 / 1 / 22 @ 8:16:00 AM Valves Phase:DefaultPhase AV : 12.0 @ 8:43:56 AM 12.0 @ 8:43:56 AM AV Mean Gradient: 15.0 @ 8:43:56 AM Clinical Evaluation EBL: 5mL-10mL Procedural Details Pre-Procedure Time Out. Identified patient by full name and date of as verbalized by the patient/guarantor. Does the consent match the physician's order: Yes. Accurate & Complete Informed Consent: Yes. Inpatient/Outpatient History & Physical on Chart: Yes. If H&P is completed, is and addenduem needed: No; If yes, is the addendum complete: N/A. Visualize and Verify Site with Patient/Guarantor: N/A. Relevant Radiology Images available: Yes. Pre-op teaching completed and patient verbalized understanding. The risks, benefits, and alternatives of sedation and/or procedure were discussed by physician. The patient agrees to continue. Procedure started. [facility] Clinical Fraility Score: 4: Vulnerable. Conservator Artifacts Indications: Worsening Angina. Chest Pain Symptom Assessment: Typical Angina Symptoms. Cardiovascular Instability: Yes, if yes, Persistant Ischemic Symptoms. Correct patient, site and procedure confirmed by cath team. Current diagnosis: Unstable angina. PERRLA. Strong, equal hand special education resource teacher bilaterally. Lungs clear x 5 lobes. IV Site on Arrival: 20 gauge in the right anticubital. IV Fluids: 0.9% NaCl at KVO. 800 mL infused prior to laboratory tester. Pre Procedural Pulses: right radial was 2+. Pre Procedural Pulses: bilateral dorsalis pedis was 2+. Oxygen started at 2liters/min via nasal canula. right groin was prepped with chloroprep then draped in the usual sterile fashion. right radial was prepped with chloroprep then draped in the usual sterile fashion. Physician notified. Baseline sample Acquired. HR: 78 BPM. Physician arrived. Physician scrubbed in. Immediate Pre-Procedure Time Out. Correct Patient: Yes; Correct Procedure: Yes; Correct Site: Yes; Correct Patient Position: Yes; Correct Supplies: Yes; Dried Flammable Prep: Yes; Blood Products Available: N/A;. Lidocaine 1% infiltrated to the right radial. Admit Source: In Patient. Arterial access obtained. A 5 gibraltarian TIG catheter in over wire. Multiple views taken of left coronary artery. Catheter redirected to the RCA. Multiple views taken of right coronary artery. Catheter advanced across the LV. EDP Sample taken: LV 126/-1,20; HR: 77 BPM; SpO2: 96%. Pullback taken: LV 129/1,22; AO 117/74(89); Mean: 15mmHg, Peak to Peak: 12mmHg, SEP: 8sec/min; HR: 78 BPM; SpO2: 95%. Catheter removed over the exchange wire. 6 gibraltarian JR 4 guide catheter was inserted over the wire. IFR guidewire was advanced through the guide catheter to lesion in the mid RCA. IFR Spot of Mid RCA 0.94, pullback taken. Wire out. Guide catheter out. Physician scrubbed out. A TR Band was successful obtaining hemostatsis at the Right Radial artery insertion site. Post Procedure: Pulses reassessed and unchanged. PERRLA. Strong, equal hand special education resource teacher bilaterally. No VTE prophylaxis required. Medication's Wasted: Lidocaine 1% = 1 mL. Medication's Wasted: Heparin = 1000 u. Medication's Wasted: Nitro = 49.8 mg. Medication's Wasted: Other = Versed 1 mg. Medication's Wasted: Other = Fentanyl 50 mcg. Total IV fluids: 37 mL. Post-op diagnosis: Moderate stenosis of Mid RCA post IFR measurements. Complications: none. Estimated blood loss: 5mL-10mL. Responsiveness - Normal response to verbal stimuli; alert and oriented, PERRLA. Airway - Unaffected, no intervention required; spontaneous ventilation. Circulation: W/N/L, pulses unchanged. Nausea/Vomiting: No. Procedure completed. Patient transferred by wheelchair to 1st floor. Vital chart was stopped. Access Site Site: Right Radial artery Sheath Size: 6 Fr Hemostasis Method: TR Band Hemostasis Success: Successful Procedure Medications Start: 8:03 AM Stop: 8:03 AM Medication: Versed Amount: 1 mg Route: I.V. Start: 8:03 AM Stop: 8:03 AM Medication: Fentanyl Amount: 50 mcg Route: I.V. Start: 8:08 AM Stop: 8:08 AM Medication: Nitrogylcerin Amount: 200 mcg Route: I.A. I, the attending physician, have reviewed and verified all procedure medications. Yes, all medications given per verbal order History/Risk Factors Hypertension: Yes Dyslipidemia: Yes Peripheral Arterial Disease (PAD): No Myocardial Infarction (MA): No Obesity: Yes Renal Disease: No Tobacco Use: Current/Recent(w/in 1 year) Prior Interventions PCI: Yes CABG: No Valve Surgery: No Date of PCI: 10/18/2018 Report Signatures Finalized by Naveed Shultz MD on 04/20/2023 08:48 PM
--- NOTE | 2023-04-06 07:33 | PC.NURSE ---
250 cc iv ns bolus given per t.o. dr ang.given from current ivf's running.
--- NOTE | 2023-04-06 07:50 | W.PM.OPSUD ---
Surgery/Procedure H&P Update DATE OF PROCEDURE: April 06, 2023 DATE H&P PERFORMED: 04/06/22 H&P UPDATE INFORMATION: I have reviewed H&P completed within last 30 days, I have examined patient prior to procedure and No changes to prior documentation PREOP DIAGNOSIS: Worsening angina PRIMARY INDICATION FOR PROCEDURE: Worsening angina PLANNED PROCEDURE: Operation Date: 04/06/23 08:00 Proposed Procedures p Cardiac Catheterization(Not Applicable) - Naveed Shultz M.D Possible percutaneous coronary intervention PATIENT REASSESSED PRIOR TO SEDATION, WITH NO CHANGE NOTED: Yes PHYSICAL EXAM: alert, oriented x 3, clear to auscultation bilaterally and regular rate & rhythm AIRWAY EVAL/ANESTHESIA PLAN: normal airway, ASA III, Local Anesthesia, Risks, benefits & alternatives of sedation and/or procedure discussed and Patient agrees to continue as planned ADDITIONAL INFORMATION: Moderate sedation
--- NOTE | 2023-04-06 07:52 | P.PN_ITS ---
Subjective 2 Subjective: Patient had coronary angiography performed that shows patent prior RCA stent. Moderate mid RCA stenosis that underwent IFR which is nonischemic. Vitals/I&O/Wt Last Vital Signs Temp 98.5 F 04/06/23 04:00 Pulse 81 04/06/23 06:00 Resp 27 H 04/06/23 04:00 BP 143/76 04/06/23 04:00 Pulse Ox 93 04/06/23 04:00 O2 Del Method Room Air 04/06/23 04:00 04/05/23 04/06/23 04/06/23 22:59 06:59 14:59 Intake Total 1450 / 1450 0 / 1450 Balance 1450 / 1450 0 / 1450 Weight last 48 hrs Weight 214 lb Weight 214 lb Weight 214 lb Physical Exam 2 Narrative: GENERAL: Patient is alert, awake and oriented x3. [] NECK: No jugular vein distension. [] HEENT: No cyanosis. No icterus. No pallor. [] HEART: Regular S1 and S2. No murmur, rub or gallop. [] LUNGS: Clear to auscultate bilaterally. [] CENTRAL NERVOUS SYSTEM: Grossly nonfocal. [] EXTREMITIES: Lower extremities with no edema bilaterally. Data 04/06/23 03:48 04/06/23 03:48 A&P Assessment and plan (1) Unstable angina: (2) CAD (coronary artery disease): Qualifiers: Coronary Disease-Associated Artery/Lesion type: [place] artery [place] vs. transplanted heart: [place] heart Associated angina: with unspecified angina Qualified Code(s): I25.119 - Atherosclerotic heart disease of [place] coronary artery with unspecified angina pectoris (3) Dyslipidemia: (4) Diabetes: Qualifiers: Diabetes mellitus type: type 2 Diabetes mellitus terminal gauger insulin use: with senior living use Diabetes mellitus complication status: with other specified complication Qualified Code(s): E11.69 - Type 2 diabetes mellitus with other specified complication; Z79.4 - care home (current) use of insulin Plan Patient's chest pain is not secondary to CAD. Likely secondary to uncontrolled blood pressure. If continues having chest discomfort without resolution after blood pressure is controlled, may consider CTA to rule out aortic dissection Creatinine mildly elevated today. IV fluids. Monitor renal function Thank you for involving us with care of this patient. We will continue to follow. Please call with questions. Attestations 2 Medical Necessity Statement*: Care expected to cross 2 midnights. Coding Level of Care Code Acute Code for g Fwd Diagnoses Unstable angina I20.0 Coronary artery disease involving [place] coronary artery of [place] heart with angina pectoris I25.119 Coronary Disease-Associated Artery/Lesion type: [place] artery [place] vs. transplanted heart: [place] heart Associated angina: with unspecified angina Dyslipidemia E78.5 Type 2 diabetes mellitus with other specified complication, with long-term current use of insulin E11.69; Z79.4 Diabetes mellitus type: type 2 Diabetes mellitus terminal gauger insulin use: with terminal gauger use Diabetes mellitus complication status: with other specified complication
--- NOTE | 2023-04-06 07:52 | PC.NURSE ---
to cardiac pharmacy laboratory technician via w/c at this time
[2023-04-06 09:05] LABS: Glucose Point of Care 94 mg/dL (70-110)
[2023-04-06] MEDS: pantoprazole DR 40 mg Tablet PO (09:08)
[2023-04-06] MEDS: PARoxetine 20 mg Tablet 40 MG PO (09:08)
[2023-04-06] MEDS: clopidogrel 75 mg Tablet PO (09:08)
[2023-04-06] MEDS: atorvastatin 40 mg Tablet PO (09:08)
[2023-04-06] MEDS: lisinopril 20 mg Tablet 40 MG PO (09:09)
--- NOTE | 2023-04-06 09:30 | PC.NURSE ---
received from cardiac cath lab tech at 0840 via w/c.report received.pt is alert and awake and oriented x 4.sr on monitor.denies pain at present.right wrist with tr band on and inflated.no hematoma noted.right hand is warm to touch and with brisk capillary refill.palpable radial pulse noted distal to tr band.pt instructed in activity restrictions s/p radial artery procedure...and instructed to notify staff for any bleeding,pain,numbness...or for any concerns at all.pt verb understanding of instructions.
[2023-04-06 12:16] LABS: Glucose Point of Care 162 mg/dL (70-110)
[2023-04-06] MEDS: insulin lispro 100 unit/1 mL SUBCUT ×3 (12:32→20:42)
[2023-04-06] MEDS: sodium chloride 0.9% 1,000 ML 75 ML IV (12:34)
--- NOTE | 2023-04-06 14:06 | PM.PN ---
Subjective Subjective: Seen this morning. No acute events overnight. Patient is chest pain-free. Vitals/I&O/Wt Last Vital Signs Temp 98.5 F 04/06/23 04:00 Pulse 82 04/06/23 13:46 Resp 11 L 04/06/23 13:46 BP 149/91 04/06/23 13:46 Pulse Ox 94 04/06/23 13:46 O2 Del Method Room Air 04/06/23 04:00 04/05/23 04/06/23 04/06/23 22:59 06:59 14:59 Intake Total 1450 / 1450 0 / 1450 1720 / 1720 Balance 1450 / 1450 0 / 1450 1720 / 1720 Weight last 48 hrs Weight 97.069 kg Weight 97.069 kg Weight 97.069 kg Physical Exam Narrative: General: Alert oriented x3, patient seen sitting up in bed appearing comfortable at this time, chest pain-free. HEENT: Normocephalic, atraumatic, EOMI, on room air. Cardio: Regular rate rhythm, normal S1-S2, Respiratory: Good bilateral air entry, no wheezes no rhonchi appreciated GI: Abdomen soft, nontender, nondistended, bowel sounds + Behavior: Appropriate and cooperative Extremities: Pulses 2+, no edema, no cyanosis Data 04/06/23 03:48 04/06/23 03:48 A&P Assessment and plan (1) Unstable angina: (2) CAD (coronary artery disease): Qualifiers: Coronary Disease-Associated Artery/Lesion type: [place] artery [place] vs. 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 ? Delta troponin negative. ? Placed on ACS protocol. ? Patient is status post angiogram. Patent prior RCA stent. Moderate mid RCA stenosis that underwent IFR which is nonischemic. ? Plan to monitor patient in the hospital today. 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 ? Will need to control blood pressure. Add hydralazine 50 3 times daily. Lisinopril 40 once daily. ? Continue aspirin, Plavix, atorvastatin ? Stop hydrochlorothiazide ? Hold metformin ? Lantus 50 units in a.m., 80 units at p.m. ? Place in cardiac diet diabetic diet now. ? Continue to monitor in cardiac stepdown unit. Placed on telemetry. ? BNP, hemoglobin A1c, TSH reviewed. Check lipid panel ? Cardiology consulted, appreciate recommendations ? Echo shows grade 1 diastolic dysfunction, EF 55 to 60%. Mild aortic regurgitation now present. ? Continue IV fluids Consistent carbohydrate, cardiac diet DVT prophylaxis: Lovenox 40 daily. Attestations Medical Necessity Statement*: Continue to monitor in hospital for above management. Diagnoses Unstable angina I20.0 Coronary artery disease involving [place] coronary artery of [place] heart with angina pectoris I25.119 Coronary Disease-Associated Artery/Lesion type: [place] artery [place] vs. transplanted heart: [place] heart Associated angina: with unspecified angina Dyslipidemia E78.5 Type 2 diabetes mellitus with other specified complication, with long-term current use of insulin E11.69; Z79.4 Diabetes mellitus type: type 2 Diabetes mellitus residential insulin use: with residential use Diabetes mellitus complication status: with other specified complication Chronic back pain greater than 3 months duration M54.9; G89.29
[2023-04-06] MEDS: hyDRALAzine 50 mg Tablet PO ×2 (14:21→20:42)
--- NOTE | 2023-04-06 14:48 | PC.NURSE ---
tr band slowly deflated and eventually removed at 1300.no hematoma noted.site dressed with 2x2 gauze and secured with opsite drsg.pt instructed in activity restrictions s/p tr band removal..and instructed to notify staff for any bleeding,pain,numbness...or for any concerns at all.pt verb understanding of instructions
[2023-04-06 17:31] LABS: Glucose Point of Care 162 mg/dL (70-110)
[2023-04-06] MEDS: insulin glargine 100 units/1 mL 80 UNIT SUBCUT (18:08)
[2023-04-06 20:42] LABS: Glucose Point of Care 152 mg/dL (70-110)
[2023-04-07] VITALS (16 sets, daily range): BP systolic 107–185; BP diastolic 63–120; PULSE 72–106; RESP 11–23; TEMP 36.6–36.8; O2SAT 90–95
[2023-04-07] MEDS: sodium chloride 0.9% 1,000 ML 75 ML IV (02:11)
[2023-04-07] MEDS: acetaminophen 325 mg Tablet 650 MG PO (04:09)
[2023-04-07 05:27] LABS: Basophils # 0.1 10^3/uL (0.0-0.1); Basophils % 0.5 %; Eosinophils # 0.1 10^3/uL (0.0-0.8); Eosinophils % 1.1 %; Hematocrit 42.3 % (37-53); Lymphocytes # 2.7 10^3/uL (0.8-4.8); Lymphocytes % 27.2 %; Mean Corpuscular HGB Conc 33.6 g/dL (30-55); Mean Corpuscular Hemoglobin 29.1 pg (27-33); Mean Corpuscular Volume 86.7 fl (82-101); Mean Platelet Volume 9.9 fL (7.4-10.4); Monocytes # 0.8 10^3/uL (0.2-0.9); Monocytes % 8.1 %; Neutrophils # 6.18 10^3/uL (1.8-7.7); Neutrophils % 62.9 %; Nucleated Red Blood Cells % 0 %; Platelet Count 268 10^3/cmm (157-399); Red Blood Count 4.88 10^6/uL (3.85-5.65); Red Cell Distribution Width 12.7 % (12.1-15.1); White Blood Count 9.83 10^3/uL (3.29-11.43)
[2023-04-07 05:45] LABS: Anion Gap 13.5 (5-19); Blood Urea Nitrogen 18 mg/dL (6-20); Calcium 8.5 mg/dL (8.5-10.5); Carbon Dioxide 23 mmol/L (22-29); Chloride 106 mmol/L (98-107); Glomerular Filtration Rate 76.7 mL/min (90-130); Glucose 76 mg/dL (65-115); Magnesium 2.1 mg/dL (1.7-2.3); Osmolality Calculated 289 mOsm/kg (285-295); Potassium 3.5 mmol/L (3.5-5.1); Sodium 139 mmol/L (136-145)
[2023-04-07 05:49] LABS: Glucose Point of Care 64 mg/dL (70-110)
[2023-04-07] MEDS: aspirin 81 mg EC Tablet PO (05:59)
[2023-04-07] MEDS: lisinopril 20 mg Tablet 40 MG PO (06:41)
[2023-04-07] MEDS: hyDRALAzine 50 mg Tablet PO ×2 (06:41→10:13)
--- NOTE | 2023-04-07 06:42 | PC.NURSE ---
pt blood pressure elevated this am. nurse called physician and was given orders to give bp am meds early.
--- NOTE | 2023-04-07 08:17 | XRR_ITS ---
PROCEDURE INFORMATION: Exam: XR Abdomen Exam date and time: 04/07/2023 9:54 AM Age: 58 years old Clinical indication: Bloating; Abdominal pain; Generalized; Prior surgery; Surgery date: 6+ months; Surgery type: Heart stents 4 years ago; Additional info: Abdominal bloating TECHNIQUE: Imaging protocol: Radiologic exam of the abdomen. Views: Frontal supine view of the abdomen. 1 View. COMPARISON: CT abdomen pelvis w con* [id number] 04/08/2021 7:07 PM FINDINGS: Gastrointestinal tract: There mild is gaseous distention of the stomach. Bowel-gas pattern is otherwise nonspecific. Bones/joints: Unremarkable. XR/XR KUB portable [id number] IMPRESSION: Mild gastric gaseous distention.
--- NOTE | 2023-04-07 08:17 | PM.PN ---
Subjective Subjective: seen this am BP 180/120 this am hydralazine 10 iv x1 given complains of sob and abdominal bloating kub ordered Vitals/I&O/Wt Last Vital Signs Temp 98.0 F 04/07/23 04:00 Pulse 74 04/07/23 06:42 Resp 23 H 04/07/23 06:42 BP 180/120 04/07/23 06:42 Pulse Ox 94 04/07/23 06:42 O2 Del Method Room Air 04/07/23 06:42 04/06/23 04/07/23 04/07/23 22:59 06:59 14:59 Intake Total 360 / 2080 1000 / 3080 Balance 360 / 2080 1000 / 3080 Weight last 48 hrs Weight 97.522 kg Weight 97.069 kg Weight 97.069 kg Physical Exam Narrative: General: Alert oriented x3, patient seen sitting up in bed appearing comfortable at this time, HEENT: Normocephalic, atraumatic, EOMI, on room air. Cardio: Regular rate rhythm, normal S1-S2, Respiratory: Good bilateral air entry, no wheezes no rhonchi appreciated GI: Abdomen soft, nontender, nondistended, bowel sounds + Behavior: Appropriate and cooperative Extremities: Pulses 2+, no edema, no cyanosis Data 04/07/23 04:40 04/07/23 04:40 A&P Assessment and plan (1) CAD (coronary artery disease): Qualifiers: Associated angina: with unspecified angina Coronary Disease-Associated Artery/Lesion type: [place] artery [place] vs. transplanted heart: [place] heart Qualified Code(s): I25.119 - Atherosclerotic heart disease of [place] coronary artery with unspecified angina pectoris (2) Dyslipidemia: (3) Diabetes: Qualifiers: Diabetes mellitus complication status: with other specified complication Diabetes mellitus halfway insulin use: with halfway use Diabetes mellitus type: type 2 Qualified Code(s): E11.69 - Type 2 diabetes mellitus with other specified complication; Z79.4 - group home (current) use of insulin (4) Chronic back pain greater than 3 months duration: Plan #Chest Pain?resolved #History of CAD status post PCI x 1 CARLA to RCA #Hypertension #Diabetes mellitus type 2 #COPD, not in exacerbation at this time #CKD stage III #Mild KAILA. - REsolved ? Delta troponin negative. ? Placed on ACS protocol. ? Patient is status post angiogram. Patent prior RCA stent. Moderate mid RCA stenosis that underwent IFR which is nonischemic. ? Will need to control blood pressure. Increase hydralazine 100 3 times daily. Lisinopril 40 once daily. Add amlodipine 5 ? Continue aspirin, Plavix, atorvastatin ? Stop hydrochlorothiazide ? Hold metformin ? Lantus 50 units in a.m., 80 units at p.m. Sugars have been low. Adjust insulin. Change lantus 50 in AM to 40 units and PM dose to 65 units. ? Place in cardiac diet diabetic diet now. ? Continue to monitor in cardiac stepdown unit. Placed on telemetry. ? BNP, hemoglobin A1c, TSH reviewed. Check lipid panel ? Cardiology consulted, appreciate recommendations ? Echo shows grade 1 diastolic dysfunction, EF 55 to 60%. Mild aortic regurgitation now present. ? stop IV fluids Consistent carbohydrate, cardiac diet DVT prophylaxis: Lovenox 40 daily. Attestations Medical Necessity Statement*: Continue to monitor in hospital for above management. Diagnoses Coronary artery disease involving [place] coronary artery of [place] heart with angina pectoris I25.119 Associated angina: with unspecified angina Coronary Disease-Associated Artery/Lesion type: [place] artery [place] vs. transplanted heart: [place] heart Dyslipidemia E78.5 Type 2 diabetes mellitus with other specified complication, with long-term current use of insulin E11.69; Z79.4 Diabetes mellitus complication status: with other specified complication Diabetes mellitus intermission coordinator insulin use: with halfway use Diabetes mellitus type: type 2 Chronic back pain greater than 3 months duration M54.9; G89.29
--- NOTE | 2023-04-07 08:20 | XRR_ITS ---
PROCEDURE INFORMATION: Exam: XR Chest Exam date and time: 04/07/2023 9:49 AM Age: 58 years old Clinical indication: Shortness of breath; Prior surgery; Surgery date: 6+ months; Surgery type: Stents; Patient HX: Pain in abdomen and chest since this morning. ; Additional info: SOB TECHNIQUE: Imaging protocol: Radiologic exam of the chest. Views: 1 view. COMPARISON: CR (CHEST, ) 04/05/2023 4:56 AM FINDINGS: Lungs: Unremarkable. No consolidation. Pleural spaces: Unremarkable. No pleural effusion. No pneumothorax. Heart/Mediastinum: Unremarkable. No cardiomegaly. Bones/joints: Unremarkable. XR/XR chest 1V portable [id number] IMPRESSION: No acute findings.
--- NOTE | 2023-04-07 08:25 | PM.PN ---
Subjective Subjective: Patient's coronary angiography showed prior patent stent. Moderate disease of RCA underwent IFR that was negative for ischemia. No chest pain. Blood pressure still elevated. Vitals/I&O/Wt Last Vital Signs Temp 98.0 F 04/07/23 04:00 Pulse 74 04/07/23 06:42 Resp 23 H 04/07/23 06:42 BP 180/120 04/07/23 06:42 Pulse Ox 94 04/07/23 06:42 O2 Del Method Room Air 04/07/23 06:42 04/06/23 04/07/23 04/07/23 22:59 06:59 14:59 Intake Total 360 / 2080 1000 / 3080 Balance 360 / 2080 1000 / 3080 Weight last 48 hrs Weight 215 lb Weight 214 lb Weight 214 lb Physical Exam Narrative: GENERAL: Patient is alert, awake and oriented x3. [] NECK: No jugular vein distension. [] HEENT: No cyanosis. No icterus. No pallor. [] HEART: Regular S1 and S2. No murmur, rub or gallop. [] LUNGS: Clear to auscultate bilaterally. [] CENTRAL NERVOUS SYSTEM: Grossly nonfocal. [] EXTREMITIES: Lower extremities with no edema bilaterally. Data 04/08/23 03:35 04/08/23 03:35 A&P Assessment and plan (1) Unstable angina: (2) CAD (coronary artery disease): Qualifiers: Coronary Disease-Associated Artery/Lesion type: [place] artery [place] vs. transplanted heart: [place] heart Associated angina: with unspecified angina Qualified Code(s): I25.119 - Atherosclerotic heart disease of [place] coronary artery with unspecified angina pectoris (3) Dyslipidemia: (4) Diabetes: Qualifiers: Diabetes mellitus type: type 2 Diabetes mellitus computer terminal operator insulin use: with jail use Diabetes mellitus complication status: with other specified complication Qualified Code(s): E11.69 - Type 2 diabetes mellitus with other specified complication; Z79.4 - [facility] (current) use of insulin Plan Patient is overall doing well. We will uptitrate her antihypertensive regimen for better control of blood pressure Aggressive risk factor modification. Thank you for involving us with care of this patient. We will continue to follow. Please call with questions. Attestations Medical Necessity Statement*: Care expected to cross 2 midnights. Coding Level of Care Code Acute Code for Chg Fwd Diagnoses Unstable angina I20.0 Coronary artery disease involving [place] coronary artery of [place] heart with angina pectoris I25.119 Coronary Disease-Associated Artery/Lesion type: [place] artery [place] vs. transplanted heart: [place] heart Associated angina: with unspecified angina Dyslipidemia E78.5 Type 2 diabetes mellitus with other specified complication, with long-term current use of insulin E11.69; Z79.4 Diabetes mellitus type: type 2 Diabetes mellitus computer terminal operator insulin use: with computer terminal operator use Diabetes mellitus complication status: with other specified complication
[2023-04-07 08:28] LABS: Glucose Point of Care 106 mg/dL (70-110)
[2023-04-07] MEDS: PARoxetine 20 mg Tablet 40 MG PO (08:49)
[2023-04-07] MEDS: atorvastatin 40 mg Tablet PO (08:49)
[2023-04-07] MEDS: pantoprazole DR 40 mg Tablet PO (08:49)
[2023-04-07] MEDS: clopidogrel 75 mg Tablet PO (08:50)
[2023-04-07] MEDS: budesonide 0.5 mg/2 mL Neb INHALATION (09:01)
[2023-04-07] MEDS: ipratropium-albuterol 3 mL Neb INHALATION (09:01)
[2023-04-07] MEDS: amlodipine 5 mg Tablet PO (10:13)
[2023-04-07 12:04] LABS: Glucose Point of Care 132 mg/dL (70-110)
[2023-04-07] MEDS: hyDRALAzine 50 mg Tablet 100 MG PO ×2 (16:00→20:42)
[2023-04-07 16:41] LABS: Glucose Point of Care 157 mg/dL (70-110)
[2023-04-07] MEDS: insulin lispro 100 unit/1 mL SUBCUT (18:17)
[2023-04-07] MEDS: insulin glargine 100 units/1 mL 65 UNIT SUBCUT (18:18)
[2023-04-07 21:40] LABS: Glucose Point of Care 131 mg/dL (70-110)
[2023-04-08] VITALS (7 sets, daily range): BP systolic 121–151; BP diastolic 68–73; PULSE 85–96; RESP 17–18; TEMP 36.4–36.9; O2SAT 93–97
[2023-04-08 03:48] LABS: Basophils % 0.4 %; Eosinophils # 0.1 10^3/uL (0.0-0.8); Eosinophils % 0.6 %; Hematocrit 42.1 % (37-53); Lymphocytes # 2.4 10^3/uL (0.8-4.8); Lymphocytes % 21.6 %; Mean Corpuscular HGB Conc 32.8 g/dL (30-55); Mean Corpuscular Hemoglobin 28.8 pg (27-33); Mean Corpuscular Volume 87.9 fl (82-101); Mean Platelet Volume 9.5 fL (7.4-10.4); Monocytes # 0.8 10^3/uL (0.2-0.9); Monocytes % 7.2 %; Neutrophils # 7.86 10^3/uL (1.8-7.7); Neutrophils % 69.9 %; Nucleated Red Blood Cells % 0 %; Platelet Count 293 10^3/cmm (157-399); Red Blood Count 4.79 10^6/uL (3.85-5.65); White Blood Count 11.24 10^3/uL (3.29-11.43)
[2023-04-08 04:05] LABS: Anion Gap 15.7 (5-19); Blood Urea Nitrogen 26 mg/dL (6-20); Calcium 8.8 mg/dL (8.5-10.5); Carbon Dioxide 22 mmol/L (22-29); Chloride 105 mmol/L (98-107); Glomerular Filtration Rate 44.6 mL/min (90-130); Glucose 69 mg/dL (65-115); Osmolality Calculated 291 mOsm/kg (285-295); Potassium 3.7 mmol/L (3.5-5.1); Sodium 139 mmol/L (136-145)
[2023-04-08] MEDS: aspirin 81 mg EC Tablet PO (06:21)
[2023-04-08] MEDS: insulin glargine 100 units/1 mL 40 UNIT SUBCUT (06:24)
[2023-04-08 07:03] LABS: Glucose Point of Care 118 mg/dL (70-110)
--- NOTE | 2023-04-08 07:52 | P.PN_ITS ---
Subjective 2 Subjective: Patient is doing well. no chest pain Vitals/I&O/Wt Last Vital Signs Temp 98.3 F 04/08/23 03:17 Pulse 88 04/08/23 06:00 Resp 18 04/08/23 03:17 BP 121/68 04/08/23 03:17 Pulse Ox 96 04/08/23 03:17 O2 Del Method Room Air 04/08/23 03:17 04/07/23 04/08/23 04/08/23 22:59 06:59 14:59 Intake Total 480 / 1237.5 180 / 1417.5 Balance 480 / 1237.5 180 / 1417.5 Weight last 48 hrs Weight 214 lb 8 oz Weight 215 lb Physical Exam 2 Narrative: GENERAL: Patient is alert, awake and oriented x3. [] NECK: No jugular vein distension. [] HEENT: No cyanosis. No icterus. No pallor. [] HEART: Regular S1 and S2. No murmur, rub or gallop. [] LUNGS: Clear to auscultate bilaterally. [] CENTRAL NERVOUS SYSTEM: Grossly nonfocal. [] EXTREMITIES: Lower extremities with no edema bilaterally. Data 04/08/23 03:35 04/08/23 03:35 A&P Assessment and plan (1) CKD stage 3 due to type 2 diabetes mellitus: (2) Unstable angina: (3) CAD (coronary artery disease): Qualifiers: Coronary Disease-Associated Artery/Lesion type: [place] artery [place] vs. 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 Will need close monitoring as outpatient. Continue fluids. Blood pressure is controlled. Thank you for involving us with care of this patient. Please call with questions. Attestations 2 Medical Necessity Statement*: Care expected to cross 2 midnights. Coding Level of Care Code Acute Code for Chg Fwd Diagnoses CKD stage 3 due to type 2 diabetes mellitus E11.22; N18.30 Unstable angina I20.0 Coronary artery disease involving [place] coronary artery of [place] heart with angina pectoris I25.119 Coronary Disease-Associated Artery/Lesion type: [place] artery [place] vs. transplanted heart: [place] heart Associated angina: with unspecified angina Dyslipidemia E78.5 Type 2 diabetes mellitus with other specified complication, with long-term current use of insulin E11.69; Z79.4 Diabetes mellitus type: type 2 Diabetes mellitus long-term insulin use: with long lines operator use Diabetes mellitus complication status: with other specified complication
[2023-04-08] MEDS: pantoprazole DR 40 mg Tablet PO (08:26)
[2023-04-08] MEDS: atorvastatin 40 mg Tablet PO (08:26)
[2023-04-08] MEDS: lisinopril 20 mg Tablet 40 MG PO (08:26)
[2023-04-08] MEDS: hyDRALAzine 50 mg Tablet 100 MG PO (08:27)
[2023-04-08] MEDS: clopidogrel 75 mg Tablet PO (08:27)
[2023-04-08] MEDS: PARoxetine 20 mg Tablet 40 MG PO (08:27)
[2023-04-08] MEDS: ipratropium-albuterol 3 mL Neb INHALATION (08:39)
[2023-04-08] MEDS: budesonide 0.5 mg/2 mL Neb INHALATION (08:39)
--- NOTE | 2023-04-08 11:00 | PM.DCS ---
Discharge Providers Date of Admission: 04/05/23 08:14 Date of Discharge: April 08, 2023 Attending Provider at Admission: Amanda Lyons MD Attending Provider at Discharge: Maggie Mojica MD Primary Care Provider: Niesha Hinds Diagnoses at Discharge Discharge Diagnosis (1) Unstable angina: Status: Acute (2) CAD (coronary artery disease): Status: Acute Qualifiers: Coronary Disease-Associated Artery/Lesion type: [place] artery [place] vs. 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 Reason for Visit Reason for Visit: CP Hospital Course Hospital Course 58-year-old male who was admitted for management evaluation of unstable angina, cardiology was consulted he was put on ACS protocol, coronary angiogram showed 50% stenosis of RCA no stent was placed medical management was recommended, patient remained hypertensive, creatinine jumped to 1.6 at the time of discharge, patient stating that he would like to follow-up outpatient with his primary care physician despite our recommendations to get IV fluids on 04/08 and wait till tomorrow to go home I have also recommended him to go see a community living instructor because of his chronic kidney disease, previously his creatinine has peaked up to 1.6 Considering his established coronary disease he may resume aspirin, atorvastatin, Plavix along with insulin. Hold off on meloxicam and lisinopril until next BMP Patient has remained hypertensive, will add amlodipine, hydralazine, metoprolol hold hydrochlorothiazide and lisinopril Physical Exam Narrative: Awake and alert Euvolemic DC 50 Pleasant cooperative S1, S2 Discharge Data Studies Completed and Pending Completed Studies During Hospitalization Category Date Time Status XR KUB portable [id number] Stat Exams 04/07/23 08:17 Completed XR chest 1V portable [id number] Stat Exams 04/05/23 04:39 Completed XR chest 1V portable [id number] Stat Exams 04/07/23 08:20 Completed CV. 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 Chest X-Ray 04/07/23 08:20 IMPRESSION: No acute findings. Laboratory Results WBC 11.24 10^3/uL (3.29-11.43) 04/08/23 03:35 RBC 4.79 10^6/uL (3.85-5.65) 04/08/23 03:35 Hgb 13.80 g/dL (11.27-16.99) 04/08/23 03:35 Hct 42.1 % (37-53) 04/08/23 03:35 MCV 87.9 fl (82-101) 04/08/23 03:35 MCH 28.8 pg (27-33) 04/08/23 03:35 MCHC 32.8 g/dL (30-55) 04/08/23 03:35 RDW 13.0 % (12.1-15.1) 04/08/23 03:35 Plt Count 293 10^3/cmm (157-399) 04/08/23 03:35 MPV 9.5 fL (7.4-10.4) 04/08/23 03:35 Neut % (Auto) 69.9 % 04/08/23 03:35 Lymph % (Auto) 21.6 % 04/08/23 03:35 [place] % (Auto) 7.2 % 04/08/23 03:35 Eos % (Auto) 0.6 % 04/08/23 03:35 Baso % (Auto) 0.4 % 04/08/23 03:35 Neut # (Auto) 7.86 10^3/uL (1.8-7.7) H 04/08/23 03:35 Lymph # (Auto) 2.4 10^3/uL (0.8-4.8) 04/08/23 03:35 [place] # (Auto) 0.8 10^3/uL (0.2-0.9) 04/08/23 03:35 Eos # (Auto) 0.1 10^3/uL (0.0-0.8) 04/08/23 03:35 Baso # (Auto) 0.0 10^3/uL (0.0-0.1) 04/08/23 03:35 Nucleated RBC % (auto) 0 % 04/08/23 03:35 Nucleated RBCs # 0.0 /100WBC 04/08/23 03:35 Sodium 139 mmol/L (136-145) 04/08/23 03:35 Potassium 3.7 mmol/L (3.5-5.1) 04/08/23 03:35 Chloride 105 mmol/L (98-107) 04/08/23 03:35 Carbon Dioxide 22 mmol/L (22-29) 04/08/23 03:35 Anion Gap 15.7 (5-19) 04/08/23 03:35 BUN 26 mg/dL (6-20) H 04/08/23 03:35 Creatinine 1.6 mg/dL (0.7-1.2) H 04/08/23 03:35 GFR Calculation 44.6 mL/min (90-130) L 04/08/23 03:35 Glucose 69 mg/dL (65-115) 04/08/23 03:35 POC Glucose 118 mg/dL (70-110) H 04/08/23 06:22 Estimat Average Glucose 192 04/05/23 04:37 Hemoglobin A1c 8.3 % (4.0-6.0) H 04/05/23 04:37 Calculated Osmolality 291 mOsm/kg (285-295) 04/08/23 03:35 Calcium 8.8 mg/dL (8.5-10.5) 04/08/23 03:35 Magnesium 2.1 mg/dL (1.7-2.3) 04/07/23 04:40 Total Bilirubin 0.5 mg/dL (0.15-1.2) 04/06/23 03:48 AST 11 U/L (0-40) 04/06/23 03:48 ALT 11 U/L (0-41) 04/06/23 03:48 Alkaline Phosphatase 112 U/L (40-130) 04/06/23 03:48 Troponin T Baseline 27 ng/L (0-15) H 04/05/23 04:37 Troponin T 120 Minute 28.39 ng/L (0-15) H 04/05/23 06:30 Delta Troponin T 1.39 ABS# (0-10) 04/05/23 06:30 Troponin T Hi Sens 6Hr 23.76 ng/L (0-15) H 04/05/23 10:13 Troponin T Hi Sens 6Hr Delta -3.24 ng/L (0-12) L 04/05/23 10:13 NT-Pro-B Natriuret Pep 40 pg/mL (0-125) 04/05/23 04:37 Total Protein 6.5 g/dL (6.6-8.7) L 04/06/23 03:48 Albumin 3.6 g/dL (3.5-5.2) 04/06/23 03:48 Globulin 2.9 g/dL (1.3-4.6) 04/06/23 03:48 Lipase 24 U/L (13-60) 04/05/23 04:37 TSH 1.48 uIU/mL (0.27-4.20) 04/05/23 04:37 Vitals Last Vital Signs Temp 97.6 F 04/08/23 08:00 Pulse 96 04/08/23 08:44 Resp 18 04/08/23 08:39 BP 151/73 04/08/23 08:00 Pulse Ox 93 04/08/23 08:39 O2 Del Method Room Air 04/08/23 08:39 Discharge Plan Discharge Patient Disposition: Home Condition: Stable Prescriptions: New hydralazine 50 mg tablet 50 mg PO BID Qty: 60 5RF metoprolol tartrate 25 mg tablet 25 mg PO BID Qty: 60 5RF amlodipine 10 mg tablet 10 mg PO DAILY Qty: 90 3RF Continued insulin aspart U-100 [Novolog FlexPen U-100 Insulin] 100 unit/mL (3 mL) insulin pen 17 unit SUBCUT TID Plavix 75 mg tablet 75 mg PO DAILY Qty: 30 6RF Hold Instructions: Resume on 12/09/19. resume 24 hrs after getting your radiology procedure cetirizine [Zyrtec] 10 mg Tablet 10 mg PO DAILY atorvastatin [Lipitor] 40 mg tablet 40 mg PO DAILY Qty: 30 0RF insulin glargine [Lantus U-100 Insulin] 100 unit/mL Solution 80 unit SUBCUT TID paroxetine HCl [Paxil] 40 mg Tablet 40 mg PO DAILY@08 omeprazole 20 mg Tablet,Delayed Release (Dr/Ec) 20 mg PO DAILY Aspir-81 81 mg Tablet,Delayed Release (Dr/Ec) 81 mg PO QAM amitriptyline 50 mg tablet 50 mg PO DAILY Nitrostat 0.4 mg Tablet, Sublingual 0.4 mg SUBLINGUAL Q5M PRN (Reason: Chest Pain) Rx Instructions: do not exceed 3 doses per episode Ventolin HFA 90 mcg/actuation HFA aerosol inhaler 2 puff INHALATION Q4H PRN (Reason: Shortness Of Breath) Symbicort 160-4.5 mcg/actuation HFA aerosol inhaler 2 puff INHALATION BID Trulicity 0.75 mg/0.5 mL pen injector 0.75 mg SUBCUT Q7D Rx Instructions: on friday Held hydrochlorothiazide 25 mg tablet 25 mg PO DAILY Hold Instructions: Resume on 04/29/23. lisinopril 40 mg tablet 40 mg PO BID Hold Instructions: Resume on 04/15/23. Discontinued metformin 500 mg tablet 500 mg PO BID@ meloxicam 15 mg Tablet 15 mg PO DAILY Discharge Orders: Discharge Order (Routine); Ordered 04/08/23 Ordered By: Maggie Mojica Referrals: Meghan Chaudhary FNP [Nurse Practitioner] - 04/15/23 9:15 am Niesha Hinds [Primary Care Provider] - 04/14/23 11:40 am Discharge Diet: Cardiac Discharge Activity: Increase activity as tolerated Patient Instructions: Coronary Artery Disease (DC), Heart Catheterization (DC), Chest Pain Stoplight, Opioid Safety, Post Angiogram Home Care Instructions Discharge Attestations Time Spent in Discharge Care*: greater than 30 min Quality Metrics Clinical Quality Measures [ No reported AMI, CVA or VTE this stay] Coding Level of Care Code Acute Code for [facility] Fwd Diagnoses Unstable angina I20.0 Coronary artery disease involving [place] coronary artery of [place] heart with angina pectoris I25.119 Coronary Disease-Associated Artery/Lesion type: [place] artery [place] vs. transplanted heart: [place] heart Associated angina: with unspecified angina Dyslipidemia E78.5 Type 2 diabetes mellitus with other specified complication, with long-term current use of insulin E11.69; Z79.4 Diabetes mellitus type: type 2 Diabetes mellitus care home insulin use: with care home use Diabetes mellitus complication status: with other specified complication
[2023-04-08 11:04] LABS: Glucose Point of Care 102 mg/dL (70-110)
--- NOTE | 2023-04-08 13:28 | PC.NURSE ---
discharge instruction given and explained.pt verb understanding of instructions.discharged ambulatory to exit at this time.friend to drive pt home
== END 2023-04-08 13:30 | disposition home or self-care (01) | DRG 287 ==
LOC: ER 08:54 → CSU 08:55
PROVIDERS: Emergency Medicine; Internal Medicine; Admitting Provider Internal Medicine; Emergency Provider Family Medicine; PCP Internal Medicine; Visit Provider Internal Medicine
PROC: 4A023N7 Measurement of Cardiac Sampling and Pressure, Left Heart, Percutaneous Approach (ICD-10-PCS; principal; 2023-04-06 08:00)
DX: I25.110 Atherosclerotic heart disease of native coronary artery with unstable angina pectoris (principal); N17.9 Acute kidney failure, unspecified; I12.9 Hypertensive chronic kidney disease with stage 1 through stage 4 chronic kidney disease, or unspecified chronic kidney disease; E11.22 Type 2 diabetes mellitus with diabetic chronic kidney disease; F17.220 Nicotine dependence, chewing tobacco, uncomplicated; N18.30 Chronic kidney disease, stage 3 unspecified; Z79.4 Long term (current) use of insulin; F41.9 Anxiety disorder, unspecified; E78.5 Hyperlipidemia, unspecified; J44.9 Chronic obstructive pulmonary disease, unspecified; G89.29 Other chronic pain; M54.9 Dorsalgia, unspecified; Z95.5 Presence of coronary angioplasty implant and graft
CPT/HCPCS: 36415; 36416; 71045; 74018; 80048; 80053; 82962; 83036; 83690; 83735; 83880; 84443; 84484; 85025; 93005; 93306; 93458; 93571; 94640; 96367; 96372; 96374; 96375; 96376; 99152; 99285; C1769; C1887; C1894; J1644; J1650; J1815; J2250; J2270; J2405; J3010; J3490; J7030; J7626; Q0163; Q9967

== ENCOUNTER → 2023-04-28 09:46 | Outpatient (BNVA) | payer MEDICAID, SELFPAY | PROVIDERS: PCP Internal Medicine; Visit Provider Nurse Practitioner Family | DX: I25.119 Atherosclerotic heart disease of native coronary artery with unspecified angina pectoris (principal); I10 Essential (primary) hypertension; F17.220 Nicotine dependence, chewing tobacco, uncomplicated | CPT/HCPCS: 99214 ==

== ENCOUNTER → 2023-06-11 14:52 | Outpatient (BNVA) | payer MEDICAID, SELFPAY | PROVIDERS: PCP Internal Medicine; Visit Provider Internal Medicine | DX: I25.119 Atherosclerotic heart disease of native coronary artery with unspecified angina pectoris (principal); I10 Essential (primary) hypertension; F17.220 Nicotine dependence, chewing tobacco, uncomplicated | CPT/HCPCS: 99214 ==

== ENCOUNTER → 2024-06-30 16:03 | Outpatient (BNVA) | payer MEDICAID, SELFPAY | PROVIDERS: PCP Internal Medicine; Visit Provider Internal Medicine | DX: I25.10 Atherosclerotic heart disease of native coronary artery without angina pectoris (principal); I10 Essential (primary) hypertension | CPT/HCPCS: 99214 ==

== ENCOUNTER 2025-01-24 09:19 | Outpatient (CLI) | payer MEDICAID, SELFPAY ==
--- NOTE | 2025-01-24 09:26 | MR_ITS ---
WS: [id number] MRI HEAD WITH CONTRAST TECHNIQUE: Sagittal T1, T2 axial, T2 axial FLAIR, axial susceptibility weighted imaging, axial diffusion weighted images, and coronal T2 images were obtained. Pre and post-T1 axial and post T1 coronal images. ADC and FSPGR images. CLINICAL INFORMATION: ATYPICAL FACIAL PAIN COMPARISON: None. FINDINGS: No evidence of restricted diffusion to suggest acute ischemia. Mild small vessel changes. Mild parenchymal volume loss. Normal vascular flow voids at the skull base. Paranasal sinuses and mastoid air cells are well aerated. Proximal seventh and cranial eighth nerves are normal. No evidence of enhancing IAC or CP angle mass. Normal trigeminal nerve root entry zones. 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 Incidental venous angioma LEFT frontal lobe inferiorly MR/MR head wo/w con [id number] IMPRESSION: 1. No evidence of restricted diffusion to suggest acute ischemia. 2. Mild small vessel changes with mild parenchymal volume loss. 3. No hemosiderin on susceptibility-weighted images. 4. Proximal 7th and 8th cranial nerves are normal in appearance. Normal trigem inal nerve root entry zones. 5. Chronic appearing infarct LEFT hemipons.
[2025-01-24] MEDS: gadobenate dimeglumine 20 mL vial IV (10:10)
== END 2025-01-24 09:20 | disposition home or self-care (01) ==
LOC: RAD 09:20
PROVIDERS: Visit Provider Nurse Practitioner
DX: I63.89 Other cerebral infarction (principal); H57.89 Other specified disorders of eye and adnexa; G50.1 Atypical facial pain; J32.9 Chronic sinusitis, unspecified
CPT/HCPCS: 70553